=== PATIENT | female | born 1955 | race African-American/Black ===

== ENCOUNTER 2018-03-17 14:46 | Inpatient (IN) | payer OTHER ==
[~2018-03-17] VITALS: Ht 152.4 cm; Wt 58.1 kg
[2018-03-17] MEDS ORDERED: Norco 5mg/325mg tab ORAL ONE (15:15)
[2018-03-17 16:30] VITALS: BP 148/84
--- NOTE | 2018-03-17 16:54 | Diagnostic Imaging Report ---
Indication: Pain, status post fall 2 days ago Technique: Spiral acquisitions obtained through the abdomen and pelvis. No oral contrast utilized, per emergency room physician request No IV contrast utilized, per referring physician request.. Multiplanar reconstructions were generated. Total dose length product 675.92 mGycm. CTDIvol(s) 13.21 mGy. Dose reduction achieved using automated exposure control Comparison: 10/27/2009 Findings: Bone window images demonstrate surgical fusion of the discs and posterior elements of L4-5 and L5-S1. There appears to be complete ankylosis of the L4-5 disc. A disc spacer is in place and there is partial ankylosis of the L5-S1 disc. There does appear to be fairly complete ankylosis of the posterior elements at L5-S1. No definite acute fractures or dislocations there are degenerative changes at multiple other levels. Lack of IV contrast limits assessment of solid organs. The liver, gallbladder, bile ducts, pancreas, spleen, right adrenal are unremarkable. Left and adrenal demonstrates a 1 cm nodule which demonstrates attenuation of 3 Hounsfield units. Not visible previously. A second more peripheral nodule measures 8 mm, demonstrates nonspecific soft tissue attenuation it was evident on the previous exam in retrospect.. The right adrenal is unremarkable. The right kidney is unremarkable. The left kidney demonstrates a hilar calcification which is probably arterial rather than calyceal. Uterus and adnexal structures are unremarkable. No pelvic mass or adenopathy. Lack of enteric contrast limits assessment of the GI tract. There is colonic diverticulosis. The appendix is only equivocally demonstrated. No evidence of appendicitis. No small bowel distention. No free or loculated intraperitoneal gas or fluid is evident. There is a moderate-sized sliding-type hiatal hernia. The remainder of the stomach and duodenum are unremarkable. The included lung bases are clear Compared to prior study, previously demonstrated immediate postsurgical changes, spinous and left pelvic and flank inflammatory changes are no longer evident. Previously demonstrated nephroureteral stent is no longer present.. Impression: No evidence of acute or significant solid organ trauma. Note, however, that evaluation for such is limited in the absence of IV contrast No definite acute bony trauma. Degenerative and postsurgical changes of the spine, as described 1 cm nodule in the left adrenal, low-attenuation is consistent with benign adenoma,, new since prior study. More peripheral nonspecific nodule was visible previously and is unchanged. Colonic diverticulosis Hiatal hernia, also previously demonstrated The CT scanner at [facility] is accredited by the [employer] and the scans are performed using protocols designed to limit radiation exposure to as low as reasonably achievable to attain images of sufficient resolution adequate for diagnostic evaluation.
[2018-03-17] MEDS ORDERED: Norco 5mg/325mg tab ONE (17:50)
[2018-03-17 18:20] LABS: BASOPHILS % (AUTO) 0.4 % (0.0-2.0); EOSINOPHILS % (AUTO) 0.5 % (0.0-3.0); HEMATOCRIT 36.8 % (37.0-47.0); HEMOGLOBIN 12.2 G/DL (12.0-16.0); LYMPHOCYTES % (AUTO) 26.3 % (20.0-45.0); MEAN CORPUSCULAR VOLUME 91 FL (80-99); MONOCYTES % (AUTO) 6.6 % (1.0-10.0); NEUTROPHILS % (AUTO) 66.3 % (45.0-75.0); PLATELET COUNT 401 K/UL (150-450); RED BLOOD COUNT 4.06 M/UL (4.20-5.40); RED CELL DISTRIBUTION WIDTH 12.9 % (11.6-14.8); WHITE BLOOD COUNT 12.1 K/UL (4.8-10.8)
[2018-03-17 18:27] LABS: ANION GAP 11 mmol/L (5-15); BLOOD UREA NITROGEN 24 mg/dL (7-18); CALCIUM 10.8 MG/DL (8.5-10.1); CARBON DIOXIDE 27 MMOL/L (21-32); CHLORIDE 103 MMOL/L (98-107); CREATININE 0.9 MG/DL (0.55-1.30); POTASSIUM 3.5 MMOL/L (3.5-5.1); SODIUM 141 MMOL/L (136-145)
[2018-03-17 18:32] LABS: ALANINE AMINOTRANSFERASE 23 U/L (12-78); ALBUMIN 4.2 G/DL (3.4-5.0); ALBUMIN/GLOBULIN RATIO 0.9 (1.0-2.7); ALKALINE PHOSPHATASE 74 U/L (46-116); ASPARTATE AMINO TRANSFERASE 24 U/L (15-37); BILIRUBIN,TOTAL 0.5 MG/DL (0.2-1.0)
--- NOTE | 2018-03-17 18:51 | Emergency Room Report ---
History of Present Illness General Chief Complaint: Pain Source: Patient Present Illness HPI Patient is a 63-year-old female who presented after increased generalized weakness. The patient had been sent from a [id number]. The patient had prior history of lumbar disc disease and is intermittently able to ambulate with a walker with great difficulty. The patient was noted to have decreased ability to ambulate. She had prior history of multiple spinal surgeries as well as rheumatoid arthritis. Patient reports having prior history of cervical stenosis.She reports having increased difficulty with urination.She was having normal bowel movement. Allergies: Coded Allergies: IBUPROFEN (Verified Allergy, Mild, 10/05/09) Patient History Past Medical History: see triage record Last Menstrual Period: na Reviewed Nursing Documentation: PMH: Agreed; PSxH: Agreed Nursing Documentation-PMH Past Medical History: No History, Except For Hx Hypertension: Yes Hx COPD: Yes Hx Neurological Problems: Yes - cervical compression Review of Systems All Other Systems: negative except mentioned in HPI Physical Exam Vital Signs Date Time Temp Pulse Resp B/P (MAP) Pulse Ox O2 Delivery O2 Flow Rate FiO2 03/17/18 14:54 99.5 116 18 149/96 98 Room Air 99.5 Sp02 EP Interpretation: reviewed, normal General Appearance: normal inspection, well appearing, no apparent distress, alert, GCS 15, Chronically Ill Head: atraumatic ENT: normal ENT inspection, hearing grossly normal, normal voice Neck: normal inspection, supple, no bony tend, limited range of motion Respiratory: normal inspection, lungs clear, normal breath sounds, no respiratory distress, no retraction, no wheezing Cardiovascular #1: regular rate, rhythm, no edema Gastrointestinal: normal inspection, normal bowel sounds, non tender, soft, no guarding, no hernia Genitourinary: no CVA tenderness Musculoskeletal: back normal, decreased range of motion, other - mild joint deformity to upper extremities Neurologic: normal inspection, alert, oriented x3, responsive, speech normal, motor weakness - left greater than right, able to stand with assistance Psychiatric: normal inspection, judgement/insight normal, mood/affect normal Skin: normal inspection, normal color, no rash Medical Decision Making Diagnostic Impression: Primary Impression: Generalized weakness Additional Impressions: Lumbar disc disease Cervical stenosis of spine Leukocytosis Dehydration ER Course Patient presented for back pain. Differential diagnosis included but was not limited to herniated disc, cauda equina syndrome, abdominal aortic aneurysm, perforated ulcer, spinal epidural abscess, spinal stenosis, lumbar fracture, metastatic lesion, pyelonephritis. Because of complexity of patient's case laboratory testing and imaging studies were ordered. The patient was noted to have chronic pain to her lower extremities. Patient reportedly has been on steroids in the past for rheumatoid arthritis with a resulting as severe swelling. The patient was noted to have significant back pain as well as difficulty with urination. CT of the abdomen pelvis read by radiology showed multilevel degenerative changes and postsurgical changes. The patient was noted to have elevated white blood count.The patient will be admitted for further evaluation of weakness.Dr. Enamorado was contacted for inpatient management due to need for inpatient monitoring and treatment. Labs Test 03/17/18 17:28 White Blood Count 12.1 K/UL (4.8-10.8) Red Blood Count 4.06 M/UL (4.20-5.40) Hemoglobin 12.2 G/DL (12.0-16.0) Hematocrit 36.8 % (37.0-47.0) Mean Corpuscular Volume 91 FL (80-99) Mean Corpuscular Hemoglobin 30.0 PG (27.0-31.0) Mean Corpuscular Hemoglobin Concent 33.0 G/DL (32.0-36.0) Red Cell Distribution Width 12.9 % (11.6-14.8) Platelet Count 401 K/UL (150-450) Mean Platelet Volume 4.9 FL (6.5-10.1) Neutrophils (%) (Auto) 66.3 % (45.0-75.0) Lymphocytes (%) (Auto) 26.3 % (20.0-45.0) Monocytes (%) (Auto) 6.6 % (1.0-10.0) Eosinophils (%) (Auto) 0.5 % (0.0-3.0) Basophils (%) (Auto) 0.4 % (0.0-2.0) Sodium Level 141 MMOL/L (136-145) Potassium Level 3.5 MMOL/L (3.5-5.1) Chloride Level 103 MMOL/L (98-107) Carbon Dioxide Level 27 MMOL/L (21-32) Anion Gap 11 mmol/L (5-15) Blood Urea Nitrogen 24 mg/dL (7-18) Creatinine 0.9 MG/DL (0.55-1.30) Estimat Glomerular Filtration Rate > 60 mL/min (>60) Glucose Level 86 MG/DL (74-106) Calcium Level 10.8 MG/DL (8.5-10.1) Total Bilirubin 0.5 MG/DL (0.2-1.0) Aspartate Amino Transf (AST/SGOT) 24 U/L (15-37) Alanine Aminotransferase (ALT/SGPT) 23 U/L (12-78) Alkaline Phosphatase 74 U/L (46-116) Troponin I 0.031 ng/mL (0.000-0.056) Total Protein 8.8 G/DL (6.4-8.2) Albumin 4.2 G/DL (3.4-5.0) Globulin 4.6 g/dL Albumin/Globulin Ratio 0.9 (1.0-2.7) Last Vital Signs Date Time Temp Pulse Resp B/P (MAP) Pulse Ox O2 Delivery O2 Flow Rate FiO2 03/17/18 17:51 99.5 03/17/18 16:30 82 18 148/84 100 Room Air Status: unchanged Disposition: ADMITTED INPATIENT Condition: Stable Referrals: NOT CHOSEN IPA/,REFERRING (PCP) Jermaine Nick MD Mar 17, 2018 18:51
[2018-03-17] MEDS ORDERED: Sodium Chloride 500ML 500 ML IV ONE (19:45)
[2018-03-17 21:00] VITALS: BP 182/92
[2018-03-17] MEDS ORDERED: Acetaminophen 650 MG SUPP RECTAL PRN (21:00)
[2018-03-17] MEDS ORDERED: DULCOLAX5 MG PO (21:08)
[2018-03-17] MEDS ORDERED: FUROSEMIDE40 MG ORAL (21:08)
[2018-03-17] MEDS ORDERED: CYMBALTA60 MG ORAL (21:08)
[2018-03-17] MEDS ORDERED: ACETAMINOPHEN325 M1 ORAL (21:08)
[2018-03-17] MEDS ORDERED: PROTONIX40 MG ORAL (21:08)
[2018-03-17] MEDS ORDERED: ELIQUIS5 MG PO (21:12)
[2018-03-17] MEDS ORDERED: FAMOTIDINE20 MG ORAL (21:12)
[2018-03-17] MEDS ORDERED: CYCLOBENZAPRIN7.5 MG ORAL (21:12)
[2018-03-17] MEDS ORDERED: AMLODIPINE BESYL5 MG ORAL (21:12)
[2018-03-17] MEDS ORDERED: LIDOCAINE700 M1 TP (21:14)
[2018-03-17] MEDS ORDERED: AFRIN NASAL SPR30 ML NASAL (21:14)
[2018-03-17 21:30] VITALS: BP 160/105
[2018-03-17] MEDS: Docusate 100mg cap ORAL SCH (21:44)
[2018-03-17] MEDS: D5 1/2NS 1,000 ML IV SCH (21:48)
[2018-03-17] MEDS ORDERED: Enoxaparin 40mg Inj SUBQ SCH (22:00)
[2018-03-17 22:25] VITALS: BP 140/100
[2018-03-17 22:25] LABS: CHOLESTEROL 235 MG/DL (< 200); FERRITIN 62 NG/ML (8-388); HDL CHOLESTEROL 66 MG/DL (40-60); TRIGLYCERIDES 83 MG/DL (30-150)
--- NOTE | 2018-03-17 22:50 | Infectious Diseases Prog Note ---
Assessment/Plan Problems: (1) Fever Assessment & Plan: rule out infectious eiteology VS RA flare, will send blood culture and urine culture , and order CXR to rule out pneumonia (2) Leukocytosis Assessment & Plan: UTI VS RA flare , will send urine culture and start ceftriaxon empirically (3) Generalized weakness Assessment & Plan: consult PT/OT , check TSH (4) Dehydration Assessment & Plan: continue IVF for hydration (5) Lumbar disc disease Assessment & Plan: continue pain management , PT/OT Subjective Allergies: Coded Allergies: IBUPROFEN (Verified Allergy, Mild, 10/05/09) Objective Vital Signs Last 24 Hour Vital Signs Date Time Temp Pulse Resp B/P (MAP) Pulse Ox O2 Delivery O2 Flow Rate FiO2 03/17/18 20:23 98.0 82 18 148/84 100 Room Air 03/17/18 17:51 99.5 03/17/18 16:30 82 18 148/84 100 Room Air 03/17/18 14:54 99.5 116 18 149/96 98 Room Air 99.5 Height (Feet): 5 Weight (Pounds): 128 Laboratory Tests Test 03/17/18 17:28 White Blood Count 12.1 K/UL (4.8-10.8) H Red Blood Count 4.06 M/UL (4.20-5.40) L Hemoglobin 12.2 G/DL (12.0-16.0) Hematocrit 36.8 % (37.0-47.0) L Mean Corpuscular Volume 91 FL (80-99) Mean Corpuscular Hemoglobin 30.0 PG (27.0-31.0) Mean Corpuscular Hemoglobin Concent 33.0 G/DL (32.0-36.0) Red Cell Distribution Width 12.9 % (11.6-14.8) Platelet Count 401 K/UL (150-450) Mean Platelet Volume 4.9 FL (6.5-10.1) L Neutrophils (%) (Auto) 66.3 % (45.0-75.0) Lymphocytes (%) (Auto) 26.3 % (20.0-45.0) Monocytes (%) (Auto) 6.6 % (1.0-10.0) Eosinophils (%) (Auto) 0.5 % (0.0-3.0) Basophils (%) (Auto) 0.4 % (0.0-2.0) Sodium Level 141 MMOL/L (136-145) Potassium Level 3.5 MMOL/L (3.5-5.1) Chloride Level 103 MMOL/L (98-107) Carbon Dioxide Level 27 MMOL/L (21-32) Anion Gap 11 mmol/L (5-15) Blood Urea Nitrogen 24 mg/dL (7-18) H Creatinine 0.9 MG/DL (0.55-1.30) Estimat Glomerular Filtration Rate > 60 mL/min (>60) Glucose Level 86 MG/DL (74-106) Hemoglobin A1c 5.8 % (4.3-6.0) Calcium Level 10.8 MG/DL (8.5-10.1) H Ferritin 62 NG/ML (8-388) Total Bilirubin 0.5 MG/DL (0.2-1.0) Aspartate Amino Transf (AST/SGOT) 24 U/L (15-37) Alanine Aminotransferase (ALT/SGPT) 23 U/L (12-78) Alkaline Phosphatase 74 U/L (46-116) Troponin I 0.031 ng/mL (0.000-0.056) Pro-B-Type Natriuretic Peptide 49 pg/mL (0-125) Total Protein 8.8 G/DL (6.4-8.2) H Albumin 4.2 G/DL (3.4-5.0) Globulin 4.6 g/dL Albumin/Globulin Ratio 0.9 (1.0-2.7) L Triglycerides Level 83 MG/DL (30-150) Cholesterol Level 235 MG/DL (< 200) H LDL Cholesterol 144 mg/dL (<100) H HDL Cholesterol 66 MG/DL (40-60) H Cholesterol/HDL Ratio 3.6 (3.3-4.4) Free Thyroxine 1.21 NG/DL (0.76-1.46) Current Medications Medications (Trade) Dose Ordered Sig/Kina Route PRN Reason Start Time Stop Time Status Last Admin Dose Admin Acetaminophen (Tylenol) 650 mg Q4H PRN RECTAL Mild Pain (Pain Scale 1-3) 03/17/18 21:00 04/16/18 20:59 Dextrose (Dextrose 50%) 25 ml Q30M PRN IV Hypoglycemia 03/17/18 21:00 04/16/18 20:59 Dextrose (Dextrose 50%) 50 ml Q30M PRN IV Hypoglycemia 03/17/18 21:00 04/16/18 20:59 Dextrose/Sodium Chloride 1,000 ml @ 75 mls/hr [id number] IV 03/17/18 21:30 04/16/18 21:29 03/17/18 21:48 Diphenhydramine HCl (Benadryl) 25 mg Q6H PRN ORAL Itching/Pruritis 03/17/18 21:00 04/16/18 20:59 Docusate Sodium (Colace) 100 mg EVERY 12 HOURS ORAL 03/17/18 21:00 04/16/18 20:59 03/17/18 21:44 Enoxaparin Sodium (Lovenox) 40 mg Q24H SUBQ 03/17/18 22:00 04/16/18 21:59 03/17/18 22:06 Furosemide (Lasix) 40 mg DAILY IV 03/17/18 22:00 04/16/18 21:59 03/17/18 21:48 Ondansetron HCl (Zofran) 4 mg Q6H PRN IVP Nausea & Vomiting 03/17/18 21:00 04/16/18 20:59 Pantoprazole (Protonix) 40 mg DAILY ORAL 03/17/18 21:00 04/16/18 20:59 03/17/18 21:44 Ar Pardo M.D. Mar 17, 2018 22:50
[2018-03-18] VITALS: BP 145/89
[2018-03-18] MEDS: cefTRIAXone 1 GM in D5W 55 ML IVPB SCH ×2 (01:13→22:59)
[2018-03-18] MEDS ORDERED: Oxymetazoline 0.05% Na Spray 30ml NASAL PRN (01:45)
[2018-03-18] MEDS: Morphine Sulfate 4mg/ml Inj (IV USE ONLY) IVP PRN ×4 (05:54→21:10)
[2018-03-18 08:00] VITALS: BP 140/98
[2018-03-18 08:08] LABS: BASOPHILS % (AUTO) 0.5 % (0.0-2.0); EOSINOPHILS % (AUTO) 0.7 % (0.0-3.0); HEMATOCRIT 35.5 % (37.0-47.0); HEMOGLOBIN 11.8 G/DL (12.0-16.0); LYMPHOCYTES % (AUTO) 24.9 % (20.0-45.0); MEAN CORPUSCULAR VOLUME 88 FL (80-99); MONOCYTES % (AUTO) 4.9 % (1.0-10.0); PLATELET COUNT 364 K/UL (150-450); RED BLOOD COUNT 4.05 M/UL (4.20-5.40); RED CELL DISTRIBUTION WIDTH 12.7 % (11.6-14.8); WHITE BLOOD COUNT 8.6 K/UL (4.8-10.8)
[2018-03-18] MEDS: Docusate 100mg cap ORAL SCH ×2 (08:21→21:09)
[2018-03-18] MEDS: Eliquis 2.5mg tablet ORAL SCH ×2 (08:21→21:09)
[2018-03-18 08:28] LABS: ALANINE AMINOTRANSFERASE 20 U/L (12-78); ALBUMIN 3.8 G/DL (3.4-5.0); ALBUMIN/GLOBULIN RATIO 0.8 (1.0-2.7); ALKALINE PHOSPHATASE 71 U/L (46-116); ANION GAP 10 mmol/L (5-15); ASPARTATE AMINO TRANSFERASE 17 U/L (15-37); BILIRUBIN,TOTAL 0.4 MG/DL (0.2-1.0); BLOOD UREA NITROGEN 17 mg/dL (7-18); CALCIUM 10.5 MG/DL (8.5-10.1); CARBON DIOXIDE 27 MMOL/L (21-32); CHLORIDE 103 MMOL/L (98-107); CREATININE 0.7 MG/DL (0.55-1.30); SODIUM 141 MMOL/L (136-145)
[2018-03-18 08:30] LABS: POTASSIUM 2.7 MMOL/L (3.5-5.1)
--- NOTE | 2018-03-18 10:08 | General Progress Note ---
Assessment/Plan Assessment/Plan S: My pain is better controlled O: appears with significant pain in lower extr, and limitation for ambulation PHYSICAL EXAMINATION: HEAD AND NECK: Atraumatic and normocephalic. CHEST: Clear to auscultation. No wheezing and no crackles. HEART: S1 and S2. Regular rate and rhythm. No S3. No S4. ABDOMEN: Soft. No organomegaly. Bowel sounds are normal. MUSCULOSKELETAL: Decreased range of motion in all four extremities. Positive for atrophied musculature. No gross sensory lesion is appreciated in the lower extremities.NEUROLOGIC: Awake, alert, and oriented x3. Meds: reviewed , including and not limited to metoprolol 25 mg bid IMAGING: result for CT is pending ASSESSMENT AND PLAN: 1. Acute weakness in the lower extremities associated urinary incontinence with no Obstruction 2. 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 3. Systemic inflammatory response syndrome. 4. Chronic pain. 5. Hyperlipidemia. 6. Gastrointestinal and deep venous thrombosis prophylaxis. 7. HTN Plan: Pt/OT consult no evidence of Acute Bladder Obstruction Subjective Allergies: Coded Allergies: IBUPROFEN (Verified Allergy, Mild, 10/05/09) Objective Last 24 Hour Vital Signs Date Time Temp Pulse Resp B/P (MAP) Pulse Ox O2 Delivery O2 Flow Rate FiO2 03/18/18 09:39 96.8 03/18/18 09:09 96.8 03/18/18 08:00 96.8 90 18 140/98 (112) 97 96.8 03/18/18 07:27 Room Air 03/18/18 00:00 97.6 78 18 145/89 (107) 97 97.6 03/17/18 22:25 140/100 (113) 03/17/18 21:30 160/105 (123) 03/17/18 21:00 97.3 18 18 182/92 (122) 97 97.3 03/17/18 21:00 Room Air 03/17/18 20:46 Room Air 03/17/18 20:23 98.0 82 18 148/84 100 Room Air 03/17/18 17:51 99.5 03/17/18 16:30 82 18 148/84 100 Room Air 03/17/18 14:54 99.5 116 18 149/96 98 Room Air 99.5 Intake and Output 03/17/18 03/18/18 19:00 07:00 Intake Total 1805 ml Balance 1805 ml Intake IV Total 1805 ml # Voids 5 Laboratory Tests 03/17/18 17:28: White Blood Count 12.1H, Red Blood Count 4.06L, Hemoglobin 12.2, Hematocrit 36.8L, Mean Corpuscular Volume 91, Mean Corpuscular Hemoglobin 30.0, Mean Corpuscular Hemoglobin Concent 33.0, Red Cell Distribution Width 12.9, Platelet Count 401, Mean Platelet Volume 4.9L, Neutrophils (%) (Auto) 66.3, Lymphocytes ( %) (Auto) 26.3, Monocytes (%) (Auto) 6.6, Eosinophils (%) (Auto) 0.5, Basophils (%) (Auto) 0.4, Sodium Level 141, Potassium Level 3.5, Chloride Level 103, Carbon Dioxide Level 27, Anion Gap 11, Blood Urea Nitrogen 24H, Creatinine 0.9, Estimat Glomerular Filtration Rate > 60, Glucose Level 86, Hemoglobin A1c 5.8, Calcium Level 10.8H, Ferritin 62, Total Bilirubin 0.5, Aspartate Amino Transf ( AST/SGOT) 24, Alanine Aminotransferase (ALT/SGPT) 23, Alkaline Phosphatase 74, Troponin I 0.031, Pro-B-Type Natriuretic Peptide 49, Total Protein 8.8H, Albumin 4.2, Globulin 4.6, Albumin/Globulin Ratio 0.9L, Triglycerides Level 83, Cholesterol Level 235H, LDL Cholesterol 144H, HDL Cholesterol 66H, Cholesterol/ HDL Ratio 3.6, Free Thyroxine 1.21 03/18/18 06:55: White Blood Count 8.6, Red Blood Count 4.05L, Hemoglobin 11.8L, Hematocrit 35.5L , Mean Corpuscular Volume 88, Mean Corpuscular Hemoglobin 29.2, Mean Corpuscular Hemoglobin Concent 33.4, Red Cell Distribution Width 12.7, Platelet Count 364, Mean Platelet Volume 5.1L, Neutrophils (%) (Auto) 69.0, Lymphocytes ( %) (Auto) 24.9, Monocytes (%) (Auto) 4.9, Eosinophils (%) (Auto) 0.7, Basophils (%) (Auto) 0.5, Sodium Level 141, Potassium Level 2.7*L, Chloride Level 103, Carbon Dioxide Level 27, Anion Gap 10, Blood Urea Nitrogen 17, Creatinine 0.7, Estimat Glomerular Filtration Rate > 60, Glucose Level 101, Calcium Level 10.5H , Total Bilirubin 0.4, Aspartate Amino Transf (AST/SGOT) 17, Alanine Aminotransferase (ALT/SGPT) 20, Alkaline Phosphatase 71, Total Protein 8.3H, Albumin 3.8, Globulin 4.5, Albumin/Globulin Ratio 0.8L Height (Feet): 5 Height (Inches): 0.00 Weight (Pounds): 128 Ольга Enamorado MD Mar 18, 2018 10:08
[2018-03-18] MEDS: D5 1/2NS 1,000 ML IV SCH (10:59)
[2018-03-18 11:52] LABS: APPEARANCE,URINE CLOUDY; BILIRUBIN, URINE NEGATIVE (NEGATIVE); COLOR,URINE PALE YELLOW; GLUCOSE, URINE (UA) NEGATIVE (NEGATIVE); KETONES,URINE NEGATIVE (NEGATIVE); LEUKOCYTE ESTERASE ,URINE NEGATIVE (NEGATIVE); NITRITE,URINE NEGATIVE (NEGATIVE); PH,URINE 7 (4.5-8.0); PROTEIN,URINE NEGATIVE (NEGATIVE); UROBILINOGEN,URINE NORMAL MG/DL (0.0-1.0)
[2018-03-18 12:31] VITALS: BP 138/92
--- NOTE | 2018-03-18 15:15 | Diagnostic Imaging Report ---
Indication: Increased generalized weakness, difficulty walking, decreased ability to ambulate, history of multiple spinal surgeries Technique: Spiral acquisitions obtained through the cervical spine. No IV contrast utilized. Multiplanar reconstructions were generated. Total dose length product 210.24 mGycm. CTDIvol(s) 11.65 mGy. Dose reduction achieved using automated exposure control. Comparison: none Findings: There is very slight anterior offset of C3 on C4. The remainder the bony alignment is normal. Vertebral body heights are preserved. There is multilevel degenerative disc narrowing. No prevertebral soft tissue swelling no acute fractures. No dislocations. There is degenerative narrowing of the anterior atlantoaxial joint. At C2-3, there is mild central posterior disc protrusion which does not appear to significant compromise the spinal canal. The neural foramina are preserved. At C3-4, there is degenerative disc narrowing. There is posterior disc bulge/osteophyte complex as well as a broad-based central posterior disc protrusion. This, in combination with short pedicles and ligamentum flavum hypertrophy results in moderate to severe narrowing of the spinal canal, to a minimum of 5 mm AP diameter. There is bilateral facet arthrosis. There is bilateral severe neural foraminal stenosis. At C4-5, there is degenerative disc narrowing and calcification. Posterior osteophytes result in borderline narrowing of the spinal canal. There is minimal right, moderate to severe left neural foraminal stenosis. At C5-6, there is broad-based posterior disc protrusion which results in mild to moderate narrowing of the spinal canal. There is moderate to severe narrowing of the neural foramina bilaterally. There is moderate narrowing of the disc space. At the remaining disc levels, no significant disc bulge or protrusion, spinal stenosis, or neural foraminal stenosis. There is mild facet arthrosis at C7-T1 on the left. Included extra spinal soft tissues are remarkable for the presence of a diffusely enlarged thyroid. There is very questionable slight heterogeneity to the thyroid attenuation all of discrete nodules are not clearly demonstrated. The upper aerodigestive tract appears unremarkable. Impression: No acute bony trauma Moderate to severe spinal stenosis at C3-4. Other multilevel degenerative changes, as detailed above. Enlarged and possibly multinodular thyroid The CT scanner at [facility] is accredited by the [employer] and the scans are performed using protocols designed to limit radiation exposure to as low as reasonably achievable to attain images of sufficient resolution adequate for diagnostic evaluation.
--- NOTE | 2018-03-18 15:34 | Diagnostic Imaging Report ---
Indication: Back pain, difficulty walking, history of multiple spinal surgeries Technique: Spiral acquisitions obtained through the thoracic spine. No IV contrast utilized. Multiplanar reconstructions were generated. Total dose length product 644.26 mGycm. CTDIvol(s) 16.15 mGy. Dose reduction achieved using automated exposure control Comparison: none Findings: There is very mild thoracic levoscoliotic deformity, may be an artifact of positioning, otherwise normal bony alignment. No acute fractures. No dislocations. Short pedicles result in a diffusely mildly narrow thoracic spinal canal. There is mild to moderate degenerative disc narrowing at T8-9. This results in mild bilateral neural foraminal stenosis. No significant focal spinal stenosis. There is some vacuum disc formation at this level. There is minimal focal anterior disc degeneration at C5-6, as well as adjacent osteophyte formation. No significant disc bulge or protrusion, focal spinal stenosis, or neural foraminal stenosis at this level. There is moderate degenerative disc narrowing, considerable adjacent endplate irregularity, subchondral cyst formation, osteophyte formation and sclerosis at T9-10, with associated degenerative proliferative changes. There is also facet arthrosis on the right. Posterior osteophytes result in mild focal narrowing of the spinal canal, minimum AP dimension 9 mm. There is mild bilateral neural foraminal stenosis as well. There are multilevel degenerative proliferative changes, particularly laterally on the right. No other evidence of significant canal stenosis or neural foraminal stenosis. Included extraspinal soft tissues demonstrate a small to moderate-sized sliding-type hiatal hernia. There are posterior dependent atelectatic changes of both lungs incidentally noted. Impression: Generalized borderline narrowed spinal canal due to short pedicles Disc narrowing, marked endplate irregularity, subchondral cyst formation, proliferative change, subchondral sclerosis at T9-10. This is most likely due to advanced degenerative change. Given the degree of endplate irregularity, the possibility of chronic infectious discitis should be considered but is deemed much less likely. This results in mild focal spinal stenosis as well as bilateral mild neural foraminal stenosis Other degenerative changes as detailed on a level by level basis above Hiatal hernia The CT scanner at [facility] is accredited by the [employer] and the scans are performed using protocols designed to limit radiation exposure to as low as reasonably achievable to attain images of sufficient resolution adequate for diagnostic evaluation.
[2018-03-18 15:42] VITALS: BP 129/87
--- NOTE | 2018-03-18 16:13 | Diagnostic Imaging Report ---
Indications: Back pain, difficulty walking, lower extremity weakness Technique: Spiral acquisitions obtained through the lumbar spine. Multiplanar reconstructions were generated. No IV contrast utilized. Total dose length product 391.86 mGycm. CTDIvol(s) 13.35 mGy. Dose reduction achieved using automated exposure control Comparison: Reference made to abdomen pelvis CT scan 03/17/2018 Findings: There is fusion with complete ankylosis of the L4-5 disc. Uncertain as to whether this is postsurgical or related to prior history of discitis. There is some anterior offset of L4 on L5, resulting in some kinking of the spinal canal at this level. There is also complete ankylosis of the L4-L5 facets and spinous processes. There is a disc spacer at L5-S1. The disc appears to be mostly ankylosed. There is also ankylosis of the L5 and S1 facets bilaterally. The remainder of the bony alignment is preserved and normal. The vertebral body heights are preserved. There is vacuum formation at L3-4, but all of the disc spaces are preserved. There is [id number] contact with degenerative change of the L3 and L4 spinous processes. There is severe spinal stenosis at L3-4, predominantly due to circumferential annular bulge and large facet osteophytes intruding into the posterior spinal canal bilaterally. There is associated severe facet arthrosis. There is also bilateral severe neural foraminal stenosis. At L4-5, the alignment abnormality, short pedicles, facet arthrosis, and posterior osteophytes result in moderate to severe narrowing of the spinal canal and obliteration of the left lateral recess.. The neural foramina are only mildly compromised. At L5-S1, no significant disc bulge or protrusion or spinal stenosis. Facet arthrosis results in mild right and minimal left neural foraminal stenosis. At the upper lumbar disc levels, no significant disc bulge or protrusion, spinal stenosis, or neural foraminal stenosis. Included extraspinal soft tissues demonstrate marked bladder distention. There is colonic diverticulosis. Impression: Severe spinal stenosis at L3-4, as described, due to circumferential or bulge and large facet osteophytes. Associated severe bilateral neural foraminal stenosis. This may account for the patient's symptoms. Moderate to severe spinal stenosis at L4-5, as described Ankylosis of L4-5, may be in part postsurgical, in part related to prior discitis/osteomyelitis seen on 2009 exams Other postsurgical changes and degenerative changes, as described No acute bony trauma Distended bladder Colonic diverticulosis The CT scanner at [facility] is accredited by the [employer] and the scans are performed using protocols designed to limit radiation exposure to as low as reasonably achievable to attain images of sufficient resolution adequate for diagnostic evaluation.
--- NOTE | 2018-03-18 18:23 | Cardiology Report ---
APPROVED REPORT EXAM: Two-dimensional and M-mode echocardiogram with Doppler and color Doppler. INDICATION Hypertension/HCVD M-Mode DIMENSIONS IVSd1.2 (0.7-1.1cm)Left Atrium (MM)3.0 (1.6-4.0cm) LVDd4.1 (3.5-5.6cm)Aortic Root3.4 (2.0-3.7cm) PWd1.5 (0.7-1.1cm)Aortic Cusp Exc.1.6 (1.5-2.0cm) IVSs2.9 cm LVDs1.4 (2.5-4.0cm) Normal left ventricular chamber size, systolic function and wall motion . Left ventricular ejection fraction estimated to be 65-70 %. Increased echo at the atrial septum suggestive of lipomatous atrial septum. Mild left ventricular hypertrophy . No evidence of pericardial effusion. All other cardiac chamber sizes are within normal limits. Focal aortic valve sclerosis with adequate cusp excursion. Thickened mitral valve leaflets with normal excursion. Mitral annulus and aortic root calcification. Pulmonic valve not well visualized. Normal tricuspid valve structure. IVC at normal size with physiologic collapse. A color flow and spectral Doppler study was performed and revealed: No aortic insufficiency . Trace mitral regurgitation. Mitral diastolic velocities suggest reduced left ventricular relaxation c/w mild LV diastolic dysfunction (Grade I ). Mild tricuspid regurgitation. Tricuspid systolic velocities suggests peak right ventricular systolic pressure of 29 mmHg.
[2018-03-18 20:00] VITALS: BP 140/81
--- NOTE | 2018-03-18 21:15 | History and Physical Report ---
DATE OF ADMISSION: 03/17/2018 SOURCE OF INFORMATION: The patient and EMR. HISTORY OF PRESENT ILLNESS: The patient is a pleasant 63-year-old -[place] female with a history multiple spine injuries followed by the work-related injury. At the time of evaluation, the patient is complaining of [id number] pain in the lower extremity. The patient reported that she had been admitted to the long term facility followed by discharge, she had been stayed in the board and care. Given the worsening of the ambulation, the patient presented to the hospital. At the time of evaluation, the patient complained of problem with the urination, but reported that now that there are no issues. Denies any sensory problem in the lower extremity and positive for lowest strength in the lower extremities. REVIEW OF SYSTEMS: All 12 elements of review of systems reviewed. Pertinent positive and negative as above. PAST MEDICAL AND PAST SURGICAL HISTORY: Multiple lumbar spine surgeries followed by the work-related injury, anticoagulation (the exact reason is not clear at this time), chronic pain, and hypertension. SOCIAL HISTORY: The patient reportedly has one child. Denies history of smoking, illicit drug abuse, or alcohol abuse. CURRENT HOSPITAL MEDICATIONS: Including Eliquis, ceftriaxone, Lasix, and morphine sulfate on p.r.n. basis. PHYSICAL EXAMINATION: VITAL SIGNS: Blood pressure 150/80, temperature 98.2 degrees, pulse oximetry 98% on room air, respiratory rate 18, and pulse rate 120. HEAD AND NECK: Atraumatic and normocephalic. CHEST: Clear to auscultation. No wheezing and no crackles. HEART: S1 and S2. Regular rate and rhythm. No S3. No S4. ABDOMEN: Soft. No organomegaly. Bowel sounds are normal. MUSCULOSKELETAL: Decreased range of motion in all four extremities. Positive for atrophied musculature. No gross sensory lesion is appreciated in the lower extremities. NEUROLOGIC: Awake, alert, and oriented x3. LABORATORY DATA: Dated 03/17/2018 shows WBC 12.1, hemoglobin of 12.2, and platelet count of 400,000. Sodium 141, potassium 3.5, BUN 24, and creatinine 0.9. Troponin x1 negative. Calcium 10.8 and LDL of 144. IMAGING: Abdominal pelvic CT scan reviewed and is unremarkable for acute pathology, positive for postsurgical change in the spine, positive for 1 cm adrenal gland nodule, and hiatal hernia. ASSESSMENT AND PLAN: 1. Acute weakness in the lower extremities associated urinary incontinence. 2. 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 3. Systemic inflammatory response syndrome. 4. Chronic pain. 5. Hyperlipidemia. 6. Gastrointestinal and deep venous thrombosis prophylaxis. PLAN OF CARE: We will order the CT scan of the spine, consult PT/OT, and we will check the urinalysis. Ольга Enamorado M.D. DR: JOSE DAVID JOB#: [id number] CC:
--- NOTE | 2018-03-19 01:15 | Consultation ---
DATE OF CONSULTATION: 03/18/2018 INFECTIOUS DISEASE CONSULTATION CONSULTING PHYSICIAN: Ar Pardo M.D. REQUESTING PHYSICIAN: Allyson Enamorado M.D. REASON FOR CONSULTATION: Fever and leukocytosis, rule out infectious etiology. HISTORY OF PRESENT ILLNESS: The patient is a 63-year-old female with past medical history of hypertension, COPD, cervical compression, and rheumatoid arthritis with osteoarthritis, presented to [facility] for generalized weakness. The patient was sent from [facility]. She had prior history of lumbar disk disease and she has been intermittently able to ambulate with a walker, but with great difficulty. The patient was noted to have decreased ability to ambulate. She had multiple spinal surgeries in the past due to degenerative disease in her spine. The patient also had a history of cervical stenosis and she is on neck collar. In the emergency room, the patient was found to have low-grade temperature of 99.5 and pulse of 116. She also had leukocytosis, which was concerning for infection with white count of 12.1, so Infectious Disease consultation was requested for antibiotics treatment and further management. The patient herself denied any cough or phlegm. No headache or blurry vision. No fever or chills. No nausea, vomiting, or diarrhea. No urinary symptoms. REVIEW OF SYSTEMS: A 14-point of systems reviewed were all negative apart from the one I mentioned above in my History and Physical. PAST MEDICAL HISTORY: Significant for hypertension, COPD, cervical compression, and rheumatoid arthritis. PAST SURGICAL HISTORY: She had multiple spine surgeries. FAMILY HISTORY: Noncontributory. SOCIAL HISTORY: The patient lives at [facility]. No recent drugs, tobacco, or alcohol. ALLERGIES: She is allergic to ibuprofen. MEDICATIONS: She is on diphenhydramine, Zofran, Colace, Protonix, Lasix, Afrin nasal spray, Tylenol, morphine sulfate, Soma, and Eliquis. LABORATORY DATA: Labs showed white count of 8.6, hemoglobin of 11.8, and platelet count of 364,000. BUN of 17 and creatinine of 0.7. AST of 17 and ALT of 20. IMAGING: Abdomen and pelvis CT scan showed no evidence of acute or significant solid organ trauma; however, that evaluation for such was limited in the absence of IV contrast. No definite acute bony trauma. Degenerative and postsurgical change of the spine. A 1 cm nodule in the left adrenal low attenuation is consistent with benign adenoma. PHYSICAL EXAMINATION: VITAL SIGNS: Temperature 98, pulse 82, respirations 18, blood pressure 148/84, and saturation 100% on room air. GENERAL: Elderly female, lying in bed, awake, alert, and oriented x3, not in acute distress. She has neck collar. HEENT: Normocephalic and atraumatic. Pupils are reactive to light. Moist oral mucosa. No exudate or thrush. NECK: Supple. No lymphadenopathy. CARDIOVASCULAR: Regular rate and rhythm. No murmur or gallop. LUNGS: Clear bilaterally. No wheezing or rhonchi. ABDOMEN: Soft, nontender, and nondistended. Normal bowel sounds. No hepatosplenomegaly or ascites. EXTREMITIES: No edema or cyanosis. SKIN: No rash or hives. ASSESSMENT AND RECOMMENDATION: 1. Fever, rule out infectious etiology versus rheumatoid arthritis flare. We will send blood culture and urine culture and order chest x-ray to rule out pneumonia. We will start the patient on ceftriaxone empiric coverage. 2. Leukocytosis, UTI versus rheumatoid arthritis flare. We will send urine culture and start ceftriaxone empiric coverage. 3. Generalized weakness. Consult PT/OT. Check TSH. 4. Dehydration. Continue IV fluid for hydration. 5. Lumbar disk disease. Continue pain management and PT/OT. Thank you for the consult. ID will continue to follow. Please feel free to call with any question. Ar Pardo M.D. DR: FREDERICK JOB#: [id number] CC:
[2018-03-19] MEDS: D5 1/2NS 1,000 ML IV SCH ×3 (02:04→22:56)
[2018-03-19] MEDS: Morphine Sulfate 4mg/ml Inj (IV USE ONLY) IVP PRN ×3 (05:47→16:18)
[2018-03-19 09:00] VITALS: BP_SYST 140; BP_SYST 160; BP_DIAS 104; BP_DIAS 81
[2018-03-19] MEDS: Eliquis 2.5mg tablet ORAL SCH ×2 (09:09→20:51)
[2018-03-19] MEDS: Docusate 100mg cap ORAL SCH ×2 (09:10→20:51)
[2018-03-19 09:28] LABS: BASOPHILS % (AUTO) 0.3 % (0.0-2.0); EOSINOPHILS % (AUTO) 0.7 % (0.0-3.0); LYMPHOCYTES % (AUTO) 21.6 % (20.0-45.0); MEAN CORPUSCULAR VOLUME 90 FL (80-99); MONOCYTES % (AUTO) 5.5 % (1.0-10.0); NEUTROPHILS % (AUTO) 71.8 % (45.0-75.0); PLATELET COUNT 385 K/UL (150-450); RED BLOOD COUNT 4.13 M/UL (4.20-5.40); RED CELL DISTRIBUTION WIDTH 13.2 % (11.6-14.8); WHITE BLOOD COUNT 8.9 K/UL (4.8-10.8)
[2018-03-19 10:04] LABS: ALANINE AMINOTRANSFERASE 19 U/L (12-78); ALBUMIN 3.8 G/DL (3.4-5.0); ALBUMIN/GLOBULIN RATIO 0.8 (1.0-2.7); ALKALINE PHOSPHATASE 75 U/L (46-116); ANION GAP 8 mmol/L (5-15); ASPARTATE AMINO TRANSFERASE 12 U/L (15-37); BILIRUBIN,TOTAL 0.3 MG/DL (0.2-1.0); BLOOD UREA NITROGEN 18 mg/dL (7-18); CALCIUM 10.1 MG/DL (8.5-10.1); CARBON DIOXIDE 29 MMOL/L (21-32); CHLORIDE 106 MMOL/L (98-107); CREATININE 0.8 MG/DL (0.55-1.30); POTASSIUM 4.2 MMOL/L (3.5-5.1); SODIUM 143 MMOL/L (136-145)
[2018-03-19 12:00] VITALS: BP 148/95
--- NOTE | 2018-03-19 12:21 | General Progress Note ---
Assessment/Plan Assessment/Plan S: My pain is better controlled O: appears with significant limitation for ambulation PHYSICAL EXAMINATION: HEAD AND NECK: Atraumatic and normocephalic. CHEST: Clear to auscultation. No wheezing and no crackles. HEART: S1 and S2. Regular rate and rhythm. No S3. No S4. ABDOMEN: Soft. No organomegaly. Bowel sounds are normal. MUSCULOSKELETAL: Decreased range of motion in all four extremities. Positive for atrophied musculature. No gross sensory lesion is appreciated in the lower extremities.NEUROLOGIC: Awake, alert, and oriented x3. Meds: reviewed , including and not limited to metoprolol 25 mg bid IMAGING: Abdominal pelvic CT scan reviewed and is unremarkable for acute pathology, positive for postsurgical change in the spine, positive for 1 cm adrenal gland nodule, and hiatal hernia. ASSESSMENT AND PLAN: 1. Acute weakness in the lower extremities associated urinary incontinence. 2. 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 3. Systemic inflammatory response syndrome. 4. Chronic pain. 5. Hyperlipidemia. 6. Gastrointestinal and deep venous thrombosis prophylaxis. 7. HTN Plan: SNIF placement start Metoprolol no evidence of Acute Bladder Obstruction Subjective Allergies: Coded Allergies: IBUPROFEN (Verified Allergy, Mild, 10/05/09) Objective Last 24 Hour Vital Signs Date Time Temp Pulse Resp B/P (MAP) Pulse Ox O2 Delivery O2 Flow Rate FiO2 03/19/18 09:00 Room Air 03/19/18 09:00 98.1 86 17 160/104 (122) 100 98.1 03/18/18 21:00 Room Air 03/18/18 20:00 98.1 91 18 140/81 (100) 100 98.1 03/18/18 18:10 98.1 03/18/18 17:40 98.1 03/18/18 16:47 98.1 03/18/18 15:42 98.1 98 18 129/87 (101) 100 98.1 03/18/18 13:02 98.3 03/18/18 12:31 98.3 86 18 138/92 (107) 100 98.3 Intake and Output 03/18/18 03/19/18 19:00 07:00 Intake Total 750 ml Balance 750 ml Intake Oral 600 ml IV Total 150 ml # Voids 2 4 Laboratory Tests 03/19/18 08:25: White Blood Count 8.9, Red Blood Count 4.13L, Hemoglobin 12.0, Hematocrit 37.0, Mean Corpuscular Volume 90, Mean Corpuscular Hemoglobin 29.0, Mean Corpuscular Hemoglobin Concent 32.4, Red Cell Distribution Width 13.2, Platelet Count 385, Mean Platelet Volume 5.1L, Neutrophils (%) (Auto) 71.8, Lymphocytes (%) (Auto) 21.6, Monocytes (%) (Auto) 5.5, Eosinophils (%) (Auto) 0.7, Basophils (%) (Auto ) 0.3, Sodium Level 143, Potassium Level 4.2#, Chloride Level 106, Carbon Dioxide Level 29, Anion Gap 8, Blood Urea Nitrogen 18, Creatinine 0.8, Estimat Glomerular Filtration Rate > 60, Glucose Level 107H, Calcium Level 10.1, Total Bilirubin 0.3, Aspartate Amino Transf (AST/SGOT) 12L, Alanine Aminotransferase ( ALT/SGPT) 19, Alkaline Phosphatase 75, Total Protein 8.4H, Albumin 3.8, Globulin 4.6, Albumin/Globulin Ratio 0.8L Height (Feet): 5 Height (Inches): 0.00 Weight (Pounds): 130 Ольга Enamorado MD Mar 19, 2018 12:21
[2018-03-19] MEDS ORDERED: Metoprolol 25mg tab ORAL SCH (12:30)
--- NOTE | 2018-03-19 15:24 | Infectious Diseases Prog Note ---
Assessment/Plan Problems: (1) Fever Assessment & Plan: rule out infectious eiteology VS RA flare, await blood culture and urine culture (2) Leukocytosis Assessment & Plan: UTI VS RA flare , await urine culture and continue ceftriaxon empirically (3) Generalized weakness Assessment & Plan: consult PT/OT , check TSH (4) Dehydration Assessment & Plan: continue IVF for hydration (5) Lumbar disc disease Assessment & Plan: continue pain management , PT/OT Subjective Constitutional: Reports: no symptoms HEENT: Reports: no symptoms Respiratory: Reports: no symptoms Breasts: Reports: no symptoms Cardiovascular: Reports: no symptoms Gastrointestinal/Abdominal: Reports: no symptoms Genitourinary: Reports: no symptoms Neurologic: Reports: no symptoms Psychiatric: Reports: no symptoms Skin: Reports: no symptoms Endocrine: Reports: no symptoms Hematologic: Reports: no symptoms Musculoskeletal: Reports: pain, stiffness - in the neck and spine Allergies: Coded Allergies: IBUPROFEN (Verified Allergy, Mild, 10/05/09) Objective Vital Signs Last 24 Hour Vital Signs Date Time Temp Pulse Resp B/P (MAP) Pulse Ox O2 Delivery O2 Flow Rate FiO2 03/19/18 13:52 86 160/104 03/19/18 09:00 Room Air 03/19/18 09:00 98.1 86 17 160/104 (122) 100 98.1 03/18/18 21:00 Room Air 03/18/18 20:00 98.1 91 18 140/81 (100) 100 98.1 03/18/18 18:10 98.1 03/18/18 17:40 98.1 03/18/18 16:47 98.1 03/18/18 15:42 98.1 98 18 129/87 (101) 100 98.1 Height (Feet): 5 Height (Inches): 0.00 Weight (Pounds): 130 General Appearance: WD/WN, no acute distress HEENT: normocephalic, atraumatic, anicteric, mucous membranes moist, PERRL Respiratory/Chest: chest wall non-tender, lungs clear, normal breath sounds, no respiratory distress, no accessory muscle use Cardiovascular: normal peripheral pulses, normal rate, regular rhythm, no gallop/murmur, no JVD Abdomen: normal bowel sounds, soft, non tender, no organomegaly, non distended , no mass, no scars Extremities: no cyanosis, no clubbing Skin: no rash, no lesions, no ulcers Lymphatic: no neck adenopathy, no groin adenopathy Microbiology Date/Time Source Procedure Growth Status 03/18/18 11:20 Urine,Clean Catch Urine Culture - Preliminary NO GROWTH Resulted Laboratory Tests Test 03/19/18 08:25 White Blood Count 8.9 K/UL (4.8-10.8) Red Blood Count 4.13 M/UL (4.20-5.40) L Hemoglobin 12.0 G/DL (12.0-16.0) Hematocrit 37.0 % (37.0-47.0) Mean Corpuscular Volume 90 FL (80-99) Mean Corpuscular Hemoglobin 29.0 PG (27.0-31.0) Mean Corpuscular Hemoglobin Concent 32.4 G/DL (32.0-36.0) Red Cell Distribution Width 13.2 % (11.6-14.8) Platelet Count 385 K/UL (150-450) Mean Platelet Volume 5.1 FL (6.5-10.1) L Neutrophils (%) (Auto) 71.8 % (45.0-75.0) Lymphocytes (%) (Auto) 21.6 % (20.0-45.0) Monocytes (%) (Auto) 5.5 % (1.0-10.0) Eosinophils (%) (Auto) 0.7 % (0.0-3.0) Basophils (%) (Auto) 0.3 % (0.0-2.0) Sodium Level 143 MMOL/L (136-145) Potassium Level 4.2 MMOL/L (3.5-5.1) # Chloride Level 106 MMOL/L (98-107) Carbon Dioxide Level 29 MMOL/L (21-32) Anion Gap 8 mmol/L (5-15) Blood Urea Nitrogen 18 mg/dL (7-18) Creatinine 0.8 MG/DL (0.55-1.30) Estimat Glomerular Filtration Rate > 60 mL/min (>60) Glucose Level 107 MG/DL (74-106) H Calcium Level 10.1 MG/DL (8.5-10.1) Total Bilirubin 0.3 MG/DL (0.2-1.0) Aspartate Amino Transf (AST/SGOT) 12 U/L (15-37) L Alanine Aminotransferase (ALT/SGPT) 19 U/L (12-78) Alkaline Phosphatase 75 U/L (46-116) Total Protein 8.4 G/DL (6.4-8.2) H Albumin 3.8 G/DL (3.4-5.0) Globulin 4.6 g/dL Albumin/Globulin Ratio 0.8 (1.0-2.7) L Current Medications Medications (Trade) Dose Ordered Sig/Kina Route PRN Reason Start Time Stop Time Status Last Admin Dose Admin Acetaminophen (Tylenol) 650 mg Q6H PRN ORAL For Pain 03/18/18 05:30 04/17/18 05:29 Apixaban (Eliquis) 5 mg Q12HR ORAL 03/18/18 09:00 04/17/18 08:59 03/19/18 09:09 Carisoprodol (Soma) 350 mg THREE TIMES A DAY ORAL 03/18/18 05:30 04/17/18 05:29 03/19/18 13:51 Ceftriaxone Sodium 1 gm/ Dextrose 55 ml @ 110 mls/hr Q24H IVPB 03/17/18 23:00 03/24/18 22:59 03/18/18 22:59 Dextrose (Dextrose 50%) 25 ml Q30M PRN IV Hypoglycemia 03/17/18 21:00 04/16/18 20:59 Dextrose (Dextrose 50%) 50 ml Q30M PRN IV Hypoglycemia 03/17/18 21:00 04/16/18 20:59 Dextrose/Sodium Chloride 1,000 ml @ 75 mls/hr [id number] IV 03/17/18 21:30 04/16/18 21:29 03/19/18 13:52 Diphenhydramine HCl (Benadryl) 25 mg Q6H PRN ORAL Itching/Pruritis 03/17/18 21:00 04/16/18 20:59 Docusate Sodium (Colace) 100 mg EVERY 12 HOURS ORAL 03/17/18 21:00 04/16/18 20:59 03/19/18 09:10 Metoprolol Tartrate (Lopressor) 25 mg Q12HR ORAL 03/19/18 12:30 04/18/18 12:29 03/19/18 13:52 Morphine Sulfate (Morphine Sulfate) 3 mg Q4H PRN IVP Severe Pain (Pain Scale 7-10) 03/18/18 05:30 03/25/18 05:29 03/19/18 11:25 Ondansetron HCl (Zofran) 4 mg Q6H PRN IVP Nausea & Vomiting 03/17/18 21:00 04/16/18 20:59 Oxymetazoline HCl (Afrin Nasal [place]) 1 spray Q6H PRN NASAL CONGESTION 03/18/18 01:45 04/17/18 01:44 Pantoprazole (Protonix) 40 mg DAILY ORAL 03/17/18 21:00 04/16/18 20:59 03/19/18 09:09 Ar Pardo M.D. Mar 19, 2018 15:24
[2018-03-19 16:00] VITALS: BP 184/111
[2018-03-19] MEDS: cloNIDine 0.2mg Tab ORAL PRN (16:17)
[2018-03-19 16:30] VITALS: BP 150/75
[2018-03-19] MEDS: Metoprolol Tartrate 50mg tab ORAL SCH (18:43)
[2018-03-19 20:00] VITALS: BP 155/86
[2018-03-19] MEDS: cefTRIAXone 1 GM in D5W 55 ML IVPB SCH (22:56)
[2018-03-20] VITALS (7 sets, daily range): BP systolic 110–152; BP diastolic 70–99
[2018-03-20] MEDS: Docusate 100mg cap ORAL SCH ×2 (08:34→20:03)
[2018-03-20] MEDS: Metoprolol Tartrate 50mg tab ORAL SCH ×2 (08:35→18:00)
[2018-03-20] MEDS: Eliquis 2.5mg tablet ORAL SCH ×2 (08:35→20:03)
[2018-03-20] MEDS: D5 1/2NS 1,000 ML IV SCH (08:35)
[2018-03-20] MEDS: Morphine Sulfate 4mg/ml Inj (IV USE ONLY) IVP PRN ×3 (10:21→20:07)
--- NOTE | 2018-03-20 10:23 | General Progress Note ---
Assessment/Plan Assessment/Plan S: My pain is better controlled O: appears with significant pain in lower extr on movement , and limitation for ambulation PHYSICAL EXAMINATION: HEAD AND NECK: Atraumatic and normocephalic. CHEST: Clear to auscultation. No wheezing and no crackles. HEART: S1 and S2. Regular rate and rhythm. No S3. No S4. ABDOMEN: Soft. No organomegaly. Bowel sounds are normal. MUSCULOSKELETAL: Decreased range of motion in all four extremities. Positive for atrophied musculature. No gross sensory lesion is appreciated in the lower extremities.NEUROLOGIC: Awake, alert, and oriented x3. Meds: reviewed , including and not limited to metoprolol 25 mg bid IMAGING: result for CT is pending ASSESSMENT AND PLAN: 1. Acute weakness in the lower extremities associated urinary incontinence with no Obstruction 2. 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 3. Systemic inflammatory response syndrome. 4. Chronic pain. 5. Hyperlipidemia. 6. Gastrointestinal and deep venous thrombosis prophylaxis. 7. HTN Plan: add lisinopril no evidence of Acute Bladder Obstruction discuss with CM for placement Subjective Allergies: Coded Allergies: IBUPROFEN (Verified Allergy, Mild, 10/05/09) Objective Last 24 Hour Vital Signs Date Time Temp Pulse Resp B/P (MAP) Pulse Ox O2 Delivery O2 Flow Rate FiO2 03/20/18 08:35 97.3 03/20/18 08:00 97.3 61 20 149/86 (107) 100 97.3 03/20/18 04:00 97.1 59 20 152/88 (109) 100 97.1 03/20/18 00:00 97.4 58 20 147/86 (106) 99 97.4 03/19/18 20:07 Room Air 03/19/18 20:00 97.8 63 18 155/86 (109) 100 97.8 03/19/18 18:43 72 153/96 03/19/18 16:30 150/75 (100) 03/19/18 16:17 180/114 03/19/18 16:00 98.4 80 18 184/111 (135) 100 98.4 03/19/18 13:52 86 160/104 03/19/18 12:00 98.1 97 18 148/95 (112) 100 98.1 Intake and Output 03/19/18 03/20/18 19:00 07:00 Intake Total 1500 ml 880 ml Balance 1500 ml 880 ml Intake Oral 600 ml IV Total 900 ml 880 ml # Voids 2 2 Height (Feet): 5 Height (Inches): 0.00 Weight (Pounds): 130 Ольга Enamorado MD Mar 20, 2018 10:23
[2018-03-20 10:46] LABS: BASOPHILS % (AUTO) 1.6 % (0.0-2.0); EOSINOPHILS % (AUTO) 0.7 % (0.0-3.0); HEMATOCRIT 39.1 % (37.0-47.0); HEMOGLOBIN 12.4 G/DL (12.0-16.0); LYMPHOCYTES % (AUTO) 24.8 % (20.0-45.0); MEAN CORPUSCULAR VOLUME 89 FL (80-99); MONOCYTES % (AUTO) 3.7 % (1.0-10.0); NEUTROPHILS % (AUTO) 69.3 % (45.0-75.0); PLATELET COUNT 354 K/UL (150-450); RED CELL DISTRIBUTION WIDTH 12.9 % (11.6-14.8); WHITE BLOOD COUNT 7.4 K/UL (4.8-10.8)
[2018-03-20] MEDS ORDERED: Lisinopril 2.5mg tab ORAL SCH (11:00)
[2018-03-20 11:09] LABS: ALANINE AMINOTRANSFERASE 17 U/L (12-78); ALBUMIN 3.5 G/DL (3.4-5.0); ALBUMIN/GLOBULIN RATIO 0.8 (1.0-2.7); ALKALINE PHOSPHATASE 75 U/L (46-116); ANION GAP 7 mmol/L (5-15); ASPARTATE AMINO TRANSFERASE 14 U/L (15-37); BILIRUBIN,TOTAL 0.3 MG/DL (0.2-1.0); BLOOD UREA NITROGEN 11 mg/dL (7-18); CALCIUM 10.4 MG/DL (8.5-10.1); CARBON DIOXIDE 27 MMOL/L (21-32); CHLORIDE 107 MMOL/L (98-107); CREATININE 0.7 MG/DL (0.55-1.30); POTASSIUM 3.6 MMOL/L (3.5-5.1); SODIUM 141 MMOL/L (136-145)
[2018-03-20] MEDS: cloNIDine 0.2mg Tab ORAL PRN (16:47)
--- NOTE | 2018-03-20 17:20 | Infectious Diseases Prog Note ---
Assessment/Plan Problems: (1) Fever Assessment & Plan: resolved with no infectious etiology, most likely due to RA , blood culture and urine culture are negative , will stop ceftriaxone (2) Leukocytosis Assessment & Plan: suspect reactive , urine culture showed mixed urogenital contaminants , will stop ceftriaxone empirically (3) Generalized weakness Assessment & Plan: consult PT/OT , check TSH (4) Dehydration Assessment & Plan: continue IVF for hydration (5) Lumbar disc disease Assessment & Plan: continue pain management , PT/OT Subjective Constitutional: Reports: no symptoms HEENT: Reports: no symptoms Respiratory: Reports: no symptoms Breasts: Reports: no symptoms Cardiovascular: Reports: no symptoms Gastrointestinal/Abdominal: Reports: no symptoms Genitourinary: Reports: no symptoms Neurologic: Reports: no symptoms Psychiatric: Reports: no symptoms Skin: Reports: no symptoms Endocrine: Reports: no symptoms Hematologic: Reports: no symptoms Musculoskeletal: Reports: pain, stiffness Allergies: Coded Allergies: IBUPROFEN (Verified Allergy, Mild, 10/05/09) Objective Vital Signs Last 24 Hour Vital Signs Date Time Temp Pulse Resp B/P (MAP) Pulse Ox O2 Delivery O2 Flow Rate FiO2 03/20/18 16:47 175/100 03/20/18 15:05 97.3 03/20/18 14:35 97.3 03/20/18 12:59 97.3 03/20/18 12:29 97.3 03/20/18 12:28 149/86 03/20/18 12:00 98.0 64 19 144/72 (96) 100 98.0 03/20/18 10:21 97.3 03/20/18 09:00 Room Air 03/20/18 08:35 97.3 03/20/18 08:00 97.3 61 20 149/86 (107) 100 97.3 03/20/18 04:00 97.1 59 20 152/88 (109) 100 97.1 03/20/18 00:00 97.4 58 20 147/86 (106) 99 97.4 03/19/18 20:07 Room Air 03/19/18 20:00 97.8 63 18 155/86 (109) 100 97.8 03/19/18 18:43 72 153/96 Height (Feet): 5 Height (Inches): 0.00 Weight (Pounds): 130 General Appearance: WD/WN, no acute distress HEENT: normocephalic, atraumatic, anicteric, mucous membranes moist, PERRL Respiratory/Chest: chest wall non-tender, lungs clear, normal breath sounds, no respiratory distress, no accessory muscle use Cardiovascular: normal peripheral pulses, normal rate, regular rhythm, no gallop/murmur, no JVD Abdomen: normal bowel sounds, soft, non tender, no organomegaly, non distended , no mass, no scars Genitourinary: normal external genitalia Extremities: no cyanosis, no clubbing Skin: no rash, no lesions, no ulcers Neurologic/Psychiatric: alert, oriented x 3, responsive Lymphatic: no neck adenopathy, no groin adenopathy Musculoskeletal: normal muscle bulk, no effusion Microbiology Date/Time Source Procedure Growth Status 03/18/18 06:55 Blood Blood Culture - Preliminary NO GROWTH AFTER 24 HOURS Resulted 03/18/18 06:45 Blood Blood Culture - Preliminary NO GROWTH AFTER 24 HOURS Resulted 03/17/18 21:15 Nasal Nares MRSA Culture - Final NO METHICILLIN RESISTANT STAPH AUREUS... Complete 03/18/18 11:20 Urine,Clean Catch Urine Culture - Preliminary Mixed Urogenital Contaminants Resulted Laboratory Tests Test 03/20/18 10:00 White Blood Count 7.4 K/UL (4.8-10.8) Red Blood Count 4.40 M/UL (4.20-5.40) Hemoglobin 12.4 G/DL (12.0-16.0) Hematocrit 39.1 % (37.0-47.0) Mean Corpuscular Volume 89 FL (80-99) Mean Corpuscular Hemoglobin 28.3 PG (27.0-31.0) Mean Corpuscular Hemoglobin Concent 31.8 G/DL (32.0-36.0) L Red Cell Distribution Width 12.9 % (11.6-14.8) Platelet Count 354 K/UL (150-450) Mean Platelet Volume 4.8 FL (6.5-10.1) L Neutrophils (%) (Auto) 69.3 % (45.0-75.0) Lymphocytes (%) (Auto) 24.8 % (20.0-45.0) Monocytes (%) (Auto) 3.7 % (1.0-10.0) Eosinophils (%) (Auto) 0.7 % (0.0-3.0) Basophils (%) (Auto) 1.6 % (0.0-2.0) Sodium Level 141 MMOL/L (136-145) Potassium Level 3.6 MMOL/L (3.5-5.1) Chloride Level 107 MMOL/L (98-107) Carbon Dioxide Level 27 MMOL/L (21-32) Anion Gap 7 mmol/L (5-15) Blood Urea Nitrogen 11 mg/dL (7-18) Creatinine 0.7 MG/DL (0.55-1.30) Estimat Glomerular Filtration Rate > 60 mL/min (>60) Glucose Level 118 MG/DL (74-106) H Calcium Level 10.4 MG/DL (8.5-10.1) H Total Bilirubin 0.3 MG/DL (0.2-1.0) Aspartate Amino Transf (AST/SGOT) 14 U/L (15-37) L Alanine Aminotransferase (ALT/SGPT) 17 U/L (12-78) Alkaline Phosphatase 75 U/L (46-116) Total Protein 8.0 G/DL (6.4-8.2) Albumin 3.5 G/DL (3.4-5.0) Globulin 4.5 g/dL Albumin/Globulin Ratio 0.8 (1.0-2.7) L Current Medications Medications (Trade) Dose Ordered Sig/Kina Route PRN Reason Start Time Stop Time Status Last Admin Dose Admin Acetaminophen (Tylenol) 650 mg Q6H PRN ORAL For Pain 03/18/18 05:30 04/17/18 05:29 Apixaban (Eliquis) 5 mg Q12HR ORAL 03/18/18 09:00 04/17/18 08:59 03/20/18 08:35 Carisoprodol (Soma) 350 mg THREE TIMES A DAY ORAL 03/18/18 05:30 04/17/18 05:29 03/20/18 12:29 Clonidine HCl (Catapres tab) 0.2 mg Q8H PRN ORAL For High Blood Pressure 03/19/18 16:13 04/18/18 16:12 03/20/18 16:47 Dextrose (Dextrose 50%) 25 ml Q30M PRN IV Hypoglycemia 03/17/18 21:00 04/16/18 20:59 Dextrose (Dextrose 50%) 50 ml Q30M PRN IV Hypoglycemia 03/17/18 21:00 04/16/18 20:59 Dextrose/Sodium Chloride 1,000 ml @ 75 mls/hr [id number] IV 03/17/18 21:30 04/16/18 21:29 03/20/18 08:35 Diphenhydramine HCl (Benadryl) 25 mg Q6H PRN ORAL Itching/Pruritis 03/17/18 21:00 04/16/18 20:59 Docusate Sodium (Colace) 100 mg EVERY 12 HOURS ORAL 03/17/18 21:00 04/16/18 20:59 03/20/18 08:34 Lisinopril (Zestril) 2.5 mg DAILY ORAL 03/21/18 09:00 04/20/18 08:59 Metoprolol Tartrate (Lopressor) 50 mg BID ORAL 03/19/18 18:00 04/18/18 17:59 03/19/18 18:43 Morphine Sulfate (Morphine Sulfate) 3 mg Q4H PRN IVP Severe Pain (Pain Scale 7-10) 03/18/18 05:30 03/25/18 05:29 03/20/18 14:35 Ondansetron HCl (Zofran) 4 mg Q6H PRN IVP Nausea & Vomiting 03/17/18 21:00 04/16/18 20:59 Oxymetazoline HCl (Afrin Nasal [place]) 1 spray Q6H PRN NASAL CONGESTION 03/18/18 01:45 04/17/18 01:44 Pantoprazole (Protonix) 40 mg DAILY ORAL 03/17/18 21:00 04/16/18 20:59 03/20/18 08:35 Ar Pardo M.D. Mar 20, 2018 17:20
--- NOTE | 2018-03-20 22:26 | Consultation ---
History of Present Illness General Date patient seen: Mar 20, 2018 Chief Complaint: Pain Present Illness HPI 63-year-old female with a history of depression and multiple spine injuries. the pt takes cymbalta outside of the hospital and she has not been taking her medication since this admission. the pt doesnt endorse si/hi Allergies: Coded Allergies: IBUPROFEN (Verified Allergy, Mild, 10/05/09) Medication History Scheduled Amlodipine Besylate* (Amlodipine Besylate*), 5 MG ORAL DAILY, (Reported) Apixaban (Eliquis), 5 MG PO BID, (Reported) Bisacodyl (Dulcolax), 10 MG PO DAILY, (Reported) Cyclobenzaprine Hcl (Cyclobenzaprine Hcl), 7.5 MG ORAL THREE TIMES A DAY, ( Reported) Duloxetine Hcl* (Cymbalta*), 60 MG ORAL DAILY, (Reported) Famotidine (Famotidine), 20 MG ORAL TWICE A DAY, (Reported) Furosemide* (Lasix*), 40 MG ORAL DAILY, (Reported) Lidocaine (Lidocaine), 1 PATCH TP DAILY, (Reported) Pantoprazole* (Protonix*), 40 MG ORAL DAILY, (Reported) Scheduled PRN Acetaminophen* (Acetaminophen 325MG Tablet*), 650 MG ORAL Q6H PRN for For Pain, (Reported) Oxymetazoline HCl (Afrin), 1 SPRAY NASAL Q6HR PRN for CONGESTION, (Reported) Patient History Limited by: medical condition History Provided By: Patient Healthcare decision maker N Resuscitation status Full Code Advanced Directive on File No Past Medical/Surgical History Past Medical/Surgical History: (1) Dehydration (2) Leukocytosis (3) Generalized weakness (4) Lumbar disc disease (5) Cervical stenosis of spine (6) Fever Review of Systems Psychiatric: Reports: prior hx, anxiety, depressed feelings Physical Exam General Appearance: no apparent distress, alert Neurologic: oriented x 3, responsive, depressed affect Last 24 Hour Vital Signs Date Time Temp Pulse Resp B/P (MAP) Pulse Ox O2 Delivery O2 Flow Rate FiO2 03/20/18 21:00 Room Air 03/20/18 20:37 98.1 03/20/18 20:07 98.1 03/20/18 20:00 98.0 71 20 110/70 (83) 100 98.0 03/20/18 18:30 98.1 03/20/18 18:00 82 141/99 03/20/18 18:00 98.1 03/20/18 17:59 82 141/99 (113) 03/20/18 16:47 175/100 03/20/18 16:00 98.1 66 18 118/77 (91) 100 98.1 03/20/18 14:35 97.3 03/20/18 12:29 97.3 03/20/18 12:28 149/86 03/20/18 12:00 98.0 64 19 144/72 (96) 100 98.0 03/20/18 10:21 97.3 03/20/18 09:00 Room Air 03/20/18 08:35 97.3 03/20/18 08:00 97.3 61 20 149/86 (107) 100 97.3 03/20/18 04:00 97.1 59 20 152/88 (109) 100 97.1 03/20/18 00:00 97.4 58 20 147/86 (106) 99 97.4 Intake and Output 03/19/18 03/20/18 19:00 07:00 Intake Total 1500 ml 880 ml Balance 1500 ml 880 ml Intake Oral 600 ml IV Total 900 ml 880 ml # Voids 2 2 Laboratory Tests Test 03/20/18 10:00 White Blood Count 7.4 K/UL (4.8-10.8) Red Blood Count 4.40 M/UL (4.20-5.40) Hemoglobin 12.4 G/DL (12.0-16.0) Hematocrit 39.1 % (37.0-47.0) Mean Corpuscular Volume 89 FL (80-99) Mean Corpuscular Hemoglobin 28.3 PG (27.0-31.0) Mean Corpuscular Hemoglobin Concent 31.8 G/DL (32.0-36.0) L Red Cell Distribution Width 12.9 % (11.6-14.8) Platelet Count 354 K/UL (150-450) Mean Platelet Volume 4.8 FL (6.5-10.1) L Neutrophils (%) (Auto) 69.3 % (45.0-75.0) Lymphocytes (%) (Auto) 24.8 % (20.0-45.0) Monocytes (%) (Auto) 3.7 % (1.0-10.0) Eosinophils (%) (Auto) 0.7 % (0.0-3.0) Basophils (%) (Auto) 1.6 % (0.0-2.0) Sodium Level 141 MMOL/L (136-145) Potassium Level 3.6 MMOL/L (3.5-5.1) Chloride Level 107 MMOL/L (98-107) Carbon Dioxide Level 27 MMOL/L (21-32) Anion Gap 7 mmol/L (5-15) Blood Urea Nitrogen 11 mg/dL (7-18) Creatinine 0.7 MG/DL (0.55-1.30) Estimat Glomerular Filtration Rate > 60 mL/min (>60) Glucose Level 118 MG/DL (74-106) H Calcium Level 10.4 MG/DL (8.5-10.1) H Total Bilirubin 0.3 MG/DL (0.2-1.0) Aspartate Amino Transf (AST/SGOT) 14 U/L (15-37) L Alanine Aminotransferase (ALT/SGPT) 17 U/L (12-78) Alkaline Phosphatase 75 U/L (46-116) Total Protein 8.0 G/DL (6.4-8.2) Albumin 3.5 G/DL (3.4-5.0) Globulin 4.5 g/dL Albumin/Globulin Ratio 0.8 (1.0-2.7) L Height (Feet): 5 Height (Inches): 0.00 Weight (Pounds): 130 Medications Current Medications Medications (Trade) Dose Ordered Sig/Kina Route PRN Reason Start Time Stop Time Status Last Admin Dose Admin Acetaminophen (Tylenol) 650 mg Q6H PRN ORAL For Pain 03/18/18 05:30 04/17/18 05:29 Apixaban (Eliquis) 5 mg Q12HR ORAL 03/18/18 09:00 04/17/18 08:59 03/20/18 20:03 Carisoprodol (Soma) 350 mg THREE TIMES A DAY ORAL 03/18/18 05:30 04/17/18 05:29 03/20/18 18:00 Clonidine HCl (Catapres tab) 0.2 mg Q8H PRN ORAL For High Blood Pressure 03/19/18 16:13 04/18/18 16:12 03/20/18 16:47 Dextrose (Dextrose 50%) 25 ml Q30M PRN IV Hypoglycemia 03/17/18 21:00 04/16/18 20:59 Dextrose (Dextrose 50%) 50 ml Q30M PRN IV Hypoglycemia 03/17/18 21:00 04/16/18 20:59 Dextrose/Sodium Chloride 1,000 ml @ 75 mls/hr [id number] IV 03/17/18 21:30 04/16/18 21:29 03/20/18 08:35 Diphenhydramine HCl (Benadryl) 25 mg Q6H PRN ORAL Itching/Pruritis 03/17/18 21:00 04/16/18 20:59 Docusate Sodium (Colace) 100 mg EVERY 12 HOURS ORAL 03/17/18 21:00 04/16/18 20:59 03/20/18 20:03 Lisinopril (Zestril) 2.5 mg DAILY ORAL 03/21/18 09:00 04/20/18 08:59 Metoprolol Tartrate (Lopressor) 50 mg BID ORAL 03/19/18 18:00 04/18/18 17:59 03/20/18 18:00 Morphine Sulfate (Morphine Sulfate) 3 mg Q4H PRN IVP Severe Pain (Pain Scale 7-10) 03/18/18 05:30 03/25/18 05:29 03/20/18 20:07 Ondansetron HCl (Zofran) 4 mg Q6H PRN IVP Nausea & Vomiting 03/17/18 21:00 04/16/18 20:59 Oxymetazoline HCl (Afrin Nasal [place]) 1 spray Q6H PRN NASAL CONGESTION 03/18/18 01:45 04/17/18 01:44 Pantoprazole (Protonix) 40 mg DAILY ORAL 03/17/18 21:00 04/16/18 20:59 03/20/18 08:35 Assessment/Plan Assessment/Plan mdd anxiety cymbalta 60mg qam provided alexis/Tay Roper MD Mar 20, 2018 22:26
[2018-03-21] VITALS: BP 132/91
[2018-03-21] MEDS: D5 1/2NS 1,000 ML IV SCH ×2 (00:32→17:14)
[2018-03-21] MEDS: Morphine Sulfate 4mg/ml Inj (IV USE ONLY) IVP PRN ×3 (02:36→18:50)
[2018-03-21 04:00] VITALS: BP 141/89
[2018-03-21 08:00] VITALS: BP 147/82
[2018-03-21] MEDS: Metoprolol Tartrate 50mg tab ORAL SCH ×2 (09:29→18:00)
[2018-03-21] MEDS: DULoxetine 30mg cap ORAL SCH (09:29)
[2018-03-21] MEDS: Lisinopril 2.5mg tab ORAL SCH (09:29)
[2018-03-21] MEDS: Eliquis 2.5mg tablet ORAL SCH ×2 (09:29→20:18)
[2018-03-21] MEDS: Docusate 100mg cap ORAL SCH ×2 (09:29→20:18)
[2018-03-21 12:00] VITALS: BP 146/94
--- NOTE | 2018-03-21 12:05 | General Progress Note ---
Assessment/Plan Assessment/Plan S: My pain is better controlled O: appears with significant pain in lower extr on movement , and limitation for ambulation PHYSICAL EXAMINATION: HEAD AND NECK: Atraumatic and normocephalic. CHEST: Clear to auscultation. No wheezing and no crackles. HEART: S1 and S2. Regular rate and rhythm. No S3. No S4. ABDOMEN: Soft. No organomegaly. Bowel sounds are normal. MUSCULOSKELETAL: Decreased range of motion in all four extremities. Positive for atrophied musculature. No gross sensory lesion is appreciated in the lower extremities.NEUROLOGIC: Awake, alert, and oriented x3. Meds: reviewed , including and not limited to metoprolol 25 mg bid IMAGING: result for Lumbar and Cervical Ct scans , are reviewed ASSESSMENT AND PLAN: 1. Acute weakness in the lower extremities associated urinary incontinence with no Obstruction 2. 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 3. Systemic inflammatory response syndrome. 4. Chronic pain. 5. Hyperlipidemia. 6. Gastrointestinal and deep venous thrombosis prophylaxis. 7. HTN Plan: no evidence of Acute Bladder Obstruction discuss with CM for placement Subjective Allergies: Coded Allergies: IBUPROFEN (Verified Allergy, Mild, 10/05/09) Objective Last 24 Hour Vital Signs Date Time Temp Pulse Resp B/P (MAP) Pulse Ox O2 Delivery O2 Flow Rate FiO2 03/21/18 11:38 98.0 03/21/18 10:00 98.0 03/21/18 10:00 98.0 03/21/18 09:30 98.0 03/21/18 09:29 147/82 03/21/18 09:29 60 147/82 03/21/18 08:00 98.0 60 18 147/82 (103) 98 98.0 03/21/18 04:00 97.7 52 20 141/89 (106) 100 97.7 03/21/18 00:00 98.2 60 18 132/91 (105) 96 98.2 03/20/18 21:00 Room Air 03/20/18 20:07 98.1 03/20/18 20:00 98.0 71 20 110/70 (83) 100 98.0 03/20/18 18:00 82 141/99 03/20/18 18:00 98.1 03/20/18 17:59 82 141/99 (113) 03/20/18 16:47 175/100 03/20/18 16:00 98.1 66 18 118/77 (91) 100 98.1 03/20/18 14:35 97.3 03/20/18 12:29 97.3 03/20/18 12:28 149/86 Intake and Output 03/20/18 03/21/18 19:00 07:00 Intake Total 1900 ml 750 ml Balance 1900 ml 750 ml Intake Oral 1150 ml IV Total 750 ml 750 ml # Voids 8 2 Height (Feet): 5 Height (Inches): 0.00 Weight (Pounds): 130 Ольга Enamorado MD Mar 21, 2018 12:05
[2018-03-21 16:00] VITALS: BP 151/100
--- NOTE | 2018-03-21 16:02 | Infectious Diseases Prog Note ---
Assessment/Plan Problems: (1) Fever Assessment & Plan: resolved with no infectious etiology, most likely due to RA , blood culture and urine culture are negative , will monitor off antibiotics . (2) Leukocytosis Assessment & Plan: suspect reactive , urine culture showed mixed urogenital contaminants , monitor off antibiotics (3) Generalized weakness Assessment & Plan: PT/OT , SNF placement (4) Dehydration Assessment & Plan: continue IVF for hydration (5) Lumbar disc disease Assessment & Plan: continue pain management , PT/OT Subjective Constitutional: Reports: no symptoms HEENT: Reports: no symptoms Respiratory: Reports: no symptoms Breasts: Reports: no symptoms Cardiovascular: Reports: no symptoms Gastrointestinal/Abdominal: Reports: no symptoms Genitourinary: Reports: no symptoms Neurologic: Reports: weakness Psychiatric: Reports: no symptoms Skin: Reports: no symptoms Endocrine: Reports: no symptoms Hematologic: Reports: no symptoms Musculoskeletal: Reports: pain Allergies: Coded Allergies: IBUPROFEN (Verified Allergy, Mild, 10/05/09) Objective Vital Signs Last 24 Hour Vital Signs Date Time Temp Pulse Resp B/P (MAP) Pulse Ox O2 Delivery O2 Flow Rate FiO2 03/21/18 13:16 98.0 03/21/18 12:46 98.0 03/21/18 12:00 97.9 59 19 146/94 (111) 98 97.9 03/21/18 11:38 98.0 03/21/18 10:00 98.0 03/21/18 09:30 98.0 03/21/18 09:29 147/82 03/21/18 09:29 60 147/82 03/21/18 09:00 Room Air 03/21/18 08:00 98.0 60 18 147/82 (103) 98 98.0 03/21/18 04:00 97.7 52 20 141/89 (106) 100 97.7 03/21/18 00:00 98.2 60 18 132/91 (105) 96 98.2 03/20/18 21:00 Room Air 03/20/18 20:07 98.1 03/20/18 20:00 98.0 71 20 110/70 (83) 100 98.0 03/20/18 18:00 82 141/99 03/20/18 18:00 98.1 03/20/18 17:59 82 141/99 (113) 03/20/18 16:47 175/100 Height (Feet): 5 Height (Inches): 0.00 Weight (Pounds): 130 General Appearance: WD/WN, no acute distress HEENT: normocephalic, atraumatic, anicteric, mucous membranes moist, PERRL, pharynx normal, supple, no JVD Respiratory/Chest: chest wall non-tender, lungs clear, normal breath sounds, no respiratory distress, no accessory muscle use Cardiovascular: normal peripheral pulses, normal rate, regular rhythm, no gallop/murmur, no JVD Abdomen: normal bowel sounds, soft, non tender, no organomegaly, non distended , no mass, no scars Extremities: no cyanosis, no clubbing Skin: no rash, no lesions, no ulcers Neurologic/Psychiatric: alert, oriented x 3, responsive Lymphatic: no neck adenopathy, no groin adenopathy Musculoskeletal: normal muscle bulk, no effusion Current Medications Medications (Trade) Dose Ordered Sig/Kina Route PRN Reason Start Time Stop Time Status Last Admin Dose Admin Acetaminophen (Tylenol) 650 mg Q6H PRN ORAL For Pain 03/18/18 05:30 04/17/18 05:29 Apixaban (Eliquis) 5 mg Q12HR ORAL 03/18/18 09:00 04/17/18 08:59 03/21/18 09:29 Carisoprodol (Soma) 350 mg THREE TIMES A DAY ORAL 03/18/18 05:30 04/17/18 05:29 03/21/18 12:46 Clonidine HCl (Catapres tab) 0.2 mg Q8H PRN ORAL For High Blood Pressure 03/19/18 16:13 04/18/18 16:12 03/20/18 16:47 Dextrose (Dextrose 50%) 25 ml Q30M PRN IV Hypoglycemia 03/17/18 21:00 04/16/18 20:59 Dextrose (Dextrose 50%) 50 ml Q30M PRN IV Hypoglycemia 03/17/18 21:00 04/16/18 20:59 Dextrose/Sodium Chloride 1,000 ml @ 75 mls/hr [id number] IV 03/17/18 21:30 04/16/18 21:29 03/21/18 00:32 Diphenhydramine HCl (Benadryl) 25 mg Q6H PRN ORAL Itching/Pruritis 03/17/18 21:00 04/16/18 20:59 Docusate Sodium (Colace) 100 mg EVERY 12 HOURS ORAL 03/17/18 21:00 04/16/18 20:59 03/21/18 09:29 Duloxetine HCl (Cymbalta) 60 mg DAILY ORAL 03/21/18 09:00 04/20/18 08:59 03/21/18 09:29 Lisinopril (Zestril) 2.5 mg DAILY ORAL 03/21/18 09:00 04/20/18 08:59 03/21/18 09:29 Metoprolol Tartrate (Lopressor) 50 mg BID ORAL 03/19/18 18:00 04/18/18 17:59 03/21/18 09:29 Morphine Sulfate (Morphine Sulfate) 3 mg Q4H PRN IVP Severe Pain (Pain Scale 7-10) 03/18/18 05:30 03/25/18 05:29 03/21/18 11:38 Ondansetron HCl (Zofran) 4 mg Q6H PRN IVP Nausea & Vomiting 03/17/18 21:00 04/16/18 20:59 Oxymetazoline HCl (Afrin Nasal [place]) 1 spray Q6H PRN NASAL CONGESTION 03/18/18 01:45 04/17/18 01:44 Pantoprazole (Protonix) 40 mg DAILY ORAL 03/17/18 21:00 04/16/18 20:59 03/21/18 09:29 Ar Pardo M.D. Mar 21, 2018 16:02
[2018-03-21 20:00] VITALS: BP 152/80
--- NOTE | 2018-03-21 23:47 | General Progress Note ---
Assessment/Plan Status: stable, progressing Assessment/Plan mdd cont Cymbalta provided ro.st Subjective Neurologic/Psychiatric: Reports: anxiety, depressed, emotional problems Allergies: Coded Allergies: IBUPROFEN (Verified Allergy, Mild, 10/05/09) Objective Last 24 Hour Vital Signs Date Time Temp Pulse Resp B/P (MAP) Pulse Ox O2 Delivery O2 Flow Rate FiO2 03/21/18 21:00 Room Air 03/21/18 20:00 97.5 74 16 152/80 (104) 98 97.5 03/21/18 18:50 97.8 03/21/18 17:43 97.8 03/21/18 17:13 97.8 03/21/18 16:00 97.8 63 20 151/100 (117) 98 97.8 03/21/18 12:46 98.0 03/21/18 12:00 97.9 59 19 146/94 (111) 98 97.9 03/21/18 11:38 98.0 03/21/18 10:00 98.0 03/21/18 09:30 98.0 03/21/18 09:29 147/82 03/21/18 09:29 60 147/82 03/21/18 09:00 Room Air 03/21/18 08:00 98.0 60 18 147/82 (103) 98 98.0 03/21/18 04:00 97.7 52 20 141/89 (106) 100 97.7 03/21/18 00:00 98.2 60 18 132/91 (105) 96 98.2 Intake and Output 03/20/18 03/21/18 19:00 07:00 Intake Total 1900 ml 750 ml Balance 1900 ml 750 ml Intake Oral 1150 ml IV Total 750 ml 750 ml # Voids 8 2 Height (Feet): 5 Height (Inches): 0.00 Weight (Pounds): 130 General Appearance: no apparent distress, alert Neurologic: oriented x 3, responsive, depressed affect Tay Santos MD Mar 21, 2018 23:47
[2018-03-22] VITALS: BP 137/87
[2018-03-22 04:00] VITALS: BP 127/85
[2018-03-22] MEDS: Morphine Sulfate 4mg/ml Inj (IV USE ONLY) IVP PRN ×4 (06:40→20:05)
[2018-03-22] MEDS: D5 1/2NS 1,000 ML IV SCH (06:43)
[2018-03-22 08:00] VITALS: BP 132/84
[2018-03-22] MEDS: Docusate 100mg cap ORAL SCH ×2 (08:09→20:05)
[2018-03-22] MEDS: Eliquis 2.5mg tablet ORAL SCH ×2 (08:09→20:05)
[2018-03-22] MEDS: DULoxetine 30mg cap ORAL SCH (08:09)
[2018-03-22] MEDS: Lisinopril 2.5mg tab ORAL SCH ×2 (09:00→11:57)
[2018-03-22] MEDS: Metoprolol Tartrate 50mg tab ORAL SCH ×3 (09:00→17:39)
[2018-03-22 12:00] VITALS: BP 159/105
--- NOTE | 2018-03-22 14:19 | General Progress Note ---
Assessment/Plan Assessment/Plan S: My pain is better controlled O: appears with significant pain in lower extr on movement , and limitation for ambulation PHYSICAL EXAMINATION: HEAD AND NECK: Atraumatic and normocephalic. CHEST: Clear to auscultation. No wheezing and no crackles. HEART: S1 and S2. Regular rate and rhythm. No S3. No S4. ABDOMEN: Soft. No organomegaly. Bowel sounds are normal. MUSCULOSKELETAL: Decreased range of motion in all four extremities. Positive for atrophied musculature. No gross sensory lesion is appreciated in the lower extremities.NEUROLOGIC: Awake, alert, and oriented x3. Meds: reviewed , including and not limited to metoprolol 25 mg bid IMAGING: result for Lumbar and Cervical Ct scans , are reviewed ASSESSMENT AND PLAN: 1. Acute weakness in the lower extremities associated urinary incontinence with no Obstruction 2. 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 3. Systemic inflammatory response syndrome. 4. Chronic pain. 5. Hyperlipidemia. 6. Gastrointestinal and deep venous thrombosis prophylaxis. 7. HTN Plan: no evidence of Acute Bladder Obstruction discuss with CM for placement Subjective Allergies: Coded Allergies: IBUPROFEN (Verified Allergy, Mild, 10/05/09) Objective Last 24 Hour Vital Signs Date Time Temp Pulse Resp B/P (MAP) Pulse Ox O2 Delivery O2 Flow Rate FiO2 03/22/18 13:38 98.0 03/22/18 13:08 98.0 03/22/18 12:00 98.0 18 159/105 (123) 78 98.0 03/22/18 11:57 159/105 03/22/18 11:57 78 159/105 03/22/18 11:43 98.6 03/22/18 11:13 98.6 03/22/18 09:00 132/84 03/22/18 09:00 65 132/84 03/22/18 08:08 98.6 03/22/18 08:00 98.0 88 18 132/84 (100) 98 98.0 03/22/18 04:00 98.6 65 18 127/85 (99) 98 98.6 03/22/18 00:00 98.4 58 16 137/87 (104) 99 98.4 03/21/18 21:00 Room Air 03/21/18 20:00 97.5 74 16 152/80 (104) 98 97.5 03/21/18 18:50 97.8 03/21/18 17:13 97.8 03/21/18 16:00 97.8 63 20 151/100 (117) 98 97.8 Intake and Output 03/21/18 03/22/18 19:00 07:00 Intake Total 1350 ml 1350 ml Balance 1350 ml 1350 ml Intake Oral 750 ml IV Total 600 ml 900 ml Other 450 ml # Voids 3 2 Height (Feet): 5 Height (Inches): 0.00 Weight (Pounds): 130 Ольга Enamorado MD Mar 22, 2018 14:19
[2018-03-22 16:00] VITALS: BP 166/89
--- NOTE | 2018-03-22 17:07 | Infectious Diseases Prog Note ---
Assessment/Plan Problems: (1) Fever Assessment & Plan: resolved with no infectious etiology, most likely due to RA , blood culture and urine culture are negative , will monitor off antibiotics . (2) Leukocytosis Assessment & Plan: suspect reactive , urine culture showed mixed urogenital contaminants , monitor off antibiotics (3) Generalized weakness Assessment & Plan: PT/OT , SNF placement (4) Dehydration Assessment & Plan: continue IVF for hydration (5) Lumbar disc disease Assessment & Plan: continue pain management , PT/OT Subjective Constitutional: Reports: no symptoms HEENT: Reports: no symptoms Respiratory: Reports: no symptoms Breasts: Reports: no symptoms Cardiovascular: Reports: no symptoms Gastrointestinal/Abdominal: Reports: no symptoms Genitourinary: Reports: no symptoms Neurologic: Reports: no symptoms Psychiatric: Reports: no symptoms Skin: Reports: no symptoms Endocrine: Reports: no symptoms Hematologic: Reports: no symptoms Musculoskeletal: Reports: no symptoms Allergies: Coded Allergies: IBUPROFEN (Verified Allergy, Mild, 10/05/09) Objective Vital Signs Last 24 Hour Vital Signs Date Time Temp Pulse Resp B/P (MAP) Pulse Ox O2 Delivery O2 Flow Rate FiO2 03/22/18 16:10 98.0 03/22/18 16:00 98.2 18 166/89 (114) 98 98.2 03/22/18 15:40 98.0 03/22/18 13:38 98.0 03/22/18 13:08 98.0 03/22/18 12:00 98.2 18 159/105 (123) 99 98.2 03/22/18 11:57 159/105 03/22/18 11:57 78 159/105 03/22/18 11:13 98.6 03/22/18 09:00 132/84 03/22/18 09:00 65 132/84 03/22/18 08:08 98.6 03/22/18 08:00 98.0 88 18 132/84 (100) 98 98.0 03/22/18 04:00 98.6 65 18 127/85 (99) 98 98.6 03/22/18 00:00 98.4 58 16 137/87 (104) 99 98.4 03/21/18 21:00 Room Air 03/21/18 20:00 97.5 74 16 152/80 (104) 98 97.5 03/21/18 18:50 97.8 03/21/18 17:13 97.8 Height (Feet): 5 Height (Inches): 0.00 Weight (Pounds): 130 General Appearance: WD/WN, no acute distress HEENT: normocephalic, atraumatic, anicteric, mucous membranes moist, PERRL Respiratory/Chest: chest wall non-tender, lungs clear, normal breath sounds, no respiratory distress, no accessory muscle use Cardiovascular: normal peripheral pulses, normal rate, regular rhythm, no gallop/murmur, no JVD Abdomen: normal bowel sounds, soft, non tender, no organomegaly, non distended , no mass, no scars Extremities: no cyanosis, no clubbing Skin: no rash, no lesions, no ulcers Neurologic/Psychiatric: alert, oriented x 3, responsive Lymphatic: no neck adenopathy, no groin adenopathy Musculoskeletal: normal muscle bulk, no effusion Current Medications Medications (Trade) Dose Ordered Sig/Kina Route PRN Reason Start Time Stop Time Status Last Admin Dose Admin Acetaminophen (Tylenol) 650 mg Q6H PRN ORAL For Pain 03/18/18 05:30 04/17/18 05:29 Apixaban (Eliquis) 5 mg Q12HR ORAL 03/18/18 09:00 04/17/18 08:59 03/22/18 08:09 Carisoprodol (Soma) 350 mg THREE TIMES A DAY ORAL 03/18/18 05:30 04/17/18 05:29 03/22/18 13:08 Clonidine HCl (Catapres tab) 0.2 mg Q8H PRN ORAL For High Blood Pressure 03/19/18 16:13 04/18/18 16:12 03/20/18 16:47 Dextrose (Dextrose 50%) 25 ml Q30M PRN IV Hypoglycemia 03/17/18 21:00 04/16/18 20:59 Dextrose (Dextrose 50%) 50 ml Q30M PRN IV Hypoglycemia 03/17/18 21:00 04/16/18 20:59 Diphenhydramine HCl (Benadryl) 25 mg Q6H PRN ORAL Itching/Pruritis 03/17/18 21:00 04/16/18 20:59 Docusate Sodium (Colace) 100 mg EVERY 12 HOURS ORAL 03/17/18 21:00 04/16/18 20:59 03/22/18 08:09 Duloxetine HCl (Cymbalta) 60 mg DAILY ORAL 03/21/18 09:00 04/20/18 08:59 03/22/18 08:09 Lisinopril (Zestril) 5 mg DAILY ORAL 03/23/18 09:00 04/20/18 08:59 Metoprolol Tartrate (Lopressor) 50 mg BID ORAL 03/19/18 18:00 04/18/18 17:59 03/22/18 11:57 Morphine Sulfate (Morphine Sulfate) 3 mg Q4H PRN IVP Severe Pain (Pain Scale 7-10) 03/18/18 05:30 03/25/18 05:29 03/22/18 15:40 Ondansetron HCl (Zofran) 4 mg Q6H PRN IVP Nausea & Vomiting 03/17/18 21:00 04/16/18 20:59 Oxymetazoline HCl (Afrin Nasal [place]) 1 spray Q6H PRN NASAL CONGESTION 03/18/18 01:45 04/17/18 01:44 Pantoprazole (Protonix) 40 mg DAILY ORAL 03/17/18 21:00 04/16/18 20:59 03/22/18 08:09 Ar Pardo M.D. Mar 22, 2018 17:07
[2018-03-22 20:00] VITALS: BP 121/78
[2018-03-23] VITALS: BP 151/78
--- NOTE | 2018-03-23 00:05 | General Progress Note ---
Assessment/Plan Status: stable, progressing Assessment/Plan mdd cont Cymbalta provided ro.st Subjective Date patient seen: Mar 22, 2018 Neurologic/Psychiatric: Reports: anxiety, depressed Allergies: Coded Allergies: IBUPROFEN (Verified Allergy, Mild, 10/05/09) Subjective less irritable Objective Last 24 Hour Vital Signs Date Time Temp Pulse Resp B/P (MAP) Pulse Ox O2 Delivery O2 Flow Rate FiO2 03/22/18 20:00 97.7 16 121/78 (92) 99 97.7 03/22/18 18:09 98.0 03/22/18 17:39 78 166/89 03/22/18 17:39 98.0 03/22/18 16:10 98.0 03/22/18 16:00 98.2 18 166/89 (114) 98 98.2 03/22/18 15:40 98.0 03/22/18 13:08 98.0 03/22/18 12:00 98.2 18 159/105 (123) 99 98.2 03/22/18 11:57 159/105 03/22/18 11:57 78 159/105 03/22/18 11:13 98.6 03/22/18 09:00 132/84 03/22/18 09:00 65 132/84 03/22/18 08:08 98.6 03/22/18 08:00 98.0 88 18 132/84 (100) 98 98.0 03/22/18 04:00 98.6 65 18 127/85 (99) 98 98.6 Intake and Output 03/22/18 03/23/18 19:00 07:00 Intake Total 975 ml Balance 975 ml Intake Oral 600 ml IV Total 375 ml # Voids 3 Height (Feet): 5 Height (Inches): 0.00 Weight (Pounds): 130 General Appearance: WD/WN, no apparent distress, alert Neurologic: oriented x 3, responsive, normal mood/affect Tay Santos MD Mar 23, 2018 00:05
[2018-03-23] MEDS: Morphine Sulfate 4mg/ml Inj (IV USE ONLY) IVP PRN ×4 (02:31→19:14)
[2018-03-23 04:00] VITALS: BP 145/82
[2018-03-23 08:00] VITALS: BP 186/100
--- NOTE | 2018-03-23 08:01 | General Progress Note ---
Assessment/Plan Status: stable Assessment/Plan S: My pain is better controlled O: appears with significant pain in lower extr on movement , and limitation for ambulation PHYSICAL EXAMINATION: HEAD AND NECK: Atraumatic and normocephalic. CHEST: Clear to auscultation. No wheezing and no crackles. HEART: S1 and S2. Regular rate and rhythm. No S3. No S4. ABDOMEN: Soft. No organomegaly. Bowel sounds are normal. MUSCULOSKELETAL: Decreased range of motion in all four extremities. Positive for atrophied musculature. No gross sensory lesion is appreciated in the lower extremities.NEUROLOGIC: Awake, alert, and oriented x3. Meds: reviewed , including and not limited to metoprolol 25 mg bid IMAGING: result for Lumbar and Cervical Ct scans , are reviewed ASSESSMENT AND PLAN: 1. Acute weakness in the lower extremities associated urinary incontinence with no Obstruction 2. 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 3. Systemic inflammatory response syndrome. 4. Chronic pain. 5. Hyperlipidemia. 6. Gastrointestinal and deep venous thrombosis prophylaxis. 7. HTN Plan: no evidence of Acute Bladder Obstruction discuss with CM for placement Subjective Allergies: Coded Allergies: IBUPROFEN (Verified Allergy, Mild, 10/05/09) Objective Last 24 Hour Vital Signs Date Time Temp Pulse Resp B/P (MAP) Pulse Ox O2 Delivery O2 Flow Rate FiO2 03/23/18 04:00 97.9 15 145/82 (103) 100 97.9 03/23/18 00:00 97.8 15 151/78 (102) 99 97.8 03/22/18 20:00 97.7 16 121/78 (92) 99 97.7 03/22/18 18:09 98.0 03/22/18 17:39 78 166/89 03/22/18 17:39 98.0 03/22/18 16:10 98.0 03/22/18 16:00 98.2 18 166/89 (114) 98 98.2 03/22/18 15:40 98.0 03/22/18 13:08 98.0 03/22/18 12:00 98.2 18 159/105 (123) 99 98.2 03/22/18 11:57 159/105 03/22/18 11:57 78 159/105 03/22/18 11:13 98.6 03/22/18 09:00 132/84 03/22/18 09:00 65 132/84 03/22/18 08:08 98.6 Intake and Output 03/22/18 03/23/18 19:00 07:00 Intake Total 975 ml 600 ml Balance 975 ml 600 ml Intake Oral 600 ml 600 ml IV Total 375 ml # Voids 3 1 Height (Feet): 5 Height (Inches): 0.00 Weight (Pounds): 130 Ольга Enamorado MD Mar 23, 2018 08:01
[2018-03-23] MEDS: Metoprolol Tartrate 50mg tab ORAL SCH ×2 (08:31→17:11)
[2018-03-23] MEDS: Docusate 100mg cap ORAL SCH ×2 (08:31→20:47)
[2018-03-23] MEDS: Lisinopril 2.5mg tab ORAL SCH (08:31)
[2018-03-23] MEDS: DULoxetine 30mg cap ORAL SCH (08:31)
[2018-03-23] MEDS: cloNIDine 0.2mg Tab ORAL PRN (08:32)
[2018-03-23] MEDS: Eliquis 2.5mg tablet ORAL SCH ×2 (08:33→20:47)
[2018-03-23 12:00] VITALS: BP 125/76
[2018-03-23 16:00] VITALS: BP 124/80
[2018-03-23] MEDS ORDERED: Bisacodyl EC 5mg tab ORAL PRN (18:08)
[2018-03-23 20:00] VITALS: BP 112/69
--- NOTE | 2018-03-23 22:47 | Infectious Diseases Prog Note ---
Assessment/Plan Problems: (1) Fever Assessment & Plan: resolved with no infectious etiology, most likely due to RA , blood culture and urine culture are negative , continue to monitor off antibiotics . (2) Leukocytosis Assessment & Plan: suspect reactive , urine culture showed mixed urogenital contaminants , monitor off antibiotics (3) Generalized weakness Assessment & Plan: PT/OT , SNF placement (4) Dehydration Assessment & Plan: continue IVF for hydration (5) Lumbar disc disease Assessment & Plan: continue pain management , PT/OT Subjective Constitutional: Reports: no symptoms HEENT: Reports: no symptoms Respiratory: Reports: no symptoms Breasts: Reports: no symptoms Cardiovascular: Reports: no symptoms Gastrointestinal/Abdominal: Reports: no symptoms Genitourinary: Reports: no symptoms Neurologic: Reports: no symptoms Psychiatric: Reports: no symptoms Skin: Reports: no symptoms Endocrine: Reports: no symptoms Hematologic: Reports: no symptoms Musculoskeletal: Reports: no symptoms Allergies: Coded Allergies: IBUPROFEN (Verified Allergy, Mild, 10/05/09) Objective Vital Signs Last 24 Hour Vital Signs Date Time Temp Pulse Resp B/P (MAP) Pulse Ox O2 Delivery O2 Flow Rate FiO2 03/23/18 20:00 98.1 68 19 112/69 (83) 99 98.1 03/23/18 19:14 98.6 03/23/18 17:41 98.6 03/23/18 17:11 65 124/80 03/23/18 17:11 98.6 03/23/18 16:00 98.6 65 18 124/80 (95) 98 98.6 03/23/18 15:22 96.8 03/23/18 14:52 96.8 03/23/18 12:35 96.8 03/23/18 12:00 96.8 59 18 125/76 (92) 97 96.8 03/23/18 08:33 97.6 03/23/18 08:33 97.6 03/23/18 08:32 186/100 03/23/18 08:31 186/100 03/23/18 08:31 64 186/100 03/23/18 08:00 97.6 64 18 186/100 (128) 98 97.6 03/23/18 04:00 97.9 15 145/82 (103) 100 97.9 03/23/18 00:00 97.8 15 151/78 (102) 99 97.8 Height (Feet): 5 Height (Inches): 0.00 Weight (Pounds): 130 General Appearance: WD/WN, no acute distress HEENT: normocephalic, atraumatic, anicteric, mucous membranes moist, PERRL Respiratory/Chest: chest wall non-tender, lungs clear, normal breath sounds, no respiratory distress, no accessory muscle use Breasts: no masses Cardiovascular: normal peripheral pulses, normal rate, regular rhythm, no gallop/murmur, no JVD Abdomen: normal bowel sounds, soft, non tender, no organomegaly, non distended , no mass, no scars Genitourinary: normal external genitalia Extremities: no cyanosis, no clubbing Skin: no rash, no lesions, no ulcers Neurologic/Psychiatric: alert, oriented x 3, responsive Lymphatic: no neck adenopathy, no groin adenopathy Musculoskeletal: normal muscle bulk, no effusion Current Medications Medications (Trade) Dose Ordered Sig/Kina Route PRN Reason Start Time Stop Time Status Last Admin Dose Admin Acetaminophen (Tylenol) 650 mg Q6H PRN ORAL For Pain 03/18/18 05:30 04/17/18 05:29 Apixaban (Eliquis) 5 mg Q12HR ORAL 03/18/18 09:00 04/17/18 08:59 03/23/18 20:47 Bisacodyl (Dulcolax) 10 mg DAILYPRN PRN ORAL Constipation 03/23/18 18:08 04/22/18 18:07 03/23/18 19:13 Carisoprodol (Soma) 350 mg THREE TIMES A DAY ORAL 03/18/18 05:30 04/17/18 05:29 03/23/18 17:11 Clonidine HCl (Catapres tab) 0.2 mg Q8H PRN ORAL For High Blood Pressure 03/19/18 16:13 04/18/18 16:12 03/23/18 08:32 Dextrose (Dextrose 50%) 25 ml Q30M PRN IV Hypoglycemia 03/17/18 21:00 04/16/18 20:59 Dextrose (Dextrose 50%) 50 ml Q30M PRN IV Hypoglycemia 03/17/18 21:00 04/16/18 20:59 Diphenhydramine HCl (Benadryl) 25 mg Q6H PRN ORAL Itching/Pruritis 03/17/18 21:00 04/16/18 20:59 Docusate Sodium (Colace) 100 mg EVERY 12 HOURS ORAL 03/17/18 21:00 04/16/18 20:59 03/23/18 20:47 Duloxetine HCl (Cymbalta) 60 mg DAILY ORAL 03/21/18 09:00 04/20/18 08:59 03/23/18 08:31 Lisinopril (Zestril) 5 mg DAILY ORAL 03/23/18 09:00 04/20/18 08:59 03/23/18 08:31 Metoprolol Tartrate (Lopressor) 50 mg BID ORAL 03/19/18 18:00 04/18/18 17:59 03/23/18 17:11 Morphine Sulfate (Morphine Sulfate) 3 mg Q4H PRN IVP Severe Pain (Pain Scale 7-10) 03/18/18 05:30 03/25/18 05:29 03/23/18 19:14 Ondansetron HCl (Zofran) 4 mg Q6H PRN IVP Nausea & Vomiting 03/17/18 21:00 04/16/18 20:59 Oxymetazoline HCl (Afrin Nasal [place]) 1 spray Q6H PRN NASAL CONGESTION 03/18/18 01:45 04/17/18 01:44 Pantoprazole (Protonix) 40 mg DAILY ORAL 03/17/18 21:00 04/16/18 20:59 03/23/18 08:31 Ar Pardo M.D. Mar 23, 2018 22:47
[2018-03-24] VITALS (7 sets, daily range): BP systolic 97–167; BP diastolic 68–95
[2018-03-24] MEDS: Morphine Sulfate 4mg/ml Inj (IV USE ONLY) IVP PRN ×4 (03:20→22:39)
[2018-03-24] MEDS: Eliquis 2.5mg tablet ORAL SCH ×2 (09:28→21:45)
[2018-03-24] MEDS: Lisinopril 2.5mg tab ORAL SCH (09:29)
[2018-03-24] MEDS: Docusate 100mg cap ORAL SCH ×2 (09:29→21:44)
[2018-03-24] MEDS: Metoprolol Tartrate 50mg tab ORAL SCH ×2 (09:29→17:28)
[2018-03-24] MEDS: DULoxetine 30mg cap ORAL SCH (09:30)
--- NOTE | 2018-03-24 10:41 | General Progress Note ---
Assessment/Plan Assessment/Plan S: My pain is better controlled O: appears with significant pain in lower extr on movement , and limitation for ambulation PHYSICAL EXAMINATION: HEAD AND NECK: Atraumatic and normocephalic. CHEST: Clear to auscultation. No wheezing and no crackles. HEART: S1 and S2. Regular rate and rhythm. No S3. No S4. ABDOMEN: Soft. No organomegaly. Bowel sounds are normal. MUSCULOSKELETAL: Decreased range of motion in all four extremities. Positive for atrophied musculature. No gross sensory lesion is appreciated in the lower extremities.NEUROLOGIC: Awake, alert, and oriented x3. Meds: reviewed , including and not limited to metoprolol 25 mg bid IMAGING: result for Lumbar and Cervical Ct scans , are reviewed ASSESSMENT AND PLAN: 1. Acute weakness in the lower extremities associated urinary incontinence with no Obstruction 2. 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 3. Systemic inflammatory response syndrome. 4. Chronic pain. 5. Hyperlipidemia. 6. Gastrointestinal and deep venous thrombosis prophylaxis. 7. HTN 8. DVT , h.o of Plan: continue optimizing BP meds no evidence of Acute Bladder Obstruction discuss with CM for placement current ATC Subjective Allergies: Coded Allergies: IBUPROFEN (Verified Allergy, Mild, 10/05/09) Objective Last 24 Hour Vital Signs Date Time Temp Pulse Resp B/P (MAP) Pulse Ox O2 Delivery O2 Flow Rate FiO2 03/24/18 09:30 98.3 03/24/18 09:29 146/90 03/24/18 09:29 55 146/90 03/24/18 09:29 98.3 03/24/18 08:00 98.3 55 20 146/90 (108) 98 98.3 03/24/18 04:00 97.5 59 20 139/80 (99) 100 97.5 03/24/18 00:00 96.1 62 21 115/74 (88) 100 96.1 03/23/18 20:00 98.1 68 19 112/69 (83) 99 98.1 03/23/18 19:14 98.6 03/23/18 17:41 98.6 03/23/18 17:11 65 124/80 03/23/18 17:11 98.6 03/23/18 16:00 98.6 65 18 124/80 (95) 98 98.6 03/23/18 15:22 96.8 03/23/18 14:52 96.8 03/23/18 12:35 96.8 03/23/18 12:00 96.8 59 18 125/76 (92) 97 96.8 Intake and Output 03/23/18 03/24/18 19:00 07:00 Intake Total 360 ml 240 ml Output Total 290 ml Balance 360 ml -50 ml Intake Oral 360 ml 240 ml Output Urine Total 290 ml # Voids 3 Height (Feet): 5 Height (Inches): 0.00 Weight (Pounds): 130 Ольга Enamorado MD Mar 24, 2018 10:41
[2018-03-24] MEDS: HydrALAZINE 25mg tab ORAL SCH ×4 (11:07→21:45)
[2018-03-24] MEDS: cloNIDine 0.2mg Tab ORAL PRN (12:30)
--- NOTE | 2018-03-24 16:03 | Infectious Diseases Prog Note ---
Assessment/Plan Problems: (1) Fever Assessment & Plan: resolved with no infectious etiology, most likely due to RA , blood culture and urine culture are negative , continue to monitor off antibiotics . (2) Leukocytosis Assessment & Plan: suspect reactive , urine culture showed mixed urogenital contaminants , monitor off antibiotics (3) Generalized weakness Assessment & Plan: PT/OT , SNF placement (4) Dehydration Assessment & Plan: continue IVF for hydration (5) Lumbar disc disease Assessment & Plan: continue pain management , PT/OT Subjective Constitutional: Reports: no symptoms HEENT: Reports: no symptoms Respiratory: Reports: no symptoms Breasts: Reports: no symptoms Cardiovascular: Reports: no symptoms Gastrointestinal/Abdominal: Reports: no symptoms Genitourinary: Reports: no symptoms Neurologic: Reports: no symptoms Psychiatric: Reports: no symptoms Skin: Reports: no symptoms Endocrine: Reports: no symptoms Hematologic: Reports: no symptoms Musculoskeletal: Reports: pain Allergies: Coded Allergies: IBUPROFEN (Verified Allergy, Mild, 10/05/09) Objective Vital Signs Last 24 Hour Vital Signs Date Time Temp Pulse Resp B/P (MAP) Pulse Ox O2 Delivery O2 Flow Rate FiO2 03/24/18 13:52 167/95 03/24/18 13:00 98.4 03/24/18 12:30 167/95 03/24/18 12:30 98.4 03/24/18 12:00 98.4 54 19 167/95 (119) 99 98.4 03/24/18 11:07 146/90 03/24/18 09:59 98.3 03/24/18 09:30 98.3 03/24/18 09:29 146/90 03/24/18 09:29 55 146/90 03/24/18 09:29 98.3 03/24/18 08:00 98.3 55 20 146/90 (108) 98 98.3 03/24/18 04:00 97.5 59 20 139/80 (99) 100 97.5 03/24/18 00:00 96.1 62 21 115/74 (88) 100 96.1 03/23/18 20:00 98.1 68 19 112/69 (83) 99 98.1 03/23/18 19:14 98.6 03/23/18 17:11 65 124/80 03/23/18 17:11 98.6 Height (Feet): 5 Height (Inches): 0.00 Weight (Pounds): 130 General Appearance: WD/WN, no acute distress HEENT: normocephalic, atraumatic, anicteric, mucous membranes moist Respiratory/Chest: chest wall non-tender, lungs clear, normal breath sounds, no respiratory distress, no accessory muscle use Cardiovascular: normal peripheral pulses, normal rate, regular rhythm, no gallop/murmur, no JVD Abdomen: normal bowel sounds, soft, non tender, no organomegaly, non distended , no mass, no scars Extremities: no cyanosis, no clubbing Skin: no rash, no lesions, no ulcers Neurologic/Psychiatric: alert, oriented x 3, responsive Musculoskeletal: normal muscle bulk, other - STIFFNESS Current Medications Medications (Trade) Dose Ordered Sig/Kina Route PRN Reason Start Time Stop Time Status Last Admin Dose Admin Acetaminophen (Tylenol) 650 mg Q6H PRN ORAL For Pain 03/18/18 05:30 04/17/18 05:29 Apixaban (Eliquis) 5 mg Q12HR ORAL 03/18/18 09:00 04/17/18 08:59 03/24/18 09:28 Bisacodyl (Dulcolax) 10 mg DAILYPRN PRN ORAL Constipation 03/23/18 18:08 04/22/18 18:07 03/23/18 19:13 Carisoprodol (Soma) 350 mg THREE TIMES A DAY ORAL 03/18/18 05:30 04/17/18 05:29 03/24/18 12:30 Clonidine HCl (Catapres tab) 0.2 mg Q8H PRN ORAL For High Blood Pressure 03/19/18 16:13 04/18/18 16:12 03/24/18 12:30 Dextrose (Dextrose 50%) 25 ml Q30M PRN IV Hypoglycemia 03/17/18 21:00 04/16/18 20:59 Dextrose (Dextrose 50%) 50 ml Q30M PRN IV Hypoglycemia 03/17/18 21:00 04/16/18 20:59 Diphenhydramine HCl (Benadryl) 25 mg Q6H PRN ORAL Itching/Pruritis 03/17/18 21:00 04/16/18 20:59 Docusate Sodium (Colace) 100 mg EVERY 12 HOURS ORAL 03/17/18 21:00 04/16/18 20:59 03/24/18 09:29 Duloxetine HCl (Cymbalta) 60 mg DAILY ORAL 03/21/18 09:00 04/20/18 08:59 03/24/18 09:30 Hydralazine HCl (Apresoline) 25 mg Q8HR ORAL 03/24/18 10:45 04/23/18 10:44 03/24/18 13:52 Metoprolol Tartrate (Lopressor) 50 mg BID ORAL 03/19/18 18:00 04/18/18 17:59 03/24/18 09:29 Morphine Sulfate (Morphine Sulfate) 3 mg Q4H PRN IVP Severe Pain (Pain Scale 7-10) 03/24/18 15:00 03/31/18 14:59 Ondansetron HCl (Zofran) 4 mg Q6H PRN IVP Nausea & Vomiting 03/17/18 21:00 04/16/18 20:59 Oxymetazoline HCl (Afrin Nasal [place]) 1 spray Q6H PRN NASAL CONGESTION 03/18/18 01:45 04/17/18 01:44 Pantoprazole (Protonix) 40 mg DAILY ORAL 03/17/18 21:00 04/16/18 20:59 03/24/18 09:28 Ar Pardo M.D. Mar 24, 2018 16:03
[2018-03-25] VITALS (7 sets, daily range): BP systolic 127–168; BP diastolic 54–90
[2018-03-25] MEDS: HydrALAZINE 25mg tab ORAL SCH ×3 (05:21→21:18)
[2018-03-25] MEDS: Morphine Sulfate 4mg/ml Inj (IV USE ONLY) IVP PRN ×5 (05:22→21:53)
[2018-03-25] MEDS: Eliquis 2.5mg tablet ORAL SCH ×2 (09:17→21:16)
[2018-03-25] MEDS: Metoprolol Tartrate 50mg tab ORAL SCH ×2 (09:21→17:46)
[2018-03-25] MEDS: Docusate 100mg cap ORAL SCH ×2 (09:22→21:17)
[2018-03-25] MEDS: DULoxetine 30mg cap ORAL SCH (09:22)
--- NOTE | 2018-03-25 11:24 | General Progress Note ---
Assessment/Plan Assessment/Plan S: My pain is better controlled O: appears with significant pain in lower extr on movement , and limitation for ambulation. participating in daily PT sessions, up to her tolerance PHYSICAL EXAMINATION: HEAD AND NECK: Atraumatic and normocephalic. CHEST: Clear to auscultation. No wheezing and no crackles. HEART: S1 and S2. Regular rate and rhythm. No S3. No S4. ABDOMEN: Soft. No organomegaly. Bowel sounds are normal. MUSCULOSKELETAL: Decreased range of motion in all four extremities. Positive for atrophied musculature. No gross sensory lesion is appreciated in the lower extremities.NEUROLOGIC: Awake, alert, and oriented x3. Meds: reviewed , including and not limited to metoprolol 25 mg bid IMAGING: result for Lumbar and Cervical Ct scans , are reviewed ASSESSMENT AND PLAN: 1. Acute weakness in the lower extremities associated urinary incontinence with no Obstruction 2. 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 3. Systemic inflammatory response syndrome. 4. Chronic pain. 5. Hyperlipidemia. 6. Gastrointestinal and deep venous thrombosis prophylaxis. 7. HTN 8. DVT , h.o of Plan: continue optimizing BP meds no evidence of Acute Bladder Obstruction discuss with CM for placement current ATC Subjective Allergies: Coded Allergies: IBUPROFEN (Verified Allergy, Mild, 10/05/09) Objective Last 24 Hour Vital Signs Date Time Temp Pulse Resp B/P (MAP) Pulse Ox O2 Delivery O2 Flow Rate FiO2 03/25/18 10:19 97.9 62 18 149/80 (103) 98 97.9 03/25/18 09:21 67 162/86 03/25/18 09:00 Room Air 03/25/18 08:00 97.9 67 18 162/82 (108) 98 97.9 03/25/18 05:21 168/89 03/25/18 04:00 98.0 55 20 168/89 (115) 100 98.0 03/25/18 00:00 98.2 57 18 127/73 (91) 97 98.2 03/24/18 21:45 134/84 03/24/18 21:00 Room Air 03/24/18 20:00 98.1 59 18 134/84 (101) 99 98.1 03/24/18 18:38 97.1 03/24/18 18:38 97.1 03/24/18 18:09 97.1 03/24/18 18:08 97.1 03/24/18 17:54 97.1 57 18 129/78 (95) 98 97.1 03/24/18 17:28 69 97/68 03/24/18 16:00 98.4 69 17 97/68 (78) 99 98.4 03/24/18 14:00 97/68 03/24/18 12:30 167/95 03/24/18 12:30 98.4 03/24/18 12:00 98.4 54 19 167/95 (119) 99 98.4 Intake and Output 03/24/18 03/25/18 19:00 07:00 Intake Total 840 ml Balance 840 ml Intake Oral 240 ml Other 600 ml # Voids 3 Height (Feet): 5 Height (Inches): 0.00 Weight (Pounds): 130 Ольга Enamorado MD Mar 25, 2018 11:24
[2018-03-25] MEDS ORDERED: Milk of Magnesia 30ml Ud ORAL PRN (15:00)
--- NOTE | 2018-03-25 17:48 | Infectious Diseases Prog Note ---
Assessment/Plan Problems: (1) Fever Assessment & Plan: resolved with no infectious etiology, most likely due to RA , blood culture and urine culture are negative , continue to monitor off antibiotics . (2) Leukocytosis Assessment & Plan: suspect reactive , urine culture showed mixed urogenital contaminants , monitor off antibiotics (3) Generalized weakness Assessment & Plan: PT/OT , SNF placement (4) Dehydration Assessment & Plan: continue IVF for hydration (5) Lumbar disc disease Assessment & Plan: continue pain management , PT/OT (6) Rheumatoid arthritis Assessment & Plan: untreated , recommend referral to information security director for further care Subjective Constitutional: Reports: no symptoms HEENT: Reports: no symptoms Respiratory: Reports: no symptoms Breasts: Reports: no symptoms Cardiovascular: Reports: no symptoms Gastrointestinal/Abdominal: Reports: no symptoms Genitourinary: Reports: no symptoms Neurologic: Reports: no symptoms Psychiatric: Reports: no symptoms Skin: Reports: no symptoms Endocrine: Reports: no symptoms Hematologic: Reports: no symptoms Musculoskeletal: Reports: pain Allergies: Coded Allergies: IBUPROFEN (Verified Allergy, Mild, 10/05/09) Objective Vital Signs Last 24 Hour Vital Signs Date Time Temp Pulse Resp B/P (MAP) Pulse Ox O2 Delivery O2 Flow Rate FiO2 03/25/18 16:00 97.6 63 21 134/54 (80) 96 97.6 03/25/18 15:17 150/87 03/25/18 13:50 98.0 03/25/18 12:00 98.0 62 17 149/90 (109) 98 98.0 03/25/18 10:19 97.9 62 18 149/80 (103) 98 97.9 03/25/18 09:21 67 162/86 03/25/18 09:00 Room Air 03/25/18 08:00 97.9 67 18 162/82 (108) 98 97.9 03/25/18 05:21 168/89 03/25/18 04:00 98.0 55 20 168/89 (115) 100 98.0 03/25/18 00:00 98.2 57 18 127/73 (91) 97 98.2 03/24/18 21:45 134/84 03/24/18 21:00 Room Air 03/24/18 20:00 98.1 59 18 134/84 (101) 99 98.1 03/24/18 18:38 97.1 03/24/18 18:38 97.1 03/24/18 18:09 97.1 03/24/18 18:08 97.1 03/24/18 17:54 97.1 57 18 129/78 (95) 98 97.1 Height (Feet): 5 Height (Inches): 0.00 Weight (Pounds): 130 General Appearance: WD/WN, no acute distress HEENT: normocephalic, atraumatic, anicteric, mucous membranes moist, PERRL Respiratory/Chest: chest wall non-tender, lungs clear, normal breath sounds, no respiratory distress, no accessory muscle use Cardiovascular: normal peripheral pulses, normal rate, regular rhythm, no gallop/murmur, no JVD Abdomen: normal bowel sounds, soft, non tender, no organomegaly, non distended , no mass, no scars Extremities: no cyanosis, no clubbing Skin: no rash, no lesions Neurologic/Psychiatric: alert, oriented x 3, responsive Lymphatic: no neck adenopathy, no groin adenopathy Current Medications Medications (Trade) Dose Ordered Sig/Kina Route PRN Reason Start Time Stop Time Status Last Admin Dose Admin Acetaminophen (Tylenol) 650 mg Q6H PRN ORAL For Pain 03/18/18 05:30 04/17/18 05:29 Apixaban (Eliquis) 5 mg Q12HR ORAL 03/18/18 09:00 04/17/18 08:59 03/25/18 09:17 Bisacodyl (Dulcolax) 10 mg DAILYPRN PRN ORAL Constipation 03/23/18 18:08 04/22/18 18:07 03/23/18 19:13 Carisoprodol (Soma) 350 mg THREE TIMES A DAY ORAL 03/18/18 05:30 04/17/18 05:29 03/25/18 14:11 Clonidine HCl (Catapres tab) 0.2 mg Q8H PRN ORAL For High Blood Pressure 03/19/18 16:13 04/18/18 16:12 03/24/18 12:30 Dextrose (Dextrose 50%) 25 ml Q30M PRN IV Hypoglycemia 03/17/18 21:00 04/16/18 20:59 Dextrose (Dextrose 50%) 50 ml Q30M PRN IV Hypoglycemia 03/17/18 21:00 04/16/18 20:59 Diphenhydramine HCl (Benadryl) 25 mg Q6H PRN ORAL Itching/Pruritis 03/17/18 21:00 04/16/18 20:59 Docusate Sodium (Colace) 100 mg EVERY 12 HOURS ORAL 03/17/18 21:00 04/16/18 20:59 03/25/18 09:22 Duloxetine HCl (Cymbalta) 60 mg DAILY ORAL 03/21/18 09:00 04/20/18 08:59 03/25/18 09:22 Hydralazine HCl (Apresoline) 25 mg Q8HR ORAL 03/24/18 10:45 04/23/18 10:44 03/25/18 15:17 Magnesium Hydroxide (Mom) 30 ml DAILYPRN PRN ORAL Constipation 03/25/18 15:00 04/24/18 14:59 Metoprolol Tartrate (Lopressor) 50 mg BID ORAL 03/19/18 18:00 04/18/18 17:59 03/25/18 09:21 Morphine Sulfate (Morphine Sulfate) 3 mg Q4H PRN IVP Severe Pain (Pain Scale 7-10) 03/24/18 15:00 03/31/18 14:59 03/25/18 13:50 Ondansetron HCl (Zofran) 4 mg Q6H PRN IVP Nausea & Vomiting 03/17/18 21:00 04/16/18 20:59 Oxymetazoline HCl (Afrin Nasal [place]) 1 spray Q6H PRN NASAL CONGESTION 03/18/18 01:45 04/17/18 01:44 Pantoprazole (Protonix) 40 mg DAILY ORAL 03/17/18 21:00 04/16/18 20:59 03/25/18 09:22 Ar Pardo M.D. Mar 25, 2018 17:48
--- NOTE | 2018-03-25 23:26 | General Progress Note ---
Assessment/Plan Status: stable, progressing Assessment/Plan mdd cont Cymbalta provided ro.st Subjective Date patient seen: Mar 25, 2018 Neurologic/Psychiatric: Reports: anxiety, depressed Allergies: Coded Allergies: IBUPROFEN (Verified Allergy, Mild, 10/05/09) Subjective doing well Objective Last 24 Hour Vital Signs Date Time Temp Pulse Resp B/P (MAP) Pulse Ox O2 Delivery O2 Flow Rate FiO2 03/25/18 21:18 139/89 03/25/18 20:00 98.2 65 19 139/89 (106) 97 98.2 03/25/18 18:25 97.6 03/25/18 17:46 66 150/86 03/25/18 16:00 97.6 63 21 134/54 (80) 96 97.6 03/25/18 15:17 150/87 03/25/18 13:50 98.0 03/25/18 12:00 98.0 62 17 149/90 (109) 98 98.0 03/25/18 10:19 97.9 62 18 149/80 (103) 98 97.9 03/25/18 09:21 67 162/86 03/25/18 09:00 Room Air 03/25/18 08:00 97.9 67 18 162/82 (108) 98 97.9 03/25/18 05:21 168/89 03/25/18 04:00 98.0 55 20 168/89 (115) 100 98.0 03/25/18 00:00 98.2 57 18 127/73 (91) 97 98.2 Intake and Output 03/24/18 03/25/18 19:00 07:00 Intake Total 840 ml Balance 840 ml Intake Oral 240 ml Other 600 ml # Voids 3 Height (Feet): 5 Height (Inches): 0.00 Weight (Pounds): 130 Tay Santos MD Mar 25, 2018 23:26
[2018-03-26] VITALS: BP 151/92
[2018-03-26 04:00] VITALS: BP 159/96
[2018-03-26] MEDS: Morphine Sulfate 4mg/ml Inj (IV USE ONLY) IVP PRN ×2 (04:36→11:23)
[2018-03-26] MEDS: HydrALAZINE 25mg tab ORAL SCH ×2 (06:52→13:12)
[2018-03-26 08:00] VITALS: BP 161/93
[2018-03-26] MEDS: Docusate 100mg cap ORAL SCH (08:28)
[2018-03-26] MEDS: DULoxetine 30mg cap ORAL SCH (08:29)
[2018-03-26] MEDS: Eliquis 2.5mg tablet ORAL SCH (08:29)
[2018-03-26] MEDS: Metoprolol Tartrate 50mg tab ORAL SCH (08:29)
[2018-03-26 11:42] LABS: APPEARANCE,URINE TURBID; BILIRUBIN, URINE NEGATIVE (NEGATIVE); COLOR,URINE PALE YELLOW; GLUCOSE, URINE (UA) NEGATIVE (NEGATIVE); KETONES,URINE NEGATIVE (NEGATIVE); LEUKOCYTE ESTERASE ,URINE 3+ (NEGATIVE); NITRITE,URINE NEGATIVE (NEGATIVE); PH,URINE 7 (4.5-8.0); PROTEIN,URINE 3+ (NEGATIVE); UROBILINOGEN,URINE NORMAL MG/DL (0.0-1.0)
[2018-03-26] MEDS ORDERED: ROCEPHIN 11 GM/50 ML IVPB (11:54)
[2018-03-26 12:00] VITALS: BP 167/96
[2018-03-26] MEDS ORDERED: Fluconazole 100mg tab ORAL SCH (12:00)
[2018-03-26] MEDS ORDERED: CARISOPRODOL350 MG ORAL (12:12)
[2018-03-26] MEDS ORDERED: CATAPRES0.2 MG ORAL (12:14)
[2018-03-26] MEDS ORDERED: DOCUSATE SODIU100 MG ORAL (12:14)
[2018-03-26] MEDS ORDERED: MILK OF MA400 MG/51 ORAL (12:15)
[2018-03-26] MEDS ORDERED: HYDRALAZINE HCL25 M2 PO (12:15)
[2018-03-26] MEDS ORDERED: METOPROLOL TART50 M1 ORAL (12:16)
[2018-03-26] MEDS ORDERED: PANTOPRAZOLE SO40 MG ORAL (12:17)
[2018-03-26] MEDS ORDERED: cefTRIAXone 1 GM in D5W 55 ML IVPB SCH (13:00)
[2018-03-26 13:12] VITALS: BP 157/82
--- NOTE | 2018-03-26 13:30 | General Progress Note ---
Assessment/Plan Assessment/Plan S: My pain is better controlled O: appears with significant pain in lower extr on movement , and limitation for ambulation. participating in daily PT sessions, up to her tolerance PHYSICAL EXAMINATION: HEAD AND NECK: Atraumatic and normocephalic. CHEST: Clear to auscultation. No wheezing and no crackles. HEART: S1 and S2. Regular rate and rhythm. No S3. No S4. ABDOMEN: Soft. No organomegaly. Bowel sounds are normal. MUSCULOSKELETAL: Decreased range of motion in all four extremities. Positive for atrophied musculature. No gross sensory lesion is appreciated in the lower extremities.NEUROLOGIC: Awake, alert, and oriented x3. Meds: reviewed , including and not limited to metoprolol 25 mg bid IMAGING: result for Lumbar and Cervical Ct scans , are reviewed ASSESSMENT AND PLAN: 1. Acute weakness in the lower extremities associated urinary incontinence with no Obstruction 2. 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 3. Systemic inflammatory response syndrome. 4. Chronic pain. 5. Hyperlipidemia. 6. Gastrointestinal and deep venous thrombosis prophylaxis. 7. HTN 8. UTI 8. DVT , h.o of Plan: continue optimizing BP meds no evidence of Acute Bladder Obstruction discuss with CM for placement current ATC Start Ceftriaxon empirically for UTI await UC, sent today will optimise if needed in SNIF Subjective Allergies: Coded Allergies: IBUPROFEN (Verified Allergy, Mild, 10/05/09) Objective Last 24 Hour Vital Signs Date Time Temp Pulse Resp B/P (MAP) Pulse Ox O2 Delivery O2 Flow Rate FiO2 03/26/18 13:12 157/82 03/26/18 12:00 97.5 58 17 167/96 (119) 96 97.5 03/26/18 09:00 Room Air 03/26/18 08:29 73 161/93 03/26/18 08:00 97.2 73 19 161/93 (115) 97 97.2 03/26/18 06:52 159/96 03/26/18 04:00 98.2 56 18 159/96 (117) 100 98.2 03/26/18 00:00 97.7 63 18 151/92 (111) 96 97.7 03/25/18 21:18 139/89 03/25/18 21:00 Room Air 03/25/18 20:00 98.2 65 19 139/89 (106) 97 98.2 03/25/18 18:25 97.6 03/25/18 17:46 66 150/86 03/25/18 16:00 97.6 63 21 134/54 (80) 96 97.6 03/25/18 15:17 150/87 03/25/18 13:50 98.0 Intake and Output 03/25/18 03/26/18 19:00 07:00 Intake Total 360 ml Balance 360 ml Intake Oral 360 ml # Voids 4 4 Laboratory Tests 03/26/18 11:30: Urine Color Pale yellow, Urine Appearance Turbid, Urine pH 7, Urine Specific [place] 1.005, Urine Protein 3+H, Urine Glucose (UA) Negative, Urine Ketones Negative, Urine Blood 5+H, Urine Nitrite Negative, Urine Bilirubin Negative, Urine Urobilinogen Normal, Urine Leukocyte Esterase 3+H, Urine RBC 60-80H, Urine WBC 60-80H, Urine Squamous Epithelial Cells Few, Urine Bacteria ModerateH Height (Feet): 5 Height (Inches): 0.00 Weight (Pounds): 128 Ольга Enamorado MD Mar 26, 2018 13:30
[2018-03-26] MEDS ORDERED: D5 1/2NS 1000ml IV ONE (14:01)
--- NOTE | 2018-03-26 16:34 | Infectious Diseases Prog Note ---
Assessment/Plan Problems: (1) Fever Assessment & Plan: resolved with no infectious etiology, most likely due to RA , blood culture and urine culture initially were negative , continue to monitor off antibiotics. urine analysis was repeated and came back positive , but patient is not symptomatic, no need for antibiotics therapy (2) Leukocytosis Assessment & Plan: resolved, suspect reactive , urine culture showed mixed urogenital contaminants , monitor off antibiotics. patient is not symptomatic so far (3) Generalized weakness Assessment & Plan: PT/OT , SNF placement (4) Lumbar disc disease Assessment & Plan: continue pain management , PT/OT (5) Rheumatoid arthritis Assessment & Plan: untreated , recommend referral to almond paste molder for further care Subjective Constitutional: Reports: no symptoms HEENT: Reports: no symptoms Respiratory: Reports: no symptoms Breasts: Reports: no symptoms Cardiovascular: Reports: no symptoms Gastrointestinal/Abdominal: Reports: no symptoms Genitourinary: Reports: no symptoms Neurologic: Reports: no symptoms Psychiatric: Reports: no symptoms Skin: Reports: no symptoms Endocrine: Reports: no symptoms Hematologic: Reports: no symptoms Musculoskeletal: Reports: pain, stiffness Allergies: Coded Allergies: IBUPROFEN (Verified Allergy, Mild, 10/05/09) Objective Vital Signs Last 24 Hour Vital Signs Date Time Temp Pulse Resp B/P (MAP) Pulse Ox O2 Delivery O2 Flow Rate FiO2 03/26/18 13:12 157/82 03/26/18 12:00 97.5 58 17 167/96 (119) 96 97.5 03/26/18 09:00 Room Air 03/26/18 08:29 73 161/93 03/26/18 08:00 97.2 73 19 161/93 (115) 97 97.2 03/26/18 06:52 159/96 03/26/18 04:00 98.2 56 18 159/96 (117) 100 98.2 03/26/18 00:00 97.7 63 18 151/92 (111) 96 97.7 03/25/18 21:18 139/89 03/25/18 21:00 Room Air 03/25/18 20:00 98.2 65 19 139/89 (106) 97 98.2 03/25/18 18:25 97.6 03/25/18 17:46 66 150/86 Height (Feet): 5 Height (Inches): 0.00 Weight (Pounds): 128 General Appearance: WD/WN, no acute distress HEENT: normocephalic, atraumatic, anicteric, mucous membranes moist, PERRL, EOMI, pharynx normal, supple, no JVD Respiratory/Chest: chest wall non-tender, lungs clear, normal breath sounds, no respiratory distress, no accessory muscle use Cardiovascular: normal peripheral pulses, normal rate, regular rhythm, no gallop/murmur, no JVD Abdomen: normal bowel sounds, soft, non tender, no organomegaly, non distended , no mass, no scars Genitourinary: normal external genitalia Extremities: no cyanosis, no clubbing Skin: no rash, no lesions, no ulcers Neurologic/Psychiatric: alert, oriented x 3, responsive Lymphatic: no neck adenopathy, no groin adenopathy Musculoskeletal: normal muscle bulk, no effusion Laboratory Tests Test 03/26/18 11:30 Urine Color Pale yellow Urine Appearance Turbid Urine pH 7 (4.5-8.0) Urine Specific [place] 1.005 (1.005-1.035) Urine Protein 3+ (NEGATIVE) H Urine Glucose (UA) Negative (NEGATIVE) Urine Ketones Negative (NEGATIVE) Urine Blood 5+ (NEGATIVE) H Urine Nitrite Negative (NEGATIVE) Urine Bilirubin Negative (NEGATIVE) Urine Urobilinogen Normal MG/DL (0.0-1.0) Urine Leukocyte Esterase 3+ (NEGATIVE) H Urine RBC 60-80 /HPF (0 - 2) H Urine WBC 60-80 /HPF (0 - 2) H Urine Squamous Epithelial Cells Few /LPF (NONE/OCC) Urine Bacteria Moderate /HPF (NONE) H Ar Pardo M.D. Mar 26, 2018 16:34
--- NOTE | 2018-03-26 23:37 | General Progress Note ---
Assessment/Plan Status: stable, progressing Assessment/Plan mdd cont Cymbalta provided ro.st Subjective Date patient seen: Mar 26, 2018 Neurologic/Psychiatric: Reports: anxiety, depressed, emotional problems Allergies: Coded Allergies: IBUPROFEN (Verified Allergy, Mild, 10/05/09) Subjective doing well Objective Last 24 Hour Vital Signs Date Time Temp Pulse Resp B/P (MAP) Pulse Ox O2 Delivery O2 Flow Rate FiO2 03/26/18 13:12 157/82 03/26/18 12:00 97.5 58 17 167/96 (119) 96 97.5 03/26/18 09:00 Room Air 03/26/18 08:29 73 161/93 03/26/18 08:00 97.2 73 19 161/93 (115) 97 97.2 03/26/18 06:52 159/96 03/26/18 04:00 98.2 56 18 159/96 (117) 100 98.2 03/26/18 00:00 97.7 63 18 151/92 (111) 96 97.7 Intake and Output 03/25/18 03/26/18 19:00 07:00 Intake Total 360 ml Balance 360 ml Intake Oral 360 ml # Voids 4 4 Laboratory Tests 03/26/18 11:30: Urine Color Pale yellow, Urine Appearance Turbid, Urine pH 7, Urine Specific [place] 1.005, Urine Protein 3+H, Urine Glucose (UA) Negative, Urine Ketones Negative, Urine Blood 5+H, Urine Nitrite Negative, Urine Bilirubin Negative, Urine Urobilinogen Normal, Urine Leukocyte Esterase 3+H, Urine RBC 60-80H, Urine WBC 60-80H, Urine Squamous Epithelial Cells Few, Urine Bacteria ModerateH Height (Feet): 5 Height (Inches): 0.00 Weight (Pounds): 128 General Appearance: no apparent distress, alert Neurologic: oriented x 3, responsive Tay Santos MD Mar 26, 2018 23:37
--- NOTE | 2018-03-27 13:02 | Discharge Summary ---
Discharge Summary Discharge Summary _ DATE OF ADMISSION: 03/17/2018 DATE OF DISCHARGE: 03/26/2018 CONSULTANTS: Dr. Tay Pardo BRIEF HOSPITAL COURSE: Patient's a 63-year-old -[place] female, with history of multiple spine surgery, followed by work related injury. Patient was complaining of mild to moderate pain in the lower extremity. She was admitted to alf facility and was then transferred to a [facility] and care. She had worsening of ambulation. She presented to ED, complaining of increased generalized weakness. On evaluation, she was noted to have significant back pain as well as difficulty with urination. CT of the abdomen and pelvis showed multilevel degenerative changes and postsurgical changes. WBC was elevated to 12. She was admitted for evaluation of acute weakness with associated urinary incontinence. ID was consulted. She was started empirically on ceftriaxone. She was given IV fluids for hydration. She had elevated blood pressure and was started on metoprolol. Lisinopril was added for better blood pressure control. There was no evidence of acute bladder obstruction. She was given PT and OT. Spine CT showed severe spinal stenosis at L2 and L4, moderate to severe spinal stenosis at L4-L5. There was no acute bony trauma. Cervical CT with moderate to severe spinal stenosis at C3-C4, no acute bony trauma. Urine culture showed growth of mixed urogenital contaminants. Ceftriaxone was discontinued. Blood and urine cultures were negative. Echocardiogram showed ejection fraction 65-70%. Patient has history of depression. She was resumed on Cymbalta 60 mg daily. Fever eventually resolved with no infectious etiology. She was monitored off antibiotics. Repeat urinalysis came back positive, but patient asymptomatic, per ID recommendation no need to be started on antibiotic therapy. She was eventually cleared for [facility] to jail. 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 DISCHARGE MEDICATIONS: Refer to Discharge Medication List. I have been assigned to dictate discharge summary on this account, and I was not involved in the patient's management. Jossie Christian [employer] Mar 27, 2018 13:02
== END 2018-03-26 14:02 | DRG 552 ==
LOC: EMR 15:30 → 4E 18:06 → EDBEDREQ 19:01
DX: M47.896 Other spondylosis, lumbar region (principal); R65.10 Systemic inflammatory response syndrome (SIRS) of non-infectious origin without acute organ dysfunction; N39.0 Urinary tract infection, site not specified; M47.899 Other spondylosis, site unspecified; N39.498 Other specified urinary incontinence; G89.29 Other chronic pain; E78.5 Hyperlipidemia, unspecified; I10 Essential (primary) hypertension; Z86.718 Personal history of other venous thrombosis and embolism; M06.9 Rheumatoid arthritis, unspecified; F32.9 Major depressive disorder, single episode, unspecified; M51.36 Other intervertebral disc degeneration, lumbar region; M48.02 Spinal stenosis, cervical region; Z88.6 Allergy status to analgesic agent
CPT/HCPCS: 36415; 72125; 72128; 72131; 74176; 80053; 80061; 81001; 81003; 82728; 82962; 83036; 83880; 84439; 84484; 85025; 87040; 87081; 87086; 87181; 93306; 99285; J8499

== ENCOUNTER 2020-01-22 09:31 | Inpatient (IN) | payer MEDICARE, BC ==
[~2020-01-22] VITALS: Ht 165.1 cm; Wt 60.8 kg
[~2020-01-22 09:31] MED LIST: ACETAMINOPHEN325 M1 ORAL; AFRIN NASAL SPR30 ML NASAL; AMLODIPINE BESYL5 MG ORAL; CARISOPRODOL350 MG ORAL; CATAPRES0.2 MG ORAL; CYCLOBENZAPRIN7.5 MG ORAL; CYMBALTA60 MG ORAL; DOCUSATE SODIU100 MG ORAL; DULCOLAX5 MG PO; ELIQUIS5 MG PO; FAMOTIDINE20 MG ORAL; FUROSEMIDE40 MG ORAL; HYDRALAZINE HCL25 M2 PO; LIDOCAINE700 M1 TP; METOPROLOL TART50 M1 ORAL; MILK OF MA400 MG/51 ORAL; PANTOPRAZOLE SO40 MG ORAL; PROTONIX40 MG ORAL; ROCEPHIN 11 GM/50 ML IVPB
[2020-01-22] MEDS ORDERED: Morphine Sulfate 4mg/ml Inj (IV USE ONLY) IVP ONE ×2 (09:45→12:00)
--- NOTE | 2020-01-22 09:53 | Emergency Room Report ---
History of Present Illness General Chief Complaint: Abdominal Pain Source: Patient Present Illness HPI Disclaimer: Please note that this report is being documented using [email or web address] technology. This can lead to erroneous entry secondary to incorrect interpretation by the dictating instrument. HPI: 64-year-old female past medical history of spinal stenosis, acid reflux, appendectomy presented for right-sided abdominal pain. She has had right-sided abdominal pain and flank pain for the past few days. Aching in nature. Associated with mild nausea no vomiting. No fevers. Some dysuria. No diarrhea. Pain currently 8-10 out of 10. Allergies: Coded Allergies: IBUPROFEN (Verified Allergy, Mild, 10/05/09) CORTICOSTEROIDS (GLUCOCORTICOIDS) (Unverified Allergy, Unknown, 01/22/20) COVID-19 Screening Contact w/high risk pt: No Experienced COVID-19 symptoms?: No COVID-19 Testing performed POLISHER IMPLANT: No Patient History Reviewed Nursing Documentation: PMH: Agreed; PSxH: Agreed Nursing Documentation-PMH Hx Cardiac Problems: Yes Hx Hypertension: Yes Hx COPD: Yes Hx Cancer: No Hx Gastrointestinal Problems: No Review of Systems All Other Systems: negative except mentioned in HPI Physical Exam Vital Signs Date Time Temp Pulse Resp B/P (MAP) Pulse Ox O2 Delivery O2 Flow Rate FiO2 01/22/20 09:24 98.6 94 18 130/89 (103) 96 Room Air Sp02 EP Interpretation: reviewed, normal General Appearance: well appearing, no apparent distress Head: normocephalic, atraumatic Eyes: bilateral eye PERRL, bilateral eye EOMI ENT: hearing grossly normal, moist mucus membranes Neck: full range of motion, supple Respiratory: lungs clear, normal breath sounds, no rhonchi, no respiratory distress, no retraction, no wheezing Cardiovascular #1: normal peripheral pulses, regular rate, rhythm, no murmur Gastrointestinal: non tender, soft, non-distended, no guarding Genitourinary: CVA tenderness (R) Neurologic: alert, oriented x3, no focal defects Skin: normal color, warm/dry Medical Decision Making Diagnostic Impression: Primary Impression: Metastatic disease Additional Impressions: Lung mass Acute pancreatitis Right flank pain ER Course MDM: Differential diagnosis included but not limited to pyelonephritis, UTI, diverticulitis, constipation, colitis, pneumonia to name a few. Clinical course-IV inserted analgesics given. Laboratory studies ordered CT scan ordered. Unfortunately CT scan demonstrated evidence of probable metastatic disease to the liver and bone. A right lower lung mass also noted. This is most likely the cause of the patient's pain. She was afebrile in the ER. It appears patient has an undiagnosed malignancy at this time. She denies any history of cancer. As this is a new finding patient will be admitted to the medical floor for further work-up and treatment. Labs - Laboratory Tests Test 01/22/20 09:55 01/22/20 10:25 White Blood Count 9.2 K/UL (4.8-10.8) Red Blood Count 3.67 M/UL (4.20-5.40) L Hemoglobin 10.7 G/DL (12.0-16.0) L Hematocrit 33.3 % (37.0-47.0) L Mean Corpuscular Volume 91 FL (80-99) Mean Corpuscular Hemoglobin 29.1 PG (27.0-31.0) Mean Corpuscular Hemoglobin Concent 32.1 G/DL (32.0-36.0) Red Cell Distribution Width 15.3 % (11.6-14.8) H Platelet Count 441 K/UL (150-450) Mean Platelet Volume 5.2 FL (6.5-10.1) L Neutrophils (%) (Auto) 77.9 % (45.0-75.0) H Lymphocytes (%) (Auto) 15.5 % (20.0-45.0) L Monocytes (%) (Auto) 5.0 % (1.0-10.0) Eosinophils (%) (Auto) 0.2 % (0.0-3.0) Basophils (%) (Auto) 1.5 % (0.0-2.0) Sodium Level 138 MMOL/L (136-145) Potassium Level 3.8 MMOL/L (3.5-5.1) Chloride Level 102 MMOL/L (98-107) Carbon Dioxide Level 29 MMOL/L (21-32) Anion Gap 8 mmol/L (5-15) Blood Urea Nitrogen 6 mg/dL (7-18) L Creatinine 0.7 MG/DL (0.55-1.30) Estimated Glomerular Filtration Rate > 60 mL/min (>60) Glucose Level 127 MG/DL (74-106) H Calcium Level 11.4 MG/DL (8.5-10.1) H Total Bilirubin 0.3 MG/DL (0.2-1.0) Aspartate Amino Transferase (AST) 98 U/L (15-37) H Alanine Aminotransferase (ALT) 15 U/L (12-78) Alkaline Phosphatase 71 U/L (46-116) Total Protein 8.9 G/DL (6.4-8.2) H Albumin 4.4 G/DL (3.4-5.0) Globulin 4.5 g/dL Albumin/Globulin Ratio 1.0 (1.0-2.7) Lipase 1427 U/L (73-393) H Urine Color Pale yellow Urine Appearance Clear Urine pH 8 (4.5-8.0) Urine Specific [place] 1.015 (1.005-1.035) Urine Protein Negative (NEGATIVE) Urine Glucose (UA) Negative (NEGATIVE) Urine Ketones Negative (NEGATIVE) Urine Blood Negative (NEGATIVE) Urine Nitrite Negative (NEGATIVE) Urine Bilirubin Negative (NEGATIVE) Urine Urobilinogen Normal MG/DL (0.0-1.0) Urine Leukocyte Esterase Negative (NEGATIVE) On reevaluation: Patient's pain is persistent additional analgesics ordered Plan-patient will be admitted to the medical floor Last Vital Signs Date Time Temp Pulse Resp B/P (MAP) Pulse Ox O2 Delivery O2 Flow Rate FiO2 01/22/20 09:24 98.6 94 18 130/89 (103) 96 Room Air Disposition: ADMITTED INPATIENT Condition: Serious Jamin Roach M.D. Jan 22, 2020 09:53
--- NOTE | 2020-01-22 10:00 | NUR ---
ED Nurse Note: Pt BIBA from home for R abdominal pain since 01/19 that radiates to back. Pt states she has difficulty urinating. Pt has spinal stenosis and is wearing as aspen collar. Set up on monitor. Pt is alert and ox4, ambulatory.
[2020-01-22 10:01] VITALS: BP 127/85
--- NOTE | 2020-01-22 10:05 | NUR ---
ED Nurse Note: Pt taken to CT.
[2020-01-22 10:23] LABS: ANION GAP 8 mmol/L (5-15); BLOOD UREA NITROGEN 6 mg/dL (7-18); CALCIUM 11.4 MG/DL (8.5-10.1); CARBON DIOXIDE 29 MMOL/L (21-32); CHLORIDE 102 MMOL/L (98-107); CREATININE 0.7 MG/DL (0.55-1.30); POTASSIUM 3.8 MMOL/L (3.5-5.1); SODIUM 138 MMOL/L (136-145)
[2020-01-22 10:25] LABS: BASOPHILS % (AUTO) 1.5 % (0.0-2.0); EOSINOPHILS % (AUTO) 0.2 % (0.0-3.0); HEMATOCRIT 33.3 % (37.0-47.0); HEMOGLOBIN 10.7 G/DL (12.0-16.0); LYMPHOCYTES % (AUTO) 15.5 % (20.0-45.0); MEAN CORPUSCULAR VOLUME 91 FL (80-99); NEUTROPHILS % (AUTO) 77.9 % (45.0-75.0); PLATELET COUNT 441 K/UL (150-450); RED BLOOD COUNT 3.67 M/UL (4.20-5.40); RED CELL DISTRIBUTION WIDTH 15.3 % (11.6-14.8); WHITE BLOOD COUNT 9.2 K/UL (4.8-10.8)
[2020-01-22 10:27] LABS: ALANINE AMINOTRANSFERASE 15 U/L (12-78); ALBUMIN 4.4 G/DL (3.4-5.0); ALKALINE PHOSPHATASE 71 U/L (46-116); ASPARTATE AMINO TRANSFERASE 98 U/L (15-37); BILIRUBIN,TOTAL 0.3 MG/DL (0.2-1.0)
[2020-01-22 10:37] LABS: APPEARANCE,URINE CLEAR; BILIRUBIN, URINE NEGATIVE (NEGATIVE); COLOR,URINE PALE YELLOW; GLUCOSE, URINE (UA) NEGATIVE (NEGATIVE); KETONES,URINE NEGATIVE (NEGATIVE); LEUKOCYTE ESTERASE ,URINE NEGATIVE (NEGATIVE); NITRITE,URINE NEGATIVE (NEGATIVE); PH,URINE 8 (4.5-8.0); PROTEIN,URINE NEGATIVE (NEGATIVE); UROBILINOGEN,URINE NORMAL MG/DL (0.0-1.0)
--- NOTE | 2020-01-22 10:51 | Diagnostic Imaging Report ---
EXAM: CT CT Abdomen Pelvis WO Contrast INDICATION: Abdominal pain. COMPARISON: 03/17/2018 TECHNIQUE: Axial images were obtained through the abdomen pelvis without intravenous contrast. Sagittal and coronal reformats are generated. All CT scans at this facility are performed using dose modulation techniques as appropriate to a performed exam including the following: automated exposure control with adjustment of the mA and/or kV according to patient size. RADIATION DOSE: CTDIvol: 4.8 mGy DLP: 234.5 mGy-cm Dose information generated by the CT scanner is available in PACS. FINDINGS: There is a large lobulated mass identified at the medial right lung base abutting the right heart margin measuring at least 9.1 x 4 cm. Small right effusion noted. Multiple low-density masses scattered throughout the liver likely metastatic disease. The spleen is homogeneous. Gallbladder is without sludge or stone and there is no wall thickening. The pancreas is unremarkable. There is a stable small low-density nodule in the left adrenal gland likely a cortical adenoma unchanged since 2018. Intrarenal stones noted in the left kidney. No hydronephrosis bilaterally. There is a hyperdense exophytic nodule posterior midportion of the right kidney perhaps a hemorrhagic cyst. Small bowel loops are nondistended. There is scattered diverticulosis without sign of acute diverticulitis. The appendix is not visualized. There is no free fluid or free air. No pathologic adenopathy demonstrated. Urinary bladder appears unremarkable. There is a lucent lesion identified in the L4-L5 fused vertebral body likely representing an osseous metastasis. Another subtle lucent lesion identified in the right anterior aspect of L1 [place]te[place] IMPRESSION: LARGE LOBULATED MASS AT THE RIGHT LUNG BASE ABUTTING THE RIGHT HEART MARGIN. MULTIPLE LOW-DENSITY MASSES IN THE LIVER LIKELY METASTATIC. ALSO LUCENT LESIONS IN THE LUMBAR SPINE LIKELY METASTATIC. STABLE SMALL LOW-DENSITY LEFT ADRENAL NODULE UNCHANGED SINCE 2018 LIKELY CORTICAL ADENOMA. DIVERTICULOSIS.
[2020-01-22 12:37] VITALS: BP 121/87
--- NOTE | 2020-01-22 13:00 | NUR ---
ED Nurse Note: Report given to Migue TORREZ.
--- NOTE | 2020-01-22 13:00 | NUR ---
ED Nurse Note: Nursing dimension quarry supervisor notified that pt wants to put belongings in safe. NS states she will met pt on MS floor for belongings.
--- NOTE | 2020-01-22 13:05 | NUR ---
ED Nurse Note: Pt transferred to MS floor with all belongings. Pt has no acute distress. Cleared by ERMD to be transferred.
--- NOTE | 2020-01-22 13:30 | Consultation ---
DATE OF CONSULTATION: 01/22/2020 GASTROENTEROLOGY CONSULTATION CONSULTING PHYSICIAN: Irving Lopez MD. REFERRING PHYSICIAN: Nikko Butt DO. CHIEF COMPLAINT: Abdominal pain. HISTORY OF PRESENT ILLNESS: This is a very unfortunate female with past medical history of lung cancer with mets to the liver, admitted to the hospital with complaint of right upper quadrant abdominal pain associated with nausea, but no vomiting. PAST MEDICAL HISTORY: Significant for, 1. History of lung cancer with mets to the liver. 2. Hypertension. 3. History of COPD. ALLERGIES: To corticosteroids and ibuprofen. MEDICATIONS: Please see medication reconciliation list. SOCIAL HISTORY: The patient denies any recent tobacco, alcohol, or drug abuse. PAST SURGICAL HISTORY: None. REVIEW OF SYSTEMS: A 10-point review of systems was performed and pertinent positives in HPI. PHYSICAL EXAMINATION: VITAL SIGNS: Temperature 98.6, pulse rate 90, respirations 16, blood pressure 127/85. HEENT: Normocephalic and atraumatic. Sclerae anicteric. NECK: Supple. No evidence of obvious lymphadenopathy. CARDIOVASCULAR: Regular rate and rhythm. Plus S1, S2. LUNGS: Decreased breath sounds bilaterally, right more than left. ABDOMEN: Soft. Bowel sounds are present. No rebound. No guarding. No peritoneal sign. There is tenderness to palpation in the right upper quadrant. EXTREMITIES: No cyanosis. No clubbing. LABORATORY DATA: White count is 9.2, hemoglobin 10, hematocrit 33, platelets of 441,000. Chem-7, sodium 138, potassium 3.8, BUN 6, creatinine 0.7. Glucose is 127. Liver function grossly normal except for AST of 98. Lipase is 1427. CT of the abdomen and pelvis showed evidence of a lung mass with liver metastasis and metastasis. ASSESSMENT: This is a 64-year-old unfortunate female with lung cancer with bone and liver metastases, presents with right upper quadrant abdominal pain. No obvious gallstones. No obvious abnormal liver function tests. No evidence of any constipation on the CT. There is evidence of elevated lipase on the blood work, but there is no obvious pancreatitis based on CT scan. Site of the pain is on the right the left. PLAN: Our plan will be to keep the patient n.p.o. for tonight, start her on IV fluids for hydration. Repeat labs for tomorrow including amylase, lipase, and lipid panel. The patient to be seen by oncologist. IV hydration. Pain management. Overall poor prognosis. I want to thank Dr. Nikko Butt for this kind referral. Irving Danette Lopez DR: ISAI JOB#: [id number] CC:
--- NOTE | 2020-01-22 13:45 | NUR ---
NURSE NOTES: Admitted patient from ED to med surg floor. Patient is awake and alert. A&O X4. Respiration is even and unlabored on room air. pt c/o back pain, awaiting MD's order for pain. Belongings checked; pt. signs inventory form. Patient came with no home medications. Skin is clear and intact. pt is a fall risk, bed alrm on, bed locked for fall prevention. Place call light within reach. Dr. Butt called on the phone for admission orders, message left, awaiting call back.
[2020-01-22] MEDS ORDERED: Lidocaine 1% Plain 30 ml INJ PRN (14:00)
[2020-01-22] MEDS ORDERED: Sodium Bicarbonate 4% 2.4meq/5ml vial IV PRN (14:00)
--- NOTE | 2020-01-22 14:00 | NUR ---
NURSE NOTES: Received admission orders from Dr. Cobb covering for Dr. Butt. all orders noted and carried out.
[2020-01-22 16:00] VITALS: BP 128/67
--- NOTE | 2020-01-22 16:00 | Consultation ---
DATE OF CONSULTATION: 01/22/2020 PULMONARY CONSULTATION CONSULTING PHYSICIAN: Reymundo Vázquez MD. HISTORY OF PRESENT ILLNESS: This is a 64-year-old female who was admitted to the hospital with abdominal pain. Patient reports mild cough with shortness of breath. She has history of spinal stenosis and GERD. Patient previously had an appendectomy. Patient reported mild nausea and shortness of breath. ALLERGIES: To Motrin and steroids. PAST MEDICAL HISTORY: Notable for COPD, hypertension, GERD, spinal stenosis. PREVIOUS SURGERY: Appendectomy. REVIEW OF SYSTEMS: Denies any headaches, hematemesis, melena, hematochezia, night sweats, or weight loss. PHYSICAL EXAMINATION: GENERAL: Reveals a 64-year-old female. HEENT: Unremarkable. CHEST: Decreased breath sounds bilaterally. ABDOMEN: Soft. EXTREMITIES: There is no edema. VITAL SIGNS: Blood pressure is 125/80, heart rate , respirations 18, O2 saturation 98% on room air. LABORATORY DATA: Lab testing shows normal CBC with a hemoglobin 10.7. Chemistries are normal except for calcium 9.4, glucose 127. DIAGNOSTIC STUDIES: Patient had an abdomen and pelvis CT. Lung bases showed large lobular mass in the right medial lung base. There are multiple low-density masses in the liver suspicious for metastatic disease. There is also possibly metastases in the lumbar spine. IMPRESSION: 1. Large lung mass. 2. COPD. 3. History of spinal stenosis. 4. metastasis. DISCUSSION: Patient will benefit from a chest CT. I have reviewed the notes from GI. It appeared that the patient has a history of lung cancer. I will hold off on further testing. Oncology evaluation is pending. We will follow. Reymundo Vázquez M.D. DR: ELADIA JOB#: [id number] CC:
[2020-01-22] MEDS ORDERED: Morphine Sulfate 2mg/ml Inj(IV/IM USE ONLY) IVP PRN (16:15)
[2020-01-22 17:33] VITALS: BP 141/92
[2020-01-22] MEDS ORDERED: Milk of Magnesia 30ml Ud ORAL PRN (17:45)
[2020-01-22] MEDS: Docusate 100mg cap ORAL SCH (18:38)
--- NOTE | 2020-01-22 19:36 | NUR ---
NURSE HAND-OFF: Important Events on Shift: new admit, abdominal pain, back pain Patient Status: weak in bed, verbally responsive Diet: regular chooped diet Pending Orders: Pending Results/Labs: Pending MD notification: Latest Vital Signs: Temperature 98.1 , Pulse 96 , B/P 141 /92 , Respiratory Rate 20 , O2 SAT 92 , Room Air, O2 Flow Rate . Vital Sign Comment: Latest Guido Fall Score: 45 Fall Risk: High Risk Safety Measures: Call light , Bed Alarm , Side Rails Side Rails x3, Bed position . Fall Precautions: Report given to Zaida.
--- NOTE | 2020-01-22 19:37 | NUR ---
NURSE NOTES: Received pt A&O X4,awake, and verbal. No sob,fever and cough at the moment. Iv is intact and asymptomatic. pt is complaining of back pain. Bed is in the lowest position,locked and alarm on. Call light within reach. we will keep monitoring the pt.
[2020-01-22 20:00] VITALS: BP 164/100
[2020-01-22] MEDS: HYDROmorphone 1mg/ml Carpuject IVP PRN (20:46)
[2020-01-22] MEDS: Metoprolol Tartrate 50mg tab ORAL SCH (20:48)
[2020-01-22] MEDS: HydrALAZINE 25mg tab ORAL SCH (22:00)
[2020-01-23] VITALS (7 sets, daily range): BP systolic 125–163; BP diastolic 82–109
[2020-01-23] MEDS: Zolpidem 5mg tab ORAL PRN ×2 (01:29→20:41)
[2020-01-23] MEDS: HydrALAZINE 25mg tab ORAL SCH (05:21)
[2020-01-23] MEDS: HYDROmorphone 1mg/ml Carpuject IVP PRN ×3 (05:22→17:20)
[2020-01-23 05:36] LABS: HEMATOCRIT 34.3 % (37.0-47.0); HEMOGLOBIN 10.9 G/DL (12.0-16.0); MEAN CORPUSCULAR VOLUME 92 FL (80-99); PLATELET COUNT 423 K/UL (150-450); RED BLOOD COUNT 3.73 M/UL (4.20-5.40); RED CELL DISTRIBUTION WIDTH 15.5 % (11.6-14.8); WHITE BLOOD COUNT 12.5 K/UL (4.8-10.8)
[2020-01-23 05:41] LABS: ALANINE AMINOTRANSFERASE 17 U/L (12-78); ALBUMIN 4.3 G/DL (3.4-5.0); ALBUMIN/GLOBULIN RATIO 0.9 (1.0-2.7); ALKALINE PHOSPHATASE 73 U/L (46-116); ANION GAP 12 mmol/L (5-15); ASPARTATE AMINO TRANSFERASE 98 U/L (15-37); BILIRUBIN,TOTAL 0.3 MG/DL (0.2-1.0); BLOOD UREA NITROGEN 9 mg/dL (7-18); CALCIUM 11.2 MG/DL (8.5-10.1); CARBON DIOXIDE 24 MMOL/L (21-32); CHLORIDE 102 MMOL/L (98-107); CHOLESTEROL 218 MG/DL (< 200); CREATININE 0.6 MG/DL (0.55-1.30); HDL CHOLESTEROL 52 MG/DL (40-60); POTASSIUM 3.5 MMOL/L (3.5-5.1); SODIUM 138 MMOL/L (136-145); TRIGLYCERIDES 67 MG/DL (30-150)
[2020-01-23 06:21] LABS: AMYLASE 544 U/L (25-115)
--- NOTE | 2020-01-23 06:25 | NUR ---
NURSE NOTES: received a call form lab to notified me critical value. patient Amylase is 544. Will notify the doctor.
--- NOTE | 2020-01-23 06:32 | NUR ---
NURSE NOTES: Notified Dr whyte and no new order.
--- NOTE | 2020-01-23 06:57 | NUR ---
NURSE HAND-OFF: Important Events on Shift:Amylase is 544 ,notified Dr whyte and no new order Patient Status: Stable Diet: R Pending Orders: N/A Pending Results/Labs: n/a Pending MD notification: n/a Latest Vital Signs: Temperature 98.1 , Pulse 92 , B/P 163 /109 , Respiratory Rate 18 , O2 SAT 94 , Nasal Cannula, O2 Flow Rate 2.0 . Vital Sign Comment: Latest Guido Fall Score: 45 Fall Risk: High Risk Safety Measures: Call light Within Reach, Bed Alarm Zone 1, Side Rails Side Rails x2, Bed position Low and Locked. Fall Precautions: Patient Fall Education Report given to SHAN Meyers.
--- NOTE | 2020-01-23 08:00 | NUR ---
NURSE NOTES: PT IN EXTREME PAIN, RIGHT ABDOMEN RADIATING TO BACK. PT EDUCATED ON PRN SCHEDULE FOR IV DILAUDID. PER PT, THE MEDICATION DOES NOT LAST LONG. PT UNABLE TO TOLERATE REPOSITIONING AT THIS TIME. RN LEFT MESSAGE FOR DR SHANKAR WHO ORDERED PRN IV DILAUDID 1MG Q8H.
--- NOTE | 2020-01-23 08:39 | General Progress Note ---
Assessment/Plan Problem List: (1) Metastatic disease ICD Codes: C79.9 - Secondary malignant neoplasm of unspecified site SNOMED: 256017120 (2) Right flank pain ICD Codes: R10.9 - Unspecified abdominal pain SNOMED: 559028021 (3) Lung mass ICD Codes: R91.8 - Other nonspecific abnormal finding of lung field SNOMED: 759359267 (4) Acute pancreatitis ICD Codes: K85.90 - Acute pancreatitis without necrosis or infection, unspecified SNOMED: 633286624 (5) Rheumatoid arthritis ICD Codes: M06.9 - Rheumatoid arthritis, unspecified SNOMED: 40071906 Assessment/Plan: start IVF repeat labs bowel regimen CT reviewed pending lung mass biopsy will fu Subjective ROS Limited/Unobtainable: Yes Allergies: Coded Allergies: IBUPROFEN (Verified Allergy, Mild, 10/05/09) CORTICOSTEROIDS (GLUCOCORTICOIDS) (Unverified Allergy, Unknown, 01/22/20) Subjective c/o abd pain + Flatus no bm Objective Last 24 Hour Vital Signs Date Time Temp Pulse Resp B/P (MAP) Pulse Ox O2 Delivery O2 Flow Rate FiO2 01/23/20 08:00 98.0 92 16 157/109 (125) 96 01/23/20 05:51 98.1 01/23/20 05:51 98.1 01/23/20 05:21 163/109 01/23/20 04:00 98.1 92 18 163/109 (127) 94 01/23/20 00:00 98.2 89 20 152/86 (108) 96 01/22/20 22:00 152/98 01/22/20 21:00 Nasal Cannula 2.0 01/22/20 20:48 98 164/109 01/22/20 20:00 98.1 98 20 164/100 (121) 95 01/22/20 17:33 98.1 96 20 141/92 (108) 92 01/22/20 16:00 98.1 94 19 128/67 (87) 94 01/22/20 13:33 Room Air 01/22/20 13:05 98.6 84 16 125/83 98 Room Air 01/22/20 12:37 98.6 01/22/20 12:37 98.6 80 17 121/87 99 Room Air 01/22/20 10:20 98.6 01/22/20 10:01 98.6 87 18 127/85 97 Room Air 01/22/20 10:01 98 16 Room Air 97 01/22/20 09:24 98.6 94 18 130/89 (103) 96 Room Air Intake and Output 01/22/20 01/23/20 19:00 07:00 Intake Total 0 ml 150 ml Output Total 1000 ml Balance 0 ml -850 ml Intake Oral 0 ml 150 ml Output Urine Total 1000 ml Laboratory Tests 01/22/20 09:55: White Blood Count 9.2, Red Blood Count 3.67L, Hemoglobin 10.7L, Hematocrit 33.3L , Mean Corpuscular Volume 91, Mean Corpuscular Hemoglobin 29.1, Mean Corpuscular Hemoglobin Concent 32.1, Red Cell Distribution Width 15.3H, Platelet Count 441, Mean Platelet Volume 5.2L, Neutrophils (%) (Auto) 77.9H, Lymphocytes (%) (Auto) 15.5L, Monocytes (%) (Auto) 5.0, Eosinophils (%) (Auto) 0.2, Basophils (%) (Auto) 1.5, Sodium Level 138, Potassium Level 3.8, Chloride Level 102, Carbon Dioxide Level 29, Anion Gap 8, Blood Urea Nitrogen 6L, Creatinine 0.7, Estimat Glomerular Filtration Rate > 60, Glucose Level 127H, Calcium Level 11.4H, Total Bilirubin 0.3, Aspartate Amino Transf (AST/SGOT) 98H , Alanine Aminotransferase (ALT/SGPT) 15, Alkaline Phosphatase 71, Total Protein 8.9H, Albumin 4.4, Globulin 4.5, Albumin/Globulin Ratio 1.0, Lipase 1427H, Carcinoembryonic Antigen [Pending], CA 19-9 Antigen [Pending] 01/22/20 10:25: Urine Color Pale yellow, Urine Appearance Clear, Urine pH 8, Urine Specific [place] 1.015, Urine Protein Negative, Urine Glucose (UA) Negative, Urine Ketones Negative, Urine Blood Negative, Urine Nitrite Negative, Urine Bilirubin Negative, Urine Urobilinogen Normal, Urine Leukocyte Esterase Negative 01/23/20 04:31: White Blood Count 12.5H, Red Blood Count 3.73L, Hemoglobin 10.9L, Hematocrit 34.3L, Mean Corpuscular Volume 92, Mean Corpuscular Hemoglobin 29.2, Mean Corpuscular Hemoglobin Concent 31.8L, Red Cell Distribution Width 15.5H, Platelet Count 423, Mean Platelet Volume 5.2L, Neutrophils (%) (Auto) , Lymphocytes (%) (Auto) , Monocytes (%) (Auto) , Eosinophils (%) (Auto) , Basophils (%) (Auto) , Sodium Level 138, Potassium Level 3.5, Chloride Level 102 , Carbon Dioxide Level 24, Anion Gap 12, Blood Urea Nitrogen 9, Creatinine 0.6, Estimat Glomerular Filtration Rate > 60, Glucose Level 121H, Calcium Level 11.2H , Total Bilirubin 0.3, Aspartate Amino Transf (AST/SGOT) 98H, Alanine Aminotransferase (ALT/SGPT) 17, Alkaline Phosphatase 73, Total Protein 9.0H, Albumin 4.3, Globulin 4.7, Albumin/Globulin Ratio 0.9L, Lipase > 2000H, Neutrophils % (Manual) [Pending], Lymphocytes % (Manual) [Pending], Platelet Estimate [Pending], Platelet Morphology [Pending], Triglycerides Level 67, Cholesterol Level 218H, LDL Cholesterol 141H, HDL Cholesterol 52, Cholesterol/ HDL Ratio 4.2, Amylase Level 544*H Height (Feet): 5 Height (Inches): 5.00 Weight (Pounds): 128 General Appearance: alert EENT: normal ENT inspection Neck: supple Cardiovascular: tachycardia Respiratory/Chest: decreased breath sounds Abdomen: hypoactive bowel sounds, tender Extremities: non-tender Irving Lopez MD Jan 23, 2020 08:39
[2020-01-23] MEDS ORDERED: Enoxaparin 40mg Inj SUBQ SCH (09:00)
[2020-01-23] MEDS ORDERED: Enoxaparin 30mg Inj SUBQ SCH (09:00)
[2020-01-23] MEDS: DULoxetine 30mg cap ORAL SCH (09:26)
[2020-01-23] MEDS: Docusate 100mg cap ORAL SCH ×2 (09:26→17:21)
[2020-01-23] MEDS: Bisacodyl EC 5mg tab ORAL SCH (09:27)
[2020-01-23] MEDS: Metoprolol Tartrate 50mg tab ORAL SCH ×2 (09:27→20:42)
[2020-01-23] MEDS: D5 1/2NS w/KCl 20mEq 1,000 ML IV SCH ×2 (10:41→17:21)
--- NOTE | 2020-01-23 11:25 | Pulmonology Progress Note ---
Subjective ROS Limited/Unobtainable: Yes Interval Events: None new Constitutional: Reports: no symptoms HEENT: Repors: no symptoms Respiratory: Reports: dry cough Cardiovascular: Reports: no symptoms Gastrointestinal/Abdominal: Reports: nausea Genitourinary: Reports: no symptoms Allergies: Coded Allergies: IBUPROFEN (Verified Allergy, Mild, 10/05/09) CORTICOSTEROIDS (GLUCOCORTICOIDS) (Unverified Allergy, Unknown, 01/22/20) Objective Last 24 Hour Vital Signs Date Time Temp Pulse Resp B/P (MAP) Pulse Ox O2 Delivery O2 Flow Rate FiO2 01/23/20 09:27 92 157/109 01/23/20 09:27 92 157/109 01/23/20 09:00 Nasal Cannula 2.0 01/23/20 08:00 98.0 92 16 157/109 (125) 96 01/23/20 05:51 98.1 01/23/20 05:51 98.1 01/23/20 05:21 163/109 01/23/20 04:00 98.1 92 18 163/109 (127) 94 01/23/20 00:00 98.2 89 20 152/86 (108) 96 01/22/20 22:00 152/98 01/22/20 21:00 Nasal Cannula 2.0 01/22/20 20:48 98 164/109 01/22/20 20:00 98.1 98 20 164/100 (121) 95 01/22/20 17:33 98.1 96 20 141/92 (108) 92 01/22/20 16:00 98.1 94 19 128/67 (87) 94 01/22/20 13:33 Room Air 01/22/20 13:05 98.6 84 16 125/83 98 Room Air 01/22/20 12:37 98.6 01/22/20 12:37 98.6 80 17 121/87 99 Room Air Intake and Output 01/22/20 01/23/20 19:00 07:00 Intake Total 0 ml 150 ml Output Total 1000 ml Balance 0 ml -850 ml Intake Oral 0 ml 150 ml Output Urine Total 1000 ml General Appearance: no acute distress HEENT: normocephalic Respiratory: chest wall non-tender, decreased breath sounds Cardiovascular: normal rate Abdomen: normal bowel sounds Laboratory Tests 01/23/20 04:31: White Blood Count 12.5H, Red Blood Count 3.73L, Hemoglobin 10.9L, Hematocrit 34.3L, Mean Corpuscular Volume 92, Mean Corpuscular Hemoglobin 29.2, Mean Corpuscular Hemoglobin Concent 31.8L, Red Cell Distribution Width 15.5H, Platelet Count 423, Mean Platelet Volume 5.2L, Neutrophils (%) (Auto) , Lymphocytes (%) (Auto) , Monocytes (%) (Auto) , Eosinophils (%) (Auto) , Basophils (%) (Auto) , Differential Total Cells Counted 100, Neutrophils % ( Manual) 91H, Lymphocytes % (Manual) 4L, Monocytes % (Manual) 5, Eosinophils % ( Manual) 0, Basophils % (Manual) 0, Band Neutrophils 0, Platelet Estimate Adequate, Platelet Morphology Normal, Polychromasia 1+, Hypochromasia 1+, Anisocytosis 1+, Sodium Level 138, Potassium Level 3.5, Chloride Level 102, Carbon Dioxide Level 24, Anion Gap 12, Blood Urea Nitrogen 9, Creatinine 0.6, Estimat Glomerular Filtration Rate > 60, Glucose Level 121H, Calcium Level 11.2H , Total Bilirubin 0.3, Aspartate Amino Transf (AST/SGOT) 98H, Alanine Aminotransferase (ALT/SGPT) 17, Alkaline Phosphatase 73, Total Protein 9.0H, Albumin 4.3, Globulin 4.7, Albumin/Globulin Ratio 0.9L, Triglycerides Level 67, Cholesterol Level 218H, LDL Cholesterol 141H, HDL Cholesterol 52, Cholesterol/ HDL Ratio 4.2, Amylase Level 544*H, Lipase > 2000H Current Medications Medications (Trade) Dose Ordered Sig/Kina Route PRN Reason Start Time Stop Time Status Last Admin Dose Admin Acetaminophen (Tylenol) 650 mg Q6H PRN ORAL Pain Scale (3-5) 01/22/20 17:45 02/21/20 17:44 Amlodipine Besylate (Norvasc) 5 mg DAILY ORAL 01/23/20 09:00 02/22/20 08:59 01/23/20 09:27 Bisacodyl (Dulcolax) 10 mg DAILY ORAL 01/23/20 09:00 04/22/20 08:59 01/23/20 09:27 Carisoprodol (Soma) 350 mg Q8HR ORAL 01/22/20 18:30 02/21/20 18:29 01/23/20 05:21 Dextrose/ Electrolytes 1,000 ml @ 100 mls/hr Q10H IV 01/23/20 09:30 02/22/20 09:29 01/23/20 10:41 Docusate Sodium (Colace) 100 mg TWICE A DAY ORAL 01/22/20 18:00 02/21/20 17:59 01/23/20 09:26 Duloxetine HCl (Cymbalta) 60 mg DAILY ORAL 01/23/20 09:00 04/22/20 08:59 01/23/20 09:26 Enoxaparin Sodium (Lovenox) 40 mg DAILY SUBQ 01/23/20 09:00 04/22/20 08:59 Famotidine (Pepcid) 20 mg TWICE A DAY ORAL 01/22/20 18:35 04/21/20 18:34 01/23/20 09:26 Hydralazine HCl (Apresoline) 25 mg Q8HR ORAL 01/22/20 22:00 04/21/20 21:59 01/23/20 05:21 Hydromorphone HCl (Dilaudid) 1 mg Q6H PRN IVP For Pain 6 and greater 01/23/20 08:15 01/29/20 17:59 01/23/20 11:22 Lidocaine (Lidoderm 5% PATCH) 1 patch DAILY TDERMAL 01/23/20 09:00 04/22/20 08:59 01/23/20 09:28 Lidocaine HCl (Xylocaine 1% 30ml) 30 ml NOW PRN INJ Radiology Procedure 01/22/20 14:00 01/24/20 13:54 Magnesium Hydroxide (Mom) 30 ml DAILYPRN PRN ORAL Constipation 01/22/20 17:45 02/21/20 17:44 Metoprolol Tartrate (Lopressor) 50 mg EVERY 12 HOURS ORAL 01/22/20 21:00 04/21/20 20:59 01/23/20 09:27 Pantoprazole (Protonix) 40 mg DAILY ORAL 01/23/20 09:00 02/22/20 08:59 01/23/20 09:27 Polyethylene Glycol (Miralax) 17 gm BEDTIME ORAL 01/23/20 21:00 02/22/20 20:59 Sodium Bicarbonate (Sodium Bicarbonate 4%) 1 ml NOW PRN IV Radiology Procedure 01/22/20 14:00 01/24/20 13:54 Zolpidem Tartrate (Ambien) 5 mg HSPRN PRN ORAL Insomnia 01/23/20 00:30 01/30/20 00:29 01/23/20 01:29 Assessment/Plan Assessment/Plan IMPRESSION: 1. Large lung mass. 2. COPD. 3. History of spinal stenosis. 4. Multiple metastases DISCUSSION: The patient has a history of lung cancer. I will hold off on further testing. Oncology evaluation is pending. I will follow. Saturating well on 2L/min O2 Reymundo Vázquez MD Jan 23, 2020 11:25
--- NOTE | 2020-01-23 12:30 | History and Physical Report ---
DATE OF ADMISSION: 01/22/2020 DATE AND TIME SEEN: 01/23/2020 at 9 a.m. CONSULTANTS: 1. Aleksey Cobb MD. 2. Reymundo Vázquez MD. 3. Irving Lopez MD. 4. Gabriel Cannon MD. CHIEF COMPLAINT: Pancreatitis, abdominal pain, nausea, vomiting, hypertension. BRIEF HISTORY: This is a 64-year-old female, who lives at home, presents with increased abdominal pain, nausea, vomiting for several days, came to [facility], diagnosed as above, admitted to medical floor. Currently, in bed, severe pain in the abdomen, slight nausea. No complaint. REVIEW OF SYSTEMS: No chest pain. No shortness of breath. Slight nausea and vomiting. No diarrhea. PAST MEDICAL HISTORY: Include pancreatitis, hypertension, right flank pain, lung mass, rheumatoid arthritis. PAST SURGICAL HISTORY: Appendectomy, back surgery. ALLERGIES: Steroids and also ibuprofen. MEDICATIONS: Include MiraLAX, enoxaparin, amlodipine, hydromorphone, zolpidem, hydralazine, metoprolol, famotidine, Tylenol. SOCIAL HISTORY: No smoking. No alcohol. No intravenous drug abuse. FAMILY HISTORY: Noncontributory. PHYSICAL EXAMINATION: GENERAL: Anxious in bed, oriented x3, no acute distress. VITAL SIGNS: Temperature is 98 degrees, pulse 92, respirations 16, blood pressure 157/109. CARDIOVASCULAR: No murmur. LUNGS: Distant and clear. ABDOMEN: Bowel sounds distant. Slightly guarding. Slight rigidity. No rebound. EXTREMITIES: No cyanosis, clubbing, or edema. NEUROLOGIC: The patient moves all extremities, slightly weak. LABORATORY AND DIAGNOSTIC DATA: Labs at this time show white count 12, hemoglobin and hematocrit 10/34, and platelets 423,000. Glucose 121, calcium 11.2. Amylase 544, lipase greater than 2000. Urinalysis is negative. ASSESSMENT: 1. Pancreatitis. 2. Lung mass. 3. Arthritis. 4. Hypertension. 5. Right flank pain. 6. Anemia. PLAN: 1. Blood pressure and pain control. 2. NPO. 3. IV fluids. 4. We will add antibiotics per Infectious Disease. 5. Dr. Estrada and Dr. Moreno to consult. 6. PT and dietary evaluation. 7. CBC and BMP in the morning. Nikko Butt D.O. DR: IDRIS JOB#: [id number] CC:
--- NOTE | 2020-01-23 13:43 | Cardiac Electrophysiology PN ---
Subjective Subjective Consult dictated.DW RN Objective Last 24 Hour Vital Signs Date Time Temp Pulse Resp B/P (MAP) Pulse Ox O2 Delivery O2 Flow Rate FiO2 01/23/20 12:00 97.7 89 16 157/91 (113) 95 01/23/20 09:27 92 157/109 01/23/20 09:27 92 157/109 01/23/20 09:00 Nasal Cannula 2.0 01/23/20 08:00 98.0 92 16 157/109 (125) 96 01/23/20 05:51 98.1 01/23/20 05:51 98.1 01/23/20 05:21 163/109 01/23/20 04:00 98.1 92 18 163/109 (127) 94 01/23/20 00:00 98.2 89 20 152/86 (108) 96 01/22/20 22:00 152/98 01/22/20 21:00 Nasal Cannula 2.0 01/22/20 20:48 98 164/109 01/22/20 20:00 98.1 98 20 164/100 (121) 95 01/22/20 17:33 98.1 96 20 141/92 (108) 92 01/22/20 16:00 98.1 94 19 128/67 (87) 94 Intake and Output 01/22/20 01/23/20 19:00 07:00 Intake Total 0 ml 150 ml Output Total 1000 ml Balance 0 ml -850 ml Intake Oral 0 ml 150 ml Output Urine Total 1000 ml Laboratory Tests Test 01/23/20 04:31 White Blood Count 12.5 K/UL (4.8-10.8) H Red Blood Count 3.73 M/UL (4.20-5.40) L Hemoglobin 10.9 G/DL (12.0-16.0) L Hematocrit 34.3 % (37.0-47.0) L Mean Corpuscular Volume 92 FL (80-99) Mean Corpuscular Hemoglobin 29.2 PG (27.0-31.0) Mean Corpuscular Hemoglobin Concent 31.8 G/DL (32.0-36.0) L Red Cell Distribution Width 15.5 % (11.6-14.8) H Platelet Count 423 K/UL (150-450) Mean Platelet Volume 5.2 FL (6.5-10.1) L Neutrophils (%) (Auto) % (45.0-75.0) Lymphocytes (%) (Auto) % (20.0-45.0) Monocytes (%) (Auto) % (1.0-10.0) Eosinophils (%) (Auto) % (0.0-3.0) Basophils (%) (Auto) % (0.0-2.0) Differential Total Cells Counted 100 Neutrophils % (Manual) 91 % (45-75) H Lymphocytes % (Manual) 4 % (20-45) L Monocytes % (Manual) 5 % (1-10) Eosinophils % (Manual) 0 % (0-3) Basophils % (Manual) 0 % (0-2) Band Neutrophils 0 % (0-8) Platelet Estimate Adequate Platelet Morphology Normal Polychromasia 1+ Hypochromasia 1+ Anisocytosis 1+ Sodium Level 138 MMOL/L (136-145) Potassium Level 3.5 MMOL/L (3.5-5.1) Chloride Level 102 MMOL/L (98-107) Carbon Dioxide Level 24 MMOL/L (21-32) Anion Gap 12 mmol/L (5-15) Blood Urea Nitrogen 9 mg/dL (7-18) Creatinine 0.6 MG/DL (0.55-1.30) Estimat Glomerular Filtration Rate > 60 mL/min (>60) Glucose Level 121 MG/DL (74-106) H Calcium Level 11.2 MG/DL (8.5-10.1) H Total Bilirubin 0.3 MG/DL (0.2-1.0) Aspartate Amino Transf (AST/SGOT) 98 U/L (15-37) H Alanine Aminotransferase (ALT/SGPT) 17 U/L (12-78) Alkaline Phosphatase 73 U/L (46-116) Total Protein 9.0 G/DL (6.4-8.2) H Albumin 4.3 G/DL (3.4-5.0) Globulin 4.7 g/dL Albumin/Globulin Ratio 0.9 (1.0-2.7) L Triglycerides Level 67 MG/DL (30-150) Cholesterol Level 218 MG/DL (< 200) H LDL Cholesterol 141 mg/dL (<100) H HDL Cholesterol 52 MG/DL (40-60) Cholesterol/HDL Ratio 4.2 (3.3-4.4) Amylase Level 544 U/L (25-115) *H Lipase > 2000 U/L (73-393) H Jimmy Moreno MD Jan 23, 2020 13:43
--- NOTE | 2020-01-23 14:00 | NUR ---
NURSE NOTES: RN UNABLE TO OBTAIN SECOND IV PUMP TO RUN FLUIDS AND IVPB ZOSYN. CENTRAL SUPPLY CLOSED AND NO EXTRA IV PUMPS AVAILABLE ON THE FLOOR.
[2020-01-23] MEDS: Piperacillin/Tazobactam 3.375 GM in NS 110 ML IVPB SCH ×2 (14:55→21:27)
[2020-01-23] MEDS: HydrALAZINE 50mg tab ORAL SCH ×2 (14:55→21:27)
--- NOTE | 2020-01-23 15:09 | NUR ---
NURSE NOTES: RECEIVED ORDER TO CHANGE IV DILAUDID 1MG IV PRN PAIN TO Q6H AND CONSULT DR AYALA/KRISH ARREDONDO (PA). ORDERS ENTERED. PT REFUSED TO TAKE LOVENOX 40MG SUQ INJECTION. STATES SHE IS ON ELIQUIS 5MG PO AT HOME. RN LEFT MESSAGE FOR DR SHANKAR. PT HAD 1 EPISODE OF VOMITING. RN LEFT MESSAGE FOR DR ZAVALA FOR PRN ZOFRAN.
--- NOTE | 2020-01-23 16:20 | NUR ---
NURSE NOTES: RN RECEIVED ORDER FOR ZOFRAN 4MG IVP Q4H FROM DR ZAVALA AND PT TO START ELIQUIS 5MG PO BID PER DR SHANKAR. ORDERS ENTERED. RN ADMINISTERED PRN ZOFRAN. PT IN EXTREME PAIN. RN ELFT MESSAGE FOR KRISH ARREDONDO FOR BREAKTHROUGH PAIN MEDICATION. AWAITING NEW ORDERS.
--- NOTE | 2020-01-23 17:00 | Consultation ---
DATE OF CONSULTATION: 01/23/2020 INFECTIOUS DISEASES CONSULTATION REFERRING PHYSICIAN: Nikko Butt D.D. REASON FOR CONSULTATION: Possible cholangitis. HISTORY OF PRESENTING ILLNESS: This is a 64-year-old lady with history of hypertension, COPD, spinal stenosis, GERD, who comes in with abdominal pain along with cough and shortness of breath. She had a CT abdomen and pelvis, which showed lung bases showing large lobular mass in the right medial lung base with multiple low-density masses in the liver suspicious for metastatic disease. There is a concern for cholangitis and an infectious diseases consultation has been obtained for antibiotics. PAST MEDICAL HISTORY: 1. History of COPD. 2. Hypertension. 3. GERD. 4. Spinal stenosis. 5. Appendectomy. SOCIAL HISTORY: She is a smoker. She used to drink alcohol. Does not drink anymore. No history of drug use. FAMILY HISTORY: Her mother has some form of cancer. REVIEW OF SYSTEMS: RESPIRATORY: No fever or chills. No cough. No shortness of breath or chest pain. CARDIAC: No chest pain. No palpitation. No dizziness. No syncope. GASTROINTESTINAL: No nausea. No vomiting. She does have abdominal pain. No diarrhea. MEDICATIONS: As an inpatient, she is on MiraLAX, enoxaparin, amlodipine, Dulcolax, Cymbalta, lidocaine, Protonix, Dilaudid, Ambien, hydralazine, metoprolol, famotidine, Soma, docusate, Tylenol, milk of magnesia. ALLERGIES: 1. Corticosteroids. 2. Ibuprofen. PHYSICAL EXAMINATION: VITAL SIGNS: Temperature of 98, T-max of 98.6, pulse of 92, respiratory rate 16, blood pressure 157/109, O2 sat of 96% on 2 liters of oxygen. HEENT: Pupils equally reactive to light and accommodation. Mouth appears clean without thrush. NECK: Supple. No adenopathy. No JVD. CARDIOVASCULAR: Regular rate and rhythm. No murmurs. LUNGS: Clear to auscultation bilaterally. No crackles. No wheezes. ABDOMEN: Soft. Diffuse tenderness noted. No organomegaly. EXTREMITIES: No cyanosis, no clubbing, no edema. LABORATORY AND DIAGNOSTIC DATA: White count 12.5, hemoglobin 10.9, hematocrit 34.3, MCV 92, platelet count of 423, neutrophils of 91%. Sodium 138, potassium 3.5, chloride 102, bicarb 24, BUN 9, creatinine 0.6, glucose 121, calcium 11.2. Total bilirubin 0.3, AST 98, ALT 17, alkaline phosphatase 73. Total protein 9, albumin 4.3, cholesterol of 218. Amylase 544, lipase more than 2000. UA was normal. CT abdomen and pelvis showing large lobulated mass of the medial right lung base, small right-sided pleural effusion, multiple low-density masses throughout the liver, likely metastatic disease. Gallbladder is without sludge or stone. Pancreas is unremarkable. There is a lucent lesion in L4-L5 vertebral body, likely representing osseous metastasis. Diverticulosis noted. ASSESSMENT: This is a 64-year-old lady with history of hypertension, COPD, GERD, spinal stenosis, who comes in with abdominal pain and is found to have: 1. Pancreatitis. 2. Lung mass with liver metastasis. 3. COPD. 4. Hypertension. PLAN: 1. We will start the patient on Zosyn. 2. We will follow up cultures and adjust antibiotics accordingly. I would like to thank Dr. Nikko Butt for this consultation. Jose Juan Estrada M.D. DR: AMMON JOB#: [id number] CC: Nikko Butt D.O.
[2020-01-23] MEDS: Eliquis 5mg tablet ORAL SCH (17:21)
--- NOTE | 2020-01-23 18:35 | NUR ---
NURSE NOTES: RN LEFT [address] AYALA/KRISH ARREDONDO FOR BREAKTHROUGH PAIN MEDICATION.
--- NOTE | 2020-01-23 19:35 | NUR ---
NURSE HAND-OFF: Important Events on Shift: AWAITING CALL BACK FROM DR AYALA/KRISH ARREDONDO FOR PAIN MEDICATION. Patient Status: STABLE Diet: REGULAR-MECHANICAL SOFT CHOPPED Pending Orders: N/A Pending Results/Labs:N/A Pending MD notification:AWAITING NEW ORDERS FROM DR AYALA/KRISH ARREDONDO Latest Vital Signs: Temperature 99.0 , Pulse 93 , B/P 143 /86 , Respiratory Rate 18 , O2 SAT 95 , Nasal Cannula, O2 Flow Rate 2.0 . Vital Sign Comment: STABLE Latest Guido Fall Score: 45 Fall Risk: High Risk Safety Measures: Call light Within Reach, Bed Alarm Zone 1, Side Rails Side Rails x2, Bed position Low and Locked. Fall Precautions: EDUCATED ON FALL PRECAUTIONS. PT ON BEDREST DUE TO HIGH LEVEL OF PAIN. Patient Fall Education Report given to Jay ADAMS RN.
--- NOTE | 2020-01-23 19:36 | NUR ---
Received report from Jesus Manuel RN, The patient is alert and oriented x4 and seem to be in a mild pain.She is Room air with Resp even and unlabored. She is bedbound and has a R. hand 22g IV line that is patent and asymptomatic running D5 1/2 NS @ 100 ml/hr well tolerated. Bed in low and lock position, siderails x2, call light within easy reach and will followup with for pain management.
--- NOTE | 2020-01-23 19:45 | Consultation ---
DATE OF CONSULTATION: 01/23/2020 CARDIOLOGY CONSULTATION CONSULTING PHYSICIAN: Jimmy Moreno MD REFERRING PHYSICIAN: Nikko Butt DO REASON FOR CONSULTATION: Management of hypertension. HISTORY OF PRESENT ILLNESS: The patient is a 64-year-old lady with history of hypertension, COPD, gastroesophageal reflux disease, and spinal stenosis, who presents to the hospital with abdominal pain, cough, and shortness of breath. The patient underwent CT of abdomen and pelvis, which showed a large lobar mass in the right mid lung base and multiple masses in the liver suspicious for metastatic disease. There is also metastasis to the lumbar spine. The patient was admitted and Cardiology consultation was obtained for further evaluation and management. REVIEW OF SYSTEMS: Negative other than what was mentioned in history of present illness. PAST MEDICAL HISTORY: As mentioned above. FAMILY HISTORY: Noncontributory. SOCIAL HISTORY: She lives at home. Does not smoke or drink alcohol. PHYSICAL EXAMINATION: VITAL SIGNS: Blood pressure 157/109, pulse is 92, respirations 18, and temperature 97.7. HEAD AND NECK: Showed no JVD. LUNGS: Clear. CARDIOVASCULAR: Shows regular S1 and S2 with no gallop or murmur. ABDOMEN: Soft. EXTREMITIES: No pitting edema. LABORATORY AND DIAGNOSTIC DATA: Labs show white count of 12.5, hemoglobin of 11, hematocrit 34, platelet of 423,000. Sodium 138, potassium 3.5, BUN of 9, creatinine 0.6, and glucose of 121. Amylase is 544. Lipase is more than 2000. ASSESSMENT AND PLAN: 1. Accelerated hypertension. The patient is on amlodipine 5 mg daily, metoprolol 50 mg b.i.d., and hydralazine 25 mg every 8 hours. I will increase hydralazine to 50 mg every 8 hours and add p.r.n. clonidine to her medical regimen. 2. Lung masses. This is likely metastasis. CT of the chest with biopsy is pending. 3. History of cervical stenosis and pain. Thank you very much for allowing me to participate in the care of this patient. Please do not hesitate to contact me for any questions regarding my evaluation. Jimmy Moreno M.D. : Evelyn JOB#: [id number] CC:
[2020-01-23] MEDS: Miralax 17gm pkt ORAL SCH (20:41)
--- NOTE | 2020-01-23 22:15 | NUR ---
Power House Engineer: Received a call from Dr. Cannon to D/c Patient Dilaudid 1mg q6hrs PRN, start Dilaudid 1mg Q3 hrs PRN for severe pain.The order was executed as indicated. will continue to monitor Addendum: 01/23/20 at 2217 by Deniminnie Torrez RN NURSE NOTES: Received a call from Dr. Cannon to D/c Patient Dilaudid 1mg q6hrs PRN, start Dilaudid 1mg Q3 hrs PRN for severe pain.The order was executed as indicated. will continue to monitor
[2020-01-24] VITALS: BP 132/86
[2020-01-24] MEDS: HYDROmorphone 1mg/ml Carpuject IVP PRN ×8 (00:59→23:00)
[2020-01-24 04:00] VITALS: BP 149/87
[2020-01-24] MEDS: D5 1/2NS w/KCl 20mEq 1,000 ML IV SCH ×2 (04:44→16:46)
[2020-01-24] MEDS: HydrALAZINE 50mg tab ORAL SCH ×3 (05:27→22:00)
[2020-01-24] MEDS: Piperacillin/Tazobactam 3.375 GM in NS 110 ML IVPB SCH ×3 (05:28→21:41)
--- NOTE | 2020-01-24 06:00 | NUR ---
NURSE NOTES: The resident was feeling nauseous after receiving Dilaudid for pain and was given Zofran as indicated well tolerated.
[2020-01-24 06:40] LABS: BASOPHILS % (AUTO) 1.3 % (0.0-2.0); EOSINOPHILS % (AUTO) 0.2 % (0.0-3.0); HEMATOCRIT 34.5 % (37.0-47.0); LYMPHOCYTES % (AUTO) 12.2 % (20.0-45.0); MEAN CORPUSCULAR VOLUME 91 FL (80-99); MONOCYTES % (AUTO) 6.2 % (1.0-10.0); NEUTROPHILS % (AUTO) 80.1 % (45.0-75.0); PLATELET COUNT 452 K/UL (150-450); RED BLOOD COUNT 3.81 M/UL (4.20-5.40); RED CELL DISTRIBUTION WIDTH 15.3 % (11.6-14.8); WHITE BLOOD COUNT 13.5 K/UL (4.8-10.8)
[2020-01-24 07:15] LABS: ALANINE AMINOTRANSFERASE 15 U/L (12-78); ALBUMIN 4.1 G/DL (3.4-5.0); ALKALINE PHOSPHATASE 70 U/L (46-116); AMYLASE 355 U/L (25-115); ANION GAP 12 mmol/L (5-15); ASPARTATE AMINO TRANSFERASE 97 U/L (15-37); BILIRUBIN,TOTAL 0.3 MG/DL (0.2-1.0); BLOOD UREA NITROGEN 7 mg/dL (7-18); CALCIUM 11.1 MG/DL (8.5-10.1); CARBON DIOXIDE 24 MMOL/L (21-32); CHLORIDE 100 MMOL/L (98-107); CREATININE 0.7 MG/DL (0.55-1.30); POTASSIUM 3.6 MMOL/L (3.5-5.1); SODIUM 136 MMOL/L (136-145)
--- NOTE | 2020-01-24 07:25 | NUR ---
HAND-OFF: Report given to Young RN.
--- NOTE | 2020-01-24 07:49 | NUR ---
NURSE NOTES: DURING INITIAL ROUNDING, PT HEARD MOANING FROM ROOM. PT IN EXTREME PAIN 10/10 OF LOWER BACK. RN ADMINISTERED PRN DILAUDID 1MG ORDERED. PT EDUCATED ON NEW PRN SCHEDULE. PT WAS REPOSITIONED OFF BACK PER REQUEST. PT LYING ON RIGHT SIDE. PT STATES SHE HAS OCCASIONAL NAUSEA. BED IN LOWEST POSITION WITH BEDSIDE RAILS X3 RAISED. CALL LIGHT WITHIN REACH. WILL CONTINUE TO MONITOR.
[2020-01-24 08:00] VITALS: BP 130/79
--- NOTE | 2020-01-24 08:45 | General Progress Note ---
Assessment/Plan Problem List: (1) Acute pancreatitis ICD Codes: K85.90 - Acute pancreatitis without necrosis or infection, unspecified SNOMED: 096035673 (2) Lung mass ICD Codes: R91.8 - Other nonspecific abnormal finding of lung field SNOMED: 527072542 (3) Right flank pain ICD Codes: R10.9 - Unspecified abdominal pain SNOMED: 250754965 (4) Rheumatoid arthritis ICD Codes: M06.9 - Rheumatoid arthritis, unspecified SNOMED: 53583206 Status: unchanged Assessment/Plan: o2nc pain control npo ivf cbc bmp am Subjective Constitutional: Reports: weakness Gastrointestinal/Abdominal: Reports: vomiting Allergies: Coded Allergies: IBUPROFEN (Verified Allergy, Mild, 10/05/09) CORTICOSTEROIDS (GLUCOCORTICOIDS) (Unverified Allergy, Unknown, 01/22/20) All Systems: reviewed and negative except above Subjective o3 nc calm Objective Last 24 Hour Vital Signs Date Time Temp Pulse Resp B/P (MAP) Pulse Ox O2 Delivery O2 Flow Rate FiO2 01/24/20 08:11 Nasal Cannula 2.0 01/24/20 08:00 97.7 92 20 130/79 (96) 92 01/24/20 05:27 149/87 01/24/20 04:00 98.4 84 22 149/87 (107) 93 01/24/20 00:00 98.1 93 20 132/86 (101) 98 01/23/20 21:27 125/82 01/23/20 21:00 Nasal Cannula 2.0 01/23/20 20:42 90 125/82 01/23/20 20:00 98.1 90 22 125/82 (96) 93 01/23/20 18:46 93 143/86 (105) 01/23/20 16:00 99.0 92 18 162/97 (118) 95 01/23/20 14:55 157/91 01/23/20 12:00 97.7 89 16 157/91 (113) 95 01/23/20 09:27 92 157/109 01/23/20 09:27 92 157/109 01/23/20 09:00 Nasal Cannula 2.0 Intake and Output 01/23/20 01/24/20 19:00 07:00 Intake Total 1162.5 ml 977.5 ml Output Total 900 ml Balance 1162.5 ml 77.5 ml Intake Oral 480 ml 150 ml IV Total 682.5 ml 827.5 ml Output Urine Total 900 ml Laboratory Tests 01/24/20 06:15: White Blood Count 13.5H, Red Blood Count 3.81L, Hemoglobin 11.0L, Hematocrit 34.5L, Mean Corpuscular Volume 91, Mean Corpuscular Hemoglobin 28.9, Mean Corpuscular Hemoglobin Concent 32.0, Red Cell Distribution Width 15.3H, Platelet Count 452H, Mean Platelet Volume 5.6L, Neutrophils (%) (Auto) 80.1H, Lymphocytes (%) (Auto) 12.2L, Monocytes (%) (Auto) 6.2, Eosinophils (%) (Auto) 0.2, Basophils (%) (Auto) 1.3, Sodium Level 136, Potassium Level 3.6, Chloride Level 100, Carbon Dioxide Level 24, Anion Gap 12, Blood Urea Nitrogen 7, Creatinine 0.7, Estimat Glomerular Filtration Rate > 60, Glucose Level 116H, Calcium Level 11.1H, Total Bilirubin 0.3, Aspartate Amino Transf (AST/SGOT) 97H , Alanine Aminotransferase (ALT/SGPT) 15, Alkaline Phosphatase 70, Total Protein 8.3H, Albumin 4.1, Globulin 4.2, Albumin/Globulin Ratio 1.0, Amylase Level 355H, Lipase > 2000H Height (Feet): 5 Height (Inches): 5.00 Weight (Pounds): 128 General Appearance: lethargic EENT: normal ENT inspection Neck: normal alignment Cardiovascular: normal peripheral pulses, normal rate, regular rhythm Respiratory/Chest: chest wall non-tender, lungs clear, normal breath sounds Abdomen: normal bowel sounds, non tender, soft Extremities: normal inspection Edema: no edema noted Arm (L), no edema noted Arm (R), no edema noted Leg (L), no edema noted Leg (R), no edema noted Pedal (L), no edema noted Pedal (R), no edema noted Generalized Neurologic: motor weakness Skin: normal pigmentation, warm/dry Nikko Butt DO Jan 24, 2020 08:45
[2020-01-24] MEDS: Docusate 100mg cap ORAL SCH ×2 (08:46→18:40)
[2020-01-24] MEDS: Metoprolol Tartrate 50mg tab ORAL SCH ×2 (08:46→21:43)
[2020-01-24] MEDS: Bisacodyl EC 5mg tab ORAL SCH (08:46)
[2020-01-24] MEDS: Eliquis 5mg tablet ORAL SCH (08:46)
[2020-01-24] MEDS: DULoxetine 30mg cap ORAL SCH (08:46)
--- NOTE | 2020-01-24 08:52 | General Progress Note ---
Assessment/Plan Problem List: (1) Metastatic disease ICD Codes: C79.9 - Secondary malignant neoplasm of unspecified site SNOMED: 280354587 (2) Right flank pain ICD Codes: R10.9 - Unspecified abdominal pain SNOMED: 915704013 (3) Lung mass ICD Codes: R91.8 - Other nonspecific abnormal finding of lung field SNOMED: 180378864 (4) Acute pancreatitis ICD Codes: K85.90 - Acute pancreatitis without necrosis or infection, unspecified SNOMED: 714947148 (5) Rheumatoid arthritis ICD Codes: M06.9 - Rheumatoid arthritis, unspecified SNOMED: 14062487 Status: unchanged Assessment/Plan: IVF repeat labs bowel regimen CT reviewed pending lung mass biopsy keep npo add reglan to zofran will fu Subjective ROS Limited/Unobtainable: Yes Allergies: Coded Allergies: IBUPROFEN (Verified Allergy, Mild, 10/05/09) CORTICOSTEROIDS (GLUCOCORTICOIDS) (Unverified Allergy, Unknown, 01/22/20) Subjective c/o abd pain + Flatus no bm Objective Last 24 Hour Vital Signs Date Time Temp Pulse Resp B/P (MAP) Pulse Ox O2 Delivery O2 Flow Rate FiO2 01/24/20 08:11 Nasal Cannula 2.0 01/24/20 08:00 97.7 92 20 130/79 (96) 92 01/24/20 05:27 149/87 01/24/20 04:00 98.4 84 22 149/87 (107) 93 01/24/20 00:00 98.1 93 20 132/86 (101) 98 01/23/20 21:27 125/82 01/23/20 21:00 Nasal Cannula 2.0 01/23/20 20:42 90 125/82 01/23/20 20:00 98.1 90 22 125/82 (96) 93 01/23/20 18:46 93 143/86 (105) 01/23/20 16:00 99.0 92 18 162/97 (118) 95 01/23/20 14:55 157/91 01/23/20 12:00 97.7 89 16 157/91 (113) 95 01/23/20 09:27 92 157/109 01/23/20 09:27 92 157/109 01/23/20 09:00 Nasal Cannula 2.0 Intake and Output 01/23/20 01/24/20 19:00 07:00 Intake Total 1162.5 ml 977.5 ml Output Total 900 ml Balance 1162.5 ml 77.5 ml Intake Oral 480 ml 150 ml IV Total 682.5 ml 827.5 ml Output Urine Total 900 ml Laboratory Tests 01/24/20 06:15: White Blood Count 13.5H, Red Blood Count 3.81L, Hemoglobin 11.0L, Hematocrit 34.5L, Mean Corpuscular Volume 91, Mean Corpuscular Hemoglobin 28.9, Mean Corpuscular Hemoglobin Concent 32.0, Red Cell Distribution Width 15.3H, Platelet Count 452H, Mean Platelet Volume 5.6L, Neutrophils (%) (Auto) 80.1H, Lymphocytes (%) (Auto) 12.2L, Monocytes (%) (Auto) 6.2, Eosinophils (%) (Auto) 0.2, Basophils (%) (Auto) 1.3, Sodium Level 136, Potassium Level 3.6, Chloride Level 100, Carbon Dioxide Level 24, Anion Gap 12, Blood Urea Nitrogen 7, Creatinine 0.7, Estimat Glomerular Filtration Rate > 60, Glucose Level 116H, Calcium Level 11.1H, Total Bilirubin 0.3, Aspartate Amino Transf (AST/SGOT) 97H , Alanine Aminotransferase (ALT/SGPT) 15, Alkaline Phosphatase 70, Total Protein 8.3H, Albumin 4.1, Globulin 4.2, Albumin/Globulin Ratio 1.0, Amylase Level 355H, Lipase > 2000H Height (Feet): 5 Height (Inches): 5.00 Weight (Pounds): 128 General Appearance: alert EENT: normal ENT inspection Neck: supple Cardiovascular: tachycardia Respiratory/Chest: decreased breath sounds Abdomen: hypoactive bowel sounds, tender Extremities: non-tender Irving Lopez MD Jan 24, 2020 08:52
[2020-01-24] MEDS: Metoclopramide 10mg/2ml Inj IVP PRN ×2 (10:14→16:40)
--- NOTE | 2020-01-24 10:32 | NUR ---
NURSE NOTES: PT WITH EPISODE OF NAUSEA AND VOMITING. EMESIS IS MINIMAL, CLEAR EMESIS. PT HAS VERY POOR INTAKE. DR ZAVALA WAS AT BEDSIDE DURING EPISODE OF VOMITING. MD WITH ORDER FOR REGLAN 10MG IVP PRN N/V Q6H. RN ADMINISTERED REGLAN ORDERED. PT CONTINUES TO HAVE EXTREME PAIN AND NEEDS EDUCATION REINFORCEMENT ON PRN SCHEDULE. OTHERWISE STABLE. WILL CONTINUE TO MONITOR.
--- NOTE | 2020-01-24 11:03 | Pulmonology Progress Note ---
Subjective ROS Limited/Unobtainable: Yes Interval Events: None new Constitutional: Reports: no symptoms HEENT: Repors: no symptoms Respiratory: Reports: dry cough Cardiovascular: Reports: no symptoms Gastrointestinal/Abdominal: Reports: nausea Genitourinary: Reports: no symptoms Allergies: Coded Allergies: IBUPROFEN (Verified Allergy, Mild, 10/05/09) CORTICOSTEROIDS (GLUCOCORTICOIDS) (Unverified Allergy, Unknown, 01/22/20) All Systems: reviewed and negative except above Objective Last 24 Hour Vital Signs Date Time Temp Pulse Resp B/P (MAP) Pulse Ox O2 Delivery O2 Flow Rate FiO2 01/24/20 08:11 Nasal Cannula 2.0 01/24/20 08:00 97.7 92 20 130/79 (96) 92 01/24/20 05:27 149/87 01/24/20 04:00 98.4 84 22 149/87 (107) 93 01/24/20 00:00 98.1 93 20 132/86 (101) 98 01/23/20 21:27 125/82 01/23/20 21:00 Nasal Cannula 2.0 01/23/20 20:42 90 125/82 01/23/20 20:00 98.1 90 22 125/82 (96) 93 01/23/20 18:46 93 143/86 (105) 01/23/20 16:00 99.0 92 18 162/97 (118) 95 01/23/20 14:55 157/91 01/23/20 12:00 97.7 89 16 157/91 (113) 95 Intake and Output 01/23/20 01/24/20 19:00 07:00 Intake Total 1162.5 ml 977.5 ml Output Total 900 ml Balance 1162.5 ml 77.5 ml Intake Oral 480 ml 150 ml IV Total 682.5 ml 827.5 ml Output Urine Total 900 ml General Appearance: no acute distress HEENT: normocephalic Respiratory: chest wall non-tender, decreased breath sounds Cardiovascular: normal rate Abdomen: normal bowel sounds Laboratory Tests 01/24/20 06:15: White Blood Count 13.5H, Red Blood Count 3.81L, Hemoglobin 11.0L, Hematocrit 34.5L, Mean Corpuscular Volume 91, Mean Corpuscular Hemoglobin 28.9, Mean Corpuscular Hemoglobin Concent 32.0, Red Cell Distribution Width 15.3H, Platelet Count 452H, Mean Platelet Volume 5.6L, Neutrophils (%) (Auto) 80.1H, Lymphocytes (%) (Auto) 12.2L, Monocytes (%) (Auto) 6.2, Eosinophils (%) (Auto) 0.2, Basophils (%) (Auto) 1.3, Sodium Level 136, Potassium Level 3.6, Chloride Level 100, Carbon Dioxide Level 24, Anion Gap 12, Blood Urea Nitrogen 7, Creatinine 0.7, Estimat Glomerular Filtration Rate > 60, Glucose Level 116H, Calcium Level 11.1H, Total Bilirubin 0.3, Aspartate Amino Transf (AST/SGOT) 97H , Alanine Aminotransferase (ALT/SGPT) 15, Alkaline Phosphatase 70, Total Protein 8.3H, Albumin 4.1, Globulin 4.2, Albumin/Globulin Ratio 1.0, Amylase Level 355H, Lipase > 2000H Current Medications Medications (Trade) Dose Ordered Sig/Kina Route PRN Reason Start Time Stop Time Status Last Admin Dose Admin Acetaminophen (Tylenol) 650 mg Q6H PRN ORAL Pain Scale (3-5) 01/22/20 17:45 02/21/20 17:44 01/23/20 20:43 Amlodipine Besylate (Norvasc) 5 mg DAILY ORAL 01/23/20 09:00 02/22/20 08:59 01/23/20 09:27 Apixaban (Eliquis) 5 mg BID ORAL 01/23/20 18:00 04/22/20 17:59 01/23/20 17:21 Bisacodyl (Dulcolax) 10 mg DAILY ORAL 01/23/20 09:00 04/22/20 08:59 01/23/20 09:27 Carisoprodol (Soma) 350 mg Q8HR ORAL 01/22/20 18:30 02/21/20 18:29 01/24/20 05:26 Dextrose/ Electrolytes 1,000 ml @ 100 mls/hr Q10H IV 01/23/20 09:30 02/22/20 09:29 01/24/20 04:44 Docusate Sodium (Colace) 100 mg TWICE A DAY ORAL 01/22/20 18:00 02/21/20 17:59 01/23/20 17:21 Duloxetine HCl (Cymbalta) 60 mg DAILY ORAL 01/23/20 09:00 04/22/20 08:59 01/23/20 09:26 Famotidine (Pepcid) 20 mg TWICE A DAY ORAL 01/22/20 18:35 04/21/20 18:34 01/23/20 17:21 Hydralazine HCl (Apresoline) 50 mg Q8HR ORAL 01/23/20 14:00 04/21/20 21:59 01/24/20 05:27 Hydromorphone HCl (Dilaudid) 1 mg EVERY 3 HOURS PRN IVP Severe Pain (Pain Scale 7-10) 01/23/20 22:30 01/30/20 22:29 01/24/20 10:52 Lidocaine (Lidoderm 5% PATCH) 1 patch DAILY TDERMAL 01/23/20 09:00 04/22/20 08:59 01/24/20 08:42 Lidocaine HCl (Xylocaine 1% 30ml) 30 ml NOW PRN INJ Radiology Procedure 01/22/20 14:00 01/24/20 13:54 Magnesium Hydroxide (Mom) 30 ml DAILYPRN PRN ORAL Constipation 01/22/20 17:45 02/21/20 17:44 Metoclopramide HCl (Reglan) 10 mg Q6H PRN IVP Nausea & Vomiting 01/24/20 10:00 02/23/20 09:59 01/24/20 10:14 Metoprolol Tartrate (Lopressor) 50 mg EVERY 12 HOURS ORAL 01/22/20 21:00 04/21/20 20:59 01/23/20 20:42 Ondansetron HCl (Zofran) 4 mg Q4H PRN IVP Nausea & Vomiting 01/23/20 15:15 02/22/20 15:14 01/24/20 06:43 Pantoprazole (Protonix) 40 mg DAILY ORAL 01/23/20 09:00 02/22/20 08:59 01/23/20 09:27 Piperacillin Sod/ Tazobactam Sod 3.375 gm/Sodium Chloride 110 ml @ 27.5 mls/hr EVERY 8 HOURS IVPB 01/23/20 14:00 01/28/20 13:59 01/24/20 05:28 Polyethylene Glycol (Miralax) 17 gm BEDTIME ORAL 01/23/20 21:00 02/22/20 20:59 01/23/20 20:41 Sodium Bicarbonate (Sodium Bicarbonate 4%) 1 ml NOW PRN IV Radiology Procedure 01/22/20 14:00 01/24/20 13:54 Zolpidem Tartrate (Ambien) 5 mg HSPRN PRN ORAL Insomnia 01/23/20 00:30 01/30/20 00:29 01/23/20 20:41 Assessment/Plan Assessment/Plan IMPRESSION: 1. Large lung mass. 2. COPD. 3. History of spinal stenosis. 4. Multiple metastases DISCUSSION: The patient has a history of lung cancer per GI; however patient declines any knowledge. Discussed with oncology Will need CT guided liver biopsy. I will follow. Saturating well on 2L/min O2 Reymundo Vázquez MD Jan 24, 2020 11:03
[2020-01-24 11:34] VITALS: BP 155/94
--- NOTE | 2020-01-24 13:25 | Infectious Diseases Prog Note ---
Assessment/Plan Assessment/Plan A; 1. Pancreatitis. 2. Lung mass with liver metastasis. 3. COPD. 4. Hypertension. 5. Hypercalcemia PLAN: 1. We will start the patient on Zosyn. 2. We will follow up cultures and adjust antibiotics accordingly. Subjective ROS Limited/Unobtainable: No Constitutional: Reports: anorexia Respiratory: Reports: no symptoms Gastrointestinal/Abdominal: Reports: nausea, other - diffuse pain Genitourinary: Reports: no symptoms Allergies: Coded Allergies: IBUPROFEN (Verified Allergy, Mild, 10/05/09) CORTICOSTEROIDS (GLUCOCORTICOIDS) (Unverified Allergy, Unknown, 01/22/20) Objective Last 24 Hour Vital Signs Date Time Temp Pulse Resp B/P (MAP) Pulse Ox O2 Delivery O2 Flow Rate FiO2 01/24/20 11:34 97.5 91 16 155/94 (114) 97 01/24/20 08:11 Nasal Cannula 2.0 01/24/20 08:00 97.7 92 20 130/79 (96) 92 01/24/20 05:27 149/87 01/24/20 04:00 98.4 84 22 149/87 (107) 93 01/24/20 00:00 98.1 93 20 132/86 (101) 98 01/23/20 21:27 125/82 01/23/20 21:00 Nasal Cannula 2.0 01/23/20 20:42 90 125/82 01/23/20 20:00 98.1 90 22 125/82 (96) 93 01/23/20 18:46 93 143/86 (105) 01/23/20 16:00 99.0 92 18 162/97 (118) 95 01/23/20 14:55 157/91 Height (Feet): 5 Height (Inches): 5.00 Weight (Pounds): 128 General Appearance: no acute distress HEENT: mucous membranes moist Respiratory/Chest: lungs clear, other - oxygen by nasal cannula Cardiovascular: normal rate, other - distended, tender Abdomen: soft, non tender Extremities: no edema Neurologic/Psychiatric: alert, oriented x 3, responsive Laboratory Tests Test 01/24/20 06:15 White Blood Count 13.5 K/UL (4.8-10.8) H Red Blood Count 3.81 M/UL (4.20-5.40) L Hemoglobin 11.0 G/DL (12.0-16.0) L Hematocrit 34.5 % (37.0-47.0) L Mean Corpuscular Volume 91 FL (80-99) Mean Corpuscular Hemoglobin 28.9 PG (27.0-31.0) Mean Corpuscular Hemoglobin Concent 32.0 G/DL (32.0-36.0) Red Cell Distribution Width 15.3 % (11.6-14.8) H Platelet Count 452 K/UL (150-450) H Mean Platelet Volume 5.6 FL (6.5-10.1) L Neutrophils (%) (Auto) 80.1 % (45.0-75.0) H Lymphocytes (%) (Auto) 12.2 % (20.0-45.0) L Monocytes (%) (Auto) 6.2 % (1.0-10.0) Eosinophils (%) (Auto) 0.2 % (0.0-3.0) Basophils (%) (Auto) 1.3 % (0.0-2.0) Sodium Level 136 MMOL/L (136-145) Potassium Level 3.6 MMOL/L (3.5-5.1) Chloride Level 100 MMOL/L (98-107) Carbon Dioxide Level 24 MMOL/L (21-32) Anion Gap 12 mmol/L (5-15) Blood Urea Nitrogen 7 mg/dL (7-18) Creatinine 0.7 MG/DL (0.55-1.30) Estimat Glomerular Filtration Rate > 60 mL/min (>60) Glucose Level 116 MG/DL (74-106) H Calcium Level 11.1 MG/DL (8.5-10.1) H Total Bilirubin 0.3 MG/DL (0.2-1.0) Aspartate Amino Transf (AST/SGOT) 97 U/L (15-37) H Alanine Aminotransferase (ALT/SGPT) 15 U/L (12-78) Alkaline Phosphatase 70 U/L (46-116) Total Protein 8.3 G/DL (6.4-8.2) H Albumin 4.1 G/DL (3.4-5.0) Globulin 4.2 g/dL Albumin/Globulin Ratio 1.0 (1.0-2.7) Amylase Level 355 U/L (25-115) H Lipase > 2000 U/L (73-393) H Current Medications Medications (Trade) Dose Ordered Sig/Kina Route PRN Reason Start Time Stop Time Status Last Admin Dose Admin Acetaminophen (Tylenol) 650 mg Q6H PRN ORAL Pain Scale (3-5) 01/22/20 17:45 02/21/20 17:44 01/23/20 20:43 Amlodipine Besylate (Norvasc) 5 mg DAILY ORAL 01/23/20 09:00 02/22/20 08:59 01/23/20 09:27 Apixaban (Eliquis) 5 mg BID ORAL 01/23/20 18:00 04/22/20 17:59 01/23/20 17:21 Bisacodyl (Dulcolax) 10 mg DAILY ORAL 01/23/20 09:00 04/22/20 08:59 01/23/20 09:27 Carisoprodol (Soma) 350 mg Q8HR ORAL 01/22/20 18:30 02/21/20 18:29 01/24/20 05:26 Dextrose/ Electrolytes 1,000 ml @ 100 mls/hr Q10H IV 01/23/20 09:30 02/22/20 09:29 01/24/20 04:44 Docusate Sodium (Colace) 100 mg TWICE A DAY ORAL 01/22/20 18:00 02/21/20 17:59 01/23/20 17:21 Duloxetine HCl (Cymbalta) 60 mg DAILY ORAL 01/23/20 09:00 04/22/20 08:59 01/23/20 09:26 Famotidine (Pepcid) 20 mg TWICE A DAY ORAL 01/22/20 18:35 04/21/20 18:34 01/23/20 17:21 Hydralazine HCl (Apresoline) 50 mg Q8HR ORAL 01/23/20 14:00 04/21/20 21:59 01/24/20 05:27 Hydromorphone HCl (Dilaudid) 1 mg EVERY 3 HOURS PRN IVP Severe Pain (Pain Scale 7-10) 01/23/20 22:30 01/30/20 22:29 01/24/20 10:52 Lidocaine (Lidoderm 5% PATCH) 1 patch DAILY TDERMAL 01/23/20 09:00 04/22/20 08:59 01/24/20 08:42 Lidocaine HCl (Xylocaine 1% 30ml) 30 ml NOW PRN INJ Radiology Procedure 01/22/20 14:00 01/24/20 13:54 Magnesium Hydroxide (Mom) 30 ml DAILYPRN PRN ORAL Constipation 01/22/20 17:45 02/21/20 17:44 Metoclopramide HCl (Reglan) 10 mg Q6H PRN IVP Nausea & Vomiting 01/24/20 10:00 02/23/20 09:59 01/24/20 10:14 Metoprolol Tartrate (Lopressor) 50 mg EVERY 12 HOURS ORAL 01/22/20 21:00 04/21/20 20:59 01/23/20 20:42 Ondansetron HCl (Zofran) 4 mg Q4H PRN IVP Nausea & Vomiting 01/23/20 15:15 02/22/20 15:14 01/24/20 06:43 Pantoprazole (Protonix) 40 mg DAILY ORAL 01/23/20 09:00 02/22/20 08:59 01/23/20 09:27 Piperacillin Sod/ Tazobactam Sod 3.375 gm/Sodium Chloride 110 ml @ 27.5 mls/hr EVERY 8 HOURS IVPB 01/23/20 14:00 01/28/20 13:59 01/24/20 05:28 Polyethylene Glycol (Miralax) 17 gm BEDTIME ORAL 01/23/20 21:00 02/22/20 20:59 01/23/20 20:41 Sodium Bicarbonate (Sodium Bicarbonate 4%) 1 ml NOW PRN IV Radiology Procedure 01/22/20 14:00 01/24/20 13:54 Zolpidem Tartrate (Ambien) 5 mg HSPRN PRN ORAL Insomnia 01/23/20 00:30 01/30/20 00:29 01/23/20 20:41 Chip Patel MD Jan 24, 2020 13:25
--- NOTE | 2020-01-24 14:37 | Cardiac Electrophysiology PN ---
Assessment/Plan Assessment/Plan 1. Accelerated hypertension. The patient is on amlodipine 5 mg daily, metoprolol 50 mg bid., and hydralazine 25 mg every 8 hours and p.r.n. clonidine 2. Lung masses. This is likely metastasis. CT of the chest with biopsy is pending tomorrow. 3. History of cervical stenosis and pain. 4. On Eliquis. 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 No CP off tele. Objective Last 24 Hour Vital Signs Date Time Temp Pulse Resp B/P (MAP) Pulse Ox O2 Delivery O2 Flow Rate FiO2 01/24/20 13:37 155/94 01/24/20 11:34 97.5 91 16 155/94 (114) 97 01/24/20 08:11 Nasal Cannula 2.0 01/24/20 08:00 97.7 92 20 130/79 (96) 92 01/24/20 05:27 149/87 01/24/20 04:00 98.4 84 22 149/87 (107) 93 01/24/20 00:00 98.1 93 20 132/86 (101) 98 01/23/20 21:27 125/82 01/23/20 21:00 Nasal Cannula 2.0 01/23/20 20:42 90 125/82 01/23/20 20:00 98.1 90 22 125/82 (96) 93 01/23/20 18:46 93 143/86 (105) 01/23/20 16:00 99.0 92 18 162/97 (118) 95 01/23/20 14:55 157/91 Intake and Output 01/23/20 01/24/20 19:00 07:00 Intake Total 1162.5 ml 977.5 ml Output Total 900 ml Balance 1162.5 ml 77.5 ml Intake Oral 480 ml 150 ml IV Total 682.5 ml 827.5 ml Output Urine Total 900 ml Laboratory Tests Test 01/24/20 06:15 White Blood Count 13.5 K/UL (4.8-10.8) H Red Blood Count 3.81 M/UL (4.20-5.40) L Hemoglobin 11.0 G/DL (12.0-16.0) L Hematocrit 34.5 % (37.0-47.0) L Mean Corpuscular Volume 91 FL (80-99) Mean Corpuscular Hemoglobin 28.9 PG (27.0-31.0) Mean Corpuscular Hemoglobin Concent 32.0 G/DL (32.0-36.0) Red Cell Distribution Width 15.3 % (11.6-14.8) H Platelet Count 452 K/UL (150-450) H Mean Platelet Volume 5.6 FL (6.5-10.1) L Neutrophils (%) (Auto) 80.1 % (45.0-75.0) H Lymphocytes (%) (Auto) 12.2 % (20.0-45.0) L Monocytes (%) (Auto) 6.2 % (1.0-10.0) Eosinophils (%) (Auto) 0.2 % (0.0-3.0) Basophils (%) (Auto) 1.3 % (0.0-2.0) Sodium Level 136 MMOL/L (136-145) Potassium Level 3.6 MMOL/L (3.5-5.1) Chloride Level 100 MMOL/L (98-107) Carbon Dioxide Level 24 MMOL/L (21-32) Anion Gap 12 mmol/L (5-15) Blood Urea Nitrogen 7 mg/dL (7-18) Creatinine 0.7 MG/DL (0.55-1.30) Estimat Glomerular Filtration Rate > 60 mL/min (>60) Glucose Level 116 MG/DL (74-106) H Calcium Level 11.1 MG/DL (8.5-10.1) H Total Bilirubin 0.3 MG/DL (0.2-1.0) Aspartate Amino Transf (AST/SGOT) 97 U/L (15-37) H Alanine Aminotransferase (ALT/SGPT) 15 U/L (12-78) Alkaline Phosphatase 70 U/L (46-116) Total Protein 8.3 G/DL (6.4-8.2) H Albumin 4.1 G/DL (3.4-5.0) Globulin 4.2 g/dL Albumin/Globulin Ratio 1.0 (1.0-2.7) Amylase Level 355 U/L (25-115) H Lipase > 2000 U/L (73-393) H Objective HEAD AND NECK: Showed no JVD. LUNGS: Clear. CARDIOVASCULAR: Shows regular S1 and S2 with no gallop or murmur. ABDOMEN: Soft. EXTREMITIES: No pitting edema. Jimmy Moreno MD Jan 24, 2020 14:37
--- NOTE | 2020-01-24 15:25 | Consultation ---
History of Present Illness General Date patient seen: Jan 24, 2020 Chief Complaint: Present Illness Allergies: Coded Allergies: IBUPROFEN (Verified Allergy, Mild, 10/05/09) CORTICOSTEROIDS (GLUCOCORTICOIDS) (Unverified Allergy, Unknown, 01/22/20) Medication History Scheduled Amlodipine Besylate* (Amlodipine Besylate*), 5 MG ORAL DAILY, (Reported) Apixaban (Eliquis), 5 MG PO BID, (Reported) Bisacodyl (Dulcolax), 10 MG PO DAILY, (Reported) Carisoprodol* (Carisoprodol*), 350 MG ORAL TID, (Reported) Ceftriaxone Sod (Ceftriaxone 1 gm-D5w Bag), 1 GM IVPB DAILY, (Reported) Cyclobenzaprine Hcl (Cyclobenzaprine Hcl), 7.5 MG ORAL THREE TIMES A DAY, ( Reported) Docusate Sodium* (Docusate Sodium*), 100 MG ORAL TWICE A DAY, (Reported) Duloxetine Hcl* (Cymbalta*), 60 MG ORAL DAILY, (Reported) Famotidine* (Pepcid 20mg tablet*), 20 MG ORAL TWICE A DAY, (Reported) Furosemide* (Lasix*), 40 MG ORAL DAILY, (Reported) Hydralazine HCl (Hydralazine HCl), 25 MG PO Q8HR, (Reported) Lidocaine (Lidocaine), 1 PATCH TP DAILY, (Reported) Metoprolol Tartrate* (Metoprolol Tartrate*), 50 MG ORAL EVERY 12 HOURS, ( Reported) Pantoprazole* (Protonix*), 40 MG ORAL DAILY, (Reported) Pantoprazole* (Pantoprazole*), 40 MG ORAL DAILY, (Reported) Scheduled PRN Acetaminophen* (Acetaminophen 325MG Tablet*), 650 MG ORAL Q6H PRN for For Pain, (Reported) Clonidine Hcl* (Catapres*), 0.2 MG ORAL Q8HR PRN for For High Blood Pressure, ( Reported) Magnesium Hydroxide* (Milk Of Magnesia*), 30 ML ORAL DAILY PRN for Constipation, (Reported) Oxymetazoline HCl (Afrin), 1 SPRAY NASAL Q6HR PRN for CONGESTION, (Reported) Patient History Healthcare decision maker Resuscitation status Advanced Directive on File Physical Exam Last 24 Hour Vital Signs Date Time Temp Pulse Resp B/P (MAP) Pulse Ox O2 Delivery O2 Flow Rate FiO2 8/9/20 13:37 155/94 01/24/20 11:34 97.5 91 16 155/94 (114) 97 01/24/20 08:11 Nasal Cannula 2.0 01/24/20 08:00 97.7 92 20 130/79 (96) 92 01/24/20 05:27 149/87 01/24/20 04:00 98.4 84 22 149/87 (107) 93 01/24/20 00:00 98.1 93 20 132/86 (101) 98 01/23/20 21:27 125/82 01/23/20 21:00 Nasal Cannula 2.0 01/23/20 20:42 90 125/82 01/23/20 20:00 98.1 90 22 125/82 (96) 93 01/23/20 18:46 93 143/86 (105) 01/23/20 16:00 99.0 92 18 162/97 (118) 95 Intake and Output 01/23/20 01/24/20 19:00 07:00 Intake Total 1162.5 ml 977.5 ml Output Total 900 ml Balance 1162.5 ml 77.5 ml Intake Oral 480 ml 150 ml IV Total 682.5 ml 827.5 ml Output Urine Total 900 ml Laboratory Tests Test 01/24/20 06:15 White Blood Count 13.5 K/UL (4.8-10.8) H Red Blood Count 3.81 M/UL (4.20-5.40) L Hemoglobin 11.0 G/DL (12.0-16.0) L Hematocrit 34.5 % (37.0-47.0) L Mean Corpuscular Volume 91 FL (80-99) Mean Corpuscular Hemoglobin 28.9 PG (27.0-31.0) Mean Corpuscular Hemoglobin Concent 32.0 G/DL (32.0-36.0) Red Cell Distribution Width 15.3 % (11.6-14.8) H Platelet Count 452 K/UL (150-450) H Mean Platelet Volume 5.6 FL (6.5-10.1) L Neutrophils (%) (Auto) 80.1 % (45.0-75.0) H Lymphocytes (%) (Auto) 12.2 % (20.0-45.0) L Monocytes (%) (Auto) 6.2 % (1.0-10.0) Eosinophils (%) (Auto) 0.2 % (0.0-3.0) Basophils (%) (Auto) 1.3 % (0.0-2.0) Sodium Level 136 MMOL/L (136-145) Potassium Level 3.6 MMOL/L (3.5-5.1) Chloride Level 100 MMOL/L (98-107) Carbon Dioxide Level 24 MMOL/L (21-32) Anion Gap 12 mmol/L (5-15) Blood Urea Nitrogen 7 mg/dL (7-18) Creatinine 0.7 MG/DL (0.55-1.30) Estimat Glomerular Filtration Rate > 60 mL/min (>60) Glucose Level 116 MG/DL (74-106) H Calcium Level 11.1 MG/DL (8.5-10.1) H Total Bilirubin 0.3 MG/DL (0.2-1.0) Aspartate Amino Transf (AST/SGOT) 97 U/L (15-37) H Alanine Aminotransferase (ALT/SGPT) 15 U/L (12-78) Alkaline Phosphatase 70 U/L (46-116) Total Protein 8.3 G/DL (6.4-8.2) H Albumin 4.1 G/DL (3.4-5.0) Globulin 4.2 g/dL Albumin/Globulin Ratio 1.0 (1.0-2.7) Amylase Level 355 U/L (25-115) H Lipase > 2000 U/L (73-393) H Height (Feet): 5 Height (Inches): 5.00 Weight (Pounds): 128 Medications Current Medications Medications (Trade) Dose Ordered Sig/Kina Route PRN Reason Start Time Stop Time Status Last Admin Dose Admin Acetaminophen (Tylenol) 650 mg Q6H PRN ORAL Pain Scale (3-5) 01/22/20 17:45 02/21/20 17:44 01/23/20 20:43 Amlodipine Besylate (Norvasc) 5 mg DAILY ORAL 01/23/20 09:00 02/22/20 08:59 01/23/20 09:27 Bisacodyl (Dulcolax) 10 mg DAILY ORAL 01/23/20 09:00 04/22/20 08:59 01/23/20 09:27 Carisoprodol (Soma) 350 mg Q8HR ORAL 01/22/20 18:30 02/21/20 18:29 01/24/20 13:37 Dextrose/ Electrolytes 1,000 ml @ 100 mls/hr Q10H IV 01/23/20 09:30 02/22/20 09:29 01/24/20 04:44 Docusate Sodium (Colace) 100 mg TWICE A DAY ORAL 01/22/20 18:00 02/21/20 17:59 01/23/20 17:21 Duloxetine HCl (Cymbalta) 60 mg DAILY ORAL 01/23/20 09:00 04/22/20 08:59 01/23/20 09:26 Famotidine (Pepcid) 20 mg TWICE A DAY ORAL 01/22/20 18:35 04/21/20 18:34 01/23/20 17:21 Hydralazine HCl (Apresoline) 50 mg Q8HR ORAL 01/23/20 14:00 04/21/20 21:59 01/24/20 13:37 Hydromorphone HCl (Dilaudid) 1 mg EVERY 3 HOURS PRN IVP Severe Pain (Pain Scale 7-10) 01/23/20 22:30 01/30/20 22:29 01/24/20 13:38 Lidocaine (Lidoderm 5% PATCH) 1 patch DAILY TDERMAL 01/23/20 09:00 04/22/20 08:59 01/24/20 08:42 Magnesium Hydroxide (Mom) 30 ml DAILYPRN PRN ORAL Constipation 01/22/20 17:45 02/21/20 17:44 Metoclopramide HCl (Reglan) 10 mg Q6H PRN IVP Nausea & Vomiting 01/24/20 10:00 02/23/20 09:59 01/24/20 10:14 Metoprolol Tartrate (Lopressor) 50 mg EVERY 12 HOURS ORAL 01/22/20 21:00 04/21/20 20:59 01/23/20 20:42 Ondansetron HCl (Zofran) 4 mg Q4H PRN IVP Nausea & Vomiting 01/23/20 15:15 02/22/20 15:14 01/24/20 13:37 Pantoprazole (Protonix) 40 mg DAILY ORAL 01/23/20 09:00 02/22/20 08:59 01/23/20 09:27 Piperacillin Sod/ Tazobactam Sod 3.375 gm/Sodium Chloride 110 ml @ 27.5 mls/hr EVERY 8 HOURS IVPB 01/23/20 14:00 01/28/20 13:59 01/24/20 13:38 Polyethylene Glycol (Miralax) 17 gm BEDTIME ORAL 01/23/20 21:00 02/22/20 20:59 01/23/20 20:41 Zolpidem Tartrate (Ambien) 5 mg HSPRN PRN ORAL Insomnia 01/23/20 00:30 01/30/20 00:29 01/23/20 20:41 Assessment/Plan Assessment/Plan: (1) Abdominal Pain (2) Pancreatitis (3) Metastatic cancer/ Lung Mass (4) Lumbar DDD/ Spondylosis Seen dictated David Boyd Jan 24, 2020 15:25
[2020-01-24] MEDS ORDERED: Naloxone 0.4mg/ml Inj IVP PRN (15:30)
[2020-01-24 16:00] VITALS: BP 143/78
--- NOTE | 2020-01-24 16:26 | NUR ---
NURSE NOTES: PER ISIDRO WRIGHT, DR MCDOWELL ORDERED TO DISCONTINUE ELIQUIS FOR BIOPSY OF LIVER TOMORROW. ORDER NOTED.
--- NOTE | 2020-01-24 16:53 | NUR ---
PT Note PT christiano completed, treatment initiated. Patient has muscle weakness, L>R and decreased postural stability, requiring assist in her mobility. Patient can benefit from PT services to increase her muscle strength, ROM and balance to improve her functional mobility. Addendum: 01/24/20 at 1654 by THAO YANEZ PT Amended: Links added.
--- NOTE | 2020-01-24 17:00 | Consultation ---
DATE OF CONSULTATION: 01/24/2020 PAIN MANAGEMENT CONSULTATION CONSULTING PHYSICIAN: Gabriel Cannon M.D. REFERRING PHYSICIAN: Nikko Butt D.O. PHYSICIAN NET MENDER: Thea Emerson CHIEF COMPLAINT: Abdominal pain. HISTORY OF PRESENT ILLNESS: This is a 64-year-old female who is being seen on the Med/Surg floor of [facility] for initial pain management consultation. The patient was admitted under the care of Dr. Butt due to nausea, vomiting, and abdominal pain, found to have acute pancreatitis, also was found to have metastatic cancer with unknown primary and has been complaining of severe abdominal pain, rating the pain as a sharp stabbing pain in the abdominal area and into her back. The pain is making her nauseous and caused her to vomit at times, was started on Dilaudid 1 mg IV 6 hours as needed for severe pain with minimal pain relief. Due to this, we have changed Dilaudid 1 mg IV every 3 hours as needed for severe pain which the patient reports has been adequately helping to relieve the pain. She does have some issues with depression due to family issue of her son having a stroke recently and is very sad and depressed about this issue. Discussed with the nurse and we recommend a psychiatric evaluation as per the care program resident. PAST MEDICAL HISTORY: Pancreatitis, hypertension, right flank pain, lung mass, rheumatoid arthritis. PAST SURGICAL HISTORY: Appendectomy, back surgery. SOCIAL HISTORY: Denies smoking tobacco, drinking alcohol, or IV drug abuse. ALLERGIES: Steroids and ibuprofen. MEDICATIONS: MiraLAX, enoxaparin, amlodipine, Dilaudid, Ativan, hydralazine, metoprolol, famotidine, Tylenol. REVIEW OF SYSTEMS: Denies rash, fever, chills, sweating, dizziness, drowsiness, blurred vision, sore throat, or change in weight. No chest pain, palpitations, or cough. No bowel or bladder incontinence. No dysuria. She is complaining of abdominal pain. PHYSICAL EXAMINATION: GENERAL: Alert, awake, and oriented. VITAL SIGNS: Blood pressure 155/94, heart rate 91, oxygen saturation 97%, respiratory rate 18, temperature 97.5 degrees Fahrenheit. HEENT: PERRLA. NECK: Range of motion is full in all directions. No tenderness to paracervical muscles. No adenopathy. LUNGS: Decreased breath sounds bilaterally. HEART: S1 and S2 regular. ABDOMEN: Tenderness to palpation. BACK: Range of motion is decreased in flexion and extension with tenderness to paraspinal muscles. No tenderness to trapezius and rhomboid muscles. EXTREMITIES: Upper and lower extremity range of motion is decreased due to the patient's condition. No cyanosis. No clubbing. No edema. Sensory is reduced. Reflexes are not obtainable. No adenopathy. ASSESSMENT AND PLAN: This is a 64-year-old female with abdominal pain, pancreatitis, metastatic cancer, lung mass, lumbar degenerative disk disease, lumbar spondylosis. The patient will be continued on Dilaudid as needed, parameters will be started. The patient was discussed with Dr. Cannon and Dr. Cannon concurred. We will follow the patient. Thank you very much for the courtesy of this consultation. Gabriel Cannon M.D. BERTRAND Emerson DR: Corie JOB#: [id number] CC: VI
--- NOTE | 2020-01-24 19:00 | NUR ---
NURSE NOTES: Received pt. from JEN TORREZ.
--- NOTE | 2020-01-24 19:33 | NUR ---
NURSE HAND-OFF: Important Events on Shift: CONTINUED PAIN AND NAUSEA THROUGHOUT SHIFT. Patient Status: STABLE Diet: NPO EXCEPT ICE CHIPS AND MEDS Pending Orders: CT GUIDED BIOPSY OF LIVER TOMORROW Pending Results/Labs:N/A Pending MD notification:N/A Latest Vital Signs: Temperature 97.3 , Pulse 86 , B/P 143 /78 , Respiratory Rate 19 , O2 SAT 97 , Nasal Cannula, O2 Flow Rate 2.0 . Vital Sign Comment: STABLE Latest Guido Fall Score: 45 Fall Risk: High Risk Safety Measures: Call light Within Reach, Bed Alarm Zone 1, Side Rails Side Rails x2, Bed position Low and Locked. Fall Precautions: Patient Fall Education Report given to Rosalee LESTER RN
[2020-01-24 20:00] VITALS: BP 131/62
--- NOTE | 2020-01-24 20:08 | NUR ---
Received pt. in bed, awake, alert and verbally responsive, with O2 @ 2lpm via nc, well tolerated. With bed in it's lowest position, with alarm on and locked. Pt. complained of right upper abdominal pain, 03/26. Gave prn meds as ordered, noted with relief after. Pt. is passive and emotional @ this time. Emotional support and assurance provided. Frequently checked. Vital signs checked. Will continue to monitor. On NPO.
[2020-01-24] MEDS: Miralax 17gm pkt ORAL SCH (21:00)
[2020-01-25] VITALS (8 sets, daily range): BP systolic 111–160; BP diastolic 68–94
[2020-01-25] MEDS: D5 1/2NS w/KCl 20mEq 1,000 ML IV SCH ×3 (01:55→20:37)
[2020-01-25] MEDS: HYDROmorphone 1mg/ml Carpuject IVP PRN ×4 (01:56→22:38)
[2020-01-25] MEDS: Piperacillin/Tazobactam 3.375 GM in NS 110 ML IVPB SCH ×3 (05:06→20:36)
[2020-01-25] MEDS: HydrALAZINE 50mg tab ORAL SCH ×3 (06:00→20:36)
--- NOTE | 2020-01-25 07:21 | NUR ---
HAND-OFF: Report given to Migue TORREZ.
--- NOTE | 2020-01-25 07:34 | General Progress Note ---
Assessment/Plan Problem List: (1) Metastatic disease ICD Codes: C79.9 - Secondary malignant neoplasm of unspecified site SNOMED: 524879821 (2) Right flank pain ICD Codes: R10.9 - Unspecified abdominal pain SNOMED: 418708482 (3) Lung mass ICD Codes: R91.8 - Other nonspecific abnormal finding of lung field SNOMED: 104366282 (4) Acute pancreatitis ICD Codes: K85.90 - Acute pancreatitis without necrosis or infection, unspecified SNOMED: 062805711 (5) Rheumatoid arthritis ICD Codes: M06.9 - Rheumatoid arthritis, unspecified SNOMED: 49921452 (6) Diverticulosis ICD Codes: K57.90 - Diverticulosis of intestine, part unspecified, without perforation or abscess without bleeding SNOMED: 926355717 Status: unchanged Assessment/Plan: IVF repeat labs bowel regimen CT reviewed pending lung mass biopsy keep npo zofran will fu Subjective ROS Limited/Unobtainable: Yes Allergies: Coded Allergies: IBUPROFEN (Verified Allergy, Mild, 10/05/09) CORTICOSTEROIDS (GLUCOCORTICOIDS) (Unverified Allergy, Unknown, 01/22/20) Subjective c/o abd pain + Flatus no bm Objective Last 24 Hour Vital Signs Date Time Temp Pulse Resp B/P (MAP) Pulse Ox O2 Delivery O2 Flow Rate FiO2 01/25/20 06:39 97.9 01/25/20 06:00 107/71 01/25/20 04:00 97.9 82 20 111/68 (82) 95 01/25/20 02:26 97.0 01/25/20 00:00 97.5 91 22 132/72 (92) 96 01/24/20 22:00 109/65 01/24/20 21:43 78 145/75 01/24/20 21:00 Nasal Cannula 2.0 01/24/20 20:00 97.5 85 20 131/62 (85) 96 01/24/20 16:00 97.3 86 19 143/78 (99) 97 01/24/20 13:37 155/94 01/24/20 11:34 97.5 91 16 155/94 (114) 97 01/24/20 08:11 Nasal Cannula 2.0 01/24/20 08:00 97.7 92 20 130/79 (96) 92 Intake and Output 01/24/20 01/25/20 19:00 07:00 Intake Total 1257.5 ml 1155.0 ml Output Total 200 ml 1100 ml Balance 1057.5 ml 55.0 ml Intake Oral 120 ml IV Total 1137.5 ml 1155.0 ml Output Urine Total 200 ml 1100 ml Height (Feet): 5 Height (Inches): 5.00 Weight (Pounds): 128 General Appearance: alert EENT: normal ENT inspection Neck: supple Cardiovascular: tachycardia Respiratory/Chest: decreased breath sounds Abdomen: hypoactive bowel sounds, tender Extremities: non-tender Irving Lopez MD Jan 25, 2020 07:34
--- NOTE | 2020-01-25 07:50 | NUR ---
NURSE NOTES: made initial round, pt is in the bed alert and awake. respiration is even and unlabored with O2 inplace. no acute distress noted, will follow plan of care for the day. call light is placed within reach.
[2020-01-25] MEDS: Bisacodyl EC 5mg tab ORAL SCH (08:32)
[2020-01-25] MEDS: Docusate 100mg cap ORAL SCH ×2 (08:32→18:01)
[2020-01-25] MEDS: Metoprolol Tartrate 50mg tab ORAL SCH ×2 (08:33→20:36)
[2020-01-25] MEDS: DULoxetine 30mg cap ORAL SCH (08:33)
[2020-01-25 08:36] LABS: HEMATOCRIT 32.4 % (37.0-47.0); HEMOGLOBIN 10.3 G/DL (12.0-16.0); MEAN CORPUSCULAR VOLUME 91 FL (80-99); PLATELET COUNT 420 K/UL (150-450); RED BLOOD COUNT 3.55 M/UL (4.20-5.40); RED CELL DISTRIBUTION WIDTH 15.4 % (11.6-14.8); WHITE BLOOD COUNT 13.7 K/UL (4.8-10.8)
[2020-01-25 09:15] LABS: ALANINE AMINOTRANSFERASE 16 U/L (12-78); ALBUMIN 3.9 G/DL (3.4-5.0); ALBUMIN/GLOBULIN RATIO 0.9 (1.0-2.7); ALKALINE PHOSPHATASE 77 U/L (46-116); AMYLASE 309 U/L (25-115); ANION GAP 13 mmol/L (5-15); ASPARTATE AMINO TRANSFERASE 87 U/L (15-37); BILIRUBIN,TOTAL 0.4 MG/DL (0.2-1.0); BLOOD UREA NITROGEN 7 mg/dL (7-18); CALCIUM 10.7 MG/DL (8.5-10.1); CARBON DIOXIDE 24 MMOL/L (21-32); CHLORIDE 97 MMOL/L (98-107); CREATININE 0.6 MG/DL (0.55-1.30); POTASSIUM 3.1 MMOL/L (3.5-5.1); SODIUM 134 MMOL/L (136-145)
--- NOTE | 2020-01-25 09:35 | General Progress Note ---
Assessment/Plan Problem List: (1) Acute pancreatitis ICD Codes: K85.90 - Acute pancreatitis without necrosis or infection, unspecified SNOMED: 857387915 (2) Lung mass ICD Codes: R91.8 - Other nonspecific abnormal finding of lung field SNOMED: [id number] (3) Right flank pain ICD Codes: R10.9 - Unspecified abdominal pain SNOMED: 947483526 (4) Rheumatoid arthritis ICD Codes: M06.9 - Rheumatoid arthritis, unspecified SNOMED: 07400286 Status: unchanged Assessment/Plan: o2nc pain control npo ivf cbc bmp am Subjective Constitutional: Reports: weakness Allergies: Coded Allergies: IBUPROFEN (Verified Allergy, Mild, 10/05/09) CORTICOSTEROIDS (GLUCOCORTICOIDS) (Unverified Allergy, Unknown, 01/22/20) All Systems: reviewed and negative except above Subjective o2nc calm Objective Last 24 Hour Vital Signs Date Time Temp Pulse Resp B/P (MAP) Pulse Ox O2 Delivery O2 Flow Rate FiO2 01/25/20 08:33 100 160/91 01/25/20 08:33 100 160/91 01/25/20 08:00 98.2 100 20 160/91 (114) 95 01/25/20 06:39 97.9 01/25/20 06:00 107/71 01/25/20 04:00 97.9 82 20 111/68 (82) 95 01/25/20 02:26 97.0 01/25/20 00:00 97.5 91 22 132/72 (92) 96 01/24/20 22:00 109/65 01/24/20 21:43 78 145/75 01/24/20 21:00 Nasal Cannula 2.0 01/24/20 20:00 97.5 85 20 131/62 (85) 96 01/24/20 16:00 97.3 86 19 143/78 (99) 97 01/24/20 13:37 155/94 01/24/20 11:34 97.5 91 16 155/94 (114) 97 Intake and Output 01/24/20 01/25/20 19:00 07:00 Intake Total 1257.5 ml 1155.0 ml Output Total 200 ml 1100 ml Balance 1057.5 ml 55.0 ml Intake Oral 120 ml IV Total 1137.5 ml 1155.0 ml Output Urine Total 200 ml 1100 ml Laboratory Tests 01/25/20 07:40: White Blood Count 13.7H, Red Blood Count 3.55L, Hemoglobin 10.3L, Hematocrit 32.4L, Mean Corpuscular Volume 91, Mean Corpuscular Hemoglobin 29.1, Mean Corpuscular Hemoglobin Concent 31.9L, Red Cell Distribution Width 15.4H, Platelet Count 420, Mean Platelet Volume 5.4L, Neutrophils (%) (Auto) , Lymphocytes (%) (Auto) , Monocytes (%) (Auto) , Eosinophils (%) (Auto) , Basophils (%) (Auto) , Differential Total Cells Counted 100, Neutrophils % ( Manual) 89H, Lymphocytes % (Manual) 7L, Monocytes % (Manual) 4, Eosinophils % ( Manual) 0, Basophils % (Manual) 0, Band Neutrophils 0, Platelet Estimate Adequate, Platelet Morphology Normal, Hypochromasia 1+, Anisocytosis 1+, Sodium Level 134L, Potassium Level 3.1L, Chloride Level 97L, Carbon Dioxide Level 24, Anion Gap 13, Blood Urea Nitrogen 7, Creatinine 0.6, Estimat Glomerular Filtration Rate > 60, Glucose Level 128H, Calcium Level 10.7H, Total Bilirubin 0.4, Aspartate Amino Transf (AST/SGOT) 87H, Alanine Aminotransferase (ALT/SGPT) 16, Alkaline Phosphatase 77, Total Protein 8.3H, Albumin 3.9, Globulin 4.4, Albumin/Globulin Ratio 0.9L, Amylase Level 309H, Lipase > 2000H Height (Feet): 5 Height (Inches): 5.00 Weight (Pounds): 128 General Appearance: lethargic EENT: normal ENT inspection Neck: normal alignment Cardiovascular: normal peripheral pulses, normal rate, regular rhythm Respiratory/Chest: chest wall non-tender, lungs clear, normal breath sounds Abdomen: normal bowel sounds, non tender, soft Extremities: normal inspection Edema: no edema noted Arm (L), no edema noted Arm (R), no edema noted Leg (L), no edema noted Leg (R), no edema noted Pedal (L), no edema noted Pedal (R), no edema noted Generalized Neurologic: motor weakness Skin: normal pigmentation, warm/dry Nikko Buttg DO Jan 25, 2020 09:35
--- NOTE | 2020-01-25 09:46 | General Progress Note ---
Assessment/Plan Assessment/Plan: (1) Abdominal Pain (2) Pancreatitis (3) Metastatic cancer/ Lung Mass (4) Lumbar DDD/ Spondylosis Patient to be continued on Dilaudid. D/w Dr. Cannon and he concurred. Subjective Date patient seen: Jan 25, 2020 Time patient seen: 09:00 - am Constitutional: Reports: weakness HEENT: Reports: no symptoms Cardiovascular: Reports: no symptoms Respiratory: Reports: no symptoms Gastrointestinal/Abdominal: Reports: abdominal pain Genitourinary: Reports: no symptoms Neurologic/Psychiatric: Reports: no symptoms Endocrine: Reports: no symptoms Hematologic/Lymphatic: Reports: no symptoms Allergies: Coded Allergies: IBUPROFEN (Verified Allergy, Mild, 10/05/09) CORTICOSTEROIDS (GLUCOCORTICOIDS) (Unverified Allergy, Unknown, 01/22/20) Subjective Pain is stable on the Dilaudid. No new complaints at this time. Objective Last 24 Hour Vital Signs Date Time Temp Pulse Resp B/P (MAP) Pulse Ox O2 Delivery O2 Flow Rate FiO2 01/25/20 08:33 100 160/91 01/25/20 08:33 100 160/91 01/25/20 08:00 98.2 100 20 160/91 (114) 95 01/25/20 06:39 97.9 01/25/20 06:00 107/71 01/25/20 04:00 97.9 82 20 111/68 (82) 95 01/25/20 02:26 97.0 01/25/20 00:00 97.5 91 22 132/72 (92) 96 01/24/20 22:00 109/65 01/24/20 21:43 78 145/75 01/24/20 21:00 Nasal Cannula 2.0 01/24/20 20:00 97.5 85 20 131/62 (85) 96 01/24/20 16:00 97.3 86 19 143/78 (99) 97 01/24/20 13:37 155/94 01/24/20 11:34 97.5 91 16 155/94 (114) 97 Intake and Output 01/24/20 01/25/20 19:00 07:00 Intake Total 1257.5 ml 1155.0 ml Output Total 200 ml 1100 ml Balance 1057.5 ml 55.0 ml Intake Oral 120 ml IV Total 1137.5 ml 1155.0 ml Output Urine Total 200 ml 1100 ml Laboratory Tests 01/25/20 07:40: White Blood Count 13.7H, Red Blood Count 3.55L, Hemoglobin 10.3L, Hematocrit 32.4L, Mean Corpuscular Volume 91, Mean Corpuscular Hemoglobin 29.1, Mean Corpuscular Hemoglobin Concent 31.9L, Red Cell Distribution Width 15.4H, Platelet Count 420, Mean Platelet Volume 5.4L, Neutrophils (%) (Auto) , Lymphocytes (%) (Auto) , Monocytes (%) (Auto) , Eosinophils (%) (Auto) , Basophils (%) (Auto) , Differential Total Cells Counted 100, Neutrophils % ( Manual) 89H, Lymphocytes % (Manual) 7L, Monocytes % (Manual) 4, Eosinophils % ( Manual) 0, Basophils % (Manual) 0, Band Neutrophils 0, Platelet Estimate Adequate, Platelet Morphology Normal, Hypochromasia 1+, Anisocytosis 1+, Sodium Level 134L, Potassium Level 3.1L, Chloride Level 97L, Carbon Dioxide Level 24, Anion Gap 13, Blood Urea Nitrogen 7, Creatinine 0.6, Estimat Glomerular Filtration Rate > 60, Glucose Level 128H, Calcium Level 10.7H, Total Bilirubin 0.4, Aspartate Amino Transf (AST/SGOT) 87H, Alanine Aminotransferase (ALT/SGPT) 16, Alkaline Phosphatase 77, Total Protein 8.3H, Albumin 3.9, Globulin 4.4, Albumin/Globulin Ratio 0.9L, Amylase Level 309H, Lipase > 2000H Height (Feet): 5 Height (Inches): 5.00 Weight (Pounds): 128 General Appearance: no apparent distress, alert EENT: PERRL/EOMI, normal ENT inspection Neck: non-tender, normal alignment Cardiovascular: normal rate, regular rhythm Respiratory/Chest: decreased breath sounds Abdomen: tender Extremities: non-tender Edema: moderate edema Neurologic: alert, oriented x 3 Skin: warm/dry David Boyd Jan 25, 2020 09:46
[2020-01-25 10:10] LABS: INR 1.4 (0.9-1.1)
[2020-01-25] MEDS ORDERED: Lidocaine 1% Plain 30 ml INJ PRN (10:22)
--- NOTE | 2020-01-25 10:40 | Pulmonology Progress Note ---
Subjective ROS Limited/Unobtainable: Yes Interval Events: None new Constitutional: Reports: anorexia HEENT: Repors: no symptoms Respiratory: Reports: dry cough Cardiovascular: Reports: no symptoms Gastrointestinal/Abdominal: Reports: nausea, other - diffuse pain Genitourinary: Reports: no symptoms Allergies: Coded Allergies: IBUPROFEN (Verified Allergy, Mild, 10/05/09) CORTICOSTEROIDS (GLUCOCORTICOIDS) (Unverified Allergy, Unknown, 01/22/20) All Systems: reviewed and negative except above Objective Last 24 Hour Vital Signs Date Time Temp Pulse Resp B/P (MAP) Pulse Ox O2 Delivery O2 Flow Rate FiO2 01/25/20 08:33 100 160/91 01/25/20 08:33 100 160/91 01/25/20 08:00 98.2 100 20 160/91 (114) 95 01/25/20 06:39 97.9 01/25/20 06:00 107/71 01/25/20 04:00 97.9 82 20 111/68 (82) 95 01/25/20 02:26 97.0 01/25/20 00:00 97.5 91 22 132/72 (92) 96 01/24/20 22:00 109/65 01/24/20 21:43 78 145/75 01/24/20 21:00 Nasal Cannula 2.0 01/24/20 20:00 97.5 85 20 131/62 (85) 96 01/24/20 16:00 97.3 86 19 143/78 (99) 97 01/24/20 13:37 155/94 01/24/20 11:34 97.5 91 16 155/94 (114) 97 Intake and Output 01/24/20 01/25/20 19:00 07:00 Intake Total 1257.5 ml 1155.0 ml Output Total 200 ml 1100 ml Balance 1057.5 ml 55.0 ml Intake Oral 120 ml IV Total 1137.5 ml 1155.0 ml Output Urine Total 200 ml 1100 ml General Appearance: no acute distress HEENT: normocephalic Respiratory: chest wall non-tender, decreased breath sounds Cardiovascular: normal rate Abdomen: normal bowel sounds Laboratory Tests 01/25/20 07:40: White Blood Count 13.7H, Red Blood Count 3.55L, Hemoglobin 10.3L, Hematocrit 32.4L, Mean Corpuscular Volume 91, Mean Corpuscular Hemoglobin 29.1, Mean Corpuscular Hemoglobin Concent 31.9L, Red Cell Distribution Width 15.4H, Platelet Count 420, Mean Platelet Volume 5.4L, Neutrophils (%) (Auto) , Lymphocytes (%) (Auto) , Monocytes (%) (Auto) , Eosinophils (%) (Auto) , Basophils (%) (Auto) , Differential Total Cells Counted 100, Neutrophils % ( Manual) 89H, Lymphocytes % (Manual) 7L, Monocytes % (Manual) 4, Eosinophils % ( Manual) 0, Basophils % (Manual) 0, Band Neutrophils 0, Platelet Estimate Adequate, Platelet Morphology Normal, Hypochromasia 1+, Anisocytosis 1+, Sodium Level 134L, Potassium Level 3.1L, Chloride Level 97L, Carbon Dioxide Level 24, Anion Gap 13, Blood Urea Nitrogen 7, Creatinine 0.6, Estimat Glomerular Filtration Rate > 60, Glucose Level 128H, Calcium Level 10.7H, Total Bilirubin 0.4, Aspartate Amino Transf (AST/SGOT) 87H, Alanine Aminotransferase (ALT/SGPT) 16, Alkaline Phosphatase 77, Total Protein 8.3H, Albumin 3.9, Globulin 4.4, Albumin/Globulin Ratio 0.9L, Amylase Level 309H, Lipase > 2000H 01/25/20 09:30: Prothrombin Time 14.6H, Prothromb Time International Ratio 1.4H, Activated Partial Thromboplast Time 32 Current Medications Medications (Trade) Dose Ordered Sig/Kina Route PRN Reason Start Time Stop Time Status Last Admin Dose Admin Acetaminophen (Tylenol) 650 mg Q6H PRN ORAL Pain Scale (3-5) 01/22/20 17:45 02/21/20 17:44 01/23/20 20:43 Amlodipine Besylate (Norvasc) 5 mg DAILY ORAL 01/23/20 09:00 02/22/20 08:59 01/25/20 08:33 Bisacodyl (Dulcolax) 10 mg DAILY ORAL 01/23/20 09:00 04/22/20 08:59 01/25/20 08:32 Carisoprodol (Soma) 350 mg Q8HR ORAL 01/22/20 18:30 02/21/20 18:29 01/25/20 06:09 Dextrose/ Electrolytes 1,000 ml @ 100 mls/hr Q10H IV 01/23/20 09:30 02/22/20 09:29 01/25/20 01:55 Docusate Sodium (Colace) 100 mg TWICE A DAY ORAL 01/22/20 18:00 02/21/20 17:59 01/25/20 08:32 Duloxetine HCl (Cymbalta) 60 mg DAILY ORAL 01/23/20 09:00 04/22/20 08:59 01/25/20 08:33 Famotidine (Pepcid) 20 mg TWICE A DAY ORAL 01/22/20 18:35 04/21/20 18:34 01/25/20 08:33 Hydralazine HCl (Apresoline) 50 mg Q8HR ORAL 01/23/20 14:00 04/21/20 21:59 01/24/20 13:37 Hydromorphone HCl (Dilaudid) 1 mg EVERY 3 HOURS PRN IVP Severe Pain (Pain Scale 7-10) 01/23/20 22:30 01/30/20 22:29 01/25/20 08:32 Lidocaine (Lidoderm 5% PATCH) 1 patch DAILY TDERMAL 01/23/20 09:00 04/22/20 08:59 01/25/20 08:33 Lidocaine HCl (Xylocaine 1% 30ml) 30 ml ONCE PRN INJ PROCEDURE 01/25/20 10:22 01/25/20 23:59 Magnesium Hydroxide (Mom) 30 ml DAILYPRN PRN ORAL Constipation 01/22/20 17:45 02/21/20 17:44 Metoclopramide HCl (Reglan) 10 mg Q6H PRN IVP Nausea & Vomiting 01/24/20 10:00 02/23/20 09:59 01/24/20 16:40 Metoprolol Tartrate (Lopressor) 50 mg EVERY 12 HOURS ORAL 01/22/20 21:00 04/21/20 20:59 01/25/20 08:33 Naloxone HCl (Narcan) 0.2 mg Q2M PRN IVP respritory depression 01/24/20 15:30 04/23/20 15:29 Ondansetron HCl (Zofran) 4 mg Q4H PRN IVP Nausea & Vomiting 01/23/20 15:15 02/22/20 15:14 01/24/20 13:37 Pantoprazole (Protonix) 40 mg DAILY ORAL 01/23/20 09:00 02/22/20 08:59 01/25/20 08:32 Piperacillin Sod/ Tazobactam Sod 3.375 gm/Sodium Chloride 110 ml @ 27.5 mls/hr EVERY 8 HOURS IVPB 01/23/20 14:00 01/28/20 13:59 01/25/20 05:06 Polyethylene Glycol (Miralax) 17 gm BEDTIME ORAL 01/23/20 21:00 02/22/20 20:59 01/23/20 20:41 Zolpidem Tartrate (Ambien) 5 mg HSPRN PRN ORAL Insomnia 01/23/20 00:30 01/30/20 00:29 01/23/20 20:41 Assessment/Plan Assessment/Plan IMPRESSION: 1. Large lung mass. 2. COPD. 3. History of spinal stenosis. 4. Multiple metastases DISCUSSION: The patient has a history of lung cancer per GI; however patient declines any knowledge. Discussed with oncology Will need CT guided liver biopsy. I will follow. Saturating well on 2L/min O2 Reymundo Vázquez MD Jan 25, 2020 10:40
--- NOTE | 2020-01-25 11:41 | Infectious Diseases Prog Note ---
Assessment/Plan Assessment/Plan antibiotics : zosyn A 1. Pancreatitis. 2. Lung mass with liver metastasis. 3. COPD. 4. Hypertension P 1. continue zosyn 2. will follow up cultures Subjective Constitutional: Denies: fever, chills Respiratory: Reports: shortness of breath - mild, dry cough - mild Gastrointestinal/Abdominal: Reports: nausea; Denies: vomiting, diarrhea Musculoskeletal: Reports: pain - abdominal Allergies: Coded Allergies: IBUPROFEN (Verified Allergy, Mild, 10/05/09) CORTICOSTEROIDS (GLUCOCORTICOIDS) (Unverified Allergy, Unknown, 01/22/20) Objective Last 24 Hour Vital Signs Date Time Temp Pulse Resp B/P (MAP) Pulse Ox O2 Delivery O2 Flow Rate FiO2 01/25/20 09:00 Nasal Cannula 2.0 01/25/20 08:33 100 160/91 01/25/20 08:33 100 160/91 01/25/20 08:00 98.2 100 20 160/91 (114) 95 01/25/20 06:39 97.9 01/25/20 06:00 107/71 01/25/20 04:00 97.9 82 20 111/68 (82) 95 01/25/20 02:26 97.0 01/25/20 00:00 97.5 91 22 132/72 (92) 96 01/24/20 22:00 109/65 01/24/20 21:43 78 145/75 01/24/20 21:00 Nasal Cannula 2.0 01/24/20 20:00 97.5 85 20 131/62 (85) 96 01/24/20 16:00 97.3 86 19 143/78 (99) 97 01/24/20 13:37 155/94 Height (Feet): 5 Height (Inches): 5.00 Weight (Pounds): 128 Respiratory/Chest: lungs clear Cardiovascular: normal rate, regular rhythm, no gallop/murmur Abdomen: soft, non tender Extremities: no edema Laboratory Tests Test 01/25/20 07:40 01/25/20 09:30 White Blood Count 13.7 K/UL (4.8-10.8) H Red Blood Count 3.55 M/UL (4.20-5.40) L Hemoglobin 10.3 G/DL (12.0-16.0) L Hematocrit 32.4 % (37.0-47.0) L Mean Corpuscular Volume 91 FL (80-99) Mean Corpuscular Hemoglobin 29.1 PG (27.0-31.0) Mean Corpuscular Hemoglobin Concent 31.9 G/DL (32.0-36.0) L Red Cell Distribution Width 15.4 % (11.6-14.8) H Platelet Count 420 K/UL (150-450) Mean Platelet Volume 5.4 FL (6.5-10.1) L Neutrophils (%) (Auto) % (45.0-75.0) Lymphocytes (%) (Auto) % (20.0-45.0) Monocytes (%) (Auto) % (1.0-10.0) Eosinophils (%) (Auto) % (0.0-3.0) Basophils (%) (Auto) % (0.0-2.0) Differential Total Cells Counted 100 Neutrophils % (Manual) 89 % (45-75) H Lymphocytes % (Manual) 7 % (20-45) L Monocytes % (Manual) 4 % (1-10) Eosinophils % (Manual) 0 % (0-3) Basophils % (Manual) 0 % (0-2) Band Neutrophils 0 % (0-8) Platelet Estimate Adequate Platelet Morphology Normal Hypochromasia 1+ Anisocytosis 1+ Sodium Level 134 MMOL/L (136-145) L Potassium Level 3.1 MMOL/L (3.5-5.1) L Chloride Level 97 MMOL/L (98-107) L Carbon Dioxide Level 24 MMOL/L (21-32) Anion Gap 13 mmol/L (5-15) Blood Urea Nitrogen 7 mg/dL (7-18) Creatinine 0.6 MG/DL (0.55-1.30) Estimat Glomerular Filtration Rate > 60 mL/min (>60) Glucose Level 128 MG/DL (74-106) H Calcium Level 10.7 MG/DL (8.5-10.1) H Total Bilirubin 0.4 MG/DL (0.2-1.0) Aspartate Amino Transf (AST/SGOT) 87 U/L (15-37) H Alanine Aminotransferase (ALT/SGPT) 16 U/L (12-78) Alkaline Phosphatase 77 U/L (46-116) Total Protein 8.3 G/DL (6.4-8.2) H Albumin 3.9 G/DL (3.4-5.0) Globulin 4.4 g/dL Albumin/Globulin Ratio 0.9 (1.0-2.7) L Amylase Level 309 U/L (25-115) H Lipase > 2000 U/L (73-393) H Prothrombin Time 14.6 SEC (9.30-11.50) H Prothromb Time International Ratio 1.4 (0.9-1.1) H Activated Partial Thromboplast Time 32 SEC (23-33) Current Medications Medications (Trade) Dose Ordered Sig/Kina Route PRN Reason Start Time Stop Time Status Last Admin Dose Admin Acetaminophen (Tylenol) 650 mg Q6H PRN ORAL Pain Scale (3-5) 01/22/20 17:45 02/21/20 17:44 01/23/20 20:43 Amlodipine Besylate (Norvasc) 5 mg DAILY ORAL 01/23/20 09:00 02/22/20 08:59 01/25/20 08:33 Bisacodyl (Dulcolax) 10 mg DAILY ORAL 01/23/20 09:00 04/22/20 08:59 01/25/20 08:32 Carisoprodol (Soma) 350 mg Q8HR ORAL 01/22/20 18:30 02/21/20 18:29 01/25/20 06:09 Dextrose/ Electrolytes 1,000 ml @ 100 mls/hr Q10H IV 01/23/20 09:30 02/22/20 09:29 01/25/20 01:55 Docusate Sodium (Colace) 100 mg TWICE A DAY ORAL 01/22/20 18:00 02/21/20 17:59 01/25/20 08:32 Duloxetine HCl (Cymbalta) 60 mg DAILY ORAL 01/23/20 09:00 04/22/20 08:59 01/25/20 08:33 Famotidine (Pepcid) 20 mg TWICE A DAY ORAL 01/22/20 18:35 04/21/20 18:34 01/25/20 08:33 Hydralazine HCl (Apresoline) 50 mg Q8HR ORAL 01/23/20 14:00 04/21/20 21:59 01/24/20 13:37 Hydromorphone HCl (Dilaudid) 1 mg EVERY 3 HOURS PRN IVP Severe Pain (Pain Scale 7-10) 01/23/20 22:30 01/30/20 22:29 01/25/20 08:32 Lidocaine (Lidoderm 5% PATCH) 1 patch DAILY TDERMAL 01/23/20 09:00 04/22/20 08:59 01/25/20 08:33 Lidocaine HCl (Xylocaine 1% 30ml) 30 ml ONCE PRN INJ PROCEDURE 01/25/20 10:22 01/25/20 23:59 Magnesium Hydroxide (Mom) 30 ml DAILYPRN PRN ORAL Constipation 01/22/20 17:45 02/21/20 17:44 Metoclopramide HCl (Reglan) 10 mg Q6H PRN IVP Nausea & Vomiting 01/24/20 10:00 02/23/20 09:59 01/24/20 16:40 Metoprolol Tartrate (Lopressor) 50 mg EVERY 12 HOURS ORAL 01/22/20 21:00 04/21/20 20:59 01/25/20 08:33 Naloxone HCl (Narcan) 0.2 mg Q2M PRN IVP respritory depression 01/24/20 15:30 04/23/20 15:29 Ondansetron HCl (Zofran) 4 mg Q4H PRN IVP Nausea & Vomiting 01/23/20 15:15 02/22/20 15:14 01/24/20 13:37 Pantoprazole (Protonix) 40 mg DAILY ORAL 01/23/20 09:00 02/22/20 08:59 01/25/20 08:32 Piperacillin Sod/ Tazobactam Sod 3.375 gm/Sodium Chloride 110 ml @ 27.5 mls/hr EVERY 8 HOURS IVPB 01/23/20 14:00 01/28/20 13:59 01/25/20 05:06 Polyethylene Glycol (Miralax) 17 gm BEDTIME ORAL 01/23/20 21:00 02/22/20 20:59 01/23/20 20:41 Zolpidem Tartrate (Ambien) 5 mg HSPRN PRN ORAL Insomnia 01/23/20 00:30 01/30/20 00:29 01/23/20 20:41 Jose Juan Estrada MD Jan 25, 2020 11:41
--- NOTE | 2020-01-25 13:11 | Cardiac Electrophysiology PN ---
Assessment/Plan Assessment/Plan 1. Accelerated hypertension. The patient is on amlodipine 5 mg daily, metoprolol 50 mg bid., and hydralazine 25 mg every 8 hours and p.r.n. clonidine 2. Lung masses. This is likely metastasis. CT of the chest with biopsy is pending 3. History of cervical stenosis and pain. 4. On Eliquis. Says was on it for DVT. Hold for chest CT DW RN Subjective Subjective Comfortable in NAD. No CP off tele. NPO for CT guided chest biopsy Objective Last 24 Hour Vital Signs Date Time Temp Pulse Resp B/P (MAP) Pulse Ox O2 Delivery O2 Flow Rate FiO2 01/25/20 12:00 98.6 87 20 149/94 (112) 96 01/25/20 09:00 Nasal Cannula 2.0 01/25/20 08:33 100 160/91 01/25/20 08:33 100 160/91 01/25/20 08:00 98.2 100 20 160/91 (114) 95 01/25/20 06:39 97.9 01/25/20 06:00 107/71 01/25/20 04:00 97.9 82 20 111/68 (82) 95 01/25/20 02:26 97.0 01/25/20 00:00 97.5 91 22 132/72 (92) 96 01/24/20 22:00 109/65 01/24/20 21:43 78 145/75 01/24/20 21:00 Nasal Cannula 2.0 01/24/20 20:00 97.5 85 20 131/62 (85) 96 01/24/20 16:00 97.3 86 19 143/78 (99) 97 01/24/20 13:37 155/94 Intake and Output 01/24/20 01/25/20 19:00 07:00 Intake Total 1257.5 ml 1155.0 ml Output Total 200 ml 1100 ml Balance 1057.5 ml 55.0 ml Intake Oral 120 ml IV Total 1137.5 ml 1155.0 ml Output Urine Total 200 ml 1100 ml Laboratory Tests Test 01/25/20 07:40 01/25/20 09:30 White Blood Count 13.7 K/UL (4.8-10.8) H Red Blood Count 3.55 M/UL (4.20-5.40) L Hemoglobin 10.3 G/DL (12.0-16.0) L Hematocrit 32.4 % (37.0-47.0) L Mean Corpuscular Volume 91 FL (80-99) Mean Corpuscular Hemoglobin 29.1 PG (27.0-31.0) Mean Corpuscular Hemoglobin Concent 31.9 G/DL (32.0-36.0) L Red Cell Distribution Width 15.4 % (11.6-14.8) H Platelet Count 420 K/UL (150-450) Mean Platelet Volume 5.4 FL (6.5-10.1) L Neutrophils (%) (Auto) % (45.0-75.0) Lymphocytes (%) (Auto) % (20.0-45.0) Monocytes (%) (Auto) % (1.0-10.0) Eosinophils (%) (Auto) % (0.0-3.0) Basophils (%) (Auto) % (0.0-2.0) Differential Total Cells Counted 100 Neutrophils % (Manual) 89 % (45-75) H Lymphocytes % (Manual) 7 % (20-45) L Monocytes % (Manual) 4 % (1-10) Eosinophils % (Manual) 0 % (0-3) Basophils % (Manual) 0 % (0-2) Band Neutrophils 0 % (0-8) Platelet Estimate Adequate Platelet Morphology Normal Hypochromasia 1+ Anisocytosis 1+ Sodium Level 134 MMOL/L (136-145) L Potassium Level 3.1 MMOL/L (3.5-5.1) L Chloride Level 97 MMOL/L (98-107) L Carbon Dioxide Level 24 MMOL/L (21-32) Anion Gap 13 mmol/L (5-15) Blood Urea Nitrogen 7 mg/dL (7-18) Creatinine 0.6 MG/DL (0.55-1.30) Estimat Glomerular Filtration Rate > 60 mL/min (>60) Glucose Level 128 MG/DL (74-106) H Calcium Level 10.7 MG/DL (8.5-10.1) H Total Bilirubin 0.4 MG/DL (0.2-1.0) Aspartate Amino Transf (AST/SGOT) 87 U/L (15-37) H Alanine Aminotransferase (ALT/SGPT) 16 U/L (12-78) Alkaline Phosphatase 77 U/L (46-116) Total Protein 8.3 G/DL (6.4-8.2) H Albumin 3.9 G/DL (3.4-5.0) Globulin 4.4 g/dL Albumin/Globulin Ratio 0.9 (1.0-2.7) L Amylase Level 309 U/L (25-115) H Lipase > 2000 U/L (73-393) H Prothrombin Time 14.6 SEC (9.30-11.50) H Prothromb Time International Ratio 1.4 (0.9-1.1) H Activated Partial Thromboplast Time 32 SEC (23-33) Objective HEAD AND NECK: Showed no JVD. LUNGS: Clear. CARDIOVASCULAR: Shows regular S1 and S2 with no gallop or murmur. ABDOMEN: Soft. EXTREMITIES: No pitting edema. Jimmy Moreno MD Jan 25, 2020 13:11
--- NOTE | 2020-01-25 13:36 | NUR ---
NURSE NOTES: pt off the unit for biopsy procedure. no acute distress noted at this time.
--- NOTE | 2020-01-25 14:08 | Pre-Procedure Note/Attestation ---
Pre-Procedure Note/Attestation Complete Prior to Procedure Planned Procedure: not applicable Procedure Narrative: US guided liver BX Indications for Procedure Pre-Operative Diagnosis: liver masses Attestation I attest that I discussed the nature of the procedure; its benefits; risks and complications; and alternatives (and the risks and benefits of such alternatives ), prior to the procedure, with the patient (or the patient's legal technical support representative). I attest that, if there was a reasonable possibility of needing a blood transfusion, the patient (or the patient's legal technical support representative) was given the [facility] standardized written summary, pursuant to the Rod Manderson Blood Safety Act ([place] Health and Safety Code # 1645, as amended). I attest that I re-evaluated the patient just prior to the surgery and that there has been no change in the patient's H&P, except as documented below: Christopher Serrano MD Jan 25, 2020 14:08
--- NOTE | 2020-01-25 14:30 | NUR ---
NURSE NOTES: Spoke with Dr. Mcclain from radiology. changed biopsy procedure date to Saturday01/27/20. pt is aware.
--- NOTE | 2020-01-25 16:03 | NUR ---
CASE MANAGEMENT:REVIEW SI;AC PANCREATITIS. LUNG MASS. RT FLANK PAIN. 98.6 100 20 160/91 95% 2L NC WBC 13.7 H/H 10.3/32.4 NA 134 K+ 3.1 CA 10.7 AST 87 AMYLASE 309 LIPASE >2000 IS;DILAUDID IV ZOSYN IV Q8 HYDRALAZINE PO Q8 NORVASC PO PROTONIX PO PEPCID PO LIVER BIOPSY MED SURG STATUS DCP;FROM HOME
--- NOTE | 2020-01-25 17:00 | Consultation ---
DATE OF CONSULTATION: 01/25/2020 INITIAL PSYCHIATRIC CONSULTATION CONSULTING PHYSICIAN: Margo Perez MD. REFERRING PHYSICIAN: Nikko Butt DO. HISTORY OF PRESENT ILLNESS: This is a 64-year-old female patient. Patient has pancreatitis, abdominal pain, nausea, vomiting. She came in because of abdominal pain for several days, but because of her abdominal pain, she has had depression and anxiety. She states that her depression is overwhelming. She has got overall feelings of hopelessness, helplessness, low energy, poor appetite, and loss of interest in activity. She said her son had a stroke and as a result developed hopelessness, helplessness, low energy, poor appetite, loss of interest in activity. MEDICAL PROBLEMS: History of pancreatitis, hypertension, right groin pain, lung mass, rheumatoid arthritis. ALLERGIES: Steroids and Motrin. PSYCHOTROPIC MEDICATIONS ON ADMISSION: She is currently taking Cymbalta 60 mg daily. SUBSTANCE ABUSE HISTORY: Denies. PAIN ASSESSMENT: 01/24 pain. DEVELOPMENTAL PROBLEMS: Denies. SOCIAL HISTORY: Patient lives in a private residence. Financially supported by [employer] and Medicare. STRENGTHS: She is motivated to get better and has a place to live. WEAKNESSES: Impulsive, minimal support system. MENTAL STATUS EXAMINATION: This is a 64-year-old female. Her appearance is disheveled. Attitude, irritable and agitated. Affect, guarded and restricted. Intellect is good because she knows current events and she knows last four presidents. Mood, depressed and anxious. Motor activity, psychomotor agitation. Attention span is good because she can do serial sevens and can spell world backwards. Short-term memory, 3/3 recall with 5-minute delay with good short-term memory. Long-term memory is intact because she can recall long-term events of life such as high school that she went to. Gait is normal. There are no abnormal movements. . PLAN OF CARE: Problem to be addressed include major depressive disorder. DIAGNOSES: 1. Major depressive disorder, mild, recurrent without psychotic features. 2. No secondary. 3. Medical, pancreatitis, lung mass, arthritis, hypertension, flank pain, anemia. 4. Psychosocial stressors, financial. Her son had a stroke, which is another stressor. 5. Functional impairment is mild. PLAN: I am going to recommend that we titrate up on this patient's Cymbalta to 90 mg daily to improve her mood and reduce anxiety. Provide her with 20 minutes of cognitive behavioral therapy to help her identify her automatic negative thoughts, help her convert negative thoughts to more positive thoughts to reduce depression, anxiety, and mood lability. Twenty minutes of cognitive behavioral therapy provided. Chart reviewed. Discussed with staff. Seen and assessed at bedside. Margo Perez M.D. DR: ALLISON JOB#: [id number] CC:
--- NOTE | 2020-01-25 19:25 | NUR ---
NURSE HAND-OFF: Important Events on Shift:biopsy procedure date changed to 01/27/20 Patient Status: asleep in bed and resting Diet: [facility] SOFT CHOPPED DIET Pending Orders: N/A Pending Results/Labs:N/A Pending MD notification:N/A Latest Vital Signs: Temperature 99.3 , Pulse 93 , B/P 142 /91 , Respiratory Rate 20 , O2 SAT 93 , Nasal Cannula, O2 Flow Rate 2.0 . Vital Sign Comment: Latest Guido Fall Score: 45 Fall Risk: High Risk Safety Measures: Call light Within Reach, Bed Alarm Zone 1, Side Rails Side Rails x2, Bed position Low and Locked. Fall Precautions: Patient Fall Education Report given to
[2020-01-25] MEDS: Miralax 17gm pkt ORAL SCH (20:36)
[2020-01-26] MEDS: HYDROmorphone 1mg/ml Carpuject IVP PRN ×4 (02:16→23:34)
[2020-01-26 04:00] VITALS: BP 144/86
[2020-01-26] MEDS: Piperacillin/Tazobactam 3.375 GM in NS 110 ML IVPB SCH ×3 (05:02→20:56)
[2020-01-26] MEDS: HydrALAZINE 50mg tab ORAL SCH ×3 (05:33→20:58)
[2020-01-26 06:23] LABS: BASOPHILS % (AUTO) 1.1 % (0.0-2.0); EOSINOPHILS % (AUTO) 0.1 % (0.0-3.0); HEMATOCRIT 32.6 % (37.0-47.0); HEMOGLOBIN 10.5 G/DL (12.0-16.0); LYMPHOCYTES % (AUTO) 10.3 % (20.0-45.0); MEAN CORPUSCULAR VOLUME 91 FL (80-99); MONOCYTES % (AUTO) 5.9 % (1.0-10.0); NEUTROPHILS % (AUTO) 82.6 % (45.0-75.0); PLATELET COUNT 439 K/UL (150-450); RED CELL DISTRIBUTION WIDTH 15.1 % (11.6-14.8)
--- NOTE | 2020-01-26 07:08 | NUR ---
HAND-OFF: Report given to SHAN Welch.
[2020-01-26 07:10] LABS: ALANINE AMINOTRANSFERASE 17 U/L (12-78); ALBUMIN 3.9 G/DL (3.4-5.0); ALBUMIN/GLOBULIN RATIO 0.8 (1.0-2.7); ALKALINE PHOSPHATASE 77 U/L (46-116); AMYLASE 264 U/L (25-115); ANION GAP 13 mmol/L (5-15); ASPARTATE AMINO TRANSFERASE 87 U/L (15-37); BILIRUBIN,TOTAL 0.3 MG/DL (0.2-1.0); BLOOD UREA NITROGEN 8 mg/dL (7-18); CALCIUM 10.9 MG/DL (8.5-10.1); CARBON DIOXIDE 23 MMOL/L (21-32); CHLORIDE 99 MMOL/L (98-107); CREATININE 0.6 MG/DL (0.55-1.30); POTASSIUM 3.2 MMOL/L (3.5-5.1); SODIUM 134 MMOL/L (136-145)
--- NOTE | 2020-01-26 07:15 | NUR ---
NURSE NOTES: Received report from SHAN Corbett. Patient received in bed eating breakfast, AAOx3, bed bound. Respiratory is unlabored and even with NC. IV site patent and intact. Patient denies any pain or SOB at this time. Able to make needs known. Bed is locked and placed in lowest position with bed alarm on. Call light within reach. Will continue to monitor
--- NOTE | 2020-01-26 07:55 | General Progress Note ---
Assessment/Plan Assessment/Plan: (1) Abdominal Pain (2) Pancreatitis (3) Metastatic cancer/ Lung Mass (4) Lumbar DDD/ Spondylosis Subjective Date patient seen: Jan 26, 2020 Time patient seen: 07:30 - am Allergies: Coded Allergies: IBUPROFEN (Verified Allergy, Mild, 10/05/09) CORTICOSTEROIDS (GLUCOCORTICOIDS) (Unverified Allergy, Unknown, 01/22/20) Subjective Constitutional: Reports: weakness HEENT: Reports: no symptoms Cardiovascular: Reports: no symptoms Respiratory: Reports: no symptoms Gastrointestinal/Abdominal: Reports: abdominal pain Genitourinary: Reports: no symptoms Neurologic/Psychiatric: Reports: no symptoms Endocrine: Reports: no symptoms Hematologic/Lymphatic: Reports: no symptoms Subjective Patient is in bed no signs of pain or distress noted. Pain has been reduced on the Dilaudid. She has no new complaints at this time. Objective Last 24 Hour Vital Signs Date Time Temp Pulse Resp B/P (MAP) Pulse Ox O2 Delivery O2 Flow Rate FiO2 01/26/20 06:14 98.8 01/26/20 05:33 144/86 01/26/20 04:00 98.8 94 18 144/86 (105) 93 01/26/20 02:46 98.4 01/25/20 23:52 98.4 92 18 147/83 (104) 93 01/25/20 21:05 Nasal Cannula 2.0 01/25/20 20:36 147/86 01/25/20 20:36 89 147/86 01/25/20 20:21 98.6 89 18 147/86 (106) 93 01/25/20 16:00 99.3 93 20 142/91 (108) 93 01/25/20 14:47 139/91 01/25/20 14:46 98.6 90 20 139/91 (107) 97 01/25/20 12:00 98.6 87 20 149/94 (112) 96 01/25/20 09:00 Nasal Cannula 2.0 01/25/20 08:33 100 160/91 01/25/20 08:33 100 160/91 01/25/20 08:00 98.2 100 20 160/91 (114) 95 Intake and Output 01/25/20 01/26/20 19:00 07:00 Intake Total 220 ml 765.0 ml Output Total 600 ml 600 ml Balance -380 ml 165.0 ml Intake Oral 120 ml IV Total 100 ml 765.0 ml Output Urine Total 600 ml 600 ml # Voids 1 Laboratory Tests 01/25/20 09:30: Prothrombin Time 14.6H, Prothromb Time International Ratio 1.4H, Activated Partial Thromboplast Time 32 01/26/20 05:25: White Blood Count 13.0H, Red Blood Count 3.60L, Hemoglobin 10.5L, Hematocrit 32.6L, Mean Corpuscular Volume 91, Mean Corpuscular Hemoglobin 29.1, Mean Corpuscular Hemoglobin Concent 32.1, Red Cell Distribution Width 15.1H, Platelet Count 439, Mean Platelet Volume 5.6L, Neutrophils (%) (Auto) 82.6H, Lymphocytes (%) (Auto) 10.3L, Monocytes (%) (Auto) 5.9, Eosinophils (%) (Auto) 0.1, Basophils (%) (Auto) 1.1, Sodium Level 134L, Potassium Level 3.2L, Chloride Level 99, Carbon Dioxide Level 23, Anion Gap 13, Blood Urea Nitrogen 8 , Creatinine 0.6, Estimat Glomerular Filtration Rate > 60, Glucose Level 122H, Calcium Level 10.9H, Total Bilirubin 0.3, Aspartate Amino Transf (AST/SGOT) 87H , Alanine Aminotransferase (ALT/SGPT) 17, Alkaline Phosphatase 77, Total Protein 8.6H, Albumin 3.9, Globulin 4.7, Albumin/Globulin Ratio 0.8L, Amylase Level 264H, Lipase > 2000H Height (Feet): 5 Height (Inches): 5.00 Weight (Pounds): 128 Objective General Appearance: no apparent distress, alert EENT: PERRL/EOMI, normal ENT inspection Neck: non-tender, normal alignment Cardiovascular: normal rate, regular rhythm Respiratory/Chest: decreased breath sounds Abdomen: tender Extremities: non-tender Edema: moderate edema Neurologic: alert, oriented x 3 Skin: warm/dry David Boyd Jan 26, 2020 07:55
[2020-01-26 08:00] VITALS: BP 139/81
[2020-01-26] MEDS: D5 1/2NS w/KCl 20mEq 1,000 ML IV SCH ×2 (08:45→17:41)
[2020-01-26] MEDS: Metoprolol Tartrate 50mg tab ORAL SCH ×2 (08:46→20:47)
[2020-01-26] MEDS: DULoxetine 30mg cap ORAL SCH (08:47)
[2020-01-26] MEDS: Bisacodyl EC 5mg tab ORAL SCH (08:47)
[2020-01-26] MEDS: Docusate 100mg cap ORAL SCH ×2 (08:47→18:15)
--- NOTE | 2020-01-26 09:12 | General Progress Note ---
Assessment/Plan Problem List: (1) Metastatic disease ICD Codes: C79.9 - Secondary malignant neoplasm of unspecified site SNOMED: 081784091 (2) Right flank pain ICD Codes: R10.9 - Unspecified abdominal pain SNOMED: 757308023 (3) Lung mass ICD Codes: R91.8 - Other nonspecific abnormal finding of lung field SNOMED: 344383376 (4) Acute pancreatitis ICD Codes: K85.90 - Acute pancreatitis without necrosis or infection, unspecified SNOMED: 050178216 (5) Rheumatoid arthritis ICD Codes: M06.9 - Rheumatoid arthritis, unspecified SNOMED: 33783804 (6) Diverticulosis ICD Codes: K57.90 - Diverticulosis of intestine, part unspecified, without perforation or abscess without bleeding SNOMED: 439156717 Assessment/Plan: IVF repeat labs bowel regimen CT reviewed pending lung mass biopsy zofran will fu Subjective ROS Limited/Unobtainable: No Allergies: Coded Allergies: IBUPROFEN (Verified Allergy, Mild, 10/05/09) CORTICOSTEROIDS (GLUCOCORTICOIDS) (Unverified Allergy, Unknown, 01/22/20) Subjective c/o abd pain + Flatus no bm Objective Last 24 Hour Vital Signs Date Time Temp Pulse Resp B/P (MAP) Pulse Ox O2 Delivery O2 Flow Rate FiO2 01/26/20 08:47 90 139/81 01/26/20 08:46 90 139/81 01/26/20 08:00 98.7 90 18 139/81 (100) 95 01/26/20 06:14 98.8 01/26/20 05:33 144/86 01/26/20 04:00 98.8 94 18 144/86 (105) 93 01/26/20 02:46 98.4 01/25/20 23:52 98.4 92 18 147/83 (104) 93 01/25/20 21:05 Nasal Cannula 2.0 01/25/20 20:36 147/86 01/25/20 20:36 89 147/86 01/25/20 20:21 98.6 89 18 147/86 (106) 93 01/25/20 16:00 99.3 93 20 142/91 (108) 93 01/25/20 14:47 139/91 01/25/20 14:46 98.6 90 20 139/91 (107) 97 01/25/20 12:00 98.6 87 20 149/94 (112) 96 Intake and Output 01/25/20 01/26/20 19:00 07:00 Intake Total 220 ml 765.0 ml Output Total 600 ml 600 ml Balance -380 ml 165.0 ml Intake Oral 120 ml IV Total 100 ml 765.0 ml Output Urine Total 600 ml 600 ml # Voids 1 Laboratory Tests 01/25/20 09:30: Prothrombin Time 14.6H, Prothromb Time International Ratio 1.4H, Activated Partial Thromboplast Time 32 01/26/20 05:25: White Blood Count 13.0H, Red Blood Count 3.60L, Hemoglobin 10.5L, Hematocrit 32.6L, Mean Corpuscular Volume 91, Mean Corpuscular Hemoglobin 29.1, Mean Corpuscular Hemoglobin Concent 32.1, Red Cell Distribution Width 15.1H, Platelet Count 439, Mean Platelet Volume 5.6L, Neutrophils (%) (Auto) 82.6H, Lymphocytes (%) (Auto) 10.3L, Monocytes (%) (Auto) 5.9, Eosinophils (%) (Auto) 0.1, Basophils (%) (Auto) 1.1, Sodium Level 134L, Potassium Level 3.2L, Chloride Level 99, Carbon Dioxide Level 23, Anion Gap 13, Blood Urea Nitrogen 8 , Creatinine 0.6, Estimat Glomerular Filtration Rate > 60, Glucose Level 122H, Calcium Level 10.9H, Total Bilirubin 0.3, Aspartate Amino Transf (AST/SGOT) 87H , Alanine Aminotransferase (ALT/SGPT) 17, Alkaline Phosphatase 77, Total Protein 8.6H, Albumin 3.9, Globulin 4.7, Albumin/Globulin Ratio 0.8L, Amylase Level 264H, Lipase > 2000H Height (Feet): 5 Height (Inches): 5.00 Weight (Pounds): 128 General Appearance: alert EENT: normal ENT inspection Neck: supple Cardiovascular: normal rate Respiratory/Chest: decreased breath sounds Abdomen: normal bowel sounds, non tender, soft Extremities: non-tender Irving Lopez MD Jan 26, 2020 09:12
--- NOTE | 2020-01-26 09:36 | NUR ---
RD ASSESSMENT & RECOMMENDATIONS SEE CARE ACTIVITY FOR COMPLETE ASSESSMENT DAILY ESTIMATED NEEDS: Needs based on cancer, pancreatitis 58kg 25-30 kcals/kg 1215-2739 total kcals 1-2 g protein/kg 58-118 g total protein 25-30 mL/kg 3324-1816 total fluid mLs NUTRITION DIAGNOSIS: Altered nutrition related lab values r/t pancreatitis as evidenced by elev amylase (264 trending down) and elev Lipase (>2000). CURRENT DIET: regular ms chopped PO DIET RECOMMENDATIONS: Low Fat diet + Ensure Clear TID w/ meals ADDITIONAL RECOMMENDATIONS: 1) Maintain calibrated bed scale weights 2) Add snacks w/ current poor po 3) Lytes daily, maintain D5 (K low, 3.2) 4) Ensure Clear TID w/ meals (240 kcal, 8g pro each) .
--- NOTE | 2020-01-26 10:25 | Pulmonology Progress Note ---
Subjective ROS Limited/Unobtainable: No Interval Events: None new Constitutional: Denies: fever, chills HEENT: Repors: no symptoms Respiratory: Reports: dry cough Cardiovascular: Reports: no symptoms Gastrointestinal/Abdominal: Reports: nausea; Denies: vomiting, diarrhea Genitourinary: Reports: no symptoms Musculoskeletal: Reports: pain - abdominal Allergies: Coded Allergies: IBUPROFEN (Verified Allergy, Mild, 10/05/09) CORTICOSTEROIDS (GLUCOCORTICOIDS) (Unverified Allergy, Unknown, 01/22/20) All Systems: reviewed and negative except above Objective Last 24 Hour Vital Signs Date Time Temp Pulse Resp B/P (MAP) Pulse Ox O2 Delivery O2 Flow Rate FiO2 01/26/20 08:47 90 139/81 01/26/20 08:46 90 139/81 01/26/20 08:00 98.7 90 18 139/81 (100) 95 01/26/20 06:14 98.8 01/26/20 05:33 144/86 01/26/20 04:00 98.8 94 18 144/86 (105) 93 01/26/20 02:46 98.4 01/25/20 23:52 98.4 92 18 147/83 (104) 93 01/25/20 21:05 Nasal Cannula 2.0 01/25/20 20:36 147/86 01/25/20 20:36 89 147/86 01/25/20 20:21 98.6 89 18 147/86 (106) 93 01/25/20 16:00 99.3 93 20 142/91 (108) 93 01/25/20 14:47 139/91 01/25/20 14:46 98.6 90 20 139/91 (107) 97 01/25/20 12:00 98.6 87 20 149/94 (112) 96 Intake and Output 01/25/20 01/26/20 19:00 07:00 Intake Total 220 ml 765.0 ml Output Total 600 ml 600 ml Balance -380 ml 165.0 ml Intake Oral 120 ml IV Total 100 ml 765.0 ml Output Urine Total 600 ml 600 ml # Voids 1 General Appearance: no acute distress HEENT: normocephalic Respiratory: chest wall non-tender, decreased breath sounds Cardiovascular: normal rate Abdomen: normal bowel sounds Laboratory Tests 01/26/20 05:25: White Blood Count 13.0H, Red Blood Count 3.60L, Hemoglobin 10.5L, Hematocrit 32.6L, Mean Corpuscular Volume 91, Mean Corpuscular Hemoglobin 29.1, Mean Corpuscular Hemoglobin Concent 32.1, Red Cell Distribution Width 15.1H, Platelet Count 439, Mean Platelet Volume 5.6L, Neutrophils (%) (Auto) 82.6H, Lymphocytes (%) (Auto) 10.3L, Monocytes (%) (Auto) 5.9, Eosinophils (%) (Auto) 0.1, Basophils (%) (Auto) 1.1, Sodium Level 134L, Potassium Level 3.2L, Chloride Level 99, Carbon Dioxide Level 23, Anion Gap 13, Blood Urea Nitrogen 8 , Creatinine 0.6, Estimat Glomerular Filtration Rate > 60, Glucose Level 122H, Calcium Level 10.9H, Total Bilirubin 0.3, Aspartate Amino Transf (AST/SGOT) 87H , Alanine Aminotransferase (ALT/SGPT) 17, Alkaline Phosphatase 77, Total Protein 8.6H, Albumin 3.9, Globulin 4.7, Albumin/Globulin Ratio 0.8L, Amylase Level 264H, Lipase > 2000H Current Medications Medications (Trade) Dose Ordered Sig/Kina Route PRN Reason Start Time Stop Time Status Last Admin Dose Admin Acetaminophen (Tylenol) 650 mg Q6H PRN ORAL Pain Scale (3-5) 01/22/20 17:45 02/21/20 17:44 01/23/20 20:43 Amlodipine Besylate (Norvasc) 5 mg DAILY ORAL 01/23/20 09:00 02/22/20 08:59 01/26/20 08:47 Bisacodyl (Dulcolax) 10 mg DAILY ORAL 01/23/20 09:00 04/22/20 08:59 01/26/20 08:47 Carisoprodol (Soma) 350 mg Q8HR ORAL 01/22/20 18:30 02/21/20 18:29 01/26/20 05:33 Dextrose/ Electrolytes 1,000 ml @ 100 mls/hr Q10H IV 01/23/20 09:30 02/22/20 09:29 01/26/20 08:45 Docusate Sodium (Colace) 100 mg TWICE A DAY ORAL 01/22/20 18:00 02/21/20 17:59 01/26/20 08:47 Duloxetine HCl (Cymbalta) 90 mg DAILY ORAL 01/26/20 09:00 04/22/20 08:59 01/26/20 08:47 Famotidine (Pepcid) 20 mg TWICE A DAY ORAL 01/22/20 18:35 04/21/20 18:34 01/26/20 08:47 Hydralazine HCl (Apresoline) 50 mg Q8HR ORAL 01/23/20 14:00 04/21/20 21:59 01/26/20 05:33 Hydromorphone HCl (Dilaudid) 1 mg EVERY 3 HOURS PRN IVP Severe Pain (Pain Scale 7-10) 01/23/20 22:30 01/30/20 22:29 01/26/20 09:03 Lidocaine (Lidoderm 5% PATCH) 1 patch DAILY TDERMAL 01/23/20 09:00 04/22/20 08:59 01/26/20 08:48 Magnesium Hydroxide (Mom) 30 ml DAILYPRN PRN ORAL Constipation 01/22/20 17:45 02/21/20 17:44 Metoclopramide HCl (Reglan) 10 mg Q6H PRN IVP Nausea & Vomiting 01/24/20 10:00 02/23/20 09:59 01/24/20 16:40 Metoprolol Tartrate (Lopressor) 50 mg EVERY 12 HOURS ORAL 01/22/20 21:00 04/21/20 20:59 01/26/20 08:46 Naloxone HCl (Narcan) 0.2 mg Q2M PRN IVP respritory depression 01/24/20 15:30 04/23/20 15:29 Ondansetron HCl (Zofran) 4 mg Q4H PRN IVP Nausea & Vomiting 01/23/20 15:15 02/22/20 15:14 01/24/20 13:37 Pantoprazole (Protonix) 40 mg DAILY ORAL 01/23/20 09:00 02/22/20 08:59 01/26/20 08:47 Piperacillin Sod/ Tazobactam Sod 3.375 gm/Sodium Chloride 110 ml @ 27.5 mls/hr EVERY 8 HOURS IVPB 01/23/20 14:00 01/28/20 13:59 01/26/20 05:02 Polyethylene Glycol (Miralax) 17 gm BEDTIME ORAL 01/23/20 21:00 02/22/20 20:59 01/25/20 20:36 Zolpidem Tartrate (Ambien) 5 mg HSPRN PRN ORAL Insomnia 01/23/20 00:30 01/30/20 00:29 01/23/20 20:41 Assessment/Plan Assessment/Plan IMPRESSION: 1. Large lung mass. 2. COPD. 3. History of spinal stenosis. 4. Multiple metastases DISCUSSION: The patient has a history of lung cancer per GI; however patient declines any knowledge. Discussed with oncology Await CT guided liver biopsy. I will follow. Saturating well on 2L/min O2 Reymundo Vázquez MD Jan 26, 2020 10:25
--- NOTE | 2020-01-26 10:59 | NUR ---
NURSE NOTES: Patient complains of nausea and having episode of near vomiting. Will give Zofran 4mg PRN as ordered
--- NOTE | 2020-01-26 11:35 | Infectious Diseases Prog Note ---
Assessment/Plan Assessment/Plan antibiotics : zosyn A 1. Pancreatitis. 2. Lung mass with liver metastasis. 3. COPD. 4. Hypertension P 1. continue zosyn 3 more days 2. will follow up cultures 3. liver biospy planned Subjective Constitutional: Denies: fever, chills Respiratory: Denies: shortness of breath, dry cough Gastrointestinal/Abdominal: Denies: nausea, vomiting, diarrhea Musculoskeletal: Reports: pain - decreased abdominal Allergies: Coded Allergies: IBUPROFEN (Verified Allergy, Mild, 10/05/09) CORTICOSTEROIDS (GLUCOCORTICOIDS) (Unverified Allergy, Unknown, 01/22/20) Objective Last 24 Hour Vital Signs Date Time Temp Pulse Resp B/P (MAP) Pulse Ox O2 Delivery O2 Flow Rate FiO2 01/26/20 09:00 Nasal Cannula 2.0 01/26/20 08:47 90 139/81 01/26/20 08:46 90 139/81 01/26/20 08:00 98.7 90 18 139/81 (100) 95 01/26/20 06:14 98.8 01/26/20 05:33 144/86 01/26/20 04:00 98.8 94 18 144/86 (105) 93 01/26/20 02:46 98.4 01/25/20 23:52 98.4 92 18 147/83 (104) 93 01/25/20 21:05 Nasal Cannula 2.0 01/25/20 20:36 147/86 01/25/20 20:36 89 147/86 01/25/20 20:21 98.6 89 18 147/86 (106) 93 01/25/20 16:00 99.3 93 20 142/91 (108) 93 01/25/20 14:47 139/91 01/25/20 14:46 98.6 90 20 139/91 (107) 97 01/25/20 12:00 98.6 87 20 149/94 (112) 96 Height (Feet): 5 Height (Inches): 5.00 Weight (Pounds): 128 Respiratory/Chest: lungs clear Cardiovascular: normal rate, regular rhythm, no gallop/murmur Abdomen: soft, non tender Extremities: no edema Laboratory Tests Test 01/26/20 05:25 White Blood Count 13.0 K/UL (4.8-10.8) H Red Blood Count 3.60 M/UL (4.20-5.40) L Hemoglobin 10.5 G/DL (12.0-16.0) L Hematocrit 32.6 % (37.0-47.0) L Mean Corpuscular Volume 91 FL (80-99) Mean Corpuscular Hemoglobin 29.1 PG (27.0-31.0) Mean Corpuscular Hemoglobin Concent 32.1 G/DL (32.0-36.0) Red Cell Distribution Width 15.1 % (11.6-14.8) H Platelet Count 439 K/UL (150-450) Mean Platelet Volume 5.6 FL (6.5-10.1) L Neutrophils (%) (Auto) 82.6 % (45.0-75.0) H Lymphocytes (%) (Auto) 10.3 % (20.0-45.0) L Monocytes (%) (Auto) 5.9 % (1.0-10.0) Eosinophils (%) (Auto) 0.1 % (0.0-3.0) Basophils (%) (Auto) 1.1 % (0.0-2.0) Sodium Level 134 MMOL/L (136-145) L Potassium Level 3.2 MMOL/L (3.5-5.1) L Chloride Level 99 MMOL/L (98-107) Carbon Dioxide Level 23 MMOL/L (21-32) Anion Gap 13 mmol/L (5-15) Blood Urea Nitrogen 8 mg/dL (7-18) Creatinine 0.6 MG/DL (0.55-1.30) Estimat Glomerular Filtration Rate > 60 mL/min (>60) Glucose Level 122 MG/DL (74-106) H Calcium Level 10.9 MG/DL (8.5-10.1) H Total Bilirubin 0.3 MG/DL (0.2-1.0) Aspartate Amino Transf (AST/SGOT) 87 U/L (15-37) H Alanine Aminotransferase (ALT/SGPT) 17 U/L (12-78) Alkaline Phosphatase 77 U/L (46-116) Total Protein 8.6 G/DL (6.4-8.2) H Albumin 3.9 G/DL (3.4-5.0) Globulin 4.7 g/dL Albumin/Globulin Ratio 0.8 (1.0-2.7) L Amylase Level 264 U/L (25-115) H Lipase > 2000 U/L (73-393) H Current Medications Medications (Trade) Dose Ordered Sig/Kina Route PRN Reason Start Time Stop Time Status Last Admin Dose Admin Acetaminophen (Tylenol) 650 mg Q6H PRN ORAL Pain Scale (3-5) 01/22/20 17:45 02/21/20 17:44 01/23/20 20:43 Amlodipine Besylate (Norvasc) 5 mg DAILY ORAL 01/23/20 09:00 02/22/20 08:59 01/26/20 08:47 Bisacodyl (Dulcolax) 10 mg DAILY ORAL 01/23/20 09:00 04/22/20 08:59 01/26/20 08:47 Carisoprodol (Soma) 350 mg Q8HR ORAL 01/22/20 18:30 02/21/20 18:29 01/26/20 05:33 Dextrose/ Electrolytes 1,000 ml @ 100 mls/hr Q10H IV 01/23/20 09:30 02/22/20 09:29 01/26/20 08:45 Docusate Sodium (Colace) 100 mg TWICE A DAY ORAL 01/22/20 18:00 02/21/20 17:59 01/26/20 08:47 Duloxetine HCl (Cymbalta) 90 mg DAILY ORAL 01/26/20 09:00 04/22/20 08:59 01/26/20 08:47 Famotidine (Pepcid) 20 mg TWICE A DAY ORAL 01/22/20 18:35 04/21/20 18:34 01/26/20 08:47 Hydralazine HCl (Apresoline) 50 mg Q8HR ORAL 01/23/20 14:00 04/21/20 21:59 01/26/20 05:33 Hydromorphone HCl (Dilaudid) 1 mg EVERY 3 HOURS PRN IVP Severe Pain (Pain Scale 7-10) 01/23/20 22:30 01/30/20 22:29 01/26/20 09:03 Lidocaine (Lidoderm 5% PATCH) 1 patch DAILY TDERMAL 01/23/20 09:00 04/22/20 08:59 01/26/20 08:48 Magnesium Hydroxide (Mom) 30 ml DAILYPRN PRN ORAL Constipation 01/22/20 17:45 02/21/20 17:44 Metoclopramide HCl (Reglan) 10 mg Q6H PRN IVP Nausea & Vomiting 01/24/20 10:00 02/23/20 09:59 01/24/20 16:40 Metoprolol Tartrate (Lopressor) 50 mg EVERY 12 HOURS ORAL 01/22/20 21:00 04/21/20 20:59 01/26/20 08:46 Naloxone HCl (Narcan) 0.2 mg Q2M PRN IVP respritory depression 01/24/20 15:30 04/23/20 15:29 Ondansetron HCl (Zofran) 4 mg Q4H PRN IVP Nausea & Vomiting 01/23/20 15:15 02/22/20 15:14 01/26/20 10:59 Pantoprazole (Protonix) 40 mg DAILY ORAL 01/23/20 09:00 02/22/20 08:59 01/26/20 08:47 Piperacillin Sod/ Tazobactam Sod 3.375 gm/Sodium Chloride 110 ml @ 27.5 mls/hr EVERY 8 HOURS IVPB 01/23/20 14:00 01/28/20 13:59 01/26/20 05:02 Polyethylene Glycol (Miralax) 17 gm BEDTIME ORAL 01/23/20 21:00 02/22/20 20:59 01/25/20 20:36 Zolpidem Tartrate (Ambien) 5 mg HSPRN PRN ORAL Insomnia 01/23/20 00:30 01/30/20 00:29 01/23/20 20:41 Jose Juan Estrada MD Jan 26, 2020 11:35
--- NOTE | 2020-01-26 11:52 | Cardiac Electrophysiology PN ---
Assessment/Plan Assessment/Plan 1. Accelerated hypertension. On amlodipine 5 mg daily, metoprolol 50 mg bid., and hydralazine 25 mg every 8 hours and p.r.n. clonidine 2. Lung masses. This is likely metastasis. CT of the chest with biopsy rescheduled for . Eliquis was DCed 3. History of cervical stenosis and pain. 4. On Eliquis. Says was on it for DVT. 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 No CP off tele. CT guided chest biopsy cancelled as Eliquis wasnt held. Rescheduled for Saturday Objective Last 24 Hour Vital Signs Date Time Temp Pulse Resp B/P (MAP) Pulse Ox O2 Delivery O2 Flow Rate FiO2 01/26/20 09:00 Nasal Cannula 2.0 01/26/20 08:47 90 139/81 01/26/20 08:46 90 139/81 01/26/20 08:00 98.7 90 18 139/81 (100) 95 01/26/20 06:14 98.8 01/26/20 05:33 144/86 01/26/20 04:00 98.8 94 18 144/86 (105) 93 01/26/20 02:46 98.4 01/25/20 23:52 98.4 92 18 147/83 (104) 93 01/25/20 21:05 Nasal Cannula 2.0 01/25/20 20:36 147/86 01/25/20 20:36 89 147/86 01/25/20 20:21 98.6 89 18 147/86 (106) 93 01/25/20 16:00 99.3 93 20 142/91 (108) 93 01/25/20 14:47 139/91 01/25/20 14:46 98.6 90 20 139/91 (107) 97 01/25/20 12:00 98.6 87 20 149/94 (112) 96 Intake and Output 01/25/20 01/26/20 19:00 07:00 Intake Total 220 ml 765.0 ml Output Total 600 ml 600 ml Balance -380 ml 165.0 ml Intake Oral 120 ml IV Total 100 ml 765.0 ml Output Urine Total 600 ml 600 ml # Voids 1 Laboratory Tests Test 01/26/20 05:25 White Blood Count 13.0 K/UL (4.8-10.8) H Red Blood Count 3.60 M/UL (4.20-5.40) L Hemoglobin 10.5 G/DL (12.0-16.0) L Hematocrit 32.6 % (37.0-47.0) L Mean Corpuscular Volume 91 FL (80-99) Mean Corpuscular Hemoglobin 29.1 PG (27.0-31.0) Mean Corpuscular Hemoglobin Concent 32.1 G/DL (32.0-36.0) Red Cell Distribution Width 15.1 % (11.6-14.8) H Platelet Count 439 K/UL (150-450) Mean Platelet Volume 5.6 FL (6.5-10.1) L Neutrophils (%) (Auto) 82.6 % (45.0-75.0) H Lymphocytes (%) (Auto) 10.3 % (20.0-45.0) L Monocytes (%) (Auto) 5.9 % (1.0-10.0) Eosinophils (%) (Auto) 0.1 % (0.0-3.0) Basophils (%) (Auto) 1.1 % (0.0-2.0) Sodium Level 134 MMOL/L (136-145) L Potassium Level 3.2 MMOL/L (3.5-5.1) L Chloride Level 99 MMOL/L (98-107) Carbon Dioxide Level 23 MMOL/L (21-32) Anion Gap 13 mmol/L (5-15) Blood Urea Nitrogen 8 mg/dL (7-18) Creatinine 0.6 MG/DL (0.55-1.30) Estimat Glomerular Filtration Rate > 60 mL/min (>60) Glucose Level 122 MG/DL (74-106) H Calcium Level 10.9 MG/DL (8.5-10.1) H Total Bilirubin 0.3 MG/DL (0.2-1.0) Aspartate Amino Transf (AST/SGOT) 87 U/L (15-37) H Alanine Aminotransferase (ALT/SGPT) 17 U/L (12-78) Alkaline Phosphatase 77 U/L (46-116) Total Protein 8.6 G/DL (6.4-8.2) H Albumin 3.9 G/DL (3.4-5.0) Globulin 4.7 g/dL Albumin/Globulin Ratio 0.8 (1.0-2.7) L Amylase Level 264 U/L (25-115) H Lipase > 2000 U/L (73-393) H Objective HEAD AND NECK: Showed no JVD. LUNGS: Clear. CARDIOVASCULAR: Shows regular S1 and S2 with no gallop or murmur. ABDOMEN: Soft. EXTREMITIES: No pitting edema. Jimmy Moreno MD Jan 26, 2020 11:52
[2020-01-26 12:00] VITALS: BP 158/96
--- NOTE | 2020-01-26 13:49 | General Progress Note ---
Assessment/Plan Problem List: (1) Acute pancreatitis ICD Codes: K85.90 - Acute pancreatitis without necrosis or infection, unspecified SNOMED: 526708291 (2) Lung mass ICD Codes: R91.8 - Other nonspecific abnormal finding of lung field SNOMED: 357093970 (3) Right flank pain ICD Codes: R10.9 - Unspecified abdominal pain SNOMED: 420032726 (4) Rheumatoid arthritis ICD Codes: M06.9 - Rheumatoid arthritis, unspecified SNOMED: 82452823 Status: unchanged Assessment/Plan: o2nc pain control advance diet ivf cbc bmp am Subjective Constitutional: Reports: weakness Allergies: Coded Allergies: IBUPROFEN (Verified Allergy, Mild, 10/05/09) CORTICOSTEROIDS (GLUCOCORTICOIDS) (Unverified Allergy, Unknown, 01/22/20) All Systems: reviewed and negative except above Subjective sleepy calm Objective Last 24 Hour Vital Signs Date Time Temp Pulse Resp B/P (MAP) Pulse Ox O2 Delivery O2 Flow Rate FiO2 01/26/20 13:23 158/96 01/26/20 12:00 96.7 83 18 158/96 (116) 97 01/26/20 09:00 Nasal Cannula 2.0 01/26/20 08:47 90 139/81 01/26/20 08:46 90 139/81 01/26/20 08:00 98.7 90 18 139/81 (100) 95 01/26/20 06:14 98.8 01/26/20 05:33 144/86 01/26/20 04:00 98.8 94 18 144/86 (105) 93 01/26/20 02:46 98.4 01/25/20 23:52 98.4 92 18 147/83 (104) 93 01/25/20 21:05 Nasal Cannula 2.0 01/25/20 20:36 147/86 01/25/20 20:36 89 147/86 01/25/20 20:21 98.6 89 18 147/86 (106) 93 01/25/20 16:00 99.3 93 20 142/91 (108) 93 01/25/20 14:47 139/91 01/25/20 14:46 98.6 90 20 139/91 (107) 97 Intake and Output 01/25/20 01/26/20 19:00 07:00 Intake Total 220 ml 765.0 ml Output Total 600 ml 600 ml Balance -380 ml 165.0 ml Intake Oral 120 ml IV Total 100 ml 765.0 ml Output Urine Total 600 ml 600 ml # Voids 1 Laboratory Tests 01/26/20 05:25: White Blood Count 13.0H, Red Blood Count 3.60L, Hemoglobin 10.5L, Hematocrit 32.6L, Mean Corpuscular Volume 91, Mean Corpuscular Hemoglobin 29.1, Mean Corpuscular Hemoglobin Concent 32.1, Red Cell Distribution Width 15.1H, Platelet Count 439, Mean Platelet Volume 5.6L, Neutrophils (%) (Auto) 82.6H, Lymphocytes (%) (Auto) 10.3L, Monocytes (%) (Auto) 5.9, Eosinophils (%) (Auto) 0.1, Basophils (%) (Auto) 1.1, Sodium Level 134L, Potassium Level 3.2L, Chloride Level 99, Carbon Dioxide Level 23, Anion Gap 13, Blood Urea Nitrogen 8 , Creatinine 0.6, Estimat Glomerular Filtration Rate > 60, Glucose Level 122H, Calcium Level 10.9H, Total Bilirubin 0.3, Aspartate Amino Transf (AST/SGOT) 87H , Alanine Aminotransferase (ALT/SGPT) 17, Alkaline Phosphatase 77, Total Protein 8.6H, Albumin 3.9, Globulin 4.7, Albumin/Globulin Ratio 0.8L, Amylase Level 264H, Lipase > 2000H Height (Feet): 5 Height (Inches): 5.00 Weight (Pounds): 128 General Appearance: lethargic EENT: normal ENT inspection Neck: normal alignment Cardiovascular: normal peripheral pulses, normal rate, regular rhythm Respiratory/Chest: chest wall non-tender, lungs clear, normal breath sounds Abdomen: normal bowel sounds, non tender, soft Extremities: normal inspection Edema: no edema noted Arm (L), no edema noted Arm (R), no edema noted Leg (L), no edema noted Leg (R), no edema noted Pedal (L), no edema noted Pedal (R), no edema noted Generalized Neurologic: motor weakness Skin: normal pigmentation, warm/dry Nikko Butt DO Jan 26, 2020 13:49
--- NOTE | 2020-01-26 15:15 | Progress Note ---
DATE: 01/26/2020 SUBJECTIVE: This is a 64-year-old female patient with pancreatitis. She has some altered mental status, confusion, decline in cognition below baseline, worsened by stress of her medical illness and increased depression that is why her attending has requested daily psychiatric consultation. MENTAL STATUS EXAMINATION: This is a 64-year-old female. Appearance is disheveled. Attitude, irritable and agitated. Affect, guarded and restricted. Intellect poor. Mood, depressed and anxious. Motor activity, psychomotor agitation. Attention span is poor. Orientation x2. Speech is low volume, slurred. Thought process slightly irritable and . Insight and judgment is poor. DIAGNOSIS: Major depressive disorder, mild, recurrent, without psychotic features. PLAN: Continue treatment with medications to improve her mood. Provide her with 20 minutes of cognitive behavioral therapy to help identify automatic negative thoughts, help convert negative thoughts to more positive thoughts to reduce depression, anxiety, mood lability. Chart reviewed and discussed with staff. Seen and assessed at bedside. Margo Perez M.D. DR: José Luis JOB#: [id number] CC:
[2020-01-26 16:00] VITALS: BP 155/91
--- NOTE | 2020-01-26 17:10 | NUR ---
ELECTRONIC EQUIPMENT REPAIRER NOTE CALL RECEIVED FROM SHAN OSUNA CRIMINAL RECORDS TECHNICIAN FROM [facility] .[phone]. PER ENRRIQUE, PATIENT IS ON HH SERVICES WITH THIS AGENCY. SHE WAS INQUIRING ON ANTICIPATED DC TO RESUME SERVICES UPON PATIENTS RETURN HOME. ENRRIQUE ALSO REQUESTING IF A COVID TEST CAN BE PERFORMED PRIOR TO DC. INFORMED HER THERE HAS BEEN NO INDICATION FOR COVID TEST AT THIS TIME. CN SULTANA INFORMED. [facility] P: [phone] F: [phone] ~ SHAN OSUNA BUTCHER OR [employer]
--- NOTE | 2020-01-26 19:40 | NUR ---
NURSE NOTES: Received report from SHAN Lockhart. Pt is sleeping but easily woken up, lying semi-gifford's; comfortably resting. No signs of acute distress noted. Pt reports pain of 4/10 in her back. AOx4; able to make needs known. Checked IV site, line, and rate; patent and running. No erythema, bleeding, or infiltration noted. External female catheter noted; patent and draining well. Pt oriented to room. Bed at lowest position. Brakes on. Siderails up x3. Call light within reach. Will continue to monitor.
--- NOTE | 2020-01-26 19:42 | NUR ---
NURSE HAND-OFF: Important Events on Shift: NPO at midnight for liver biopsy tomorrow Patient Status: Stable Diet: Pending Orders: Pending Results/Labs: Pending MD notification: Latest Vital Signs: Temperature 96.6 , Pulse 93 , B/P 155 /91 , Respiratory Rate 18 , O2 SAT 96 , Nasal Cannula, O2 Flow Rate 2.0 . Vital Sign Comment: Latest Guido Fall Score: 45 Fall Risk: High Risk Safety Measures: Call light Within Reach, Bed Alarm Zone 1, Side Rails Side Rails x2, Bed position Low and Locked. Fall Precautions: Patient Fall Education Report given to SHAN Mckeon.
[2020-01-26 20:00] VITALS: BP 148/102
[2020-01-26] MEDS: Miralax 17gm pkt ORAL SCH (21:28)
[2020-01-27] VITALS (11 sets, daily range): BP systolic 137–151; BP diastolic 71–97
[2020-01-27] MEDS: D5 1/2NS w/KCl 20mEq 1,000 ML IV SCH ×2 (03:42→12:35)
[2020-01-27] MEDS: HYDROmorphone 1mg/ml Carpuject IVP PRN ×3 (03:55→23:42)
[2020-01-27] MEDS: Piperacillin/Tazobactam 3.375 GM in NS 110 ML IVPB SCH ×3 (05:05→21:27)
[2020-01-27] MEDS: HydrALAZINE 50mg tab ORAL SCH ×3 (05:08→21:21)
--- NOTE | 2020-01-27 06:23 | NUR ---
NURSE HAND-OFF: Important Events on Shift: Pain relief for back pain Patient Status: Stable Diet: NPO at midnight except for sips of water for PO meds Pending Orders: N/A Pending Results/Labs: CBC, amylase, lipase, BMP Pending MD notification:N/A Latest Vital Signs: Temperature 97.1, Pulse 71 , B/P 151 /97 , Respiratory Rate 21 , O2 SAT 94 , Nasal Cannula, O2 Flow Rate 2.0 Vital Sign Comment: N/A Latest Guido Fall Score: 45 Fall Risk: High Risk Safety Measures: Call light Within Reach, Bed Alarm Zone 1, Side Rails Side Rails x2, Bed position Low and Locked. Fall Precautions: Patient Fall Education
[2020-01-27 07:09] LABS: HEMATOCRIT 34.1 % (37.0-47.0); HEMOGLOBIN 10.8 G/DL (12.0-16.0); MEAN CORPUSCULAR VOLUME 92 FL (80-99); PLATELET COUNT 468 K/UL (150-450); RED BLOOD COUNT 3.72 M/UL (4.20-5.40); RED CELL DISTRIBUTION WIDTH 15.1 % (11.6-14.8); WHITE BLOOD COUNT 12.2 K/UL (4.8-10.8)
[2020-01-27 07:10] LABS: ANION GAP 10 mmol/L (5-15); BLOOD UREA NITROGEN 7 mg/dL (7-18); CALCIUM 10.6 MG/DL (8.5-10.1); CARBON DIOXIDE 27 MMOL/L (21-32); CHLORIDE 98 MMOL/L (98-107); CREATININE 0.6 MG/DL (0.55-1.30); POTASSIUM 3.3 MMOL/L (3.5-5.1); SODIUM 135 MMOL/L (136-145)
[2020-01-27 07:17] LABS: AMYLASE 441 U/L (25-115)
--- NOTE | 2020-01-27 07:23 | NUR ---
HAND-OFF: Report given to SHAN Lockhart. Pt is sleeping but easily arousable. Plan of care endorsed.
--- NOTE | 2020-01-27 08:21 | General Progress Note ---
Assessment/Plan Assessment/Plan: (1) Abdominal Pain (2) Pancreatitis (3) Metastatic cancer/ Lung Mass (4) Lumbar DDD/ Spondylosis Patient to be continued on Dilaudid. D/w Dr. Cannon and he concurred. Subjective Date patient seen: Jan 27, 2020 Time patient seen: 07:45 - am Allergies: Coded Allergies: IBUPROFEN (Verified Allergy, Mild, 10/05/09) CORTICOSTEROIDS (GLUCOCORTICOIDS) (Unverified Allergy, Unknown, 01/22/20) Subjective Constitutional: Reports: weakness HEENT: Reports: no symptoms Cardiovascular: Reports: no symptoms Respiratory: Reports: no symptoms Gastrointestinal/Abdominal: Reports: abdominal pain Genitourinary: Reports: no symptoms Neurologic/Psychiatric: Reports: no symptoms Endocrine: Reports: no symptoms Hematologic/Lymphatic: Reports: no symptoms Subjective Patient continues to c/o pain which has been tolerated in the Dilaudid. Will be having biopsy of mass. No new complaints at this time. Objective Last 24 Hour Vital Signs Date Time Temp Pulse Resp B/P (MAP) Pulse Ox O2 Delivery O2 Flow Rate FiO2 01/27/20 05:08 159/93 01/27/20 04:00 97.1 71 21 151/97 (115) 94 01/27/20 00:00 98.0 78 19 138/84 (102) 95 01/26/20 21:00 Nasal Cannula 2.0 01/26/20 20:58 163/97 01/26/20 20:47 87 148/102 01/26/20 20:00 98.2 97 19 148/102 (117) 94 01/26/20 16:00 96.6 93 18 155/91 (112) 96 01/26/20 13:23 158/96 01/26/20 12:00 96.7 83 18 158/96 (116) 97 01/26/20 09:00 Nasal Cannula 2.0 01/26/20 08:47 90 139/81 01/26/20 08:46 90 139/81 Intake and Output 01/26/20 01/27/20 19:00 07:00 Intake Total 1000 ml Output Total 650 ml Balance 1000 ml -650 ml Intake Oral 1000 ml Output Urine Total 650 ml # Voids 1 Laboratory Tests 01/27/20 05:36: White Blood Count 12.2H, Red Blood Count 3.72L, Hemoglobin 10.8L, Hematocrit 34.1L, Mean Corpuscular Volume 92, Mean Corpuscular Hemoglobin 29.0, Mean Corpuscular Hemoglobin Concent 31.6L, Red Cell Distribution Width 15.1H, Platelet Count 468H, Mean Platelet Volume 5.4L, Neutrophils (%) (Auto) , Lymphocytes (%) (Auto) , Monocytes (%) (Auto) , Eosinophils (%) (Auto) , Basophils (%) (Auto) , Neutrophils % (Manual) [Pending], Lymphocytes % (Manual) [Pending], Platelet Estimate [Pending], Platelet Morphology [Pending], Sodium Level 135L, Potassium Level 3.3L, Chloride Level 98, Carbon Dioxide Level 27, Anion Gap 10, Blood Urea Nitrogen 7, Creatinine 0.6, Estimat Glomerular Filtration Rate > 60, Glucose Level 134H, Calcium Level 10.6H, Amylase Level 441H, Lipase > 2000H Height (Feet): 5 Height (Inches): 5.00 Weight (Pounds): 134 Objective General Appearance: no apparent distress, alert EENT: PERRL/EOMI, normal ENT inspection Neck: non-tender, normal alignment Cardiovascular: normal rate, regular rhythm Respiratory/Chest: decreased breath sounds Abdomen: tender Extremities: non-tender Edema: moderate edema Neurologic: alert, oriented x 3 Skin: warm/dry David Boyd Jan 27, 2020 08:21
--- NOTE | 2020-01-27 08:27 | NUR ---
NURSE NOTES: Order for Lidocaine 30ML 1% plain ONCE received from Dr. Nikko Butt for Liver biopsy procedure today
--- NOTE | 2020-01-27 08:30 | NUR ---
NURSE NOTES: Lidocaine 1% 30ml vial be given during procedure
[2020-01-27] MEDS: Lidocaine 1% Plain 30 ml INJ SCH (08:45)
[2020-01-27] MEDS: Metoprolol Tartrate 50mg tab ORAL SCH ×2 (08:51→21:21)
[2020-01-27] MEDS: DULoxetine 30mg cap ORAL SCH (08:51)
[2020-01-27] MEDS: Bisacodyl EC 5mg tab ORAL SCH (08:51)
[2020-01-27] MEDS: Docusate 100mg cap ORAL SCH ×2 (08:51→17:10)
--- NOTE | 2020-01-27 08:53 | General Progress Note ---
Assessment/Plan Problem List: (1) Metastatic disease ICD Codes: C79.9 - Secondary malignant neoplasm of unspecified site SNOMED: 071647439 (2) Right flank pain ICD Codes: R10.9 - Unspecified abdominal pain SNOMED: 475347922 (3) Lung mass ICD Codes: R91.8 - Other nonspecific abnormal finding of lung field SNOMED: 809788662 (4) Acute pancreatitis ICD Codes: K85.90 - Acute pancreatitis without necrosis or infection, unspecified SNOMED: 222272797 (5) Rheumatoid arthritis ICD Codes: M06.9 - Rheumatoid arthritis, unspecified SNOMED: 07358609 (6) Diverticulosis ICD Codes: K57.90 - Diverticulosis of intestine, part unspecified, without perforation or abscess without bleeding SNOMED: 603760835 Assessment/Plan: IVF repeat labs bowel regimen CT reviewed will order CT with pancreatic protocol pending lung mass biopsy zofran will fu Subjective ROS Limited/Unobtainable: Yes Allergies: Coded Allergies: IBUPROFEN (Verified Allergy, Mild, 10/05/09) CORTICOSTEROIDS (GLUCOCORTICOIDS) (Unverified Allergy, Unknown, 01/22/20) Subjective c/o abd pain + Flatus no bm Objective Last 24 Hour Vital Signs Date Time Temp Pulse Resp B/P (MAP) Pulse Ox O2 Delivery O2 Flow Rate FiO2 01/27/20 08:00 96.8 82 17 144/90 (108) 95 01/27/20 05:08 159/93 01/27/20 04:00 97.1 71 21 151/97 (115) 94 01/27/20 00:00 98.0 78 19 138/84 (102) 95 01/26/20 21:00 Nasal Cannula 2.0 01/26/20 20:58 163/97 01/26/20 20:47 87 148/102 01/26/20 20:00 98.2 97 19 148/102 (117) 94 01/26/20 16:00 96.6 93 18 155/91 (112) 96 01/26/20 13:23 158/96 01/26/20 12:00 96.7 83 18 158/96 (116) 97 01/26/20 09:00 Nasal Cannula 2.0 Intake and Output 01/26/20 01/27/20 19:00 07:00 Intake Total 1000 ml Output Total 650 ml Balance 1000 ml -650 ml Intake Oral 1000 ml Output Urine Total 650 ml # Voids 1 Laboratory Tests 01/27/20 05:36: White Blood Count 12.2H, Red Blood Count 3.72L, Hemoglobin 10.8L, Hematocrit 34.1L, Mean Corpuscular Volume 92, Mean Corpuscular Hemoglobin 29.0, Mean Corpuscular Hemoglobin Concent 31.6L, Red Cell Distribution Width 15.1H, Platelet Count 468H, Mean Platelet Volume 5.4L, Neutrophils (%) (Auto) , Lymphocytes (%) (Auto) , Monocytes (%) (Auto) , Eosinophils (%) (Auto) , Basophils (%) (Auto) , Neutrophils % (Manual) [Pending], Lymphocytes % (Manual) [Pending], Platelet Estimate [Pending], Platelet Morphology [Pending], Sodium Level 135L, Potassium Level 3.3L, Chloride Level 98, Carbon Dioxide Level 27, Anion Gap 10, Blood Urea Nitrogen 7, Creatinine 0.6, Estimat Glomerular Filtration Rate > 60, Glucose Level 134H, Calcium Level 10.6H, Amylase Level 441H, Lipase > 2000H Height (Feet): 5 Height (Inches): 5.00 Weight (Pounds): 134 General Appearance: alert EENT: normal ENT inspection Neck: supple Cardiovascular: normal rate Respiratory/Chest: decreased breath sounds Abdomen: normal bowel sounds, non tender, soft Extremities: non-tender Irving Lopez MD Jan 27, 2020 08:53
[2020-01-27] MEDS ORDERED: Omnipaque-300 100ml vial INJ PRN (09:00)
--- NOTE | 2020-01-27 09:22 | General Progress Note ---
Assessment/Plan Problem List: (1) Acute pancreatitis ICD Codes: K85.90 - Acute pancreatitis without necrosis or infection, unspecified SNOMED: 147771839 (2) Lung mass ICD Codes: R91.8 - Other nonspecific abnormal finding of lung field SNOMED: 548379503 (3) Right flank pain ICD Codes: R10.9 - Unspecified abdominal pain SNOMED: 803432421 (4) Rheumatoid arthritis ICD Codes: M06.9 - Rheumatoid arthritis, unspecified SNOMED: 93780877 Status: unchanged Assessment/Plan: o2nc pain control advance diet ivf cbc bmp am Subjective Constitutional: Reports: weakness Allergies: Coded Allergies: IBUPROFEN (Verified Allergy, Mild, 10/05/09) CORTICOSTEROIDS (GLUCOCORTICOIDS) (Unverified Allergy, Unknown, 01/22/20) All Systems: reviewed and negative except above Subjective o2nc sleepy calm Objective Last 24 Hour Vital Signs Date Time Temp Pulse Resp B/P (MAP) Pulse Ox O2 Delivery O2 Flow Rate FiO2 01/27/20 08:51 82 144/90 01/27/20 08:51 82 144/90 01/27/20 08:00 96.8 82 17 144/90 (108) 95 01/27/20 05:08 159/93 01/27/20 04:00 97.1 71 21 151/97 (115) 94 01/27/20 00:00 98.0 78 19 138/84 (102) 95 01/26/20 21:00 Nasal Cannula 2.0 01/26/20 20:58 163/97 01/26/20 20:47 87 148/102 01/26/20 20:00 98.2 97 19 148/102 (117) 94 01/26/20 16:00 96.6 93 18 155/91 (112) 96 01/26/20 13:23 158/96 01/26/20 12:00 96.7 83 18 158/96 (116) 97 Intake and Output 01/26/20 01/27/20 19:00 07:00 Intake Total 1000 ml Output Total 650 ml Balance 1000 ml -650 ml Intake Oral 1000 ml Output Urine Total 650 ml # Voids 1 Laboratory Tests 01/27/20 05:36: White Blood Count 12.2H, Red Blood Count 3.72L, Hemoglobin 10.8L, Hematocrit 34.1L, Mean Corpuscular Volume 92, Mean Corpuscular Hemoglobin 29.0, Mean Corpuscular Hemoglobin Concent 31.6L, Red Cell Distribution Width 15.1H, Platelet Count 468H, Mean Platelet Volume 5.4L, Neutrophils (%) (Auto) , Lymphocytes (%) (Auto) , Monocytes (%) (Auto) , Eosinophils (%) (Auto) , Basophils (%) (Auto) , Neutrophils % (Manual) [Pending], Lymphocytes % (Manual) [Pending], Platelet Estimate [Pending], Platelet Morphology [Pending], Sodium Level 135L, Potassium Level 3.3L, Chloride Level 98, Carbon Dioxide Level 27, Anion Gap 10, Blood Urea Nitrogen 7, Creatinine 0.6, Estimat Glomerular Filtration Rate > 60, Glucose Level 134H, Calcium Level 10.6H, Amylase Level 441H, Lipase > 2000H Height (Feet): 5 Height (Inches): 5.00 Weight (Pounds): 134 General Appearance: lethargic EENT: normal ENT inspection Neck: normal alignment Cardiovascular: normal peripheral pulses, normal rate, regular rhythm Respiratory/Chest: chest wall non-tender, lungs clear, normal breath sounds Abdomen: normal bowel sounds, non tender, soft Extremities: normal inspection Edema: no edema noted Arm (L), no edema noted Arm (R), no edema noted Leg (L), no edema noted Leg (R), no edema noted Pedal (L), no edema noted Pedal (R), no edema noted Generalized Neurologic: motor weakness Skin: normal pigmentation, warm/dry Nikko Butt DO Jan 27, 2020 09:22
--- NOTE | 2020-01-27 09:30 | Progress Note ---
DATE: 01/27/2020 SUBJECTIVE: This is a 64-year-old female patient. She has some altered mental status, confusion, disorganized thought process, mood lability, decline in cognition below the baseline. Patient has got some . MENTAL STATUS EXAMINATION: This is a 64-year-old female. Appearance is disheveled. Attitude, irritable and agitated. Affect, guarded and restricted. Intellect poor. Mood, depressed and anxious. Motor activity, psychomotor agitation. Attention span is poor. Orientation x2. Speech is pressured. Thought process, disorganized and illogical. Insight and judgment is poor. DIAGNOSIS: Major depressive disorder, mild, recurrent with psychotic features, rule out dementia with psychosis. PLAN: Treat the patient with Cymbalta 90 mg a day. Twenty minutes of cognitive behavioral therapy to help her identify automatic negative thoughts and help her convert negative thoughts to more positive thoughts to reduce depression, anxiety, and mood lability. Chart reviewed. Discussed with staff. Seen and assessed at bedside. Margo Perez M.D. DR: ALLISON JOB#: [id number] CC:
--- NOTE | 2020-01-27 10:31 | Pulmonology Progress Note ---
Subjective ROS Limited/Unobtainable: Yes Interval Events: None new Constitutional: Denies: fever, chills HEENT: Repors: no symptoms Respiratory: Reports: dry cough Cardiovascular: Reports: no symptoms Gastrointestinal/Abdominal: Denies: nausea, vomiting, diarrhea Genitourinary: Reports: no symptoms Musculoskeletal: Reports: pain - decreased abdominal Allergies: Coded Allergies: IBUPROFEN (Verified Allergy, Mild, 10/05/09) CORTICOSTEROIDS (GLUCOCORTICOIDS) (Unverified Allergy, Unknown, 01/22/20) All Systems: reviewed and negative except above Objective Last 24 Hour Vital Signs Date Time Temp Pulse Resp B/P (MAP) Pulse Ox O2 Delivery O2 Flow Rate FiO2 01/27/20 08:51 82 144/90 01/27/20 08:51 82 144/90 01/27/20 08:00 96.8 82 17 144/90 (108) 95 01/27/20 05:08 159/93 01/27/20 04:00 97.1 71 21 151/97 (115) 94 01/27/20 00:00 98.0 78 19 138/84 (102) 95 01/26/20 21:00 Nasal Cannula 2.0 01/26/20 20:58 163/97 01/26/20 20:47 87 148/102 01/26/20 20:00 98.2 97 19 148/102 (117) 94 01/26/20 16:00 96.6 93 18 155/91 (112) 96 01/26/20 13:23 158/96 01/26/20 12:00 96.7 83 18 158/96 (116) 97 Intake and Output 01/26/20 01/27/20 19:00 07:00 Intake Total 1000 ml Output Total 650 ml Balance 1000 ml -650 ml Intake Oral 1000 ml Output Urine Total 650 ml # Voids 1 General Appearance: no acute distress HEENT: normocephalic Respiratory: chest wall non-tender, decreased breath sounds Cardiovascular: normal rate Abdomen: normal bowel sounds Laboratory Tests 01/27/20 05:36: White Blood Count 12.2H, Red Blood Count 3.72L, Hemoglobin 10.8L, Hematocrit 34.1L, Mean Corpuscular Volume 92, Mean Corpuscular Hemoglobin 29.0, Mean Corpuscular Hemoglobin Concent 31.6L, Red Cell Distribution Width 15.1H, Platelet Count 468H, Mean Platelet Volume 5.4L, Neutrophils (%) (Auto) , Lymphocytes (%) (Auto) , Monocytes (%) (Auto) , Eosinophils (%) (Auto) , Basophils (%) (Auto) , Neutrophils % (Manual) [Pending], Lymphocytes % (Manual) [Pending], Platelet Estimate [Pending], Platelet Morphology [Pending], Sodium Level 135L, Potassium Level 3.3L, Chloride Level 98, Carbon Dioxide Level 27, Anion Gap 10, Blood Urea Nitrogen 7, Creatinine 0.6, Estimat Glomerular Filtration Rate > 60, Glucose Level 134H, Calcium Level 10.6H, Amylase Level 441H, Lipase > 2000H Current Medications Medications (Trade) Dose Ordered Sig/Kina Route PRN Reason Start Time Stop Time Status Last Admin Dose Admin Acetaminophen (Tylenol) 650 mg Q6H PRN ORAL Pain Scale (3-5) 01/22/20 17:45 02/21/20 17:44 01/23/20 20:43 Amlodipine Besylate (Norvasc) 5 mg DAILY ORAL 01/23/20 09:00 02/22/20 08:59 01/27/20 08:51 Barium Sulfate (Readi-Cat 2) 450 ml NOW PRN ORAL Radiology Procedure 01/27/20 09:00 01/29/20 08:51 Bisacodyl (Dulcolax) 10 mg DAILY ORAL 01/23/20 09:00 04/22/20 08:59 01/27/20 08:51 Carisoprodol (Soma) 350 mg Q8HR ORAL 01/22/20 18:30 02/21/20 18:29 01/27/20 05:05 Dextrose/ Electrolytes 1,000 ml @ 100 mls/hr Q10H IV 01/23/20 09:30 02/22/20 09:29 01/27/20 03:42 Docusate Sodium (Colace) 100 mg TWICE A DAY ORAL 01/22/20 18:00 02/21/20 17:59 01/27/20 08:51 Duloxetine HCl (Cymbalta) 90 mg DAILY ORAL 01/26/20 09:00 04/22/20 08:59 01/27/20 08:51 Famotidine (Pepcid) 20 mg TWICE A DAY ORAL 01/22/20 18:35 04/21/20 18:34 01/27/20 08:51 Hydralazine HCl (Apresoline) 50 mg Q8HR ORAL 01/23/20 14:00 04/21/20 21:59 01/27/20 05:08 Hydromorphone HCl (Dilaudid) 1 mg Q3H PRN IVP Severe Pain (Pain Scale 7-10) 01/27/20 08:16 02/03/20 08:15 01/27/20 10:01 Iohexol (OMNIPAQUE-300 100ml) 100 ml NOW PRN INJ Radiology Procedure 01/27/20 09:00 01/29/20 08:51 Lidocaine (Lidoderm 5% PATCH) 1 patch DAILY TDERMAL 01/23/20 09:00 04/22/20 08:59 01/27/20 08:52 Lidocaine HCl (Xylocaine 1% 30ml) 30 ml ONCE INJ 01/27/20 08:45 01/28/20 18:00 Magnesium Hydroxide (Mom) 30 ml DAILYPRN PRN ORAL Constipation 01/22/20 17:45 02/21/20 17:44 Metoclopramide HCl (Reglan) 10 mg Q6H PRN IVP Nausea & Vomiting 01/24/20 10:00 02/23/20 09:59 01/24/20 16:40 Metoprolol Tartrate (Lopressor) 50 mg EVERY 12 HOURS ORAL 01/22/20 21:00 04/21/20 20:59 01/27/20 08:51 Naloxone HCl (Narcan) 0.2 mg Q2M PRN IVP respritory depression 01/24/20 15:30 04/23/20 15:29 Ondansetron HCl (Zofran) 4 mg Q4H PRN IVP Nausea & Vomiting 01/23/20 15:15 02/22/20 15:14 01/26/20 10:59 Pantoprazole (Protonix) 40 mg DAILY ORAL 01/23/20 09:00 02/22/20 08:59 01/27/20 08:51 Piperacillin Sod/ Tazobactam Sod 3.375 gm/Sodium Chloride 110 ml @ 27.5 mls/hr EVERY 8 HOURS IVPB 01/23/20 14:00 01/28/20 23:59 01/27/20 05:05 Polyethylene Glycol (Miralax) 17 gm BEDTIME ORAL 01/23/20 21:00 02/22/20 20:59 01/26/20 21:28 Zolpidem Tartrate (Ambien) 5 mg HSPRN PRN ORAL Insomnia 01/23/20 00:30 01/30/20 00:29 01/23/20 20:41 Assessment/Plan Assessment/Plan IMPRESSION: 1. Large lung mass. 2. COPD. 3. History of spinal stenosis. 4. Multiple metastases DISCUSSION: The patient has a history of lung cancer per GI; however patient declines any knowledge. Discussed with oncology Await CT guided liver biopsy. I will follow. Saturating well on 2L/min O2 Reymundo Vázquez MD Jan 27, 2020 10:31
[2020-01-27 11:08] LABS: INR 1.2 (0.9-1.1)
--- NOTE | 2020-01-27 11:11 | Infectious Diseases Prog Note ---
Assessment/Plan Assessment/Plan antibiotics : zosyn A 1. Pancreatitis. 2. Lung mass with liver metastasis. 3. COPD. 4. Hypertension P 1. continue zosyn 2 more days 2. will follow up cultures 3. liver biospy planned Subjective Constitutional: Denies: fever, chills Respiratory: Denies: shortness of breath, dry cough Gastrointestinal/Abdominal: Denies: nausea, vomiting, diarrhea Musculoskeletal: Reports: pain - abdominal Allergies: Coded Allergies: IBUPROFEN (Verified Allergy, Mild, 10/05/09) CORTICOSTEROIDS (GLUCOCORTICOIDS) (Unverified Allergy, Unknown, 01/22/20) Objective Last 24 Hour Vital Signs Date Time Temp Pulse Resp B/P (MAP) Pulse Ox O2 Delivery O2 Flow Rate FiO2 01/27/20 08:51 82 144/90 01/27/20 08:51 82 144/90 01/27/20 08:00 96.8 82 17 144/90 (108) 95 01/27/20 05:08 159/93 01/27/20 04:00 97.1 71 21 151/97 (115) 94 01/27/20 00:00 98.0 78 19 138/84 (102) 95 01/26/20 21:00 Nasal Cannula 2.0 01/26/20 20:58 163/97 01/26/20 20:47 87 148/102 01/26/20 20:00 98.2 97 19 148/102 (117) 94 01/26/20 16:00 96.6 93 18 155/91 (112) 96 01/26/20 13:23 158/96 01/26/20 12:00 96.7 83 18 158/96 (116) 97 Height (Feet): 5 Height (Inches): 5.00 Weight (Pounds): 134 Respiratory/Chest: lungs clear Cardiovascular: normal rate, regular rhythm, no gallop/murmur Abdomen: soft, non tender Extremities: no edema Laboratory Tests Test 01/27/20 05:36 01/27/20 10:37 White Blood Count 12.2 K/UL (4.8-10.8) H Red Blood Count 3.72 M/UL (4.20-5.40) L Hemoglobin 10.8 G/DL (12.0-16.0) L Hematocrit 34.1 % (37.0-47.0) L Mean Corpuscular Volume 92 FL (80-99) Mean Corpuscular Hemoglobin 29.0 PG (27.0-31.0) Mean Corpuscular Hemoglobin Concent 31.6 G/DL (32.0-36.0) L Red Cell Distribution Width 15.1 % (11.6-14.8) H Platelet Count 468 K/UL (150-450) H Mean Platelet Volume 5.4 FL (6.5-10.1) L Neutrophils (%) (Auto) % (45.0-75.0) Lymphocytes (%) (Auto) % (20.0-45.0) Monocytes (%) (Auto) % (1.0-10.0) Eosinophils (%) (Auto) % (0.0-3.0) Basophils (%) (Auto) % (0.0-2.0) Differential Total Cells Counted 100 Neutrophils % (Manual) 86 % (45-75) H Lymphocytes % (Manual) 11 % (20-45) L Monocytes % (Manual) 3 % (1-10) Eosinophils % (Manual) 0 % (0-3) Basophils % (Manual) 0 % (0-2) Band Neutrophils 0 % (0-8) Platelet Estimate Increased H Platelet Morphology Normal Anisocytosis 1+ Sodium Level 135 MMOL/L (136-145) L Potassium Level 3.3 MMOL/L (3.5-5.1) L Chloride Level 98 MMOL/L (98-107) Carbon Dioxide Level 27 MMOL/L (21-32) Anion Gap 10 mmol/L (5-15) Blood Urea Nitrogen 7 mg/dL (7-18) Creatinine 0.6 MG/DL (0.55-1.30) Estimat Glomerular Filtration Rate > 60 mL/min (>60) Glucose Level 134 MG/DL (74-106) H Calcium Level 10.6 MG/DL (8.5-10.1) H Amylase Level 441 U/L (25-115) H Lipase > 2000 U/L (73-393) H Prothrombin Time Pending Prothromb Time International Ratio Pending Activated Partial Thromboplast Time Pending Current Medications Medications (Trade) Dose Ordered Sig/Kina Route PRN Reason Start Time Stop Time Status Last Admin Dose Admin Acetaminophen (Tylenol) 650 mg Q6H PRN ORAL Pain Scale (3-5) 01/22/20 17:45 02/21/20 17:44 01/23/20 20:43 Amlodipine Besylate (Norvasc) 5 mg DAILY ORAL 01/23/20 09:00 02/22/20 08:59 01/27/20 08:51 Barium Sulfate (Readi-Cat 2) 450 ml NOW PRN ORAL Radiology Procedure 01/27/20 09:00 01/29/20 08:51 Bisacodyl (Dulcolax) 10 mg DAILY ORAL 01/23/20 09:00 04/22/20 08:59 01/27/20 08:51 Carisoprodol (Soma) 350 mg Q8HR ORAL 01/22/20 18:30 02/21/20 18:29 01/27/20 05:05 Dextrose/ Electrolytes 1,000 ml @ 100 mls/hr Q10H IV 01/23/20 09:30 02/22/20 09:29 01/27/20 03:42 Docusate Sodium (Colace) 100 mg TWICE A DAY ORAL 01/22/20 18:00 02/21/20 17:59 01/27/20 08:51 Duloxetine HCl (Cymbalta) 90 mg DAILY ORAL 01/26/20 09:00 04/22/20 08:59 01/27/20 08:51 Famotidine (Pepcid) 20 mg TWICE A DAY ORAL 01/22/20 18:35 04/21/20 18:34 01/27/20 08:51 Hydralazine HCl (Apresoline) 50 mg Q8HR ORAL 01/23/20 14:00 04/21/20 21:59 01/27/20 05:08 Hydromorphone HCl (Dilaudid) 1 mg Q3H PRN IVP Severe Pain (Pain Scale 7-10) 01/27/20 08:16 02/03/20 08:15 01/27/20 10:01 Iohexol (OMNIPAQUE-300 100ml) 100 ml NOW PRN INJ Radiology Procedure 01/27/20 09:00 01/29/20 08:51 Lidocaine (Lidoderm 5% PATCH) 1 patch DAILY TDERMAL 01/23/20 09:00 04/22/20 08:59 01/27/20 08:52 Lidocaine HCl (Xylocaine 1% 30ml) 30 ml ONCE INJ 01/27/20 08:45 01/28/20 18:00 Magnesium Hydroxide (Mom) 30 ml DAILYPRN PRN ORAL Constipation 01/22/20 17:45 02/21/20 17:44 Metoclopramide HCl (Reglan) 10 mg Q6H PRN IVP Nausea & Vomiting 01/24/20 10:00 02/23/20 09:59 01/24/20 16:40 Metoprolol Tartrate (Lopressor) 50 mg EVERY 12 HOURS ORAL 01/22/20 21:00 04/21/20 20:59 01/27/20 08:51 Naloxone HCl (Narcan) 0.2 mg Q2M PRN IVP respritory depression 01/24/20 15:30 04/23/20 15:29 Ondansetron HCl (Zofran) 4 mg Q4H PRN IVP Nausea & Vomiting 01/23/20 15:15 02/22/20 15:14 01/26/20 10:59 Pantoprazole (Protonix) 40 mg DAILY ORAL 01/23/20 09:00 02/22/20 08:59 01/27/20 08:51 Piperacillin Sod/ Tazobactam Sod 3.375 gm/Sodium Chloride 110 ml @ 27.5 mls/hr EVERY 8 HOURS IVPB 01/23/20 14:00 01/28/20 23:59 01/27/20 05:05 Polyethylene Glycol (Miralax) 17 gm BEDTIME ORAL 01/23/20 21:00 02/22/20 20:59 01/26/20 21:28 Zolpidem Tartrate (Ambien) 5 mg HSPRN PRN ORAL Insomnia 01/23/20 00:30 01/30/20 00:29 01/23/20 20:41 Jose Juan Estrada MD Jan 27, 2020 11:10
--- NOTE | 2020-01-27 11:48 | NUR ---
NURSE NOTES: patient went down for CT of abdomen pelvis. Patient returned to floor unable to do CT scan due to IV site infiltrating mid infusion. Patients right upper arm is swollen, currently have warm compress to help swelling. New IV site inserted and made CT department aware that patient can continue CT
--- NOTE | 2020-01-27 13:05 | NUR ---
NURSE NOTES: Patient went down for liver biopsy procedure
--- NOTE | 2020-01-27 13:18 | Consultation ---
Consult Note Consult Note HEMATOLOGY/ ONC CONSULTATION DATE OF CONSULTATION: 01/26/2020 ANUM BUNN: Dr. Vázquez REASON FOR REFERRAL: Lung Mass HISTORY OF PRESENT ILLNESS: The patient is a 64-year-old female with history of hypertension, COPD, gastroesophageal reflux disease, and spinal stenosis, who presents to the hospital with abdominal pain, cough, and shortness of breath. The patient underwent CT of abdomen and pelvis, which showed a large lobar mass in the right mid lung base and multiple masses in the liver suspicious for metastatic disease. There is also metastasis to the lumbar spine. We were consulted for metastatic disease REVIEW OF SYSTEMS: Negative other than what was mentioned in history of present illness. PAST MEDICAL HISTORY: As mentioned above. FAMILY HISTORY: Noncontributory. SOCIAL HISTORY: She lives at home. Does not smoke or drink alcohol. PHYSICAL EXAMINATION: Reviewed HEAD AND NECK: Showed no JVD. LUNGS: Clear. CARDIOVASCULAR: Shows regular S1 and S2 with no gallop or murmur. ABDOMEN: Soft. EXTREMITIES: No pitting edema. LABORATORY AND DIAGNOSTIC DATA: Labs show white count of 12.5, hemoglobin of 11, hematocrit 34, platelet of 423,000. Sodium 138, potassium 3.5, BUN of 9, creatinine 0.6, and glucose of 121. Amylase is 544. Lipase is more than 2000. ASSESSMENT AND PLAN: 1. Lung masses. Metastatic. --> CT with biopsy is pending. --> Imaging CT Abd abd and Pelvis is pending at this time --> tumor markers ordered. 2. Hypertension. --> on BP meds and cards on case 3. History of cervical stenosis and pain. The time of the note does not reflect the time the patient was seen Sabrina Corey NP Jan 27, 2020 13:18
--- NOTE | 2020-01-27 14:13 | Brief Operative Note ---
Immediate Post Operative Note Operative Note Pre-op Diagnosis: liver masses Procedure: US guided core liver biopsy Post-op Diagnosis: same as pre-op Surgeon: Dariela Luke Anesthesia: local Specimen: yes - 3 18 G cores Complications: none Condition: stable Fluids: none Implant(s) used?: No Christopher Luke MD Jan 27, 2020 14:13
--- NOTE | 2020-01-27 14:48 | Cardiac Electrophysiology PN ---
Assessment/Plan Assessment/Plan 1. Accelerated hypertension. On amlodipine 5 mg daily, metoprolol 50 mg bid., and hydralazine 25 mg every 8 hours and p.r.n. clonidine 2. Lung masses. This is likely metastasis. CT of the chest done today 3. Liver mass. S/P Liver Biopsy today. 4. On Eliquis. Says was on it for DVT. Held for chest CT 5. 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 No CP. Just had CT guided Liver biopsy and CT chest and abdomen Objective Last 24 Hour Vital Signs Date Time Temp Pulse Resp B/P (MAP) Pulse Ox O2 Delivery O2 Flow Rate FiO2 01/27/20 14:30 96.3 79 18 147/87 (107) 95 01/27/20 14:09 97.8 77 19 142/83 (102) 92 01/27/20 13:40 84 19 2.0 01/27/20 12:00 97.3 86 19 140/84 (102) 95 01/27/20 09:00 Nasal Cannula 2.0 01/27/20 08:51 82 144/90 01/27/20 08:51 82 144/90 01/27/20 08:00 96.8 82 17 144/90 (108) 95 01/27/20 05:08 159/93 01/27/20 04:00 97.1 71 21 151/97 (115) 94 01/27/20 00:00 98.0 78 19 138/84 (102) 95 01/26/20 21:00 Nasal Cannula 2.0 01/26/20 20:58 163/97 01/26/20 20:47 87 148/102 01/26/20 20:00 98.2 97 19 148/102 (117) 94 01/26/20 16:00 96.6 93 18 155/91 (112) 96 Intake and Output 01/26/20 01/27/20 19:00 07:00 Intake Total 1000 ml Output Total 650 ml Balance 1000 ml -650 ml Intake Oral 1000 ml Output Urine Total 650 ml # Voids 1 Laboratory Tests Test 01/27/20 05:36 01/27/20 10:37 White Blood Count 12.2 K/UL (4.8-10.8) H Red Blood Count 3.72 M/UL (4.20-5.40) L Hemoglobin 10.8 G/DL (12.0-16.0) L Hematocrit 34.1 % (37.0-47.0) L Mean Corpuscular Volume 92 FL (80-99) Mean Corpuscular Hemoglobin 29.0 PG (27.0-31.0) Mean Corpuscular Hemoglobin Concent 31.6 G/DL (32.0-36.0) L Red Cell Distribution Width 15.1 % (11.6-14.8) H Platelet Count 468 K/UL (150-450) H Mean Platelet Volume 5.4 FL (6.5-10.1) L Neutrophils (%) (Auto) % (45.0-75.0) Lymphocytes (%) (Auto) % (20.0-45.0) Monocytes (%) (Auto) % (1.0-10.0) Eosinophils (%) (Auto) % (0.0-3.0) Basophils (%) (Auto) % (0.0-2.0) Differential Total Cells Counted 100 Neutrophils % (Manual) 86 % (45-75) H Lymphocytes % (Manual) 11 % (20-45) L Monocytes % (Manual) 3 % (1-10) Eosinophils % (Manual) 0 % (0-3) Basophils % (Manual) 0 % (0-2) Band Neutrophils 0 % (0-8) Platelet Estimate Increased H Platelet Morphology Normal Anisocytosis 1+ Sodium Level 135 MMOL/L (136-145) L Potassium Level 3.3 MMOL/L (3.5-5.1) L Chloride Level 98 MMOL/L (98-107) Carbon Dioxide Level 27 MMOL/L (21-32) Anion Gap 10 mmol/L (5-15) Blood Urea Nitrogen 7 mg/dL (7-18) Creatinine 0.6 MG/DL (0.55-1.30) Estimat Glomerular Filtration Rate > 60 mL/min (>60) Glucose Level 134 MG/DL (74-106) H Calcium Level 10.6 MG/DL (8.5-10.1) H Amylase Level 441 U/L (25-115) H Lipase > 2000 U/L (73-393) H Prothrombin Time 13.0 SEC (9.30-11.50) H Prothromb Time International Ratio 1.2 (0.9-1.1) H Activated Partial Thromboplast Time 29 SEC (23-33) Objective HEAD AND NECK: Showed no JVD. LUNGS: Clear. CARDIOVASCULAR: Shows regular S1 and S2 with no gallop or murmur. ABDOMEN: Soft. EXTREMITIES: No pitting edema. Jimmy Moreno MD Jan 27, 2020 14:48
--- NOTE | 2020-01-27 15:48 | NUR ---
CASE MANAGEMENT:REVIEW SI;ACUTE PANCREATITIS. LUNG MASS. METASTATIC DISEASE. 96.3 86 19 158/92 92% 2L NC WBC 12.2 H/H 10.8/34.1 NA 135 K+ 3.3 BG 134 CA 10.6 AMYLASE 441 LIPASE >2000 IS;DILAUDID IV Q3 ZOSYN IV Q8 HYDRALAZINE PO Q8 IVF D5W @ 100 ML/HR NORVASC PO QD PROTONIX PO QD LOPRESSOR PO Q12 SOMA PO Q8 MED SURG STATUS DCP;FROM HOME
--- NOTE | 2020-01-27 16:00 | NUR ---
NURSE NOTES: Received patient in bed. Awake, A/O x2. On 2 L via NC. IV in the Left forearm, IVF infusing as ordered. Bed low and locked, side rails up x2.
--- NOTE | 2020-01-27 16:05 | NUR ---
NURSE HAND-OFF: Important Events on Shift: Patient had liver biopsy and CT abdomen pelvis done. Per Dr. Serrano patient able to continue eliquis after 24 hours. VS q15min for 1 hour, q30min for 1 hour, and q1hr for 2 hours Patient Status: stable Diet: NPO (may resume regular diet) Pending Orders: CBC, amylase, CMP, lipase Pending Results/Labs: Pending MD notification: Latest Vital Signs: Temperature 97.3 , Pulse 90 , B/P 143 /94 , Respiratory Rate 21 , O2 SAT 93 , Nasal Cannula, O2 Flow Rate 2.0 . Vital Sign Comment: Latest Guido Fall Score: 45 Fall Risk: High Risk Safety Measures: Call light Within Reach, Bed Alarm Zone 1, Side Rails Side Rails x2, Bed position Low and Locked. Fall Precautions: Patient Fall Education Report given to SHAN Noriega .
--- NOTE | 2020-01-27 16:45 | NUR ---
NURSE NOTES: Dr. Butt contacted for diet orders. Orders obtained and carried out.
--- NOTE | 2020-01-27 17:29 | Diagnostic Imaging Report ---
Clinical Indication: Abdominal pain, abnormal previous noncontrast CT scan Technique: Patient ingested oral IV administration nonionic contrast. Venous phase spiral acquisition obtained through the abdomen and pelvis. Multiplanar reconstructions were generated. Total dose length product 513 mGycm. CTDIvol(s) 8, 62, 4, 4, 9 mGy. Dose reduction achieved using automated exposure control Comparison: Noncontrast study 01/22/2020 Findings: There is very unusual collection of very dense material deep within the right breast. This is incompletely included and the relationship to other chest structures is uncertain. This measures 11.3 cm transverse by 3.7 cm in depth; craniocaudad extent is uncertain. This is not evident previously. There is also more generalized edema of the right breast, not evident previously.. More cephalad, there is an intermediate density collection of material superficial to the right flank and abdominal wall musculature. There is considerable atelectasis and possibly consolidation at the right lung base and a small right pleural effusion. Lobulated right infrahilar mass is again demonstrated, appearing somewhat ill-defined. Atelectasis has increased since the previous study. The heart is enlarged. Again demonstrated are multiple low-attenuation masses within the liver, better demonstrated than on the previous noncontrast study, similar in extent. The gallbladder is distended, unremarkable. No biliary ductal dilatation. The pancreas, spleen, right adrenal are unremarkable. There is a 14 mm left adrenal nodule, also evident previously and demonstrating negative Hounsfield unit attenuation on that study consistent with a benign adenoma. The right kidney demonstrates a small upper pole cyst. And a posterior indeterminate attenuation lesion which does not appear to enhance compared to prior study and probably represents a proteinaceous cyst. The bladder is distended. The uterus demonstrates multiple masses consistent with old fibroids. There is a hiatal hernia again demonstrated. No small bowel distention or small bowel wall thickening. There are what appear to be areas of circumferential wall thickening of the colon, focally within the ascending and descending colon, but this is probably artifact related to mural adherent stool. There is colonic diverticulosis. No definite small bowel distention or small bowel wall thickening. No free or loculated intraperitoneal gas or fluid. There is some infiltration of the peripancreatic fat and some indistinctness of the margins of the pancreatic head and body. This is a new finding since the previous exam. Multiple osseous osteolytic lesions are demonstrated, including within L5 and L1, also previously demonstrated Impression: Very unusual finding of dense material at the posterior right pelvis, incompletely included, not evident on prior exam of 01/22/2020. It is possible that this represents very intense contrast enhancement due to inflammation particularly in view of the surrounding inflammatory change. Could also represent extravasated oral or intravenous contrast, reason for which is uncertain based on the available findings. Not likely to represent calcification given absence of similar finding on the previous study. Consider chest CT for better characterization Indistinctness of the margins the pancreatic head and body and infiltration of the peripancreatic fat, suspect early pancreatitis changes Right basilar consolidation, mass, and pleural fluid, also previously reported Cardiomegaly Multiple low-attenuation liver masses, most likely metastatic deposits, also previously reported Multiple osseous lesions, also previously reported, likely metastatic deposits Stable 14 mm left adrenal nodule, presumably a benign adenoma Right renal cysts Old uterine fibroids Moderate size hiatal hernia Apparent circumferential wall thickening of the colon, probably artifact related to mural adherent stool Findings discussed by phone with Dr. Lopez at the time of interpretation The CT scanner at [facility] is accredited by the [employer] and the scans are performed using protocols designed to limit radiation exposure to as low as reasonably achievable to attain images of sufficient resolution adequate for diagnostic evaluation.
--- NOTE | 2020-01-27 18:05 | Diagnostic Imaging Report ---
Indication: Multiple liver lesions demonstrated on prior CT scan Technique: Prior imaging studies reviewed. Informed consent obtained prior to commencement of the procedure. Procedural timeout performed. Sterile prepping and draping. Local anesthesia functional lidocaine. Under real-time ultrasound guidance, a 17-gauge guide needle was directed to the periphery of a dominant lesion centrally within the right hepatic lobe. Total of 3 18-gauge core specimens and obtained using coaxially inserted 18-gauge automated biopsy gun. Specimens were placed in formalin, submitted to pathology. The patient tolerated the procedure well, without immediate complication. Comparison: Reference made to CT scan dated 01/22/2020 Findings: As above Impression: Targeted ultrasound-guided biopsy of right lobe liver lesion, as described. Final pathology pending
--- NOTE | 2020-01-27 18:54 | NUR ---
NURSE HAND-OFF: Important Events on Shift:[CT A/P, US guided liver bx] Patient Status: [FULL CODE] Diet: [Regular MS chopped] Pending Orders: [diet resumed] Pending Results/Labs:[] Pending MD notification:[poor appetite for dinner time] Latest Vital Signs: Temperature 97.2 , Pulse 84 , B/P 151 /95 , Respiratory Rate 22 , O2 SAT 96 , Nasal Cannula, O2 Flow Rate 2.0 . Vital Sign Comment: [] Latest Guido Fall Score: 45 Fall Risk: High Risk Safety Measures: Call light Within Reach, Bed Alarm Zone 1, Side Rails Side Rails x2, Bed position Low and Locked. Fall Precautions: Patient Fall Education Report given to [Ira TORREZ].
--- NOTE | 2020-01-27 19:30 | NUR ---
NURSE NOTES: Patient asleep in, no signs of pain, on O2 @ 2LPM via nasal cannula. With IV access on the left forearm connected to IVF as ordered. Call light in reach. Bed in lowest, lock engaged and alarm on. Will continue to monitor.
[2020-01-27] MEDS: Miralax 17gm pkt ORAL SCH (21:22)
[2020-01-28] VITALS (7 sets, daily range): BP systolic 140–157; BP diastolic 73–88
[2020-01-28] MEDS: D5 1/2NS w/KCl 20mEq 1,000 ML IV SCH ×3 (02:48→20:55)
[2020-01-28] MEDS: HYDROmorphone 1mg/ml Carpuject IVP PRN ×5 (02:48→21:08)
--- NOTE | 2020-01-28 02:52 | NUR ---
Important Events on Shift: Pain management Patient Status: fatigue, weak Diet: Regular Mechanical soft chopped Pending Orders: Resume Eliquis 24 hours after biopsy (s/p biopsy 01/26) Pending Results/Labs: CBC,CMP,Amylase, Lipase Pending MD notification:[] Latest Vital Signs: Temperature 98.1 , Pulse 86 , B/P 143 /88 , Respiratory Rate 18 , O2 SAT 96 , Nasal Cannula, O2 Flow Rate 2.0 . Vital Sign Comment: [] Latest Guido Fall Score: 45 Fall Risk: High Risk Safety Measures: Call light Within Reach, Bed Alarm Zone 1, Side Rails Side Rails x2, Bed position Low and Locked. Fall Precautions: Patient Fall Education Report given to SHAN Huynh.
--- NOTE | 2020-01-28 03:00 | NUR ---
NURSE NOTES: Patient in bed resting at this time. Able to make needs known. On nasal cannula 2L with no signs of distress or SOB. LFA IV intact running IVF as ordered. Call light in reach. Bed locked and in lowest position. Bed alarm on. Will continue to monitor.
[2020-01-28] MEDS: Piperacillin/Tazobactam 3.375 GM in NS 110 ML IVPB SCH ×3 (05:28→22:40)
[2020-01-28 06:19] LABS: HEMOGLOBIN 9.5 G/DL (12.0-16.0); MEAN CORPUSCULAR VOLUME 93 FL (80-99); PLATELET COUNT 361 K/UL (150-450); RED BLOOD COUNT 3.23 M/UL (4.20-5.40); RED CELL DISTRIBUTION WIDTH 16.1 % (11.6-14.8); WHITE BLOOD COUNT 12.9 K/UL (4.8-10.8)
[2020-01-28 06:28] LABS: ALANINE AMINOTRANSFERASE 18 U/L (12-78); ALBUMIN 3.4 G/DL (3.4-5.0); ALBUMIN/GLOBULIN RATIO 0.8 (1.0-2.7); ALKALINE PHOSPHATASE 72 U/L (46-116); ANION GAP 9 mmol/L (5-15); ASPARTATE AMINO TRANSFERASE 80 U/L (15-37); BILIRUBIN,TOTAL 0.2 MG/DL (0.2-1.0); BLOOD UREA NITROGEN 7 mg/dL (7-18); CALCIUM 10.7 MG/DL (8.5-10.1); CARBON DIOXIDE 25 MMOL/L (21-32); CHLORIDE 100 MMOL/L (98-107); CREATININE 0.5 MG/DL (0.55-1.30); POTASSIUM 3.3 MMOL/L (3.5-5.1); SODIUM 134 MMOL/L (136-145)
[2020-01-28 06:32] LABS: AMYLASE 685 U/L (25-115)
[2020-01-28] MEDS: HydrALAZINE 50mg tab ORAL SCH ×3 (06:34→22:39)
--- NOTE | 2020-01-28 07:46 | NUR ---
NURSE NOTES: Received report from SHAN Roth. Patient observed to be asleep with HOB elevated. Currently on 2L/min via NC. No s/sx of SOB/Distress, no signs of any discomfort. Patient IV site located on LFA gauge 22 currently running D5 I/2 NS w/ 20 mEq KCL at 100ml/hr. IV site inplace and intact, asymptomatic. Bed placed on lowest and locked position, call light placed within reach and will continue to monitor.
--- NOTE | 2020-01-28 07:47 | NUR ---
HAND-OFF: Important Events on Shift: Critical Value Amylase 685 Patient Status: fatigue, weak Diet: Regular Mechanical soft chopped Pending Orders: Resume Eliquis 24 hours after biopsy (s/p biopsy 01/26) Pending Results/Labs: Pending MD notification: Awaiting call back from Dr. Lopez Latest Vital Signs: Temperature 98.1 , Pulse 86 , B/P 143 /88 , Respiratory Rate 18 , O2 SAT 96 , Nasal Cannula, O2 Flow Rate 2.0 . Vital Sign Comment: Latest Guido Fall Score: 45 Fall Risk: High Risk Safety Measures: Call light Within Reach, Bed Alarm Zone 1, Side Rails Side Rails x2, Bed position Low and Locked. Fall Precautions: Patient Fall Education Report given to SHAN Francis.
[2020-01-28] MEDS: Bisacodyl EC 5mg tab ORAL SCH (08:14)
[2020-01-28] MEDS: DULoxetine 30mg cap ORAL SCH (08:14)
[2020-01-28] MEDS: Metoprolol Tartrate 50mg tab ORAL SCH ×2 (08:14→20:55)
[2020-01-28] MEDS: Docusate 100mg cap ORAL SCH ×2 (08:14→18:00)
--- NOTE | 2020-01-28 08:30 | Progress Note ---
DATE: 01/28/2020 SUBJECTIVE: This is a 64-year-old female patient with pancreatitis. She continues to have some mood lability, confusion, some disorganized thought process. She has got a lot of mood lability, agitation, irritability, decline in cognition below her baseline she is continued to be followed by Psychiatry. MENTAL STATUS EXAMINATION: This is a 64-year-old female. Appearance is disheveled. Attitude, irritable and agitated. Affect is labile. Intellect poor. Mood, depressed and anxious. Motor activity, psychomotor agitation. Attention span is poor. Orientation x2. Speech is low volume, slurred. Thought process, disorganized and illogical. Insight and judgment is poor. DIAGNOSIS: Major depressive disorder, mild, recurrent with psychotic features, rule out dementia with psychosis. PLAN: Continue treatment with medications to stabilize mood. Twenty minutes of reality-based supportive psychotherapy provided. Chart reviewed. Discussed with staff. Seen and assessed at bedside. . Margo Perez M.D. DR: ALLISON JOB#: [id number] CC:
[2020-01-28] MEDS: Lidocaine 1% Plain 30 ml INJ SCH (08:45)
--- NOTE | 2020-01-28 09:40 | NUR ---
NURSE NOTES: Notified Dr. Lopez of critical lab amylase 685. Per MD will follow up.
--- NOTE | 2020-01-28 09:54 | Cardiac Electrophysiology PN ---
Assessment/Plan Assessment/Plan 1. Accelerated hypertension. On amlodipine 5 mg daily, metoprolol 50 mg bid, hydralazine 25 mg every 8 hours and p.r.n. clonidine 2. Lung masses. This is likely metastasis. CT of the chest done 3. Liver mass. S/P Liver Biopsy 01/27/20 4. On Eliquis for DVT. Held for chest CT 5. History of cervical stenosis and pain. PELON RN Subjective Subjective Comfortable in NAD. No CP.S/P CT guided Liver biopsy and CT chest and abdomen yesterday Objective Last 24 Hour Vital Signs Date Time Temp Pulse Resp B/P (MAP) Pulse Ox O2 Delivery O2 Flow Rate FiO2 01/28/20 09:00 98.1 77 19 140/77 (98) 92 01/28/20 09:00 Nasal Cannula 2.0 01/28/20 08:14 77 140/77 01/28/20 08:14 77 140/77 01/28/20 08:00 98.1 77 19 140/77 (98) 92 01/28/20 07:38 97 Nasal Cannula 2.0 28 01/28/20 06:34 146/79 01/28/20 04:00 97.8 90 19 146/79 (101) 96 01/28/20 00:00 98.1 86 18 143/88 (106) 96 01/27/20 21:21 144/71 01/27/20 21:21 95 144/71 01/27/20 20:10 Nasal Cannula 2.0 01/27/20 20:00 97.9 95 16 144/71 (95) 96 01/27/20 18:21 97.2 84 22 151/95 (113) 96 01/27/20 16:30 97.0 82 20 137/88 (104) 93 01/27/20 16:00 97.3 90 21 143/94 (110) 93 01/27/20 15:03 158/92 01/27/20 14:30 96.3 79 18 147/87 (107) 95 01/27/20 14:09 97.8 77 19 142/83 (102) 92 01/27/20 13:40 84 19 2.0 01/27/20 12:00 97.3 86 19 140/84 (102) 95 Intake and Output 01/27/20 01/28/20 19:00 07:00 Intake Total 640 ml 950.0 ml Output Total 500 ml Balance 640 ml 450.0 ml Intake Oral 240 ml 240 ml IV Total 400 ml 710.0 ml Output Urine Total 500 ml # Voids 3 1 Laboratory Tests Test 01/27/20 10:37 01/28/20 05:40 Prothrombin Time 13.0 SEC (9.30-11.50) H Prothromb Time International Ratio 1.2 (0.9-1.1) H Activated Partial Thromboplast Time 29 SEC (23-33) White Blood Count 12.9 K/UL (4.8-10.8) H Red Blood Count 3.23 M/UL (4.20-5.40) L Hemoglobin 9.5 G/DL (12.0-16.0) L Hematocrit 30.0 % (37.0-47.0) L Mean Corpuscular Volume 93 FL (80-99) Mean Corpuscular Hemoglobin 29.4 PG (27.0-31.0) Mean Corpuscular Hemoglobin Concent 31.8 G/DL (32.0-36.0) L Red Cell Distribution Width 16.1 % (11.6-14.8) H Platelet Count 361 K/UL (150-450) Mean Platelet Volume 5.3 FL (6.5-10.1) L Neutrophils (%) (Auto) % (45.0-75.0) Lymphocytes (%) (Auto) % (20.0-45.0) Monocytes (%) (Auto) % (1.0-10.0) Eosinophils (%) (Auto) % (0.0-3.0) Basophils (%) (Auto) % (0.0-2.0) Sodium Level 134 MMOL/L (136-145) L Potassium Level 3.3 MMOL/L (3.5-5.1) L Chloride Level 100 MMOL/L (98-107) Carbon Dioxide Level 25 MMOL/L (21-32) Anion Gap 9 mmol/L (5-15) Blood Urea Nitrogen 7 mg/dL (7-18) Creatinine 0.5 MG/DL (0.55-1.30) L Estimat Glomerular Filtration Rate > 60 mL/min (>60) Glucose Level 133 MG/DL (74-106) H Calcium Level 10.7 MG/DL (8.5-10.1) H Total Bilirubin 0.2 MG/DL (0.2-1.0) Aspartate Amino Transf (AST/SGOT) 80 U/L (15-37) H Alanine Aminotransferase (ALT/SGPT) 18 U/L (12-78) Alkaline Phosphatase 72 U/L (46-116) Total Protein 7.6 G/DL (6.4-8.2) Albumin 3.4 G/DL (3.4-5.0) Globulin 4.2 g/dL Albumin/Globulin Ratio 0.8 (1.0-2.7) L Amylase Level 685 U/L (25-115) *H Lipase > 2000 U/L (73-393) H Objective HEAD AND NECK: Showed no JVD. LUNGS: Clear. CARDIOVASCULAR: Shows regular S1 and S2 with no gallop or murmur. ABDOMEN: Soft. EXTREMITIES: No pitting edema. Jimmy Moreno MD Jan 28, 2020 09:54
--- NOTE | 2020-01-28 09:56 | Hematology/Onc Progress Note ---
Assessment/Plan Assessment/Plan ASSESSMENT AND PLAN: 1. Lung masses. Metastatic. --> CT with biopsy is pending. --> Imaging CT Abd abd and Pelvis is pending at this time --> tumor markers ordered. 2. Hypertension. --> on BP meds and cards on case 3. History of cervical stenosis and pain. The time of the note does not reflect the time the patient was seen Subjective ROS Limited/Unobtainable: Yes Allergies: Coded Allergies: IBUPROFEN (Verified Allergy, Mild, 10/05/09) CORTICOSTEROIDS (GLUCOCORTICOIDS) (Unverified Allergy, Unknown, 01/22/20) Subjective 01/27: spoke to patient's mother regArding plan of care Objective Objective Current Medications Medications (Trade) Dose Ordered Sig/Kina Route PRN Reason Start Time Stop Time Status Last Admin Dose Admin Acetaminophen (Tylenol) 650 mg Q6H PRN ORAL Pain Scale (3-5) 01/22/20 17:45 02/21/20 17:44 01/23/20 20:43 Amlodipine Besylate (Norvasc) 5 mg DAILY ORAL 01/23/20 09:00 02/22/20 08:59 01/28/20 08:14 Barium Sulfate (Readi-Cat 2) 450 ml NOW PRN ORAL Radiology Procedure 01/27/20 09:00 01/29/20 08:51 Bisacodyl (Dulcolax) 10 mg DAILY ORAL 01/23/20 09:00 04/22/20 08:59 01/28/20 08:14 Carisoprodol (Soma) 350 mg Q8HR ORAL 01/22/20 18:30 02/21/20 18:29 01/28/20 06:34 Dextrose/ Electrolytes 1,000 ml @ 100 mls/hr Q10H IV 01/23/20 09:30 02/22/20 09:29 01/28/20 02:48 Docusate Sodium (Colace) 100 mg TWICE A DAY ORAL 01/22/20 18:00 02/21/20 17:59 01/28/20 08:14 Duloxetine HCl (Cymbalta) 90 mg DAILY ORAL 01/26/20 09:00 04/22/20 08:59 01/28/20 08:14 Famotidine (Pepcid) 20 mg TWICE A DAY ORAL 01/22/20 18:35 04/21/20 18:34 01/28/20 08:14 Hydralazine HCl (Apresoline) 50 mg Q8HR ORAL 01/23/20 14:00 04/21/20 21:59 01/28/20 06:34 Hydromorphone HCl (Dilaudid) 1 mg Q3H PRN IVP Severe Pain (Pain Scale 7-10) 01/27/20 08:16 02/03/20 08:15 01/28/20 08:15 Iohexol (OMNIPAQUE-300 100ml) 100 ml NOW PRN INJ Radiology Procedure 01/27/20 09:00 01/29/20 08:51 Lidocaine (Lidoderm 5% PATCH) 1 patch DAILY TDERMAL 01/23/20 09:00 04/22/20 08:59 01/28/20 08:15 Lidocaine HCl (Xylocaine 1% 30ml) 30 ml ONCE INJ 01/27/20 08:45 01/28/20 18:00 Magnesium Hydroxide (Mom) 30 ml DAILYPRN PRN ORAL Constipation 01/22/20 17:45 02/21/20 17:44 Metoclopramide HCl (Reglan) 10 mg Q6H PRN IVP Nausea & Vomiting 01/24/20 10:00 02/23/20 09:59 01/24/20 16:40 Metoprolol Tartrate (Lopressor) 50 mg EVERY 12 HOURS ORAL 01/22/20 21:00 04/21/20 20:59 01/28/20 08:14 Naloxone HCl (Narcan) 0.2 mg Q2M PRN IVP respritory depression 01/24/20 15:30 04/23/20 15:29 Ondansetron HCl (Zofran) 4 mg Q4H PRN IVP Nausea & Vomiting 01/23/20 15:15 02/22/20 15:14 01/26/20 10:59 Pantoprazole (Protonix) 40 mg DAILY ORAL 01/23/20 09:00 02/22/20 08:59 01/28/20 08:14 Piperacillin Sod/ Tazobactam Sod 3.375 gm/Sodium Chloride 110 ml @ 27.5 mls/hr EVERY 8 HOURS IVPB 01/23/20 14:00 01/28/20 23:59 01/28/20 05:28 Polyethylene Glycol (Miralax) 17 gm BEDTIME ORAL 01/23/20 21:00 02/22/20 20:59 01/27/20 21:22 Zolpidem Tartrate (Ambien) 5 mg HSPRN PRN ORAL Insomnia 01/23/20 00:30 01/30/20 00:29 01/23/20 20:41 Last 24 Hour Vital Signs Date Time Temp Pulse Resp B/P (MAP) Pulse Ox O2 Delivery O2 Flow Rate FiO2 01/28/20 09:00 98.1 77 19 140/77 (98) 92 01/28/20 09:00 Nasal Cannula 2.0 01/28/20 08:14 77 140/77 01/28/20 08:14 77 140/77 01/28/20 08:00 98.1 77 19 140/77 (98) 92 01/28/20 07:38 97 Nasal Cannula 2.0 28 01/28/20 06:34 146/79 01/28/20 04:00 97.8 90 19 146/79 (101) 96 01/28/20 00:00 98.1 86 18 143/88 (106) 96 01/27/20 21:21 144/71 01/27/20 21:21 95 144/71 01/27/20 20:10 Nasal Cannula 2.0 01/27/20 20:00 97.9 95 16 144/71 (95) 96 01/27/20 18:21 97.2 84 22 151/95 (113) 96 01/27/20 16:30 97.0 82 20 137/88 (104) 93 01/27/20 16:00 97.3 90 21 143/94 (110) 93 01/27/20 15:03 158/92 01/27/20 14:30 96.3 79 18 147/87 (107) 95 01/27/20 14:09 97.8 77 19 142/83 (102) 92 01/27/20 13:40 84 19 2.0 01/27/20 12:00 97.3 86 19 140/84 (102) 95 01/27/20 09:00 Nasal Cannula 2.0 01/27/20 08:51 82 144/90 01/27/20 08:51 82 144/90 01/27/20 08:00 96.8 82 17 144/90 (108) 95 01/27/20 05:08 159/93 01/27/20 04:00 97.1 71 21 151/97 (115) 94 01/27/20 00:00 98.0 78 19 138/84 (102) 95 01/26/20 21:00 Nasal Cannula 2.0 01/26/20 20:58 163/97 01/26/20 20:47 87 148/102 01/26/20 20:00 98.2 97 19 148/102 (117) 94 01/26/20 16:00 96.6 93 18 155/91 (112) 96 01/26/20 13:23 158/96 01/26/20 12:00 96.7 83 18 158/96 (116) 97 Intake and Output 01/27/20 01/28/20 19:00 07:00 Intake Total 640 ml 950.0 ml Output Total 500 ml Balance 640 ml 450.0 ml Intake Oral 240 ml 240 ml IV Total 400 ml 710.0 ml Output Urine Total 500 ml # Voids 3 1 Labs Test 01/26/20 05:25 01/27/20 05:36 01/27/20 10:37 01/28/20 05:40 White Blood Count 13.0 K/UL (4.8-10.8) 12.2 K/UL (4.8-10.8) 12.9 K/UL (4.8-10.8) Red Blood Count 3.60 M/UL (4.20-5.40) 3.72 M/UL (4.20-5.40) 3.23 M/UL (4.20-5.40) Hemoglobin 10.5 G/DL (12.0-16.0) 10.8 G/DL (12.0-16.0) 9.5 G/DL (12.0-16.0) Hematocrit 32.6 % (37.0-47.0) 34.1 % (37.0-47.0) 30.0 % (37.0-47.0) Mean Corpuscular Volume 91 FL (80-99) 92 FL (80-99) 93 FL (80-99) Mean Corpuscular Hemoglobin 29.1 PG (27.0-31.0) 29.0 PG (27.0-31.0) 29.4 PG (27.0-31.0) Mean Corpuscular Hemoglobin Concent 32.1 G/DL (32.0-36.0) 31.6 G/DL (32.0-36.0) 31.8 G/DL (32.0-36.0) Red Cell Distribution Width 15.1 % (11.6-14.8) 15.1 % (11.6-14.8) 16.1 % (11.6-14.8) Platelet Count 439 K/UL (150-450) 468 K/UL (150-450) 361 K/UL (150-450) Mean Platelet Volume 5.6 FL (6.5-10.1) 5.4 FL (6.5-10.1) 5.3 FL (6.5-10.1) Neutrophils (%) (Auto) 82.6 % (45.0-75.0) % (45.0-75.0) % (45.0-75.0) Lymphocytes (%) (Auto) 10.3 % (20.0-45.0) % (20.0-45.0) % (20.0-45.0) Monocytes (%) (Auto) 5.9 % (1.0-10.0) % (1.0-10.0) % (1.0-10.0) Eosinophils (%) (Auto) 0.1 % (0.0-3.0) % (0.0-3.0) % (0.0-3.0) Basophils (%) (Auto) 1.1 % (0.0-2.0) % (0.0-2.0) % (0.0-2.0) Sodium Level 134 MMOL/L (136-145) 135 MMOL/L (136-145) 134 MMOL/L (136-145) Potassium Level 3.2 MMOL/L (3.5-5.1) 3.3 MMOL/L (3.5-5.1) 3.3 MMOL/L (3.5-5.1) Chloride Level 99 MMOL/L (98-107) 98 MMOL/L (98-107) 100 MMOL/L (98-107) Carbon Dioxide Level 23 MMOL/L (21-32) 27 MMOL/L (21-32) 25 MMOL/L (21-32) Anion Gap 13 mmol/L (5-15) 10 mmol/L (5-15) 9 mmol/L (5-15) Blood Urea Nitrogen 8 mg/dL (7-18) 7 mg/dL (7-18) 7 mg/dL (7-18) Creatinine 0.6 MG/DL (0.55-1.30) 0.6 MG/DL (0.55-1.30) 0.5 MG/DL (0.55-1.30) Estimat Glomerular Filtration Rate > 60 mL/min (>60) > 60 mL/min (>60) > 60 mL/min (>60) Glucose Level 122 MG/DL (74-106) 134 MG/DL (74-106) 133 MG/DL (74-106) Calcium Level 10.9 MG/DL (8.5-10.1) 10.6 MG/DL (8.5-10.1) 10.7 MG/DL (8.5-10.1) Total Bilirubin 0.3 MG/DL (0.2-1.0) 0.2 MG/DL (0.2-1.0) Aspartate Amino Transf (AST/SGOT) 87 U/L (15-37) 80 U/L (15-37) Alanine Aminotransferase (ALT/SGPT) 17 U/L (12-78) 18 U/L (12-78) Alkaline Phosphatase 77 U/L (46-116) 72 U/L (46-116) Total Protein 8.6 G/DL (6.4-8.2) 7.6 G/DL (6.4-8.2) Albumin 3.9 G/DL (3.4-5.0) 3.4 G/DL (3.4-5.0) Globulin 4.7 g/dL 4.2 g/dL Albumin/Globulin Ratio 0.8 (1.0-2.7) 0.8 (1.0-2.7) Amylase Level 264 U/L (25-115) 441 U/L (25-115) 685 U/L (25-115) Lipase > 2000 U/L (73-393) > 2000 U/L (73-393) > 2000 U/L (73-393) Differential Total Cells Counted 100 Neutrophils % (Manual) 86 % (45-75) Lymphocytes % (Manual) 11 % (20-45) Monocytes % (Manual) 3 % (1-10) Eosinophils % (Manual) 0 % (0-3) Basophils % (Manual) 0 % (0-2) Band Neutrophils 0 % (0-8) Platelet Estimate Increased Platelet Morphology Normal Anisocytosis 1+ Prothrombin Time 13.0 SEC (9.30-11.50) Prothromb Time International Ratio 1.2 (0.9-1.1) Activated Partial Thromboplast Time 29 SEC (23-33) Height (Feet): 5 Height (Inches): 5.00 Weight (Pounds): 134 Objective PHYSICAL EXAMINATION: Reviewed HEAD AND NECK: Showed no JVD. LUNGS: Clear. CARDIOVASCULAR: Shows regular S1 and S2 with no gallop or murmur. ABDOMEN: Soft. EXTREMITIES: No pitting edema. Sabrina Corey NP Jan 28, 2020 09:56
--- NOTE | 2020-01-28 11:48 | Infectious Diseases Prog Note ---
Assessment/Plan Assessment/Plan A; 1. Pancreatitis. 2. Lung mass with liver metastasis. 3. COPD. 4. Hypertension. 5. Hypercalcemia PLAN: 1. Continue Zosyn X 1 day 2. We will follow up liver biopsy report Subjective ROS Limited/Unobtainable: Yes Constitutional: Denies: fever Allergies: Coded Allergies: IBUPROFEN (Verified Allergy, Mild, 10/05/09) CORTICOSTEROIDS (GLUCOCORTICOIDS) (Unverified Allergy, Unknown, 01/22/20) Objective Last 24 Hour Vital Signs Date Time Temp Pulse Resp B/P (MAP) Pulse Ox O2 Delivery O2 Flow Rate FiO2 01/28/20 09:00 98.1 77 19 140/77 (98) 92 01/28/20 09:00 Nasal Cannula 2.0 01/28/20 08:14 77 140/77 01/28/20 08:14 77 140/77 01/28/20 08:00 98.1 77 19 140/77 (98) 92 01/28/20 07:38 97 Nasal Cannula 2.0 28 01/28/20 06:34 146/79 01/28/20 04:00 97.8 90 19 146/79 (101) 96 01/28/20 00:00 98.1 86 18 143/88 (106) 96 01/27/20 21:21 144/71 01/27/20 21:21 95 144/71 01/27/20 20:10 Nasal Cannula 2.0 01/27/20 20:00 97.9 95 16 144/71 (95) 96 01/27/20 18:21 97.2 84 22 151/95 (113) 96 01/27/20 16:30 97.0 82 20 137/88 (104) 93 01/27/20 16:00 97.3 90 21 143/94 (110) 93 01/27/20 15:03 158/92 01/27/20 14:30 96.3 79 18 147/87 (107) 95 01/27/20 14:09 97.8 77 19 142/83 (102) 92 01/27/20 13:40 84 19 2.0 01/27/20 12:00 97.3 86 19 140/84 (102) 95 Height (Feet): 5 Height (Inches): 5.00 Weight (Pounds): 134 General Appearance: no acute distress HEENT: mucous membranes moist Respiratory/Chest: lungs clear Cardiovascular: normal rate Abdomen: soft, non tender Extremities: other - hands edema Skin: no ulcers Neurologic/Psychiatric: other - sleeping Laboratory Tests Test 01/28/20 05:40 White Blood Count 12.9 K/UL (4.8-10.8) H Red Blood Count 3.23 M/UL (4.20-5.40) L Hemoglobin 9.5 G/DL (12.0-16.0) L Hematocrit 30.0 % (37.0-47.0) L Mean Corpuscular Volume 93 FL (80-99) Mean Corpuscular Hemoglobin 29.4 PG (27.0-31.0) Mean Corpuscular Hemoglobin Concent 31.8 G/DL (32.0-36.0) L Red Cell Distribution Width 16.1 % (11.6-14.8) H Platelet Count 361 K/UL (150-450) Mean Platelet Volume 5.3 FL (6.5-10.1) L Neutrophils (%) (Auto) % (45.0-75.0) Lymphocytes (%) (Auto) % (20.0-45.0) Monocytes (%) (Auto) % (1.0-10.0) Eosinophils (%) (Auto) % (0.0-3.0) Basophils (%) (Auto) % (0.0-2.0) Sodium Level 134 MMOL/L (136-145) L Potassium Level 3.3 MMOL/L (3.5-5.1) L Chloride Level 100 MMOL/L (98-107) Carbon Dioxide Level 25 MMOL/L (21-32) Anion Gap 9 mmol/L (5-15) Blood Urea Nitrogen 7 mg/dL (7-18) Creatinine 0.5 MG/DL (0.55-1.30) L Estimat Glomerular Filtration Rate > 60 mL/min (>60) Glucose Level 133 MG/DL (74-106) H Calcium Level 10.7 MG/DL (8.5-10.1) H Total Bilirubin 0.2 MG/DL (0.2-1.0) Aspartate Amino Transf (AST/SGOT) 80 U/L (15-37) H Alanine Aminotransferase (ALT/SGPT) 18 U/L (12-78) Alkaline Phosphatase 72 U/L (46-116) Total Protein 7.6 G/DL (6.4-8.2) Albumin 3.4 G/DL (3.4-5.0) Globulin 4.2 g/dL Albumin/Globulin Ratio 0.8 (1.0-2.7) L Amylase Level 685 U/L (25-115) *H Lipase > 2000 U/L (73-393) H Current Medications Medications (Trade) Dose Ordered Sig/Kina Route PRN Reason Start Time Stop Time Status Last Admin Dose Admin Acetaminophen (Tylenol) 650 mg Q6H PRN ORAL Pain Scale (3-5) 01/22/20 17:45 02/21/20 17:44 01/23/20 20:43 Amlodipine Besylate (Norvasc) 5 mg DAILY ORAL 01/23/20 09:00 02/22/20 08:59 01/28/20 08:14 Barium Sulfate (Readi-Cat 2) 450 ml NOW PRN ORAL Radiology Procedure 01/27/20 09:00 01/29/20 08:51 Bisacodyl (Dulcolax) 10 mg DAILY ORAL 01/23/20 09:00 04/22/20 08:59 01/28/20 08:14 Carisoprodol (Soma) 350 mg Q8HR ORAL 01/22/20 18:30 02/21/20 18:29 01/28/20 06:34 Dextrose/ Electrolytes 1,000 ml @ 100 mls/hr Q10H IV 01/23/20 09:30 02/22/20 09:29 01/28/20 09:30 Docusate Sodium (Colace) 100 mg TWICE A DAY ORAL 01/22/20 18:00 02/21/20 17:59 01/28/20 08:14 Duloxetine HCl (Cymbalta) 90 mg DAILY ORAL 01/26/20 09:00 04/22/20 08:59 01/28/20 08:14 Famotidine (Pepcid) 20 mg TWICE A DAY ORAL 01/22/20 18:35 04/21/20 18:34 01/28/20 08:14 Hydralazine HCl (Apresoline) 50 mg Q8HR ORAL 01/23/20 14:00 04/21/20 21:59 01/28/20 06:34 Hydromorphone HCl (Dilaudid) 1 mg Q3H PRN IVP Severe Pain (Pain Scale 7-10) 01/27/20 08:16 02/03/20 08:15 01/28/20 08:15 Iohexol (OMNIPAQUE-300 100ml) 100 ml NOW PRN INJ Radiology Procedure 01/27/20 09:00 01/29/20 08:51 Lidocaine (Lidoderm 5% PATCH) 1 patch DAILY TDERMAL 01/23/20 09:00 04/22/20 08:59 01/28/20 08:15 Lidocaine HCl (Xylocaine 1% 30ml) 30 ml ONCE INJ 01/27/20 08:45 01/28/20 18:00 Magnesium Hydroxide (Mom) 30 ml DAILYPRN PRN ORAL Constipation 01/22/20 17:45 02/21/20 17:44 Metoclopramide HCl (Reglan) 10 mg Q6H PRN IVP Nausea & Vomiting 01/24/20 10:00 02/23/20 09:59 01/24/20 16:40 Metoprolol Tartrate (Lopressor) 50 mg EVERY 12 HOURS ORAL 01/22/20 21:00 04/21/20 20:59 01/28/20 08:14 Naloxone HCl (Narcan) 0.2 mg Q2M PRN IVP respritory depression 01/24/20 15:30 04/23/20 15:29 Ondansetron HCl (Zofran) 4 mg Q4H PRN IVP Nausea & Vomiting 01/23/20 15:15 02/22/20 15:14 01/26/20 10:59 Pantoprazole (Protonix) 40 mg DAILY ORAL 01/23/20 09:00 02/22/20 08:59 01/28/20 08:14 Piperacillin Sod/ Tazobactam Sod 3.375 gm/Sodium Chloride 110 ml @ 27.5 mls/hr EVERY 8 HOURS IVPB 01/23/20 14:00 01/28/20 23:59 01/28/20 05:28 Polyethylene Glycol (Miralax) 17 gm BEDTIME ORAL 01/23/20 21:00 02/22/20 20:59 01/27/20 21:22 Zolpidem Tartrate (Ambien) 5 mg HSPRN PRN ORAL Insomnia 01/23/20 00:30 01/30/20 00:29 01/23/20 20:41 Chip Patel MD Jan 28, 2020 11:48
--- NOTE | 2020-01-28 12:31 | NUR ---
NURSE NOTES: Liver biopsy done yesterday 01/27/2020. Notified mini Goyal order to resume Eliquis 5mg BID. Order noted and carried out.
--- NOTE | 2020-01-28 13:32 | General Progress Note ---
Assessment/Plan Problem List: (1) Acute pancreatitis ICD Codes: K85.90 - Acute pancreatitis without necrosis or infection, unspecified SNOMED: 395682037 (2) Lung mass ICD Codes: R91.8 - Other nonspecific abnormal finding of lung field SNOMED: 918746773 (3) Right flank pain ICD Codes: R10.9 - Unspecified abdominal pain SNOMED: 613024284 (4) Rheumatoid arthritis ICD Codes: M06.9 - Rheumatoid arthritis, unspecified SNOMED: [id number] Status: unchanged Assessment/Plan: o2nc pain control advance diet ivf cbc bmp am Subjective Constitutional: Reports: weakness Allergies: Coded Allergies: IBUPROFEN (Verified Allergy, Mild, 10/05/09) CORTICOSTEROIDS (GLUCOCORTICOIDS) (Unverified Allergy, Unknown, 01/22/20) All Systems: reviewed and negative except above Subjective o2nc sleepy calm Objective Last 24 Hour Vital Signs Date Time Temp Pulse Resp B/P (MAP) Pulse Ox O2 Delivery O2 Flow Rate FiO2 01/28/20 12:00 98.6 79 19 157/86 (109) 95 01/28/20 09:00 98.1 77 19 140/77 (98) 92 01/28/20 09:00 Nasal Cannula 2.0 01/28/20 08:14 77 140/77 01/28/20 08:14 77 140/77 01/28/20 08:00 98.1 77 19 140/77 (98) 92 01/28/20 07:38 97 Nasal Cannula 2.0 28 01/28/20 06:34 146/79 01/28/20 04:00 97.8 90 19 146/79 (101) 96 01/28/20 00:00 98.1 86 18 143/88 (106) 96 01/27/20 21:21 144/71 01/27/20 21:21 95 144/71 01/27/20 20:10 Nasal Cannula 2.0 01/27/20 20:00 97.9 95 16 144/71 (95) 96 01/27/20 18:21 97.2 84 22 151/95 (113) 96 01/27/20 16:30 97.0 82 20 137/88 (104) 93 01/27/20 16:00 97.3 90 21 143/94 (110) 93 01/27/20 15:03 158/92 01/27/20 14:30 96.3 79 18 147/87 (107) 95 01/27/20 14:09 97.8 77 19 142/83 (102) 92 01/27/20 13:40 84 19 2.0 Intake and Output 01/27/20 01/28/20 19:00 07:00 Intake Total 640 ml 950.0 ml Output Total 500 ml Balance 640 ml 450.0 ml Intake Oral 240 ml 240 ml IV Total 400 ml 710.0 ml Output Urine Total 500 ml # Voids 3 1 Laboratory Tests 01/28/20 05:40: White Blood Count 12.9H, Red Blood Count 3.23L, Hemoglobin 9.5L, Hematocrit 30.0L, Mean Corpuscular Volume 93, Mean Corpuscular Hemoglobin 29.4, Mean Corpuscular Hemoglobin Concent 31.8L, Red Cell Distribution Width 16.1H, Platelet Count 361, Mean Platelet Volume 5.3L, Neutrophils (%) (Auto) , Lymphocytes (%) (Auto) , Monocytes (%) (Auto) , Eosinophils (%) (Auto) , Basophils (%) (Auto) , Sodium Level 134L, Potassium Level 3.3L, Chloride Level 100, Carbon Dioxide Level 25, Anion Gap 9, Blood Urea Nitrogen 7, Creatinine 0.5L, Estimat Glomerular Filtration Rate > 60, Glucose Level 133H, Calcium Level 10.7H, Total Bilirubin 0.2, Aspartate Amino Transf (AST/SGOT) 80H, Alanine Aminotransferase (ALT/SGPT) 18, Alkaline Phosphatase 72, Total Protein 7.6, Albumin 3.4, Globulin 4.2, Albumin/Globulin Ratio 0.8L, Amylase Level 685*H , Lipase > 2000H Height (Feet): 5 Height (Inches): 5.00 Weight (Pounds): 134 General Appearance: lethargic EENT: normal ENT inspection Neck: normal alignment Cardiovascular: normal peripheral pulses, normal rate, regular rhythm Respiratory/Chest: chest wall non-tender, lungs clear, normal breath sounds Abdomen: normal bowel sounds, non tender, soft Extremities: normal inspection Edema: no edema noted Arm (L), no edema noted Arm (R), no edema noted Leg (L), no edema noted Leg (R), no edema noted Pedal (L), no edema noted Pedal (R), no edema noted Generalized Neurologic: motor weakness Skin: normal pigmentation, warm/dry Nikko Butt DO Jan 28, 2020 13:32
--- NOTE | 2020-01-28 13:44 | General Progress Note ---
Assessment/Plan Assessment/Plan: (1) Abdominal Pain (2) Pancreatitis (3) Metastatic cancer/ Lung Mass (4) Lumbar DDD/ Spondylosis Patient to be continued on Dilaudid. D/w Dr. Cannon and he concurred. Subjective Date patient seen: Jan 28, 2020 Time patient seen: 01:00 - pm Allergies: Coded Allergies: IBUPROFEN (Verified Allergy, Mild, 10/05/09) CORTICOSTEROIDS (GLUCOCORTICOIDS) (Unverified Allergy, Unknown, 01/22/20) Subjective Constitutional: Reports: weakness HEENT: Reports: no symptoms Cardiovascular: Reports: no symptoms Respiratory: Reports: no symptoms Gastrointestinal/Abdominal: Reports: abdominal pain Genitourinary: Reports: no symptoms Neurologic/Psychiatric: Reports: no symptoms Endocrine: Reports: no symptoms Hematologic/Lymphatic: Reports: no symptoms Subjective Patient pain has been tolerated on the Dilaudid. Was advised to continue therapy. she has no new complaints at this time. Objective Last 24 Hour Vital Signs Date Time Temp Pulse Resp B/P (MAP) Pulse Ox O2 Delivery O2 Flow Rate FiO2 01/28/20 12:00 98.6 79 19 157/86 (109) 95 01/28/20 09:00 98.1 77 19 140/77 (98) 92 01/28/20 09:00 Nasal Cannula 2.0 01/28/20 08:14 77 140/77 01/28/20 08:14 77 140/77 01/28/20 08:00 98.1 77 19 140/77 (98) 92 01/28/20 07:38 97 Nasal Cannula 2.0 28 01/28/20 06:34 146/79 01/28/20 04:00 97.8 90 19 146/79 (101) 96 01/28/20 00:00 98.1 86 18 143/88 (106) 96 01/27/20 21:21 144/71 01/27/20 21:21 95 144/71 01/27/20 20:10 Nasal Cannula 2.0 01/27/20 20:00 97.9 95 16 144/71 (95) 96 01/27/20 18:21 97.2 84 22 151/95 (113) 96 01/27/20 16:30 97.0 82 20 137/88 (104) 93 01/27/20 16:00 97.3 90 21 143/94 (110) 93 01/27/20 15:03 158/92 01/27/20 14:30 96.3 79 18 147/87 (107) 95 01/27/20 14:09 97.8 77 19 142/83 (102) 92 Intake and Output 01/27/20 01/28/20 19:00 07:00 Intake Total 640 ml 950.0 ml Output Total 500 ml Balance 640 ml 450.0 ml Intake Oral 240 ml 240 ml IV Total 400 ml 710.0 ml Output Urine Total 500 ml # Voids 3 1 Laboratory Tests 01/28/20 05:40: White Blood Count 12.9H, Red Blood Count 3.23L, Hemoglobin 9.5L, Hematocrit 30.0L, Mean Corpuscular Volume 93, Mean Corpuscular Hemoglobin 29.4, Mean Corpuscular Hemoglobin Concent 31.8L, Red Cell Distribution Width 16.1H, Platelet Count 361, Mean Platelet Volume 5.3L, Neutrophils (%) (Auto) , Lymphocytes (%) (Auto) , Monocytes (%) (Auto) , Eosinophils (%) (Auto) , Basophils (%) (Auto) , Sodium Level 134L, Potassium Level 3.3L, Chloride Level 100, Carbon Dioxide Level 25, Anion Gap 9, Blood Urea Nitrogen 7, Creatinine 0.5L, Estimat Glomerular Filtration Rate > 60, Glucose Level 133H, Calcium Level 10.7H, Total Bilirubin 0.2, Aspartate Amino Transf (AST/SGOT) 80H, Alanine Aminotransferase (ALT/SGPT) 18, Alkaline Phosphatase 72, Total Protein 7.6, Albumin 3.4, Globulin 4.2, Albumin/Globulin Ratio 0.8L, Amylase Level 685*H , Lipase > 2000H Height (Feet): 5 Height (Inches): 5.00 Weight (Pounds): 134 Objective General Appearance: no apparent distress, alert EENT: PERRL/EOMI, normal ENT inspection Neck: non-tender, normal alignment Cardiovascular: normal rate, regular rhythm Respiratory/Chest: decreased breath sounds Abdomen: tender Extremities: non-tender Edema: moderate edema Neurologic: alert, oriented x 3 Skin: warm/dry David Boyd Jan 28, 2020 13:44
[2020-01-28] MEDS ORDERED: Naloxone 0.4mg/ml Inj IVP PRN (13:47)
--- NOTE | 2020-01-28 13:50 | General Progress Note ---
Assessment/Plan Problem List: (1) Metastatic disease ICD Codes: C79.9 - Secondary malignant neoplasm of unspecified site SNOMED: 002263782 (2) Right flank pain ICD Codes: R10.9 - Unspecified abdominal pain SNOMED: 833252760 (3) Lung mass ICD Codes: R91.8 - Other nonspecific abnormal finding of lung field SNOMED: 576016909 (4) Acute pancreatitis ICD Codes: K85.90 - Acute pancreatitis without necrosis or infection, unspecified SNOMED: 086316287 (5) Rheumatoid arthritis ICD Codes: M06.9 - Rheumatoid arthritis, unspecified SNOMED: 79562521 (6) Diverticulosis ICD Codes: K57.90 - Diverticulosis of intestine, part unspecified, without perforation or abscess without bleeding SNOMED: 429994498 Assessment/Plan: IVF repeat labs bowel regimen CT reviewed not a good candidate for TPN given metastatic cancer add creon zofran will fu Subjective ROS Limited/Unobtainable: Yes Allergies: Coded Allergies: IBUPROFEN (Verified Allergy, Mild, 10/05/09) CORTICOSTEROIDS (GLUCOCORTICOIDS) (Unverified Allergy, Unknown, 01/22/20) Subjective c/o abd pain + Flatus no bm Objective Last 24 Hour Vital Signs Date Time Temp Pulse Resp B/P (MAP) Pulse Ox O2 Delivery O2 Flow Rate FiO2 01/28/20 12:00 98.6 79 19 157/86 (109) 95 01/28/20 09:00 98.1 77 19 140/77 (98) 92 01/28/20 09:00 Nasal Cannula 2.0 01/28/20 08:14 77 140/77 01/28/20 08:14 77 140/77 01/28/20 08:00 98.1 77 19 140/77 (98) 92 01/28/20 07:38 97 Nasal Cannula 2.0 28 01/28/20 06:34 146/79 01/28/20 04:00 97.8 90 19 146/79 (101) 96 01/28/20 00:00 98.1 86 18 143/88 (106) 96 01/27/20 21:21 144/71 01/27/20 21:21 95 144/71 01/27/20 20:10 Nasal Cannula 2.0 01/27/20 20:00 97.9 95 16 144/71 (95) 96 01/27/20 18:21 97.2 84 22 151/95 (113) 96 01/27/20 16:30 97.0 82 20 137/88 (104) 93 01/27/20 16:00 97.3 90 21 143/94 (110) 93 01/27/20 15:03 158/92 01/27/20 14:30 96.3 79 18 147/87 (107) 95 01/27/20 14:09 97.8 77 19 142/83 (102) 92 Intake and Output 01/27/20 01/28/20 19:00 07:00 Intake Total 640 ml 950.0 ml Output Total 500 ml Balance 640 ml 450.0 ml Intake Oral 240 ml 240 ml IV Total 400 ml 710.0 ml Output Urine Total 500 ml # Voids 3 1 Laboratory Tests 01/28/20 05:40: White Blood Count 12.9H, Red Blood Count 3.23L, Hemoglobin 9.5L, Hematocrit 30.0L, Mean Corpuscular Volume 93, Mean Corpuscular Hemoglobin 29.4, Mean Corpuscular Hemoglobin Concent 31.8L, Red Cell Distribution Width 16.1H, Platelet Count 361, Mean Platelet Volume 5.3L, Neutrophils (%) (Auto) , Lymphocytes (%) (Auto) , Monocytes (%) (Auto) , Eosinophils (%) (Auto) , Basophils (%) (Auto) , Sodium Level 134L, Potassium Level 3.3L, Chloride Level 100, Carbon Dioxide Level 25, Anion Gap 9, Blood Urea Nitrogen 7, Creatinine 0.5L, Estimat Glomerular Filtration Rate > 60, Glucose Level 133H, Calcium Level 10.7H, Total Bilirubin 0.2, Aspartate Amino Transf (AST/SGOT) 80H, Alanine Aminotransferase (ALT/SGPT) 18, Alkaline Phosphatase 72, Total Protein 7.6, Albumin 3.4, Globulin 4.2, Albumin/Globulin Ratio 0.8L, Amylase Level 685*H , Lipase > 2000H Height (Feet): 5 Height (Inches): 5.00 Weight (Pounds): 134 General Appearance: lethargic EENT: normal ENT inspection Neck: supple Cardiovascular: normal rate Respiratory/Chest: decreased breath sounds Abdomen: hypoactive bowel sounds, tender Extremities: non-tender Irving Lopez MD Jan 28, 2020 13:50
--- NOTE | 2020-01-28 15:27 | NUR ---
CHARGE NURSE NOTE: Spoke with pt's brother Thom Marquez. He is in the process of doing POA. Pt agreed to share information with him. Pt's brother wants to talk to and . Both drs notified,brother's phone number given to the doctors.
--- NOTE | 2020-01-28 15:57 | NUR ---
DISCHARGE PLANNING: NOTE DC ORDER NOTED REFERRAL SENT TO [facility] T: [phone]/F; [phone]
--- NOTE | 2020-01-28 17:38 | Pulmonology Progress Note ---
Subjective ROS Limited/Unobtainable: Yes Interval Events: None new Constitutional: Denies: fever HEENT: Repors: no symptoms Respiratory: Reports: dry cough Cardiovascular: Reports: no symptoms Gastrointestinal/Abdominal: Denies: nausea, vomiting, diarrhea Genitourinary: Reports: no symptoms Musculoskeletal: Reports: pain - abdominal Allergies: Coded Allergies: IBUPROFEN (Verified Allergy, Mild, 10/05/09) CORTICOSTEROIDS (GLUCOCORTICOIDS) (Unverified Allergy, Unknown, 01/22/20) All Systems: reviewed and negative except above Objective Last 24 Hour Vital Signs Date Time Temp Pulse Resp B/P (MAP) Pulse Ox O2 Delivery O2 Flow Rate FiO2 01/28/20 16:00 98.8 89 19 144/73 (96) 93 01/28/20 14:11 140/76 01/28/20 12:00 98.6 79 19 157/86 (109) 95 01/28/20 09:00 98.1 77 19 140/77 (98) 92 01/28/20 09:00 Nasal Cannula 2.0 01/28/20 08:14 77 140/77 01/28/20 08:14 77 140/77 01/28/20 08:00 98.1 77 19 140/77 (98) 92 01/28/20 07:38 97 Nasal Cannula 2.0 28 01/28/20 06:34 146/79 01/28/20 04:00 97.8 90 19 146/79 (101) 96 01/28/20 00:00 98.1 86 18 143/88 (106) 96 01/27/20 21:21 144/71 01/27/20 21:21 95 144/71 01/27/20 20:10 Nasal Cannula 2.0 01/27/20 20:00 97.9 95 16 144/71 (95) 96 01/27/20 18:21 97.2 84 22 151/95 (113) 96 Intake and Output 01/27/20 01/28/20 19:00 07:00 Intake Total 640 ml 950.0 ml Output Total 500 ml Balance 640 ml 450.0 ml Intake Oral 240 ml 240 ml IV Total 400 ml 710.0 ml Output Urine Total 500 ml # Voids 3 1 General Appearance: no acute distress HEENT: normocephalic Respiratory: chest wall non-tender, decreased breath sounds Cardiovascular: normal rate Abdomen: normal bowel sounds Laboratory Tests 01/28/20 05:40: White Blood Count 12.9H, Red Blood Count 3.23L, Hemoglobin 9.5L, Hematocrit 30.0L, Mean Corpuscular Volume 93, Mean Corpuscular Hemoglobin 29.4, Mean Corpuscular Hemoglobin Concent 31.8L, Red Cell Distribution Width 16.1H, Platelet Count 361, Mean Platelet Volume 5.3L, Neutrophils (%) (Auto) , Lymphocytes (%) (Auto) , Monocytes (%) (Auto) , Eosinophils (%) (Auto) , Basophils (%) (Auto) , Sodium Level 134L, Potassium Level 3.3L, Chloride Level 100, Carbon Dioxide Level 25, Anion Gap 9, Blood Urea Nitrogen 7, Creatinine 0.5L, Estimat Glomerular Filtration Rate > 60, Glucose Level 133H, Calcium Level 10.7H, Total Bilirubin 0.2, Aspartate Amino Transf (AST/SGOT) 80H, Alanine Aminotransferase (ALT/SGPT) 18, Alkaline Phosphatase 72, Total Protein 7.6, Albumin 3.4, Globulin 4.2, Albumin/Globulin Ratio 0.8L, Amylase Level 685*H , Lipase > 2000H Current Medications Medications (Trade) Dose Ordered Sig/Kina Route PRN Reason Start Time Stop Time Status Last Admin Dose Admin Acetaminophen (Tylenol) 650 mg Q6H PRN ORAL Pain Scale (3-5) 01/22/20 17:45 02/21/20 17:44 01/23/20 20:43 Amlodipine Besylate (Norvasc) 5 mg DAILY ORAL 01/23/20 09:00 02/22/20 08:59 01/28/20 08:14 Amylase/Lipase/ Protease (Zenpep) 2 ea THREE TIMES A DAY ORAL 01/28/20 18:00 04/27/20 17:59 Apixaban (Eliquis) 5 mg BID ORAL 01/28/20 18:00 04/27/20 17:59 Barium Sulfate (Readi-Cat 2) 450 ml NOW PRN ORAL Radiology Procedure 01/27/20 09:00 01/29/20 08:51 Bisacodyl (Dulcolax) 10 mg DAILY ORAL 01/23/20 09:00 04/22/20 08:59 01/28/20 08:14 Carisoprodol (Soma) 350 mg Q8HR ORAL 01/22/20 18:30 02/21/20 18:29 01/28/20 14:10 Dextrose/ Electrolytes 1,000 ml @ 100 mls/hr Q10H IV 01/23/20 09:30 02/22/20 09:29 01/28/20 09:30 Docusate Sodium (Colace) 100 mg TWICE A DAY ORAL 01/22/20 18:00 02/21/20 17:59 01/28/20 08:14 Duloxetine HCl (Cymbalta) 90 mg DAILY ORAL 01/26/20 09:00 04/22/20 08:59 01/28/20 08:14 Famotidine (Pepcid) 20 mg TWICE A DAY ORAL 01/22/20 18:35 04/21/20 18:34 01/28/20 08:14 Hydralazine HCl (Apresoline) 50 mg Q8HR ORAL 01/23/20 14:00 04/21/20 21:59 01/28/20 14:11 Hydromorphone HCl (Dilaudid) 1 mg Q3H PRN IVP Severe Pain (Pain Scale 7-10) 01/27/20 08:16 02/03/20 08:15 01/28/20 12:37 Iohexol (OMNIPAQUE-300 100ml) 100 ml NOW PRN INJ Radiology Procedure 01/27/20 09:00 01/29/20 08:51 Lidocaine (Lidoderm 5% PATCH) 1 patch DAILY TDERMAL 01/23/20 09:00 04/22/20 08:59 01/28/20 08:15 Lidocaine HCl (Xylocaine 1% 30ml) 30 ml ONCE INJ 01/27/20 08:45 01/28/20 18:00 Magnesium Hydroxide (Mom) 30 ml DAILYPRN PRN ORAL Constipation 01/22/20 17:45 02/21/20 17:44 Metoclopramide HCl (Reglan) 10 mg Q6H PRN IVP Nausea & Vomiting 01/24/20 10:00 02/23/20 09:59 01/24/20 16:40 Metoprolol Tartrate (Lopressor) 50 mg EVERY 12 HOURS ORAL 01/22/20 21:00 04/21/20 20:59 01/28/20 08:14 Naloxone HCl (Narcan) 0.2 mg Q2M PRN IVP RESPRITORY DEPRESSION 01/28/20 13:47 04/27/20 13:46 Ondansetron HCl (Zofran) 4 mg Q4H PRN IVP Nausea & Vomiting 01/23/20 15:15 02/22/20 15:14 01/26/20 10:59 Pantoprazole (Protonix) 40 mg DAILY ORAL 01/23/20 09:00 02/22/20 08:59 01/28/20 08:14 Piperacillin Sod/ Tazobactam Sod 3.375 gm/Sodium Chloride 110 ml @ 27.5 mls/hr EVERY 8 HOURS IVPB 01/23/20 14:00 01/28/20 23:59 01/28/20 14:10 Polyethylene Glycol (Miralax) 17 gm BEDTIME ORAL 01/23/20 21:00 02/22/20 20:59 01/27/20 21:22 Zolpidem Tartrate (Ambien) 5 mg HSPRN PRN ORAL Insomnia 01/23/20 00:30 01/30/20 00:29 01/23/20 20:41 Assessment/Plan Assessment/Plan IMPRESSION: 1. Large lung mass. 2. COPD. 3. History of spinal stenosis. 4. Multiple metastases DISCUSSION: The patient has a history of lung cancer per GI; however patient declines any knowledge. Discussed with oncology S/p CT guided liver biopsy. I will follow. Saturating well on 2L/min O2 OK to dc and arrange outpt followup Reymundo Vázquez MD Jan 28, 2020 17:38
--- NOTE | 2020-01-28 17:38 | NUR ---
NURSE NOTES: health information managers requested rapid covid test for placement/transfer. Notified Dr. Butt. Awaiting further orders from Dr. Butt regarding rapid covid test.
[2020-01-28] MEDS ORDERED: Pancrelipase Dr Cap ORAL SCH (18:00)
[2020-01-28] MEDS: Eliquis 5mg tablet ORAL SCH (18:04)
--- NOTE | 2020-01-28 19:11 | NUR ---
NURSE HAND-OFF: Important Events on Shift: monitor pain. diarrhea. Patient Status: vs stable but weak Diet: regular Pending Orders: n/a Pending Results/Labs:covid 19, c-diff Pending MD notification:n/a Latest Vital Signs: Temperature 98.8 , Pulse 89 , B/P 144 /73 , Respiratory Rate 19 , O2 SAT 93 , Nasal Cannula, O2 Flow Rate 2.0 . Vital Sign Comment: stable Latest Guido Fall Score: 45 Fall Risk: High Risk Safety Measures: Call light Within Reach, Bed Alarm Zone 1, Side Rails Side Rails x2, Bed position Low and Locked. Fall Precautions: Patient Fall Education Report given to SHAN Cooley.
--- NOTE | 2020-01-28 19:28 | NUR ---
NURSE NOTES: Received report from glenis RN. patient is on bed awake. on NC of 2lpm. no sob. with iv line on the left forearm runing d5 1/2 ns + 20 meq @ 100ml. on purewick. per leeanna" patient is pending for transfer to [facility]; patient had x2 loose stool c diff stool collected and rapid test covid done". bed locked and in lowest position. call light and light button within easy reach. will continue plan of care Addendum: 01/28/20 at 2338 by Tomasa Escalera RN per fredy," the family refused to get d/c to [facility] and prefers to transfer to [facility]. pending transfer
[2020-01-28] MEDS: Miralax 17gm pkt ORAL SCH (20:55)
[2020-01-29] VITALS: BP 144/81
--- NOTE | 2020-01-29 | NUR ---
NURSE NOTES: PATIENT IS ASLEEP.NO SOB. PROVIDED REST AND COMFORT.
[2020-01-29] MEDS: HYDROmorphone 1mg/ml Carpuject IVP PRN ×5 (01:08→22:12)
[2020-01-29 04:00] VITALS: BP 144/84
[2020-01-29] MEDS: HydrALAZINE 50mg tab ORAL SCH ×3 (05:45→21:08)
[2020-01-29] MEDS: D5 1/2NS w/KCl 20mEq 1,000 ML IV SCH ×2 (05:46→15:46)
--- NOTE | 2020-01-29 06:00 | NUR ---
NURSE NOTES: md wynn is aware regarding the negative result for rapid covid 19. charge nurse made aware
[2020-01-29 06:05] LABS: HEMATOCRIT 30.9 % (37.0-47.0); HEMOGLOBIN 9.8 G/DL (12.0-16.0); LYMPHOCYTES % (AUTO) 10.2 % (20.0-45.0); MEAN CORPUSCULAR VOLUME 90 FL (80-99); MONOCYTES % (AUTO) 5.9 % (1.0-10.0); NEUTROPHILS % (AUTO) 82.9 % (45.0-75.0); PLATELET COUNT 402 K/UL (150-450); RED BLOOD COUNT 3.41 M/UL (4.20-5.40); RED CELL DISTRIBUTION WIDTH 15.4 % (11.6-14.8); WHITE BLOOD COUNT 13.2 K/UL (4.8-10.8)
[2020-01-29 06:34] LABS: ALANINE AMINOTRANSFERASE 17 U/L (12-78); ALBUMIN 3.4 G/DL (3.4-5.0); ALBUMIN/GLOBULIN RATIO 0.8 (1.0-2.7); ALKALINE PHOSPHATASE 67 U/L (46-116); ANION GAP 10 mmol/L (5-15); ASPARTATE AMINO TRANSFERASE 78 U/L (15-37); BILIRUBIN,TOTAL 0.2 MG/DL (0.2-1.0); BLOOD UREA NITROGEN 5 mg/dL (7-18); CALCIUM 10.2 MG/DL (8.5-10.1); CARBON DIOXIDE 27 MMOL/L (21-32); CHLORIDE 99 MMOL/L (98-107); CREATININE 0.5 MG/DL (0.55-1.30); SODIUM 136 MMOL/L (136-145)
--- NOTE | 2020-01-29 06:35 | Hematology/Onc Progress Note ---
Assessment/Plan Assessment/Plan #. Stage IV -- Lung masses, Metastatic. --> Targeted ultrasound-guided biopsy of right lobe liver lesion, as described. Final pathology pending --> dw path, report is pending --> CT does show Multiple low-attenuation liver masses, most likely metastatic deposits, also previously reported Multiple osseous lesions, also previously reported, likely metastatic deposits --> tumor markers ordered --> given current bedbound status, will eval if qualifies for treatment, at this time wants to transfer to [facility] --> have discussed with patient and with family #. Anemia rule out gi bleed --> anemia panel has been ordered --> ferritin in prior was low --> per gi recs #. Hypertension. --> on BP meds and cards on case #. History of cervical stenosis and pain. The time of the note does not reflect the time the patient was seen Subjective Constitutional: Denies: no symptoms, chills, fever, malaise, weakness, other HEENT: Denies: no symptoms, eye pain, blurred vision, tearing, double vision, ear pain, ear discharge, nose pain, nose congestion, throat pain, throat swelling, mouth pain, mouth swelling, other Cardiovascular: Denies: no symptoms, chest pain, edema, irregular heart rate, lightheadedness, palpitations, syncope, other Respiratory: Denies: no symptoms, cough, shortness of breath, SOB with excertion, SOB at rest, sputum, wheezing, other Gastrointestinal/Abdominal: Denies: no symptoms, abdomen distended, abdominal pain, black stools, tarry stools, blood in stool, constipated, diarrhea, difficulty swallowing, nausea, poor appetite, poor fluid intake, rectal bleeding , vomiting, other Genitourinary: Denies: no symptoms, burning, discharge, frequency, flank pain, hematuria, incontinence, pain, urgency, other Neurologic/Psychiatric: Denies: no symptoms, anxiety, depressed, emotional problems, headache, numbness, paresthesia, pre-existing deficit, seizure, tingling, tremors, weakness, other Endocrine: Denies: no symptoms, excessive sweating, flushing, intolerance to cold, intolerance to heat, increased hunger, increased thirst, increased urine, unexplained weight gain, unexplained weight loss, other Allergies: Coded Allergies: IBUPROFEN (Verified Allergy, Mild, 10/05/09) CORTICOSTEROIDS (GLUCOCORTICOIDS) (Unverified Allergy, Unknown, 01/22/20) Subjective 01/27 spoke to patient's mother regArding plan of care 01/28 very confused int he am, due to sedatives, pending transfer to [facility] Objective Objective Current Medications Medications (Trade) Dose Ordered Sig/Kina Route PRN Reason Start Time Stop Time Status Last Admin Dose Admin Acetaminophen (Tylenol) 650 mg Q6H PRN ORAL Pain Scale (3-5) 01/22/20 17:45 02/21/20 17:44 01/23/20 20:43 Amlodipine Besylate (Norvasc) 5 mg DAILY ORAL 01/23/20 09:00 02/22/20 08:59 01/28/20 08:14 Amylase/Lipase/ Protease (Zenpep) 2 ea THREE TIMES A DAY ORAL 01/28/20 18:00 04/27/20 17:59 01/28/20 18:04 Apixaban (Eliquis) 5 mg BID ORAL 01/28/20 18:00 04/27/20 17:59 01/28/20 18:04 Barium Sulfate (Readi-Cat 2) 450 ml NOW PRN ORAL Radiology Procedure 01/27/20 09:00 01/29/20 08:51 Bisacodyl (Dulcolax) 10 mg DAILY ORAL 01/23/20 09:00 04/22/20 08:59 01/28/20 08:14 Carisoprodol (Soma) 350 mg Q8HR ORAL 01/22/20 18:30 02/21/20 18:29 01/29/20 05:46 Dextrose/ Electrolytes 1,000 ml @ 100 mls/hr Q10H IV 01/23/20 09:30 02/22/20 09:29 01/29/20 05:46 Docusate Sodium (Colace) 100 mg TWICE A DAY ORAL 01/22/20 18:00 02/21/20 17:59 01/28/20 08:14 Duloxetine HCl (Cymbalta) 90 mg DAILY ORAL 01/26/20 09:00 04/22/20 08:59 01/28/20 08:14 Famotidine (Pepcid) 20 mg TWICE A DAY ORAL 01/22/20 18:35 04/21/20 18:34 01/28/20 18:04 Hydralazine HCl (Apresoline) 50 mg Q8HR ORAL 01/23/20 14:00 04/21/20 21:59 01/29/20 05:45 Hydromorphone HCl (Dilaudid) 1 mg Q3H PRN IVP Severe Pain (Pain Scale 7-10) 01/27/20 08:16 02/03/20 08:15 01/29/20 04:44 Iohexol (OMNIPAQUE-300 100ml) 100 ml NOW PRN INJ Radiology Procedure 01/27/20 09:00 01/29/20 08:51 Lidocaine (Lidoderm 5% PATCH) 1 patch DAILY TDERMAL 01/23/20 09:00 04/22/20 08:59 01/28/20 08:15 Magnesium Hydroxide (Mom) 30 ml DAILYPRN PRN ORAL Constipation 01/22/20 17:45 02/21/20 17:44 Metoclopramide HCl (Reglan) 10 mg Q6H PRN IVP Nausea & Vomiting 01/24/20 10:00 02/23/20 09:59 01/24/20 16:40 Metoprolol Tartrate (Lopressor) 50 mg EVERY 12 HOURS ORAL 01/22/20 21:00 04/21/20 20:59 01/28/20 20:55 Naloxone HCl (Narcan) 0.2 mg Q2M PRN IVP RESPRITORY DEPRESSION 01/28/20 13:47 04/27/20 13:46 Ondansetron HCl (Zofran) 4 mg Q4H PRN IVP Nausea & Vomiting 01/23/20 15:15 02/22/20 15:14 01/26/20 10:59 Pantoprazole (Protonix) 40 mg DAILY ORAL 01/23/20 09:00 02/22/20 08:59 01/28/20 08:14 Polyethylene Glycol (Miralax) 17 gm BEDTIME ORAL 01/23/20 21:00 02/22/20 20:59 01/27/20 21:22 Zolpidem Tartrate (Ambien) 5 mg HSPRN PRN ORAL Insomnia 01/23/20 00:30 01/30/20 00:29 01/23/20 20:41 Last 24 Hour Vital Signs Date Time Temp Pulse Resp B/P (MAP) Pulse Ox O2 Delivery O2 Flow Rate FiO2 01/29/20 06:16 98.2 01/29/20 05:45 154/84 01/29/20 05:14 98.2 01/29/20 04:00 98.2 75 20 144/84 (104) 93 01/29/20 00:00 96.3 83 20 144/81 (102) 93 01/28/20 22:39 147/76 01/28/20 21:00 Nasal Cannula 2.0 01/28/20 20:55 79 143/72 01/28/20 20:03 95 Nasal Cannula 2.0 28 01/28/20 20:00 97.9 79 20 143/73 (96) 94 01/28/20 17:41 Nasal Cannula 2.0 01/28/20 16:00 98.8 89 19 144/73 (96) 93 01/28/20 14:11 140/76 01/28/20 12:00 98.6 79 19 157/86 (109) 95 01/28/20 09:00 98.1 77 19 140/77 (98) 92 01/28/20 09:00 Nasal Cannula 2.0 01/28/20 08:14 77 140/77 01/28/20 08:14 77 140/77 01/28/20 08:00 98.1 77 19 140/77 (98) 92 01/28/20 07:38 97 Nasal Cannula 2.0 28 01/28/20 06:34 146/79 01/28/20 04:00 97.8 90 19 146/79 (101) 96 01/28/20 00:00 98.1 86 18 143/88 (106) 96 01/27/20 21:21 144/71 01/27/20 21:21 95 144/71 01/27/20 20:10 Nasal Cannula 2.0 01/27/20 20:00 97.9 95 16 144/71 (95) 96 01/27/20 18:21 97.2 84 22 151/95 (113) 96 01/27/20 16:30 97.0 82 20 137/88 (104) 93 01/27/20 16:00 97.3 90 21 143/94 (110) 93 01/27/20 15:03 158/92 01/27/20 14:30 96.3 79 18 147/87 (107) 95 01/27/20 14:09 97.8 77 19 142/83 (102) 92 01/27/20 13:40 84 19 2.0 01/27/20 12:00 97.3 86 19 140/84 (102) 95 01/27/20 09:00 Nasal Cannula 2.0 01/27/20 08:51 82 144/90 01/27/20 08:51 82 144/90 01/27/20 08:00 96.8 82 17 144/90 (108) 95 Intake and Output 01/28/20 01/29/20 19:00 07:00 Intake Total 1415.0 ml 900 ml Output Total 950 ml Balance 1415.0 ml -50 ml Intake Oral 100 ml IV Total 965.0 ml 800 ml Other 450 ml Output Urine Total 950 ml # Bowel Movements 1 Labs Test 01/27/20 05:36 01/27/20 10:37 01/28/20 05:40 01/29/20 04:50 White Blood Count 12.2 K/UL (4.8-10.8) 12.9 K/UL (4.8-10.8) 13.2 K/UL (4.8-10.8) Red Blood Count 3.72 M/UL (4.20-5.40) 3.23 M/UL (4.20-5.40) 3.41 M/UL (4.20-5.40) Hemoglobin 10.8 G/DL (12.0-16.0) 9.5 G/DL (12.0-16.0) 9.8 G/DL (12.0-16.0) Hematocrit 34.1 % (37.0-47.0) 30.0 % (37.0-47.0) 30.9 % (37.0-47.0) Mean Corpuscular Volume 92 FL (80-99) 93 FL (80-99) 90 FL (80-99) Mean Corpuscular Hemoglobin 29.0 PG (27.0-31.0) 29.4 PG (27.0-31.0) 28.8 PG (27.0-31.0) Mean Corpuscular Hemoglobin Concent 31.6 G/DL (32.0-36.0) 31.8 G/DL (32.0-36.0) 31.8 G/DL (32.0-36.0) Red Cell Distribution Width 15.1 % (11.6-14.8) 16.1 % (11.6-14.8) 15.4 % (11.6-14.8) Platelet Count 468 K/UL (150-450) 361 K/UL (150-450) 402 K/UL (150-450) Mean Platelet Volume 5.4 FL (6.5-10.1) 5.3 FL (6.5-10.1) 5.2 FL (6.5-10.1) Neutrophils (%) (Auto) % (45.0-75.0) % (45.0-75.0) 82.9 % (45.0-75.0) Lymphocytes (%) (Auto) % (20.0-45.0) % (20.0-45.0) 10.2 % (20.0-45.0) Monocytes (%) (Auto) % (1.0-10.0) % (1.0-10.0) 5.9 % (1.0-10.0) Eosinophils (%) (Auto) % (0.0-3.0) % (0.0-3.0) 0.0 % (0.0-3.0) Basophils (%) (Auto) % (0.0-2.0) % (0.0-2.0) 1.0 % (0.0-2.0) Differential Total Cells Counted 100 Neutrophils % (Manual) 86 % (45-75) Lymphocytes % (Manual) 11 % (20-45) Monocytes % (Manual) 3 % (1-10) Eosinophils % (Manual) 0 % (0-3) Basophils % (Manual) 0 % (0-2) Band Neutrophils 0 % (0-8) Platelet Estimate Increased Platelet Morphology Normal Anisocytosis 1+ Sodium Level 135 MMOL/L (136-145) 134 MMOL/L (136-145) Potassium Level 3.3 MMOL/L (3.5-5.1) 3.3 MMOL/L (3.5-5.1) Chloride Level 98 MMOL/L (98-107) 100 MMOL/L (98-107) Carbon Dioxide Level 27 MMOL/L (21-32) 25 MMOL/L (21-32) Anion Gap 10 mmol/L (5-15) 9 mmol/L (5-15) Blood Urea Nitrogen 7 mg/dL (7-18) 7 mg/dL (7-18) Creatinine 0.6 MG/DL (0.55-1.30) 0.5 MG/DL (0.55-1.30) Estimat Glomerular Filtration Rate > 60 mL/min (>60) > 60 mL/min (>60) Glucose Level 134 MG/DL (74-106) 133 MG/DL (74-106) Calcium Level 10.6 MG/DL (8.5-10.1) 10.7 MG/DL (8.5-10.1) Amylase Level 441 U/L (25-115) 685 U/L (25-115) Lipase > 2000 U/L (73-393) > 2000 U/L (73-393) Prothrombin Time 13.0 SEC (9.30-11.50) Prothromb Time International Ratio 1.2 (0.9-1.1) Activated Partial Thromboplast Time 29 SEC (23-33) Total Bilirubin 0.2 MG/DL (0.2-1.0) Aspartate Amino Transf (AST/SGOT) 80 U/L (15-37) Alanine Aminotransferase (ALT/SGPT) 18 U/L (12-78) Alkaline Phosphatase 72 U/L (46-116) Total Protein 7.6 G/DL (6.4-8.2) Albumin 3.4 G/DL (3.4-5.0) Globulin 4.2 g/dL Albumin/Globulin Ratio 0.8 (1.0-2.7) Micro Microbiology Date/Time Source Procedure Growth Status 01/28/20 18:30 Nasopharynx SARS-CoV-2 RdRp Gene Assay - Final Complete 01/28/20 18:52 Stool Clostridium difficile Toxin Assay - Final Complete Height (Feet): 5 Height (Inches): 5.00 Weight (Pounds): 134 General Appearance: alert Neck: normal alignment Cardiovascular: regular rhythm Respiratory/Chest: normal breath sounds Abdomen: soft Extremities: non-tender Jim Cobb MD Jan 29, 2020 06:35
--- NOTE | 2020-01-29 06:37 | NUR ---
NURSE HAND-OFF: Important Events on Shift:PAIN MNGT Patient Status:STABLE Diet:REGULAR DIET MECH SOFT CHOPPED Pending Orders: Pending Results/Labs:PENDING Pending MD notification: Latest Vital Signs: Temperature 98.2 , Pulse 75 , B/P 154 /84 , Respiratory Rate 20 , O2 SAT 93 , Nasal Cannula, O2 Flow Rate 2.0 . Vital Sign Comment: Latest Guido Fall Score: 45 Fall Risk: High Risk Safety Measures: Call light Within Reach, Bed Alarm Zone 1, Side Rails Side Rails x2, Bed position Low and Locked. Fall Precautions: Patient Fall Education Addendum: 01/29/20 at 0717 by Tomasa Escalera RN HAND-OFF: Report given to fredy TORREZ, AND SHAN LANGFORD.
[2020-01-29 06:39] LABS: AMYLASE 350 U/L (25-115)
--- NOTE | 2020-01-29 06:56 | General Progress Note ---
Assessment/Plan Problem List: (1) Metastatic disease ICD Codes: C79.9 - Secondary malignant neoplasm of unspecified site SNOMED: 500998473 (2) Right flank pain ICD Codes: R10.9 - Unspecified abdominal pain SNOMED: 756592538 (3) Lung mass ICD Codes: R91.8 - Other nonspecific abnormal finding of lung field SNOMED: 904893170 (4) Acute pancreatitis ICD Codes: K85.90 - Acute pancreatitis without necrosis or infection, unspecified SNOMED: 043182652 (5) Rheumatoid arthritis ICD Codes: M06.9 - Rheumatoid arthritis, unspecified SNOMED: 47749899 (6) Diverticulosis ICD Codes: K57.90 - Diverticulosis of intestine, part unspecified, without perforation or abscess without bleeding SNOMED: 856522717 Assessment/Plan: IVF repeat labs bowel regimen CT reviewed not a good candidate for TPN given metastatic cancer increase creon to 9 tabs per day zofran will fu Subjective ROS Limited/Unobtainable: Yes Allergies: Coded Allergies: IBUPROFEN (Verified Allergy, Mild, 10/05/09) CORTICOSTEROIDS (GLUCOCORTICOIDS) (Unverified Allergy, Unknown, 01/22/20) Subjective c/o abd pain + Flatus no bm Objective Last 24 Hour Vital Signs Date Time Temp Pulse Resp B/P (MAP) Pulse Ox O2 Delivery O2 Flow Rate FiO2 01/29/20 06:16 98.2 01/29/20 05:45 154/84 01/29/20 05:14 98.2 01/29/20 04:00 98.2 75 20 144/84 (104) 93 01/29/20 00:00 96.3 83 20 144/81 (102) 93 01/28/20 22:39 147/76 01/28/20 21:00 Nasal Cannula 2.0 01/28/20 20:55 79 143/72 01/28/20 20:03 95 Nasal Cannula 2.0 28 01/28/20 20:00 97.9 79 20 143/73 (96) 94 01/28/20 17:41 Nasal Cannula 2.0 01/28/20 16:00 98.8 89 19 144/73 (96) 93 01/28/20 14:11 140/76 01/28/20 12:00 98.6 79 19 157/86 (109) 95 01/28/20 09:00 98.1 77 19 140/77 (98) 92 01/28/20 09:00 Nasal Cannula 2.0 01/28/20 08:14 77 140/77 01/28/20 08:14 77 140/77 01/28/20 08:00 98.1 77 19 140/77 (98) 92 01/28/20 07:38 97 Nasal Cannula 2.0 28 Intake and Output 01/28/20 01/29/20 19:00 07:00 Intake Total 1415.0 ml 900 ml Output Total 950 ml Balance 1415.0 ml -50 ml Intake Oral 100 ml IV Total 965.0 ml 800 ml Other 450 ml Output Urine Total 950 ml # Bowel Movements 1 Laboratory Tests 01/29/20 04:50: White Blood Count 13.2H, Red Blood Count 3.41L, Hemoglobin 9.8L, Hematocrit 30.9L, Mean Corpuscular Volume 90, Mean Corpuscular Hemoglobin 28.8, Mean Corpuscular Hemoglobin Concent 31.8L, Red Cell Distribution Width 15.4H, Platelet Count 402, Mean Platelet Volume 5.2L, Neutrophils (%) (Auto) 82.9H, Lymphocytes (%) (Auto) 10.2L, Monocytes (%) (Auto) 5.9, Eosinophils (%) (Auto) 0.0, Basophils (%) (Auto) 1.0, Sodium Level 136, Potassium Level 3.0L, Chloride Level 99, Carbon Dioxide Level 27, Anion Gap 10, Blood Urea Nitrogen 5L, Creatinine 0.5L, Estimat Glomerular Filtration Rate > 60, Glucose Level 143H, Calcium Level 10.2H, Iron Level [Pending], Unsaturated Iron Binding [Pending], Ferritin [Pending], Total Bilirubin 0.2, Aspartate Amino Transf (AST/SGOT) 78H, Alanine Aminotransferase (ALT/SGPT) 17, Alkaline Phosphatase 67, Total Protein 7.5, Albumin 3.4, Globulin 4.1, Albumin/Globulin Ratio 0.8L, Amylase Level 350H , Lipase > 2000H Height (Feet): 5 Height (Inches): 5.00 Weight (Pounds): 134 General Appearance: alert EENT: normal ENT inspection Neck: supple Cardiovascular: normal rate Respiratory/Chest: decreased breath sounds Abdomen: hypoactive bowel sounds, tender Extremities: non-tender Vosoghi,Irving MD Jan 29, 2020 06:56
[2020-01-29 07:09] LABS: FERRITIN 29 NG/ML (8-388)
[2020-01-29 07:21] LABS: % IRON SATURATION 11 % (15-50); IRON 32 ug/dL (50-175); TOTAL IRON BINDING CAPACITY 287 ug/dL (250-450)
--- NOTE | 2020-01-29 07:25 | NUR ---
NURSE NOTES: Report received from HSAN Cooley. Patient seen dozing off but arousable to name. Alert, awake, and oriented x1. Currently on 2L via NC. No s/sx of SOB/Distress, no signs of any pain or discomfort at the moment. IV site located on left fore arm gauge 22 running D51/2 NS + KCL 20mEq at 100ml/hr. Inplace, intact, and asymptomatic. No signs of any swelling, warmth or discoloration at site. Patient's bed placed on lowest position and locked, call light placed within reach and will continue to monitor.
[2020-01-29 08:00] VITALS: BP 151/84
--- NOTE | 2020-01-29 08:17 | NUR ---
NURSE NOTES: sony charge nurse received a call from . is covering today. Charge nurse notified the patient had low blood pressure and received ns bolus 250ml from Dr. Moreno. Dr. Ochoa is aware. Addendum: 01/29/20 at 1239 by VENANCIO BENJAMIN RN wrong patient information
--- NOTE | 2020-01-29 08:20 | Cardiac Electrophysiology PN ---
Assessment/Plan Assessment/Plan 1. Accelerated hypertension. On amlodipine 5 mg daily, metoprolol 50 mg bid, hydralazine 25 mg every 8 hours and p.r.n. clonidine 2. Lung masses. This is likely metastasis. CT of the chest done 3. Liver mass. S/P Liver Biopsy 01/27/20 Lung masses, Metastatic. Report is pending --> CT does show Multiple low-attenuation liver masses, most likely metastatic deposits, also previously reported Multiple osseous lesions, also previously reported, likely metastatic deposits --> tumor markers ordered --> given current bedbound status, will eval if qualifies for treatment, at this time wants to transfer to [facility] per Dr. Kaufman Transfer to [facility] vs [facility] placement pending 4. On Eliquis for DVT. Held for chest CT 5. History of cervical stenosis and pain. PELON RN and charge nurse Subjective Subjective Comfortable in NAD. S/P CT guided Liver biopsy and CT chest and abdomen . Transfer to [facility] vs [facility] placement pending RN and charge nurse at bedside Objective Last 24 Hour Vital Signs Date Time Temp Pulse Resp B/P (MAP) Pulse Ox O2 Delivery O2 Flow Rate FiO2 01/29/20 08:10 96 Nasal Cannula 2.0 28 01/29/20 06:16 98.2 01/29/20 05:45 154/84 01/29/20 05:14 98.2 01/29/20 04:00 98.2 75 20 144/84 (104) 93 01/29/20 00:00 96.3 83 20 144/81 (102) 93 01/28/20 22:39 147/76 01/28/20 21:00 Nasal Cannula 2.0 01/28/20 20:55 79 143/72 01/28/20 20:03 95 Nasal Cannula 2.0 28 01/28/20 20:00 97.9 79 20 143/73 (96) 94 01/28/20 17:41 Nasal Cannula 2.0 01/28/20 16:00 98.8 89 19 144/73 (96) 93 01/28/20 14:11 140/76 01/28/20 12:00 98.6 79 19 157/86 (109) 95 01/28/20 09:00 98.1 77 19 140/77 (98) 92 01/28/20 09:00 Nasal Cannula 2.0 Intake and Output 8/13/20 8/14/20 19:00 07:00 Intake Total 1415.0 ml 900 ml Output Total 950 ml Balance 1415.0 ml -50 ml Intake Oral 100 ml IV Total 965.0 ml 800 ml Other 450 ml Output Urine Total 950 ml # Bowel Movements 1 Laboratory Tests Test 01/29/20 04:50 White Blood Count 13.2 K/UL (4.8-10.8) H Red Blood Count 3.41 M/UL (4.20-5.40) L Hemoglobin 9.8 G/DL (12.0-16.0) L Hematocrit 30.9 % (37.0-47.0) L Mean Corpuscular Volume 90 FL (80-99) Mean Corpuscular Hemoglobin 28.8 PG (27.0-31.0) Mean Corpuscular Hemoglobin Concent 31.8 G/DL (32.0-36.0) L Red Cell Distribution Width 15.4 % (11.6-14.8) H Platelet Count 402 K/UL (150-450) Mean Platelet Volume 5.2 FL (6.5-10.1) L Neutrophils (%) (Auto) 82.9 % (45.0-75.0) H Lymphocytes (%) (Auto) 10.2 % (20.0-45.0) L Monocytes (%) (Auto) 5.9 % (1.0-10.0) Eosinophils (%) (Auto) 0.0 % (0.0-3.0) Basophils (%) (Auto) 1.0 % (0.0-2.0) Sodium Level 136 MMOL/L (136-145) Potassium Level 3.0 MMOL/L (3.5-5.1) L Chloride Level 99 MMOL/L (98-107) Carbon Dioxide Level 27 MMOL/L (21-32) Anion Gap 10 mmol/L (5-15) Blood Urea Nitrogen 5 mg/dL (7-18) L Creatinine 0.5 MG/DL (0.55-1.30) L Estimat Glomerular Filtration Rate > 60 mL/min (>60) Glucose Level 143 MG/DL (74-106) H Calcium Level 10.2 MG/DL (8.5-10.1) H Iron Level 32 ug/dL (50-175) L Total Iron Binding Capacity 287 ug/dL (250-450) Percent Iron Saturation 11 % (15-50) L Unsaturated Iron Binding 255 ug/dL (112-346) Ferritin 29 NG/ML (8-388) Total Bilirubin 0.2 MG/DL (0.2-1.0) Aspartate Amino Transf (AST/SGOT) 78 U/L (15-37) H Alanine Aminotransferase (ALT/SGPT) 17 U/L (12-78) Alkaline Phosphatase 67 U/L (46-116) Total Protein 7.5 G/DL (6.4-8.2) Albumin 3.4 G/DL (3.4-5.0) Globulin 4.1 g/dL Albumin/Globulin Ratio 0.8 (1.0-2.7) L Amylase Level 350 U/L (25-115) H Lipase > 2000 U/L (73-393) H Microbiology Date/Time Source Procedure Growth Status 01/28/20 18:30 Nasopharynx SARS-CoV-2 RdRp Gene Assay - Final Complete 01/28/20 18:52 Stool Clostridium difficile Toxin Assay - Final Complete Objective HEAD AND NECK: Showed no JVD. LUNGS: Clear. CARDIOVASCULAR: Shows regular S1 and S2 with no gallop or murmur. ABDOMEN: Soft. EXTREMITIES: No pitting edema. Jimmy Moreno MD Jan 29, 2020 08:20
[2020-01-29] MEDS: DULoxetine 30mg cap ORAL SCH (08:45)
[2020-01-29] MEDS: Pancrelipase Dr Cap ORAL SCH ×3 (08:45→17:18)
[2020-01-29] MEDS: Metoprolol Tartrate 50mg tab ORAL SCH ×2 (08:46→20:37)
[2020-01-29] MEDS: Eliquis 5mg tablet ORAL SCH ×2 (08:48→17:18)
[2020-01-29] MEDS: Docusate 100mg cap ORAL SCH ×2 (08:53→18:00)
[2020-01-29] MEDS: Bisacodyl EC 5mg tab ORAL SCH (08:54)
--- NOTE | 2020-01-29 09:53 | General Progress Note ---
Assessment/Plan Problem List: (1) Acute pancreatitis ICD Codes: K85.90 - Acute pancreatitis without necrosis or infection, unspecified SNOMED: 351222695 (2) Lung mass ICD Codes: R91.8 - Other nonspecific abnormal finding of lung field SNOMED: 113210146 (3) Right flank pain ICD Codes: R10.9 - Unspecified abdominal pain SNOMED: 935481177 (4) Rheumatoid arthritis ICD Codes: M06.9 - Rheumatoid arthritis, unspecified SNOMED: 79375717 Status: stable, progressing Assessment/Plan: o2nc pain control advance diet ivf cbc bmp am dc if clear Subjective Constitutional: Reports: weakness Allergies: Coded Allergies: IBUPROFEN (Verified Allergy, Mild, 10/05/09) CORTICOSTEROIDS (GLUCOCORTICOIDS) (Unverified Allergy, Unknown, 01/22/20) All Systems: reviewed and negative except above Subjective o2nc sleepy calm Objective Last 24 Hour Vital Signs Date Time Temp Pulse Resp B/P (MAP) Pulse Ox O2 Delivery O2 Flow Rate FiO2 01/29/20 08:46 77 151/84 01/29/20 08:46 77 151/84 01/29/20 08:10 96 Nasal Cannula 2.0 28 01/29/20 08:00 98.3 77 18 151/84 (106) 93 01/29/20 06:16 98.2 01/29/20 05:45 154/84 01/29/20 05:14 98.2 01/29/20 04:00 98.2 75 20 144/84 (104) 93 01/29/20 00:00 96.3 83 20 144/81 (102) 93 01/28/20 22:39 147/76 01/28/20 21:00 Nasal Cannula 2.0 01/28/20 20:55 79 143/72 01/28/20 20:03 95 Nasal Cannula 2.0 28 01/28/20 20:00 97.9 79 20 143/73 (96) 94 01/28/20 17:41 Nasal Cannula 2.0 01/28/20 16:00 98.8 89 19 144/73 (96) 93 01/28/20 14:11 140/76 01/28/20 12:00 98.6 79 19 157/86 (109) 95 Intake and Output 01/28/20 01/29/20 19:00 07:00 Intake Total 1415.0 ml 900 ml Output Total 950 ml Balance 1415.0 ml -50 ml Intake Oral 100 ml IV Total 965.0 ml 800 ml Other 450 ml Output Urine Total 950 ml # Bowel Movements 1 Laboratory Tests 01/29/20 04:50: White Blood Count 13.2H, Red Blood Count 3.41L, Hemoglobin 9.8L, Hematocrit 30.9L, Mean Corpuscular Volume 90, Mean Corpuscular Hemoglobin 28.8, Mean Corpuscular Hemoglobin Concent 31.8L, Red Cell Distribution Width 15.4H, Platelet Count 402, Mean Platelet Volume 5.2L, Neutrophils (%) (Auto) 82.9H, Lymphocytes (%) (Auto) 10.2L, Monocytes (%) (Auto) 5.9, Eosinophils (%) (Auto) 0.0, Basophils (%) (Auto) 1.0, Sodium Level 136, Potassium Level 3.0L, Chloride Level 99, Carbon Dioxide Level 27, Anion Gap 10, Blood Urea Nitrogen 5L, Creatinine 0.5L, Estimat Glomerular Filtration Rate > 60, Glucose Level 143H, Calcium Level 10.2H, Iron Level 32L, Total Iron Binding Capacity 287, Percent Iron Saturation 11L, Unsaturated Iron Binding 255, Ferritin 29, Total Bilirubin 0.2, Aspartate Amino Transf (AST/SGOT) 78H, Alanine Aminotransferase (ALT/SGPT) 17, Alkaline Phosphatase 67, Total Protein 7.5, Albumin 3.4, Globulin 4.1, Albumin/Globulin Ratio 0.8L, Amylase Level 350H, Lipase > 2000H Height (Feet): 5 Height (Inches): 5.00 Weight (Pounds): 134 General Appearance: lethargic EENT: normal ENT inspection Neck: normal alignment Cardiovascular: normal peripheral pulses, normal rate, regular rhythm Respiratory/Chest: chest wall non-tender, lungs clear, normal breath sounds Abdomen: normal bowel sounds, non tender, soft Extremities: normal inspection Edema: no edema noted Arm (L), no edema noted Arm (R), no edema noted Leg (L), no edema noted Leg (R), no edema noted Pedal (L), no edema noted Pedal (R), no edema noted Generalized Neurologic: motor weakness Skin: normal pigmentation, warm/dry Nikko Butt DO Jan 29, 2020 09:53
--- NOTE | 2020-01-29 10:15 | Progress Note ---
DATE: 01/29/2020 SUBJECTIVE: This is a 64-year-old female patient with pancreatitis. This patient also has right flank pain secondary to the fever, lung mass, rheumatoid arthritis, diverticulosis. The above medical problems are causing her to have some mood lability and agitation, irritability. MENTAL STATUS EXAMINATION: This is a 64-year-old female. Appearance is disheveled. Attitude, irritable and agitated. Affect, guarded and restricted. Intellect poor. Mood, depressed and anxious. Motor activity, psychomotor agitation. Attention span is poor. Orientation x2. Speech is low volume, slurred. Thought process, disorganized and illogical. Insight and judgment is poor. DIAGNOSIS: Major depressive disorder, mild, recurrent, without psychotic features. PLAN: Treat this patient with medication regimen of Cymbalta a dose of 90 mg daily and then also on an Ativan 1 mg every 6 hours p.r.n. anxiety and agitation. Twenty minutes of cognitive behavioral therapy to help her identify automatic negative thoughts and help her convert negative thoughts to more positive thoughts to reduce depression, anxiety, and mood lability and she will continue to be followed throughout hospital course. . Twenty minutes of cognitive behavior therapy provided. Chart reviewed. Discussed with staff. Seen and assessed at bedside. Margo Perez M.D. DR: ALICE JOB#: [id number] CC:
--- NOTE | 2020-01-29 10:24 | Pulmonology Progress Note ---
Subjective ROS Limited/Unobtainable: Yes Interval Events: None new Constitutional: Denies: fever HEENT: Repors: no symptoms Respiratory: Reports: dry cough Cardiovascular: Reports: no symptoms Gastrointestinal/Abdominal: Denies: nausea, vomiting, diarrhea Genitourinary: Reports: no symptoms Musculoskeletal: Reports: pain - abdominal Allergies: Coded Allergies: IBUPROFEN (Verified Allergy, Mild, 10/05/09) CORTICOSTEROIDS (GLUCOCORTICOIDS) (Unverified Allergy, Unknown, 01/22/20) All Systems: reviewed and negative except above Objective Last 24 Hour Vital Signs Date Time Temp Pulse Resp B/P (MAP) Pulse Ox O2 Delivery O2 Flow Rate FiO2 01/29/20 09:00 Nasal Cannula 2.0 01/29/20 08:46 77 151/84 01/29/20 08:46 77 151/84 01/29/20 08:10 96 Nasal Cannula 2.0 28 01/29/20 08:00 98.3 77 18 151/84 (106) 93 01/29/20 06:16 98.2 01/29/20 05:45 154/84 01/29/20 05:14 98.2 01/29/20 04:00 98.2 75 20 144/84 (104) 93 01/29/20 00:00 96.3 83 20 144/81 (102) 93 01/28/20 22:39 147/76 01/28/20 21:00 Nasal Cannula 2.0 01/28/20 20:55 79 143/72 01/28/20 20:03 95 Nasal Cannula 2.0 28 01/28/20 20:00 97.9 79 20 143/73 (96) 94 01/28/20 17:41 Nasal Cannula 2.0 01/28/20 16:00 98.8 89 19 144/73 (96) 93 01/28/20 14:11 140/76 01/28/20 12:00 98.6 79 19 157/86 (109) 95 Intake and Output 01/28/20 01/29/20 19:00 07:00 Intake Total 1415.0 ml 900 ml Output Total 950 ml Balance 1415.0 ml -50 ml Intake Oral 100 ml IV Total 965.0 ml 800 ml Other 450 ml Output Urine Total 950 ml # Bowel Movements 1 General Appearance: no acute distress HEENT: normocephalic Respiratory: chest wall non-tender, decreased breath sounds Cardiovascular: normal rate Abdomen: normal bowel sounds Microbiology Date/Time Source Procedure Growth Status 01/28/20 18:30 Nasopharynx SARS-CoV-2 RdRp Gene Assay - Final Complete 01/28/20 18:52 Stool Clostridium difficile Toxin Assay - Final Complete Laboratory Tests 01/29/20 04:50: White Blood Count 13.2H, Red Blood Count 3.41L, Hemoglobin 9.8L, Hematocrit 30.9L, Mean Corpuscular Volume 90, Mean Corpuscular Hemoglobin 28.8, Mean Corpuscular Hemoglobin Concent 31.8L, Red Cell Distribution Width 15.4H, Platelet Count 402, Mean Platelet Volume 5.2L, Neutrophils (%) (Auto) 82.9H, Lymphocytes (%) (Auto) 10.2L, Monocytes (%) (Auto) 5.9, Eosinophils (%) (Auto) 0.0, Basophils (%) (Auto) 1.0, Sodium Level 136, Potassium Level 3.0L, Chloride Level 99, Carbon Dioxide Level 27, Anion Gap 10, Blood Urea Nitrogen 5L, Creatinine 0.5L, Estimat Glomerular Filtration Rate > 60, Glucose Level 143H, Calcium Level 10.2H, Iron Level 32L, Total Iron Binding Capacity 287, Percent Iron Saturation 11L, Unsaturated Iron Binding 255, Ferritin 29, Total Bilirubin 0.2, Aspartate Amino Transf (AST/SGOT) 78H, Alanine Aminotransferase (ALT/SGPT) 17, Alkaline Phosphatase 67, Total Protein 7.5, Albumin 3.4, Globulin 4.1, Albumin/Globulin Ratio 0.8L, Amylase Level 350H, Lipase > 2000H, Carcinoembryonic Antigen [Pending], CA 19-9 Antigen [Pending] Current Medications Medications (Trade) Dose Ordered Sig/Kina Route PRN Reason Start Time Stop Time Status Last Admin Dose Admin Acetaminophen (Tylenol) 650 mg Q6H PRN ORAL Pain Scale (3-5) 01/22/20 17:45 02/21/20 17:44 01/23/20 20:43 Amlodipine Besylate (Norvasc) 5 mg DAILY ORAL 01/23/20 09:00 02/22/20 08:59 01/29/20 08:46 Amylase/Lipase/ Protease (Zenpep) 3 ea THREE TIMES A DAY ORAL 01/29/20 09:00 11/12/20 08:59 01/29/20 08:45 Apixaban (Eliquis) 5 mg BID ORAL 01/28/20 18:00 04/27/20 17:59 01/29/20 08:48 Bisacodyl (Dulcolax) 10 mg DAILY ORAL 01/23/20 09:00 04/22/20 08:59 01/28/20 08:14 Carisoprodol (Soma) 350 mg Q8HR ORAL 01/22/20 18:30 02/21/20 18:29 01/29/20 05:46 Dextrose/ Electrolytes 1,000 ml @ 100 mls/hr Q10H IV 01/23/20 09:30 02/22/20 09:29 01/29/20 05:46 Docusate Sodium (Colace) 100 mg TWICE A DAY ORAL 01/22/20 18:00 02/21/20 17:59 01/28/20 08:14 Duloxetine HCl (Cymbalta) 90 mg DAILY ORAL 01/26/20 09:00 04/22/20 08:59 01/29/20 08:45 Hydralazine HCl (Apresoline) 50 mg Q8HR ORAL 01/23/20 14:00 04/21/20 21:59 01/29/20 05:45 Hydromorphone HCl (Dilaudid) 1 mg Q3H PRN IVP Severe Pain (Pain Scale 7-10) 01/27/20 08:16 02/03/20 08:15 01/29/20 04:44 Lidocaine (Lidoderm 5% PATCH) 1 patch DAILY TDERMAL 01/23/20 09:00 04/22/20 08:59 01/29/20 08:47 Lorazepam (Ativan) 1 mg Q6H PRN ORAL For Anxiety 01/29/20 08:30 02/05/20 08:29 Magnesium Hydroxide (Mom) 30 ml DAILYPRN PRN ORAL Constipation 01/22/20 17:45 02/21/20 17:44 Metoclopramide HCl (Reglan) 10 mg Q6H PRN IVP Nausea & Vomiting 01/24/20 10:00 02/23/20 09:59 01/24/20 16:40 Metoprolol Tartrate (Lopressor) 50 mg EVERY 12 HOURS ORAL 01/22/20 21:00 04/21/20 20:59 01/29/20 08:46 Naloxone HCl (Narcan) 0.2 mg Q2M PRN IVP RESPRITORY DEPRESSION 01/28/20 13:47 04/27/20 13:46 Ondansetron HCl (Zofran) 4 mg Q4H PRN IVP Nausea & Vomiting 01/23/20 15:15 02/22/20 15:14 01/26/20 10:59 Pantoprazole (Protonix) 40 mg DAILY ORAL 01/23/20 09:00 02/22/20 08:59 01/29/20 08:46 Polyethylene Glycol (Miralax) 17 gm BEDTIME ORAL 01/23/20 21:00 02/22/20 20:59 01/27/20 21:22 Zolpidem Tartrate (Ambien) 5 mg HSPRN PRN ORAL Insomnia 01/23/20 00:30 01/30/20 00:29 01/23/20 20:41 Assessment/Plan Assessment/Plan IMPRESSION: 1. Large lung mass. 2. COPD. 3. History of spinal stenosis. 4. Multiple metastases DISCUSSION: The patient has a history of lung cancer per GI; however patient declines any knowledge. Discussed with oncology S/p CT guided liver biopsy. I will follow. Saturating well on 2L/min O2 OK to dc and arrange outpt followup Reymundo Vázquez MD Jan 29, 2020 10:24
--- NOTE | 2020-01-29 10:39 | Infectious Diseases Prog Note ---
Assessment/Plan Assessment/Plan antibiotics : zosyn A 1. Pancreatitis. 2. Lung mass with liver metastasis. 3. COPD. 4. Hypertension P 1. continue zosyn 4 more days 2. will follow up cultures 3. liver biospy planned Subjective ROS Limited/Unobtainable: Yes Allergies: Coded Allergies: IBUPROFEN (Verified Allergy, Mild, 10/05/09) CORTICOSTEROIDS (GLUCOCORTICOIDS) (Unverified Allergy, Unknown, 01/22/20) Objective Last 24 Hour Vital Signs Date Time Temp Pulse Resp B/P (MAP) Pulse Ox O2 Delivery O2 Flow Rate FiO2 01/29/20 09:00 Nasal Cannula 2.0 01/29/20 08:46 77 151/84 01/29/20 08:46 77 151/84 01/29/20 08:10 96 Nasal Cannula 2.0 28 01/29/20 08:00 98.3 77 18 151/84 (106) 93 01/29/20 06:16 98.2 01/29/20 05:45 154/84 01/29/20 05:14 98.2 01/29/20 04:00 98.2 75 20 144/84 (104) 93 01/29/20 00:00 96.3 83 20 144/81 (102) 93 01/28/20 22:39 147/76 01/28/20 21:00 Nasal Cannula 2.0 01/28/20 20:55 79 143/72 01/28/20 20:03 95 Nasal Cannula 2.0 28 01/28/20 20:00 97.9 79 20 143/73 (96) 94 01/28/20 17:41 Nasal Cannula 2.0 01/28/20 16:00 98.8 89 19 144/73 (96) 93 01/28/20 14:11 140/76 01/28/20 12:00 98.6 79 19 157/86 (109) 95 Height (Feet): 5 Height (Inches): 5.00 Weight (Pounds): 134 Respiratory/Chest: lungs clear Cardiovascular: normal rate, regular rhythm, no gallop/murmur Abdomen: soft, non tender Extremities: no edema Microbiology Date/Time Source Procedure Growth Status 01/28/20 18:30 Nasopharynx SARS-CoV-2 RdRp Gene Assay - Final Complete 01/28/20 18:52 Stool Clostridium difficile Toxin Assay - Final Complete Laboratory Tests Test 01/29/20 04:50 White Blood Count 13.2 K/UL (4.8-10.8) H Red Blood Count 3.41 M/UL (4.20-5.40) L Hemoglobin 9.8 G/DL (12.0-16.0) L Hematocrit 30.9 % (37.0-47.0) L Mean Corpuscular Volume 90 FL (80-99) Mean Corpuscular Hemoglobin 28.8 PG (27.0-31.0) Mean Corpuscular Hemoglobin Concent 31.8 G/DL (32.0-36.0) L Red Cell Distribution Width 15.4 % (11.6-14.8) H Platelet Count 402 K/UL (150-450) Mean Platelet Volume 5.2 FL (6.5-10.1) L Neutrophils (%) (Auto) 82.9 % (45.0-75.0) H Lymphocytes (%) (Auto) 10.2 % (20.0-45.0) L Monocytes (%) (Auto) 5.9 % (1.0-10.0) Eosinophils (%) (Auto) 0.0 % (0.0-3.0) Basophils (%) (Auto) 1.0 % (0.0-2.0) Sodium Level 136 MMOL/L (136-145) Potassium Level 3.0 MMOL/L (3.5-5.1) L Chloride Level 99 MMOL/L (98-107) Carbon Dioxide Level 27 MMOL/L (21-32) Anion Gap 10 mmol/L (5-15) Blood Urea Nitrogen 5 mg/dL (7-18) L Creatinine 0.5 MG/DL (0.55-1.30) L Estimat Glomerular Filtration Rate > 60 mL/min (>60) Glucose Level 143 MG/DL (74-106) H Calcium Level 10.2 MG/DL (8.5-10.1) H Iron Level 32 ug/dL (50-175) L Total Iron Binding Capacity 287 ug/dL (250-450) Percent Iron Saturation 11 % (15-50) L Unsaturated Iron Binding 255 ug/dL (112-346) Ferritin 29 NG/ML (8-388) Total Bilirubin 0.2 MG/DL (0.2-1.0) Aspartate Amino Transf (AST/SGOT) 78 U/L (15-37) H Alanine Aminotransferase (ALT/SGPT) 17 U/L (12-78) Alkaline Phosphatase 67 U/L (46-116) Total Protein 7.5 G/DL (6.4-8.2) Albumin 3.4 G/DL (3.4-5.0) Globulin 4.1 g/dL Albumin/Globulin Ratio 0.8 (1.0-2.7) L Amylase Level 350 U/L (25-115) H Lipase > 2000 U/L (73-393) H Carcinoembryonic Antigen Pending CA 19-9 Antigen Pending Current Medications Medications (Trade) Dose Ordered Sig/Kina Route PRN Reason Start Time Stop Time Status Last Admin Dose Admin Acetaminophen (Tylenol) 650 mg Q6H PRN ORAL Pain Scale (3-5) 01/22/20 17:45 02/21/20 17:44 01/23/20 20:43 Amlodipine Besylate (Norvasc) 5 mg DAILY ORAL 01/23/20 09:00 02/22/20 08:59 01/29/20 08:46 Amylase/Lipase/ Protease (Zenpep) 3 ea THREE TIMES A DAY ORAL 01/29/20 09:00 04/28/20 08:59 01/29/20 08:45 Apixaban (Eliquis) 5 mg BID ORAL 01/28/20 18:00 04/27/20 17:59 01/29/20 08:48 Bisacodyl (Dulcolax) 10 mg DAILY ORAL 01/23/20 09:00 04/22/20 08:59 01/28/20 08:14 Carisoprodol (Soma) 350 mg Q8HR ORAL 01/22/20 18:30 02/21/20 18:29 01/29/20 05:46 Dextrose/ Electrolytes 1,000 ml @ 100 mls/hr Q10H IV 01/23/20 09:30 02/22/20 09:29 01/29/20 05:46 Docusate Sodium (Colace) 100 mg TWICE A DAY ORAL 01/22/20 18:00 02/21/20 17:59 01/28/20 08:14 Duloxetine HCl (Cymbalta) 90 mg DAILY ORAL 01/26/20 09:00 04/22/20 08:59 01/29/20 08:45 Hydralazine HCl (Apresoline) 50 mg Q8HR ORAL 01/23/20 14:00 04/21/20 21:59 01/29/20 05:45 Hydromorphone HCl (Dilaudid) 1 mg Q3H PRN IVP Severe Pain (Pain Scale 7-10) 01/27/20 08:16 02/03/20 08:15 01/29/20 04:44 Lidocaine (Lidoderm 5% PATCH) 1 patch DAILY TDERMAL 01/23/20 09:00 04/22/20 08:59 01/29/20 08:47 Lorazepam (Ativan) 1 mg Q6H PRN ORAL For Anxiety 01/29/20 08:30 02/05/20 08:29 Magnesium Hydroxide (Mom) 30 ml DAILYPRN PRN ORAL Constipation 01/22/20 17:45 02/21/20 17:44 Metoclopramide HCl (Reglan) 10 mg Q6H PRN IVP Nausea & Vomiting 01/24/20 10:00 02/23/20 09:59 01/24/20 16:40 Metoprolol Tartrate (Lopressor) 50 mg EVERY 12 HOURS ORAL 01/22/20 21:00 04/21/20 20:59 01/29/20 08:46 Naloxone HCl (Narcan) 0.2 mg Q2M PRN IVP RESPRITORY DEPRESSION 01/28/20 13:47 04/27/20 13:46 Ondansetron HCl (Zofran) 4 mg Q4H PRN IVP Nausea & Vomiting 01/23/20 15:15 02/22/20 15:14 01/26/20 10:59 Pantoprazole (Protonix) 40 mg DAILY ORAL 01/23/20 09:00 02/22/20 08:59 01/29/20 08:46 Polyethylene Glycol (Miralax) 17 gm BEDTIME ORAL 01/23/20 21:00 02/22/20 20:59 01/27/20 21:22 Zolpidem Tartrate (Ambien) 5 mg HSPRN PRN ORAL Insomnia 01/23/20 00:30 01/30/20 00:29 01/23/20 20:41 Jose Juan Estrada MD Jan 29, 2020 10:39
[2020-01-29 12:00] VITALS: BP 153/84
[2020-01-29] MEDS: Piperacillin/Tazobactam 3.375 GM in NS 110 ML IVPB SCH ×2 (12:01→22:11)
--- NOTE | 2020-01-29 12:37 | NUR ---
RD ASSESSMENT & RECOMMENDATIONS SEE CARE ACTIVITY FOR COMPLETE ASSESSMENT DAILY ESTIMATED NEEDS: Needs based on cancer, pancreatitis 58kg 25-30 kcals/kg 7849-2510 total kcals 1-2 g protein/kg 58-118 g total protein 25-30 mL/kg 8991-9669 total fluid mLs NUTRITION DIAGNOSIS: Altered nutrition related lab values r/t pancreatitis as evidenced by elev amylase (350) and elev Lipase (>2000). CURRENT DIET: regular ms chopped PO DIET RECOMMENDATIONS: Low Fat diet + Ensure Clear TID w/ meals ADDITIONAL RECOMMENDATIONS: 1) Maintain calibrated bed scale weights 2) Add snacks w/ current poor po 3) Lytes daily, maintain D5 (K low, 3.0) 4) Ensure Clear TID w/ meals (240 kcal, 8g pro each) 5) TPN if appropriate to meet est needs
--- NOTE | 2020-01-29 14:20 | NUR ---
[facility] OF ESTATE NOTES SPOKE WITH PT'S BROTHER ANDERSON QUIROGA, EXPLAINED TO HIM PT WILL BE TRANFERRED TO A LOWER LEVEL OF CARE PENDING PATHOLOGY REPORT FURTHER EXPLAINED THE BEST TREATMENT WILL BE CHOSEN ONCE THE PATHOLOGY REPORT IS RESULTED. PROVIDED AL WITH DR. THOMAS OFFICE NUMBER TO FOLLOW UP WITH AN APPOINTMENT AFTER PATHOLOGY RESULTS ARE AVAILABLE.INFORMED AL THAT I WILL FOLLOW UP WITH PATHOLOGY REPORT AND CALL AN MAKE AN FOLLOW UP APPOINTMENT WITH DR. THOMAS.AL AGREED TO TRANSFER @ THIS TIME. MADE AWARE.
[2020-01-29] MEDS ORDERED: Lomotil 2.5mg tab ORAL PRN (14:30)
--- NOTE | 2020-01-29 14:31 | NUR ---
NURSE NOTES: patient has had diarrhea x3 since yesterday. C-diff was negative. notified Dr. Lopez and received order of Lomotil 2.5mg po prn q6hrs for diarrhea. order noted and carried out.
--- NOTE | 2020-01-29 14:33 | NUR ---
DISCHARGE DISPOSITION: PLEASE READ PATIENT TO BE DISCHARGED TO [facility] [address] T: [phone]>> CALL FOR REPORT [facility] ETA 1630 FAMILY HAS ALREADY BEEN CONTACTED. SEE PREVIOUS CM NOTE NURSING MADE AWARE Addendum: 01/29/20 at 1658 by SUKH HYLTON RN RN SPOKE WITH PATIENT, PATIENT IN AGREEMENT WITH PLACEMENT AT THIS TIME. Addendum: 01/29/20 at 1718 by SUKH HYLTON RN RN SPOKE WITH OSMAN FROM [facility]. PT [facility] TO ROOM [address] [facility] Addendum: 01/29/20 at 1727 by MIKE PEDRAZA CM DISCHARGE DISPOSITION: PLEASE READ PATIENT TO BE DISCHARGED TO [facility] [address] [facility] ROOM [address].B T: [phone] NURSE TO NURSE REPORT [facility] TRANSPORTATION SET FOR 6:20PM
[2020-01-29 16:00] VITALS: BP 152/89
--- NOTE | 2020-01-29 18:27 | NUR ---
NURSE NOTES: Gave report to SHAN Mcmahon Settlement Processor at [facility].
--- NOTE | 2020-01-29 18:29 | NUR ---
NURSE NOTES: Received call from Elissa Chemical Process Engineer and was notified of moving forward to discharging patient and okay not to notify family member upon discharge. Also, informed that case management is responsible for discharge plan. Per case management will discharge patient to [facility] and to give report.
[2020-01-29] MEDS ORDERED: MIRALAX17 G2 ORAL (18:49)
[2020-01-29] MEDS ORDERED: ZENPEP DR 5,001 EAC1 PO (18:50)
--- NOTE | 2020-01-29 19:22 | NUR ---
NURSE HAND-OFF: Important Events on Shift:discharge to [facility]. Patient Status: stable Diet: regular Pending Orders: n/a Pending Results/Labs:n/a Pending MD notification:n/a Latest Vital Signs: Temperature 97.6 , Pulse 82 , B/P 152 /89 , Respiratory Rate 18 , O2 SAT 93 , Nasal Cannula, O2 Flow Rate 2.0 . Vital Sign Comment: stable Latest Guido Fall Score: 45 Fall Risk: High Risk Safety Measures: Call light Within Reach, Bed Alarm Zone 1, Side Rails Side Rails x2, Bed position Low and Locked. Fall Precautions: Patient Fall Education Report given to SHAN Burks.
--- NOTE | 2020-01-29 19:30 | NUR ---
NURSE NOTES: Report received from Maxine TORREZ. Patient is awake and alert x 2. Patient is noted to be on 2 liters of oxygen via nasal canula. Patient denies chest pain and shortness of breath at this time. Patient does not appear to be in respiratory distress at this time. Patient is noted to have left forearm 22 nadine IV access with fluids running per MD orders. Endorsed to Vitaliy TORREZ that patient is to be discharged to [facility] at approximately 2000 tonight. Endorsed to Vitaliy TORREZ that Maxine TORREZ called to facility and gave report to Lisandro. Discharged packet completed and passed along to Vitaliy OTRREZ. Patient has no complaints at this time. Bed is locked, alarmed, in lowest position. Call light in reach. Will continue to follow plan of care.
[2020-01-29 20:00] VITALS: BP 155/95
[2020-01-29] MEDS: Miralax 17gm pkt ORAL SCH (20:37)
--- NOTE | 2020-01-29 20:47 | NUR ---
NURSE NOTES: [facility] here for discharge. Report given to [facility] workers. Vitaliy TORREZ attempted to call next of kin Lucila Chávez. No answer, Vitaliy TORREZ left voicemail with call back number. Charge Nurse Jamal aware. Patient's blood pressure is currently too high for [facility] to transfer patient. [facility] will wait as blood pressure medication was recently administered to patient.
[2020-01-29] MEDS: LORazepam 1mg tab ORAL PRN (21:08)
--- NOTE | 2020-01-29 21:26 | NUR ---
NURSE NOTES: [facility] is unable to transfer patient at this time due to blood pressure being too high. Vitaliy TORREZ administered all ordered blood pressure medications, pain medication within MD orders. Administered Ativan due patient being anxious about discharge. Patient placed on stand by. Will continue to monitor patient and call [facility] when blood pressure comes down to acceptable limits. Will continue to follow plan of care in the mean time.
--- NOTE | 2020-01-29 22:05 | NUR ---
NURSE NOTES: Received phone call from patient's mother Mrs. Marquez. Mrs. Marquez expressed strong disagreement with discharge plan, and stated that she would like patient transferred to [facility]. Mrs. Marquez informed Vitaliy TORREZ that the patient's family has not agreed to her being discharged to [facility]. Mrs. Marquez spoke with Vitaliy TORREZ and charge nurse Jamal at length. Both Vitaliy TORRZE and Jamal RN assured her that we will continue to follow plan of care for the patient. Vitaliy TORREZ informed Doctor Kauffman, whom is covering for primary doctor. Doctor Kauffman informed Vitaliy TORREZ to cancel discharge and continue to follow plan of care.
[2020-01-30] VITALS (7 sets, daily range): BP systolic 122–163; BP diastolic 70–102
[2020-01-30] MEDS: D5 1/2NS w/KCl 20mEq 1,000 ML IV SCH ×3 (01:13→21:21)
[2020-01-30] MEDS: HydrALAZINE 50mg tab ORAL SCH ×3 (05:58→21:16)
[2020-01-30] MEDS: Piperacillin/Tazobactam 3.375 GM in NS 110 ML IVPB SCH ×3 (05:58→21:21)
--- NOTE | 2020-01-30 07:25 | NUR ---
NURSE NOTES: received patientin bed, asleep, no sign of distress,O2 AT 2lpm via NC.on going IVF and ATB on going, repositioned patient for comfort and good circulation. Bed is locked, alarmed, in lowest position. Call light in reach. Will continue to follow plan of care. sandra thakkar
--- NOTE | 2020-01-30 07:42 | NUR ---
NURSE HAND-OFF: Important Events on Shift:Patient was to be discharged. Discharged canceled per Daly. Patient does not agree with discharge plan. Continue pain management. Patient Status: Alert and oriented x 2, confused at times, in chronic pain. Diet: Regular Pending Orders: none Pending Results/Labs:none Pending MD notification: none - Daly aware of patient situation. Latest Vital Signs: Temperature 96.3 , Pulse 77 , B/P 150 /70 , Respiratory Rate 20 , O2 SAT 94 , Nasal Cannula, O2 Flow Rate 2.0 . Vital Sign Comment: within normal limits. Latest Guido Fall Score: 45 Fall Risk: High Risk Safety Measures: Call light Within Reach, Bed Alarm Zone 1, Side Rails Side Rails x2, Bed position Low and Locked. Fall Precautions: Patient Fall Education Report given to Bree TORREZ.
[2020-01-30 07:59] LABS: BASOPHILS % (AUTO) 0.7 % (0.0-2.0); EOSINOPHILS % (AUTO) 0.1 % (0.0-3.0); HEMATOCRIT 32.2 % (37.0-47.0); HEMOGLOBIN 10.1 G/DL (12.0-16.0); LYMPHOCYTES % (AUTO) 9.9 % (20.0-45.0); MEAN CORPUSCULAR VOLUME 92 FL (80-99); MONOCYTES % (AUTO) 5.5 % (1.0-10.0); NEUTROPHILS % (AUTO) 83.8 % (45.0-75.0); PLATELET COUNT 399 K/UL (150-450); RED BLOOD COUNT 3.51 M/UL (4.20-5.40); RED CELL DISTRIBUTION WIDTH 15.4 % (11.6-14.8); WHITE BLOOD COUNT 13.3 K/UL (4.8-10.8)
--- NOTE | 2020-01-30 08:23 | Hematology/Onc Progress Note ---
Assessment/Plan Assessment/Plan #. Stage IV -- Lung masses, Metastatic. Origin is likely lung. --> Targeted ultrasound-guided biopsy of right lobe liver lesion, as described. Final pathology pending --> dw path, report is pending --> CT does show Multiple low-attenuation liver masses, most likely metastatic deposits, also previously reported Multiple osseous lesions, also previously reported, likely metastatic deposits --> tumor markers ordered --> given current bedbound status, will eval if qualifies for treatment, at this time wants to transfer to [facility] --> have discussed with patient and with family #. Anemia rule out gi bleed --> anemia panel has been ordered->reviewed --> ferritin in prior was low --> iron has been ordered --> per gi recs #. Hypertension. --> on BP meds and cards on case #. History of cervical stenosis and pain. #. Dvt ppx apixaban The time of the note does not reflect the time the patient was seen Subjective Constitutional: Denies: no symptoms, chills, fever, malaise, weakness, other HEENT: Denies: no symptoms, eye pain, blurred vision, tearing, double vision, ear pain, ear discharge, nose pain, nose congestion, throat pain, throat swelling, mouth pain, mouth swelling, other Cardiovascular: Denies: no symptoms, chest pain, edema, irregular heart rate, lightheadedness, palpitations, syncope, other Respiratory: Denies: no symptoms, cough, shortness of breath, SOB with excertion, SOB at rest, sputum, wheezing, other Gastrointestinal/Abdominal: Denies: no symptoms, abdomen distended, abdominal pain, black stools, tarry stools, blood in stool, constipated, diarrhea, difficulty swallowing, nausea, poor appetite, poor fluid intake, rectal bleeding , vomiting, other Genitourinary: Denies: no symptoms, burning, discharge, frequency, flank pain, hematuria, incontinence, pain, urgency, other Neurologic/Psychiatric: Denies: no symptoms, anxiety, depressed, emotional problems, headache, numbness, paresthesia, pre-existing deficit, seizure, tingling, tremors, weakness, other Endocrine: Denies: no symptoms, excessive sweating, flushing, intolerance to cold, intolerance to heat, increased hunger, increased thirst, increased urine, unexplained weight gain, unexplained weight loss, other Allergies: Coded Allergies: IBUPROFEN (Verified Allergy, Mild, 10/05/09) CORTICOSTEROIDS (GLUCOCORTICOIDS) (Unverified Allergy, Unknown, 01/22/20) Subjective 01/27 spoke to patient's mother regArding plan of care 01/28 very confused int he am, due to sedatives, pending transfer to [facility] 01/29 patient and family agitated re discharge plan, have dw rn and full charge bookkeeper, transf cancelled for now Objective Objective Current Medications Medications (Trade) Dose Ordered Sig/Kina Route PRN Reason Start Time Stop Time Status Last Admin Dose Admin Acetaminophen (Tylenol) 650 mg Q6H PRN ORAL Pain Scale (3-5) 01/22/20 17:45 02/21/20 17:44 01/23/20 20:43 Amlodipine Besylate (Norvasc) 5 mg DAILY ORAL 01/23/20 09:00 02/22/20 08:59 01/29/20 08:46 Amylase/Lipase/ Protease (Zenpep) 3 ea THREE TIMES A DAY ORAL 01/29/20 09:00 04/28/20 08:59 01/29/20 17:18 Apixaban (Eliquis) 5 mg BID ORAL 01/28/20 18:00 04/27/20 17:59 01/29/20 17:18 Bisacodyl (Dulcolax) 10 mg DAILY ORAL 01/23/20 09:00 04/22/20 08:59 01/28/20 08:14 Carisoprodol (Soma) 350 mg Q8HR ORAL 01/22/20 18:30 02/21/20 18:29 01/30/20 05:58 Dextrose/ Electrolytes 1,000 ml @ 100 mls/hr Q10H IV 01/23/20 09:30 02/22/20 09:29 01/30/20 01:13 Diphenoxylate HCl/ Atropine (Lomotil) 2.5 mg Q6H PRN ORAL Diarrhea 01/29/20 14:30 02/28/20 14:29 01/29/20 15:18 Docusate Sodium (Colace) 100 mg TWICE A DAY ORAL 01/22/20 18:00 02/21/20 17:59 01/28/20 08:14 Duloxetine HCl (Cymbalta) 90 mg DAILY ORAL 01/26/20 09:00 04/22/20 08:59 01/29/20 08:45 Hydralazine HCl (Apresoline) 50 mg Q8HR ORAL 01/23/20 14:00 04/21/20 21:59 01/30/20 05:58 Hydromorphone HCl (Dilaudid) 1 mg Q3H PRN IVP Severe Pain (Pain Scale 7-10) 01/27/20 08:16 02/03/20 08:15 01/29/20 22:12 Lidocaine (Lidoderm 5% PATCH) 1 patch DAILY TDERMAL 01/23/20 09:00 04/22/20 08:59 01/29/20 08:47 Lorazepam (Ativan) 1 mg Q6H PRN ORAL For Anxiety 01/29/20 08:30 02/05/20 08:29 01/29/20 21:08 Magnesium Hydroxide (Mom) 30 ml DAILYPRN PRN ORAL Constipation 01/22/20 17:45 02/21/20 17:44 Metoclopramide HCl (Reglan) 10 mg Q6H PRN IVP Nausea & Vomiting 01/24/20 10:00 02/23/20 09:59 01/24/20 16:40 Metoprolol Tartrate (Lopressor) 50 mg EVERY 12 HOURS ORAL 01/22/20 21:00 04/21/20 20:59 01/29/20 20:37 Naloxone HCl (Narcan) 0.2 mg Q2M PRN IVP RESPRITORY DEPRESSION 01/28/20 13:47 04/27/20 13:46 Ondansetron HCl (Zofran) 4 mg Q4H PRN IVP Nausea & Vomiting 01/23/20 15:15 02/22/20 15:14 01/26/20 10:59 Pantoprazole (Protonix) 40 mg DAILY ORAL 01/23/20 09:00 02/22/20 08:59 01/29/20 08:46 Piperacillin Sod/ Tazobactam Sod 3.375 gm/Sodium Chloride 110 ml @ 27.5 mls/hr EVERY 8 HOURS IVPB 01/29/20 12:00 02/03/20 11:59 01/30/20 05:58 Polyethylene Glycol (Miralax) 17 gm BEDTIME ORAL 8/8/20 21:00 02/22/20 20:59 01/27/20 21:22 Last 24 Hour Vital Signs Date Time Temp Pulse Resp B/P (MAP) Pulse Ox O2 Delivery O2 Flow Rate FiO2 01/30/20 05:58 150/70 01/30/20 04:00 96.3 77 20 150/70 (96) 94 01/30/20 00:00 96.2 74 20 122/86 (98) 95 01/29/20 21:08 172/95 01/29/20 21:00 Nasal Cannula 2.0 01/29/20 20:37 80 155/95 01/29/20 20:00 96.6 80 22 155/95 (115) 95 01/29/20 19:12 96 Nasal Cannula 2.0 28 01/29/20 16:00 97.6 82 18 152/89 (110) 93 01/29/20 13:40 154/92 01/29/20 12:00 97.6 79 18 153/84 (107) 93 01/29/20 09:00 Nasal Cannula 2.0 01/29/20 08:46 77 151/84 01/29/20 08:46 77 151/84 01/29/20 08:10 96 Nasal Cannula 2.0 28 01/29/20 08:00 98.3 77 18 151/84 (106) 93 01/29/20 06:16 98.2 01/29/20 05:45 154/84 01/29/20 05:14 98.2 01/29/20 04:00 98.2 75 20 144/84 (104) 93 01/29/20 00:00 96.3 83 20 144/81 (102) 93 01/28/20 22:39 147/76 01/28/20 21:00 Nasal Cannula 2.0 01/28/20 20:55 79 143/72 01/28/20 20:03 95 Nasal Cannula 2.0 28 01/28/20 20:00 97.9 79 20 143/73 (96) 94 01/28/20 17:41 Nasal Cannula 2.0 01/28/20 16:00 98.8 89 19 144/73 (96) 93 01/28/20 14:11 140/76 01/28/20 12:00 98.6 79 19 157/86 (109) 95 01/28/20 09:00 98.1 77 19 140/77 (98) 92 01/28/20 09:00 Nasal Cannula 2.0 Intake and Output 01/29/20 01/30/20 19:00 07:00 Intake Total 1610.0 ml 1450.0 ml Output Total 400 ml Balance 1610.0 ml 1050.0 ml Intake Oral 240 ml IV Total 1310.0 ml 1210.0 ml Other 300 ml Output Urine Total 400 ml # Voids 1 # Bowel Movements 1 Labs Test 01/27/20 10:37 01/28/20 05:40 01/29/20 04:50 01/30/20 06:39 Prothrombin Time 13.0 SEC (9.30-11.50) Prothromb Time International Ratio 1.2 (0.9-1.1) Activated Partial Thromboplast Time 29 SEC (23-33) White Blood Count 12.9 K/UL (4.8-10.8) 13.2 K/UL (4.8-10.8) 13.3 K/UL (4.8-10.8) Red Blood Count 3.23 M/UL (4.20-5.40) 3.41 M/UL (4.20-5.40) 3.51 M/UL (4.20-5.40) Hemoglobin 9.5 G/DL (12.0-16.0) 9.8 G/DL (12.0-16.0) 10.1 G/DL (12.0-16.0) Hematocrit 30.0 % (37.0-47.0) 30.9 % (37.0-47.0) 32.2 % (37.0-47.0) Mean Corpuscular Volume 93 FL (80-99) 90 FL (80-99) 92 FL (80-99) Mean Corpuscular Hemoglobin 29.4 PG (27.0-31.0) 28.8 PG (27.0-31.0) 28.7 PG (27.0-31.0) Mean Corpuscular Hemoglobin Concent 31.8 G/DL (32.0-36.0) 31.8 G/DL (32.0-36.0) 31.3 G/DL (32.0-36.0) Red Cell Distribution Width 16.1 % (11.6-14.8) 15.4 % (11.6-14.8) 15.4 % (11.6-14.8) Platelet Count 361 K/UL (150-450) 402 K/UL (150-450) 399 K/UL (150-450) Mean Platelet Volume 5.3 FL (6.5-10.1) 5.2 FL (6.5-10.1) 5.2 FL (6.5-10.1) Neutrophils (%) (Auto) % (45.0-75.0) 82.9 % (45.0-75.0) 83.8 % (45.0-75.0) Lymphocytes (%) (Auto) % (20.0-45.0) 10.2 % (20.0-45.0) 9.9 % (20.0-45.0) Monocytes (%) (Auto) % (1.0-10.0) 5.9 % (1.0-10.0) 5.5 % (1.0-10.0) Eosinophils (%) (Auto) % (0.0-3.0) 0.0 % (0.0-3.0) 0.1 % (0.0-3.0) Basophils (%) (Auto) % (0.0-2.0) 1.0 % (0.0-2.0) 0.7 % (0.0-2.0) Sodium Level 134 MMOL/L (136-145) 136 MMOL/L (136-145) Potassium Level 3.3 MMOL/L (3.5-5.1) 3.0 MMOL/L (3.5-5.1) Chloride Level 100 MMOL/L (98-107) 99 MMOL/L (98-107) Carbon Dioxide Level 25 MMOL/L (21-32) 27 MMOL/L (21-32) Anion Gap 9 mmol/L (5-15) 10 mmol/L (5-15) Blood Urea Nitrogen 7 mg/dL (7-18) 5 mg/dL (7-18) Creatinine 0.5 MG/DL (0.55-1.30) 0.5 MG/DL (0.55-1.30) Estimat Glomerular Filtration Rate > 60 mL/min (>60) > 60 mL/min (>60) Glucose Level 133 MG/DL (74-106) 143 MG/DL (74-106) Calcium Level 10.7 MG/DL (8.5-10.1) 10.2 MG/DL (8.5-10.1) Total Bilirubin 0.2 MG/DL (0.2-1.0) 0.2 MG/DL (0.2-1.0) Aspartate Amino Transf (AST/SGOT) 80 U/L (15-37) 78 U/L (15-37) Alanine Aminotransferase (ALT/SGPT) 18 U/L (12-78) 17 U/L (12-78) Alkaline Phosphatase 72 U/L (46-116) 67 U/L (46-116) Total Protein 7.6 G/DL (6.4-8.2) 7.5 G/DL (6.4-8.2) Albumin 3.4 G/DL (3.4-5.0) 3.4 G/DL (3.4-5.0) Globulin 4.2 g/dL 4.1 g/dL Albumin/Globulin Ratio 0.8 (1.0-2.7) 0.8 (1.0-2.7) Amylase Level 685 U/L (25-115) 350 U/L (25-115) Lipase > 2000 U/L (73-393) > 2000 U/L (73-393) Iron Level 32 ug/dL (50-175) Total Iron Binding Capacity 287 ug/dL (250-450) Percent Iron Saturation 11 % (15-50) Unsaturated Iron Binding 255 ug/dL (112-346) Ferritin 29 NG/ML (8-388) Carcinoembryonic Antigen 9.2 ng/mL (0.0-4.7) Height (Feet): 5 Height (Inches): 5.00 Weight (Pounds): 134 Jim Cobb MD Jan 30, 2020 08:23
[2020-01-30] MEDS: DULoxetine 30mg cap ORAL SCH (08:42)
[2020-01-30] MEDS: Eliquis 5mg tablet ORAL SCH ×2 (08:42→17:02)
[2020-01-30] MEDS: Pancrelipase Dr Cap ORAL SCH ×3 (08:42→17:02)
[2020-01-30] MEDS: Metoprolol Tartrate 50mg tab ORAL SCH ×2 (08:43→21:16)
[2020-01-30] MEDS: HYDROmorphone 1mg/ml Carpuject IVP PRN ×3 (08:48→16:58)
[2020-01-30] MEDS: Bisacodyl EC 5mg tab ORAL SCH (08:48)
[2020-01-30] MEDS: Docusate 100mg cap ORAL SCH ×2 (08:48→17:03)
[2020-01-30 09:17] LABS: ALANINE AMINOTRANSFERASE 17 U/L (12-78); ALBUMIN 3.5 G/DL (3.4-5.0); ALBUMIN/GLOBULIN RATIO 0.8 (1.0-2.7); ALKALINE PHOSPHATASE 69 U/L (46-116); AMYLASE 343 U/L (25-115); ANION GAP 11 mmol/L (5-15); ASPARTATE AMINO TRANSFERASE 82 U/L (15-37); BILIRUBIN,TOTAL 0.2 MG/DL (0.2-1.0); BLOOD UREA NITROGEN 6 mg/dL (7-18); CALCIUM 10.7 MG/DL (8.5-10.1); CARBON DIOXIDE 27 MMOL/L (21-32); CHLORIDE 98 MMOL/L (98-107); CREATININE 0.5 MG/DL (0.55-1.30); SODIUM 135 MMOL/L (136-145)
--- NOTE | 2020-01-30 11:15 | Infectious Diseases Prog Note ---
Assessment/Plan Assessment/Plan antibiotics : zosyn A 1. Pancreatitis. 2. Lung mass with liver metastasis. 3. COPD. 4. Hypertension P 1. continue zosyn 2 more days 2. will follow up cultures 3. liver biospy planned Subjective Constitutional: Denies: fever, chills Respiratory: Denies: shortness of breath, dry cough Gastrointestinal/Abdominal: Denies: nausea, vomiting, diarrhea Musculoskeletal: Reports: pain Allergies: Coded Allergies: IBUPROFEN (Verified Allergy, Mild, 10/05/09) CORTICOSTEROIDS (GLUCOCORTICOIDS) (Unverified Allergy, Unknown, 01/22/20) Objective Last 24 Hour Vital Signs Date Time Temp Pulse Resp B/P (MAP) Pulse Ox O2 Delivery O2 Flow Rate FiO2 01/30/20 08:50 Nasal Cannula 2.0 01/30/20 08:43 90 159/102 01/30/20 08:43 90 159/102 01/30/20 08:05 97.2 90 20 159/102 (121) 94 01/30/20 05:58 150/70 01/30/20 04:00 96.3 77 20 150/70 (96) 94 01/30/20 00:00 96.2 74 20 122/86 (98) 95 01/29/20 21:08 172/95 01/29/20 21:00 Nasal Cannula 2.0 01/29/20 20:37 80 155/95 01/29/20 20:00 96.6 80 22 155/95 (115) 95 01/29/20 19:12 96 Nasal Cannula 2.0 28 01/29/20 16:00 97.6 82 18 152/89 (110) 93 01/29/20 13:40 154/92 01/29/20 12:00 97.6 79 18 153/84 (107) 93 Height (Feet): 5 Height (Inches): 5.00 Weight (Pounds): 134 Respiratory/Chest: lungs clear Cardiovascular: normal rate, regular rhythm, no gallop/murmur Abdomen: soft, non tender Extremities: no edema Microbiology Date/Time Source Procedure Growth Status 01/28/20 18:30 Nasopharynx SARS-CoV-2 RdRp Gene Assay - Final Complete 01/28/20 18:52 Stool Clostridium difficile Toxin Assay - Final Complete Laboratory Tests Test 01/30/20 06:39 White Blood Count 13.3 K/UL (4.8-10.8) H Red Blood Count 3.51 M/UL (4.20-5.40) L Hemoglobin 10.1 G/DL (12.0-16.0) L Hematocrit 32.2 % (37.0-47.0) L Mean Corpuscular Volume 92 FL (80-99) Mean Corpuscular Hemoglobin 28.7 PG (27.0-31.0) Mean Corpuscular Hemoglobin Concent 31.3 G/DL (32.0-36.0) L Red Cell Distribution Width 15.4 % (11.6-14.8) H Platelet Count 399 K/UL (150-450) Mean Platelet Volume 5.2 FL (6.5-10.1) L Neutrophils (%) (Auto) 83.8 % (45.0-75.0) H Lymphocytes (%) (Auto) 9.9 % (20.0-45.0) L Monocytes (%) (Auto) 5.5 % (1.0-10.0) Eosinophils (%) (Auto) 0.1 % (0.0-3.0) Basophils (%) (Auto) 0.7 % (0.0-2.0) Sodium Level 135 MMOL/L (136-145) L Potassium Level 4.0 MMOL/L (3.5-5.1) Chloride Level 98 MMOL/L (98-107) Carbon Dioxide Level 27 MMOL/L (21-32) Anion Gap 11 mmol/L (5-15) Blood Urea Nitrogen 6 mg/dL (7-18) L Creatinine 0.5 MG/DL (0.55-1.30) L Estimat Glomerular Filtration Rate > 60 mL/min (>60) Glucose Level 141 MG/DL (74-106) H Calcium Level 10.7 MG/DL (8.5-10.1) H Total Bilirubin 0.2 MG/DL (0.2-1.0) Aspartate Amino Transf (AST/SGOT) 82 U/L (15-37) H Alanine Aminotransferase (ALT/SGPT) 17 U/L (12-78) Alkaline Phosphatase 69 U/L (46-116) Total Protein 7.7 G/DL (6.4-8.2) Albumin 3.5 G/DL (3.4-5.0) Globulin 4.2 g/dL Albumin/Globulin Ratio 0.8 (1.0-2.7) L Amylase Level 343 U/L (25-115) H Lipase > 2000 U/L (73-393) H Current Medications Medications (Trade) Dose Ordered Sig/Kina Route PRN Reason Start Time Stop Time Status Last Admin Dose Admin Acetaminophen (Tylenol) 650 mg Q6H PRN ORAL Pain Scale (3-5) 01/22/20 17:45 02/21/20 17:44 01/23/20 20:43 Amlodipine Besylate (Norvasc) 5 mg DAILY ORAL 01/23/20 09:00 02/22/20 08:59 01/30/20 08:43 Amylase/Lipase/ Protease (Zenpep) 3 ea THREE TIMES A DAY ORAL 01/29/20 09:00 04/28/20 08:59 01/30/20 08:42 Apixaban (Eliquis) 5 mg BID ORAL 01/28/20 18:00 04/27/20 17:59 01/30/20 08:42 Bisacodyl (Dulcolax) 10 mg DAILY ORAL 01/23/20 09:00 04/22/20 08:59 01/30/20 08:48 Carisoprodol (Soma) 350 mg Q8HR ORAL 01/22/20 18:30 02/21/20 18:29 01/30/20 05:58 Dextrose/ Electrolytes 1,000 ml @ 100 mls/hr Q10H IV 01/23/20 09:30 02/22/20 09:29 01/30/20 01:13 Diphenoxylate HCl/ Atropine (Lomotil) 2.5 mg Q6H PRN ORAL Diarrhea 01/29/20 14:30 02/28/20 14:29 01/29/20 15:18 Docusate Sodium (Colace) 100 mg TWICE A DAY ORAL 01/22/20 18:00 02/21/20 17:59 01/30/20 08:48 Duloxetine HCl (Cymbalta) 90 mg DAILY ORAL 01/26/20 09:00 04/22/20 08:59 01/30/20 08:42 Hydralazine HCl (Apresoline) 50 mg Q8HR ORAL 01/23/20 14:00 04/21/20 21:59 01/30/20 05:58 Hydromorphone HCl (Dilaudid) 1 mg Q3H PRN IVP Severe Pain (Pain Scale 7-10) 01/27/20 08:16 02/03/20 08:15 01/30/20 08:48 Lidocaine (Lidoderm 5% PATCH) 1 patch DAILY TDERMAL 01/23/20 09:00 04/22/20 08:59 01/30/20 08:43 Lorazepam (Ativan) 1 mg Q6H PRN ORAL For Anxiety 01/29/20 08:30 02/05/20 08:29 01/29/20 21:08 Magnesium Hydroxide (Mom) 30 ml DAILYPRN PRN ORAL Constipation 01/22/20 17:45 02/21/20 17:44 Metoclopramide HCl (Reglan) 10 mg Q6H PRN IVP Nausea & Vomiting 01/24/20 10:00 02/23/20 09:59 01/24/20 16:40 Metoprolol Tartrate (Lopressor) 50 mg EVERY 12 HOURS ORAL 01/22/20 21:00 04/21/20 20:59 01/30/20 08:43 Naloxone HCl (Narcan) 0.2 mg Q2M PRN IVP RESPRITORY DEPRESSION 01/28/20 13:47 04/27/20 13:46 Ondansetron HCl (Zofran) 4 mg Q4H PRN IVP Nausea & Vomiting 01/23/20 15:15 02/22/20 15:14 01/26/20 10:59 Pantoprazole (Protonix) 40 mg DAILY ORAL 01/23/20 09:00 02/22/20 08:59 01/30/20 08:42 Piperacillin Sod/ Tazobactam Sod 3.375 gm/Sodium Chloride 110 ml @ 27.5 mls/hr EVERY 8 HOURS IVPB 01/29/20 12:00 02/03/20 11:59 01/30/20 05:58 Polyethylene Glycol (Miralax) 17 gm BEDTIME ORAL 01/23/20 21:00 02/22/20 20:59 01/27/20 21:22 Jose Juan Estrada MD Jan 30, 2020 11:15
--- NOTE | 2020-01-30 12:54 | Pulmonology Progress Note ---
Subjective ROS Limited/Unobtainable: No Interval Events: None new Constitutional: Denies: fever, chills HEENT: Repors: no symptoms Respiratory: Reports: dry cough Cardiovascular: Reports: no symptoms Gastrointestinal/Abdominal: Denies: nausea, vomiting, diarrhea Genitourinary: Reports: no symptoms Musculoskeletal: Reports: pain Allergies: Coded Allergies: IBUPROFEN (Verified Allergy, Mild, 10/05/09) CORTICOSTEROIDS (GLUCOCORTICOIDS) (Unverified Allergy, Unknown, 01/22/20) All Systems: reviewed and negative except above Objective Last 24 Hour Vital Signs Date Time Temp Pulse Resp B/P (MAP) Pulse Ox O2 Delivery O2 Flow Rate FiO2 01/30/20 11:29 97.7 80 18 163/98 (119) 93 01/30/20 08:50 Nasal Cannula 2.0 01/30/20 08:43 90 159/102 01/30/20 08:43 90 159/102 01/30/20 08:05 97.2 90 20 159/102 (121) 94 01/30/20 05:58 150/70 01/30/20 04:00 96.3 77 20 150/70 (96) 94 01/30/20 00:00 96.2 74 20 122/86 (98) 95 01/29/20 21:08 172/95 01/29/20 21:00 Nasal Cannula 2.0 01/29/20 20:37 80 155/95 01/29/20 20:00 96.6 80 22 155/95 (115) 95 01/29/20 19:12 96 Nasal Cannula 2.0 28 01/29/20 16:00 97.6 82 18 152/89 (110) 93 01/29/20 13:40 154/92 Intake and Output 01/29/20 01/30/20 19:00 07:00 Intake Total 1610.0 ml 1577.5 ml Output Total 400 ml Balance 1610.0 ml 1177.5 ml Intake Oral 240 ml IV Total 1310.0 ml 1337.5 ml Other 300 ml Output Urine Total 400 ml # Voids 1 # Bowel Movements 1 General Appearance: no acute distress HEENT: normocephalic Respiratory: chest wall non-tender, decreased breath sounds Cardiovascular: normal rate Abdomen: normal bowel sounds Microbiology Date/Time Source Procedure Growth Status 01/28/20 18:30 Nasopharynx SARS-CoV-2 RdRp Gene Assay - Final Complete 01/28/20 18:52 Stool Clostridium difficile Toxin Assay - Final Complete Laboratory Tests 01/30/20 06:39: White Blood Count 13.3H, Red Blood Count 3.51L, Hemoglobin 10.1L, Hematocrit 32.2L, Mean Corpuscular Volume 92, Mean Corpuscular Hemoglobin 28.7, Mean Corpuscular Hemoglobin Concent 31.3L, Red Cell Distribution Width 15.4H, Platelet Count 399, Mean Platelet Volume 5.2L, Neutrophils (%) (Auto) 83.8H, Lymphocytes (%) (Auto) 9.9L, Monocytes (%) (Auto) 5.5, Eosinophils (%) (Auto) 0.1, Basophils (%) (Auto) 0.7, Sodium Level 135L, Potassium Level 4.0, Chloride Level 98, Carbon Dioxide Level 27, Anion Gap 11, Blood Urea Nitrogen 6L, Creatinine 0.5L, Estimat Glomerular Filtration Rate > 60, Glucose Level 141H, Calcium Level 10.7H, Total Bilirubin 0.2, Aspartate Amino Transf (AST/SGOT) 82H , Alanine Aminotransferase (ALT/SGPT) 17, Alkaline Phosphatase 69, Total Protein 7.7, Albumin 3.5, Globulin 4.2, Albumin/Globulin Ratio 0.8L, Amylase Level 343H, Lipase > 2000H Current Medications Medications (Trade) Dose Ordered Sig/Kina Route PRN Reason Start Time Stop Time Status Last Admin Dose Admin Acetaminophen (Tylenol) 650 mg Q6H PRN ORAL Pain Scale (3-5) 01/22/20 17:45 02/21/20 17:44 01/23/20 20:43 Amlodipine Besylate (Norvasc) 5 mg DAILY ORAL 01/23/20 09:00 02/22/20 08:59 01/30/20 08:43 Amylase/Lipase/ Protease (Zenpep) 3 ea THREE TIMES A DAY ORAL 01/29/20 09:00 04/28/20 08:59 01/30/20 08:42 Apixaban (Eliquis) 5 mg BID ORAL 01/28/20 18:00 04/27/20 17:59 01/30/20 08:42 Bisacodyl (Dulcolax) 10 mg DAILY ORAL 01/23/20 09:00 04/22/20 08:59 01/30/20 08:48 Carisoprodol (Soma) 350 mg Q8HR ORAL 01/22/20 18:30 02/21/20 18:29 01/30/20 05:58 Dextrose/ Electrolytes 1,000 ml @ 100 mls/hr Q10H IV 01/23/20 09:30 02/22/20 09:29 01/30/20 11:51 Diphenoxylate HCl/ Atropine (Lomotil) 2.5 mg Q6H PRN ORAL Diarrhea 01/29/20 14:30 02/28/20 14:29 01/29/20 15:18 Docusate Sodium (Colace) 100 mg TWICE A DAY ORAL 01/22/20 18:00 02/21/20 17:59 01/30/20 08:48 Duloxetine HCl (Cymbalta) 90 mg DAILY ORAL 01/26/20 09:00 04/22/20 08:59 01/30/20 08:42 Hydralazine HCl (Apresoline) 50 mg Q8HR ORAL 01/23/20 14:00 04/21/20 21:59 01/30/20 05:58 Hydromorphone HCl (Dilaudid) 1 mg Q3H PRN IVP Severe Pain (Pain Scale 7-10) 01/27/20 08:16 02/03/20 08:15 01/30/20 11:51 Lidocaine (Lidoderm 5% PATCH) 1 patch DAILY TDERMAL 01/23/20 09:00 04/22/20 08:59 01/30/20 08:43 Lorazepam (Ativan) 1 mg Q6H PRN ORAL For Anxiety 01/29/20 08:30 02/05/20 08:29 01/29/20 21:08 Magnesium Hydroxide (Mom) 30 ml DAILYPRN PRN ORAL Constipation 01/22/20 17:45 02/21/20 17:44 Metoclopramide HCl (Reglan) 10 mg Q6H PRN IVP Nausea & Vomiting 01/24/20 10:00 02/23/20 09:59 01/24/20 16:40 Metoprolol Tartrate (Lopressor) 50 mg EVERY 12 HOURS ORAL 01/22/20 21:00 04/21/20 20:59 01/30/20 08:43 Naloxone HCl (Narcan) 0.2 mg Q2M PRN IVP RESPRITORY DEPRESSION 01/28/20 13:47 04/27/20 13:46 Ondansetron HCl (Zofran) 4 mg Q4H PRN IVP Nausea & Vomiting 01/23/20 15:15 02/22/20 15:14 01/26/20 10:59 Pantoprazole (Protonix) 40 mg DAILY ORAL 01/23/20 09:00 02/22/20 08:59 01/30/20 08:42 Piperacillin Sod/ Tazobactam Sod 3.375 gm/Sodium Chloride 110 ml @ 27.5 mls/hr EVERY 8 HOURS IVPB 01/29/20 12:00 02/03/20 11:59 01/30/20 05:58 Polyethylene Glycol (Miralax) 17 gm BEDTIME ORAL 01/23/20 21:00 02/22/20 20:59 01/27/20 21:22 Assessment/Plan Assessment/Plan Pulmonary Progress Note Subjective ROS Limited/Unobtainable: Yes Interval Events: None new Constitutional: Denies: fever HEENT: Repors: no symptoms Respiratory: Reports: dry cough Cardiovascular: Reports: no symptoms Gastrointestinal/Abdominal: Denies: nausea, vomiting, diarrhea Genitourinary: Reports: no symptoms Musculoskeletal: Reports: pain - abdominal Allergies: Coded Allergies: IBUPROFEN (Verified Allergy, Mild, 10/05/09) CORTICOSTEROIDS (GLUCOCORTICOIDS) (Unverified Allergy, Unknown, 01/22/20) All Systems: reviewed and negative except above Objective Vital Signs Noted General Appearance: no acute distress HEENT: normocephalic Respiratory: chest wall non-tender, decreased breath sounds Cardiovascular: normal rate Abdomen: normal bowel sounds Microbiology Date/Time Source Procedure Growth Status 01/28/20 18:30 Nasopharynx SARS-CoV-2 RdRp Gene Assay - Final Complete 01/28/20 18:52 Stool Clostridium difficile Toxin Assay - Final Complete Laboratory Tests Noted Assessment/Plan IMPRESSION: 1. Large lung mass. 2. COPD. 3. History of spinal stenosis. 4. Multiple metastases noted DISCUSSION: ID following S/p CT guided liver biopsy. Saturating well on 2L/min O2 Viktor Graff MD Jan 30, 2020 12:54
--- NOTE | 2020-01-30 14:51 | NUR ---
HIV COUNSELOR NOTE ORDER FOR TRANSFER TO [facility] NOTED. CALL MADE TO [facility] @ [phone]. S/W ELIAS WHO INFORMED THIS CM THAT THEY ARE NOT ACCEPTING LATERAL TRANSFERS AT THIS TIME. ALSO STATED THAT PATIENT ALSO DENIED INITIAL DC DISPOSITION WAS FOR SNF. THEY ARE ALSO UNABLE TO ACCEPT TRANSFERS PER FAMILY OR PATIENT REQUEST. DR MAKI INFORMED.
--- NOTE | 2020-01-30 16:48 | Cardiac Electrophysiology PN ---
Assessment/Plan Assessment/Plan 1. Accelerated hypertension. On amlodipine 5 mg daily, metoprolol 50 mg bid, hydralazine 25 mg every 8 hours and p.r.n. clonidine 2. Lung masses. This is likely metastasis. CT of the chest done 3. Liver mass. S/P Liver Biopsy 01/27/20. Most likely metastatic deposits, also previously reported Multiple osseous lesions, --> given current bedbound status, will eval if qualifies for treatment, at this time wants to transfer to [facility] Transfer to [facility] pending 4. On Eliquis for DVT. Held for chest CT 5. History of cervical stenosis and pain. DW RN and charge nurse Subjective Subjective Comfortable in NAD. S/P CT guided Liver biopsy . Transfer to [facility] pending. Family refused SNIF Objective Last 24 Hour Vital Signs Date Time Temp Pulse Resp B/P (MAP) Pulse Ox O2 Delivery O2 Flow Rate FiO2 01/30/20 16:00 98.8 80 18 133/76 (95) 94 01/30/20 13:08 163/98 01/30/20 12:10 74 18 148/89 (108) 93 01/30/20 11:29 97.7 80 18 163/98 (119) 93 01/30/20 08:50 Nasal Cannula 2.0 01/30/20 08:43 90 159/102 01/30/20 08:43 90 159/102 01/30/20 08:05 97.2 90 20 159/102 (121) 94 01/30/20 05:58 150/70 01/30/20 04:00 96.3 77 20 150/70 (96) 94 01/30/20 00:00 96.2 74 20 122/86 (98) 95 01/29/20 21:08 172/95 01/29/20 21:00 Nasal Cannula 2.0 01/29/20 20:37 80 155/95 01/29/20 20:00 96.6 80 22 155/95 (115) 95 01/29/20 19:12 96 Nasal Cannula 2.0 28 Intake and Output 01/29/20 01/30/20 19:00 07:00 Intake Total 1610.0 ml 1577.5 ml Output Total 400 ml Balance 1610.0 ml 1177.5 ml Intake Oral 240 ml IV Total 1310.0 ml 1337.5 ml Other 300 ml Output Urine Total 400 ml # Voids 1 # Bowel Movements 1 Laboratory Tests Test 01/30/20 06:39 White Blood Count 13.3 K/UL (4.8-10.8) H Red Blood Count 3.51 M/UL (4.20-5.40) L Hemoglobin 10.1 G/DL (12.0-16.0) L Hematocrit 32.2 % (37.0-47.0) L Mean Corpuscular Volume 92 FL (80-99) Mean Corpuscular Hemoglobin 28.7 PG (27.0-31.0) Mean Corpuscular Hemoglobin Concent 31.3 G/DL (32.0-36.0) L Red Cell Distribution Width 15.4 % (11.6-14.8) H Platelet Count 399 K/UL (150-450) Mean Platelet Volume 5.2 FL (6.5-10.1) L Neutrophils (%) (Auto) 83.8 % (45.0-75.0) H Lymphocytes (%) (Auto) 9.9 % (20.0-45.0) L Monocytes (%) (Auto) 5.5 % (1.0-10.0) Eosinophils (%) (Auto) 0.1 % (0.0-3.0) Basophils (%) (Auto) 0.7 % (0.0-2.0) Sodium Level 135 MMOL/L (136-145) L Potassium Level 4.0 MMOL/L (3.5-5.1) Chloride Level 98 MMOL/L (98-107) Carbon Dioxide Level 27 MMOL/L (21-32) Anion Gap 11 mmol/L (5-15) Blood Urea Nitrogen 6 mg/dL (7-18) L Creatinine 0.5 MG/DL (0.55-1.30) L Estimat Glomerular Filtration Rate > 60 mL/min (>60) Glucose Level 141 MG/DL (74-106) H Calcium Level 10.7 MG/DL (8.5-10.1) H Total Bilirubin 0.2 MG/DL (0.2-1.0) Aspartate Amino Transf (AST/SGOT) 82 U/L (15-37) H Alanine Aminotransferase (ALT/SGPT) 17 U/L (12-78) Alkaline Phosphatase 69 U/L (46-116) Total Protein 7.7 G/DL (6.4-8.2) Albumin 3.5 G/DL (3.4-5.0) Globulin 4.2 g/dL Albumin/Globulin Ratio 0.8 (1.0-2.7) L Amylase Level 343 U/L (25-115) H Lipase > 2000 U/L (73-393) H Microbiology Date/Time Source Procedure Growth Status 01/28/20 18:30 Nasopharynx SARS-CoV-2 RdRp Gene Assay - Final Complete 01/28/20 18:52 Stool Clostridium difficile Toxin Assay - Final Complete Objective HEAD AND NECK: Showed no JVD. LUNGS: Clear. CARDIOVASCULAR: Shows regular S1 and S2 with no gallop or murmur. ABDOMEN: Soft. EXTREMITIES: No pitting edema. Jimmy Moreno MD Jan 30, 2020 16:48
--- NOTE | 2020-01-30 19:35 | NUR ---
HAND-OFF: Report given to Ms Beltre accordingly. sandra thakkar
--- NOTE | 2020-01-30 19:37 | NUR ---
NURSE NOTES: Patient in bed, awake, able to make needs known at this time. On 2L oxygen via nasal cannula. IV intact and running IVF as ordered. Bed is locked, and in lowest position. Bed alarm on. Call light in reach. Will continue to follow plan of care.
--- NOTE | 2020-01-30 20:00 | Progress Note ---
DATE: 01/30/2020 SUBJECTIVE: The patient is a 64-year-old female patient with pancreatitis. She continues to have some confusion, some disorganized thought process, and some decline in cognition below her baseline. She has got overwhelming feelings of helplessness, hopelessness, low energy, poor appetite, and loss of interest in activity. That is why, she does require inpatient treatment at this time. This patient has a medical illness such as fever, right lung pain, rheumatoid arthritis, acute pancreatitis, diverticulosis, metastatic disease, possible lung mass, but this is causing her to have a decline in cognition below her baseline and mood lability. That is why, her attending has requested daily psychiatric consultation. MENTAL STATUS EXAMINATION: A 64-year-old female. Appearance is disheveled. Attitude, irritable and agitated. Affect, guarded and restricted. Intellect poor. Mood, depressed and anxious. Motor activity, psychomotor agitation. Insight and judgment is poor. DIAGNOSIS: Major depressive disorder, mild, recurrent, without psychotic features. PLAN: Cymbalta 90 mg a day and Ativan one every 6 hours p.r.n. anxiety or agitation. Twenty minutes of cognitive behavioral therapy provided to help her identify automatic negative thoughts and help her convert negative thoughts to more positive thoughts to reduce depression, anxiety, and mood lability. Chart was reviewed. Discussed with staff. Seen and assessed in her room. Margo Perez M.D. DR: ALICE JOB#: [id number] CC:
[2020-01-30] MEDS: Miralax 17gm pkt ORAL SCH (21:00)
--- NOTE | 2020-01-30 22:15 | General Progress Note ---
Assessment/Plan Problem List: (1) Fever ICD Codes: R50.9 - Fever, unspecified SNOMED: 241808983 (2) Lung mass ICD Codes: R91.8 - Other nonspecific abnormal finding of lung field SNOMED: 405713891 (3) Right flank pain ICD Codes: R10.9 - Unspecified abdominal pain SNOMED: 605408945 (4) Rheumatoid arthritis ICD Codes: M06.9 - Rheumatoid arthritis, unspecified SNOMED: 73897273 (5) Diverticulosis ICD Codes: K57.90 - Diverticulosis of intestine, part unspecified, without perforation or abscess without bleeding SNOMED: 708248605 (6) Acute pancreatitis ICD Codes: K85.90 - Acute pancreatitis without necrosis or infection, unspecified SNOMED: 754355558 (7) Metastatic disease ICD Codes: C79.9 - Secondary malignant neoplasm of unspecified site SNOMED: 370295873 Status: stable, progressing Assessment/Plan: wrote transfer to [facility] per dpoa request however [facility] refused the transfer diverticulosis pancreatitis ra afebrile reviewed chart and labs Subjective ROS Limited/Unobtainable: Yes Allergies: Coded Allergies: IBUPROFEN (Verified Allergy, Mild, 10/05/09) CORTICOSTEROIDS (GLUCOCORTICOIDS) (Unverified Allergy, Unknown, 01/22/20) Objective Last 24 Hour Vital Signs Date Time Temp Pulse Resp B/P (MAP) Pulse Ox O2 Delivery O2 Flow Rate FiO2 01/30/20 21:16 137/70 01/30/20 21:16 86 137/70 01/30/20 20:00 97.3 86 19 137/70 (92) 94 01/30/20 16:00 98.8 80 18 133/76 (95) 94 01/30/20 13:08 163/98 01/30/20 12:10 74 18 148/89 (108) 93 01/30/20 11:29 97.7 80 18 163/98 (119) 93 01/30/20 08:50 Nasal Cannula 2.0 01/30/20 08:43 90 159/102 01/30/20 08:43 90 159/102 01/30/20 08:05 97.2 90 20 159/102 (121) 94 01/30/20 05:58 150/70 01/30/20 04:00 96.3 77 20 150/70 (96) 94 01/30/20 00:00 96.2 74 20 122/86 (98) 95 Intake and Output 01/29/20 01/30/20 19:00 07:00 Intake Total 1610.0 ml 1577.5 ml Output Total 400 ml Balance 1610.0 ml 1177.5 ml Intake Oral 240 ml IV Total 1310.0 ml 1337.5 ml Other 300 ml Output Urine Total 400 ml # Voids 1 # Bowel Movements 1 Laboratory Tests 01/30/20 06:39: White Blood Count 13.3H, Red Blood Count 3.51L, Hemoglobin 10.1L, Hematocrit 32.2L, Mean Corpuscular Volume 92, Mean Corpuscular Hemoglobin 28.7, Mean Corpuscular Hemoglobin Concent 31.3L, Red Cell Distribution Width 15.4H, Platelet Count 399, Mean Platelet Volume 5.2L, Neutrophils (%) (Auto) 83.8H, Lymphocytes (%) (Auto) 9.9L, Monocytes (%) (Auto) 5.5, Eosinophils (%) (Auto) 0.1, Basophils (%) (Auto) 0.7, Sodium Level 135L, Potassium Level 4.0, Chloride Level 98, Carbon Dioxide Level 27, Anion Gap 11, Blood Urea Nitrogen 6L, Creatinine 0.5L, Estimat Glomerular Filtration Rate > 60, Glucose Level 141H, Calcium Level 10.7H, Total Bilirubin 0.2, Aspartate Amino Transf (AST/SGOT) 82H , Alanine Aminotransferase (ALT/SGPT) 17, Alkaline Phosphatase 69, Total Protein 7.7, Albumin 3.5, Globulin 4.2, Albumin/Globulin Ratio 0.8L, Amylase Level 343H, Lipase > 2000H Height (Feet): 5 Height (Inches): 5.00 Weight (Pounds): 134 Leatha Kauffman MD Jan 30, 2020 22:15
--- NOTE | 2020-01-30 22:27 | General Progress Note ---
Assessment/Plan Status: stable, progressing Assessment/Plan: Assessment/Plan Problem List: (1) Metastatic disease ICD Codes: C79.9 - Secondary malignant neoplasm of unspecified site SNOMED: 603415942 (2) Right flank pain ICD Codes: R10.9 - Unspecified abdominal pain SNOMED: 569246272 (3) Lung mass ICD Codes: R91.8 - Other nonspecific abnormal finding of lung field SNOMED: 666793665 (4) Acute pancreatitis ICD Codes: K85.90 - Acute pancreatitis without necrosis or infection, unspecified SNOMED: 769197873 (5) Rheumatoid arthritis ICD Codes: M06.9 - Rheumatoid arthritis, unspecified SNOMED: 92252893 (6) Diverticulosis ICD Codes: K57.90 - Diverticulosis of intestine, part unspecified, without perforation or abscess without bleeding SNOMED: 699813180 Assessment/Plan: IVF repeat labs bowel regimen CT reviewed not a good candidate for TPN given metastatic cancer creon at 9 tabs per day zofran will fu Subjective Allergies: Coded Allergies: IBUPROFEN (Verified Allergy, Mild, 10/05/09) CORTICOSTEROIDS (GLUCOCORTICOIDS) (Unverified Allergy, Unknown, 01/22/20) Subjective above noted resting comfortably minimally interactive Objective Last 24 Hour Vital Signs Date Time Temp Pulse Resp B/P (MAP) Pulse Ox O2 Delivery O2 Flow Rate FiO2 01/30/20 21:16 137/70 01/30/20 21:16 86 137/70 01/30/20 21:00 Nasal Cannula 2.0 01/30/20 20:00 97.3 86 19 137/70 (92) 94 01/30/20 16:00 98.8 80 18 133/76 (95) 94 01/30/20 13:08 163/98 01/30/20 12:10 74 18 148/89 (108) 93 01/30/20 11:29 97.7 80 18 163/98 (119) 93 01/30/20 08:50 Nasal Cannula 2.0 01/30/20 08:43 90 159/102 01/30/20 08:43 90 159/102 01/30/20 08:05 97.2 90 20 159/102 (121) 94 01/30/20 05:58 150/70 01/30/20 04:00 96.3 77 20 150/70 (96) 94 01/30/20 00:00 96.2 74 20 122/86 (98) 95 Intake and Output 01/29/20 01/30/20 19:00 07:00 Intake Total 1610.0 ml 1577.5 ml Output Total 400 ml Balance 1610.0 ml 1177.5 ml Intake Oral 240 ml IV Total 1310.0 ml 1337.5 ml Other 300 ml Output Urine Total 400 ml # Voids 1 # Bowel Movements 1 Laboratory Tests 01/30/20 06:39: White Blood Count 13.3H, Red Blood Count 3.51L, Hemoglobin 10.1L, Hematocrit 32.2L, Mean Corpuscular Volume 92, Mean Corpuscular Hemoglobin 28.7, Mean Corpuscular Hemoglobin Concent 31.3L, Red Cell Distribution Width 15.4H, Platelet Count 399, Mean Platelet Volume 5.2L, Neutrophils (%) (Auto) 83.8H, Lymphocytes (%) (Auto) 9.9L, Monocytes (%) (Auto) 5.5, Eosinophils (%) (Auto) 0.1, Basophils (%) (Auto) 0.7, Sodium Level 135L, Potassium Level 4.0, Chloride Level 98, Carbon Dioxide Level 27, Anion Gap 11, Blood Urea Nitrogen 6L, Creatinine 0.5L, Estimat Glomerular Filtration Rate > 60, Glucose Level 141H, Calcium Level 10.7H, Total Bilirubin 0.2, Aspartate Amino Transf (AST/SGOT) 82H , Alanine Aminotransferase (ALT/SGPT) 17, Alkaline Phosphatase 69, Total Protein 7.7, Albumin 3.5, Globulin 4.2, Albumin/Globulin Ratio 0.8L, Amylase Level 343H, Lipase > 2000H Height (Feet): 5 Height (Inches): 5.00 Weight (Pounds): 134 Objective Elderly AA woman NCAT supple CTA RR abd soft ND NT no edema Vane Mackay MD Jan 30, 2020 22:27
[2020-01-31] VITALS: BP_SYST 158; BP_SYST 163; BP_DIAS 96
[2020-01-31 04:00] VITALS: BP 159/94
[2020-01-31] MEDS: HydrALAZINE 50mg tab ORAL SCH ×3 (07:13→21:42)
[2020-01-31] MEDS: Piperacillin/Tazobactam 3.375 GM in NS 110 ML IVPB SCH ×3 (07:13→21:41)
[2020-01-31] MEDS: D5 1/2NS w/KCl 20mEq 1,000 ML IV SCH ×2 (07:30→15:27)
--- NOTE | 2020-01-31 07:38 | Hematology/Onc Progress Note ---
Assessment/Plan Assessment/Plan #. Stage IV -- multiple lung masses, Metastatic. Origin is likely lung. --> Targeted ultrasound-guided biopsy of right lobe liver lesion, as described. Final pathology pending --> dw path, report is pending --> CT does show Multiple low-attenuation liver masses, most likely metastatic deposits, also previously reported Multiple osseous lesions, also previously reported, likely metastatic deposits --> tumor markers ordered --> given current bedbound status, will eval if qualifies for treatment, at this time wants to transfer to [facility] --> have discussed with patient and with family #. Anemia rule out gi bleed --> anemia panel has been ordered->reviewed --> ferritin in prior was low --> iron has been ordered --> per gi recs #. Hypertension. --> on BP meds and cards on case #. History of cervical stenosis and pain. #. Dvt ppx apixaban The time of the note does not reflect the time the patient was seen Subjective Constitutional: Denies: no symptoms, chills, fever, malaise, weakness, other HEENT: Denies: no symptoms, eye pain, blurred vision, tearing, double vision, ear pain, ear discharge, nose pain, nose congestion, throat pain, throat swelling, mouth pain, mouth swelling, other Respiratory: Denies: no symptoms, cough, shortness of breath, SOB with excertion, SOB at rest, sputum, wheezing, other Gastrointestinal/Abdominal: Denies: no symptoms, abdomen distended, abdominal pain, black stools, tarry stools, blood in stool, constipated, diarrhea, difficulty swallowing, nausea, poor appetite, poor fluid intake, rectal bleeding , vomiting, other Genitourinary: Denies: no symptoms, burning, discharge, frequency, flank pain, hematuria, incontinence, pain, urgency, other Neurologic/Psychiatric: Denies: no symptoms, anxiety, depressed, emotional problems, headache, numbness, paresthesia, pre-existing deficit, seizure, tingling, tremors, weakness, other Endocrine: Denies: no symptoms, excessive sweating, flushing, intolerance to cold, intolerance to heat, increased hunger, increased thirst, increased urine, unexplained weight gain, unexplained weight loss, other Hematologic/Lymphatic: Denies: no symptoms, anemia, easy bleeding, easy bruising, adenopathy, other Allergies: Coded Allergies: IBUPROFEN (Verified Allergy, Mild, 10/05/09) CORTICOSTEROIDS (GLUCOCORTICOIDS) (Unverified Allergy, Unknown, 01/22/20) Subjective 01/27 spoke to patient's mother regArding plan of care 01/28 very confused int he am, due to sedatives, pending transfer to [facility] 01/29 patient and family agitated re discharge plan, have dw rn and smelter charger, transf cancelled for now 01/30 is on creon, zofran as well as 2lnc, no bleeding, meds noted Objective Objective Current Medications Medications (Trade) Dose Ordered Sig/Kina Route PRN Reason Start Time Stop Time Status Last Admin Dose Admin Acetaminophen (Tylenol) 650 mg Q6H PRN ORAL Pain Scale (3-5) 01/22/20 17:45 02/21/20 17:44 01/23/20 20:43 Amlodipine Besylate (Norvasc) 5 mg DAILY ORAL 01/23/20 09:00 02/22/20 08:59 01/30/20 08:43 Amylase/Lipase/ Protease (Zenpep) 3 ea THREE TIMES A DAY ORAL 01/29/20 09:00 04/28/20 08:59 01/30/20 17:02 Apixaban (Eliquis) 5 mg BID ORAL 01/28/20 18:00 04/27/20 17:59 01/30/20 17:02 Bisacodyl (Dulcolax) 10 mg DAILY ORAL 01/23/20 09:00 04/22/20 08:59 01/30/20 08:48 Carisoprodol (Soma) 350 mg Q8HR ORAL 01/22/20 18:30 02/21/20 18:29 01/30/20 21:17 Dextrose/ Electrolytes 1,000 ml @ 100 mls/hr Q10H IV 01/23/20 09:30 02/22/20 09:29 01/30/20 21:21 Diphenoxylate HCl/ Atropine (Lomotil) 2.5 mg Q6H PRN ORAL Diarrhea 01/29/20 14:30 02/28/20 14:29 01/29/20 15:18 Docusate Sodium (Colace) 100 mg TWICE A DAY ORAL 01/22/20 18:00 02/21/20 17:59 01/30/20 17:03 Duloxetine HCl (Cymbalta) 90 mg DAILY ORAL 01/26/20 09:00 04/22/20 08:59 01/30/20 08:42 Hydralazine HCl (Apresoline) 50 mg Q8HR ORAL 01/23/20 14:00 04/21/20 21:59 01/30/20 21:16 Hydromorphone HCl (Dilaudid) 1 mg Q3H PRN IVP Severe Pain (Pain Scale 7-10) 01/27/20 08:16 02/03/20 08:15 01/30/20 16:58 Lidocaine (Lidoderm 5% PATCH) 1 patch DAILY TDERMAL 01/23/20 09:00 04/22/20 08:59 01/30/20 08:43 Lorazepam (Ativan) 1 mg Q6H PRN ORAL For Anxiety 01/29/20 08:30 02/05/20 08:29 01/29/20 21:08 Magnesium Hydroxide (Mom) 30 ml DAILYPRN PRN ORAL Constipation 01/22/20 17:45 02/21/20 17:44 Metoclopramide HCl (Reglan) 10 mg Q6H PRN IVP Nausea & Vomiting 01/24/20 10:00 02/23/20 09:59 01/24/20 16:40 Metoprolol Tartrate (Lopressor) 50 mg EVERY 12 HOURS ORAL 01/22/20 21:00 04/21/20 20:59 01/30/20 21:16 Naloxone HCl (Narcan) 0.2 mg Q2M PRN IVP RESPRITORY DEPRESSION 01/28/20 13:47 04/27/20 13:46 Ondansetron HCl (Zofran) 4 mg Q4H PRN IVP Nausea & Vomiting 01/23/20 15:15 02/22/20 15:14 01/26/20 10:59 Pantoprazole (Protonix) 40 mg DAILY ORAL 01/23/20 09:00 02/22/20 08:59 01/30/20 08:42 Piperacillin Sod/ Tazobactam Sod 3.375 gm/Sodium Chloride 110 ml @ 27.5 mls/hr EVERY 8 HOURS IVPB 01/29/20 12:00 02/03/20 11:59 8/16/20 07:13 Polyethylene Glycol (Miralax) 17 gm BEDTIME ORAL 01/23/20 21:00 02/22/20 20:59 01/27/20 21:22 Last 24 Hour Vital Signs Date Time Temp Pulse Resp B/P (MAP) Pulse Ox O2 Delivery O2 Flow Rate FiO2 01/31/20 07:13 159/94 01/31/20 04:00 98.1 87 19 159/94 (115) 92 01/31/20 00:00 97.9 78 20 158/96 (116) 91 01/30/20 21:16 137/70 01/30/20 21:16 86 137/70 01/30/20 21:00 Nasal Cannula 2.0 01/30/20 20:00 98.2 88 20 153/84 (107) 94 01/30/20 16:00 98.8 80 18 133/76 (95) 94 01/30/20 13:08 163/98 01/30/20 12:10 74 18 148/89 (108) 93 01/30/20 11:29 97.7 80 18 163/98 (119) 93 01/30/20 08:50 Nasal Cannula 2.0 01/30/20 08:43 90 159/102 01/30/20 08:43 90 159/102 01/30/20 08:05 97.2 90 20 159/102 (121) 94 01/30/20 05:58 150/70 01/30/20 04:00 96.3 77 20 150/70 (96) 94 01/30/20 00:00 96.2 74 20 122/86 (98) 95 01/29/20 21:08 172/95 01/29/20 21:00 Nasal Cannula 2.0 01/29/20 20:37 80 155/95 01/29/20 20:00 96.6 80 22 155/95 (115) 95 01/29/20 19:12 96 Nasal Cannula 2.0 28 01/29/20 16:00 97.6 82 18 152/89 (110) 93 01/29/20 13:40 154/92 01/29/20 12:00 97.6 79 18 153/84 (107) 93 01/29/20 09:00 Nasal Cannula 2.0 01/29/20 08:46 77 151/84 01/29/20 08:46 77 151/84 01/29/20 08:10 96 Nasal Cannula 2.0 28 01/29/20 08:00 98.3 77 18 151/84 (106) 93 Intake and Output 01/30/20 01/31/20 19:00 07:00 Intake Total 1265.0 ml Output Total 600 ml 1300 ml Balance 665.0 ml -1300 ml Intake Oral 200 ml IV Total 1065.0 ml Output Urine Total 600 ml 1300 ml # Bowel Movements 1 1 Labs Test 01/29/20 04:50 01/30/20 06:39 White Blood Count 13.2 K/UL (4.8-10.8) 13.3 K/UL (4.8-10.8) Red Blood Count 3.41 M/UL (4.20-5.40) 3.51 M/UL (4.20-5.40) Hemoglobin 9.8 G/DL (12.0-16.0) 10.1 G/DL (12.0-16.0) Hematocrit 30.9 % (37.0-47.0) 32.2 % (37.0-47.0) Mean Corpuscular Volume 90 FL (80-99) 92 FL (80-99) Mean Corpuscular Hemoglobin 28.8 PG (27.0-31.0) 28.7 PG (27.0-31.0) Mean Corpuscular Hemoglobin Concent 31.8 G/DL (32.0-36.0) 31.3 G/DL (32.0-36.0) Red Cell Distribution Width 15.4 % (11.6-14.8) 15.4 % (11.6-14.8) Platelet Count 402 K/UL (150-450) 399 K/UL (150-450) Mean Platelet Volume 5.2 FL (6.5-10.1) 5.2 FL (6.5-10.1) Neutrophils (%) (Auto) 82.9 % (45.0-75.0) 83.8 % (45.0-75.0) Lymphocytes (%) (Auto) 10.2 % (20.0-45.0) 9.9 % (20.0-45.0) Monocytes (%) (Auto) 5.9 % (1.0-10.0) 5.5 % (1.0-10.0) Eosinophils (%) (Auto) 0.0 % (0.0-3.0) 0.1 % (0.0-3.0) Basophils (%) (Auto) 1.0 % (0.0-2.0) 0.7 % (0.0-2.0) Sodium Level 136 MMOL/L (136-145) 135 MMOL/L (136-145) Potassium Level 3.0 MMOL/L (3.5-5.1) 4.0 MMOL/L (3.5-5.1) Chloride Level 99 MMOL/L (98-107) 98 MMOL/L (98-107) Carbon Dioxide Level 27 MMOL/L (21-32) 27 MMOL/L (21-32) Anion Gap 10 mmol/L (5-15) 11 mmol/L (5-15) Blood Urea Nitrogen 5 mg/dL (7-18) 6 mg/dL (7-18) Creatinine 0.5 MG/DL (0.55-1.30) 0.5 MG/DL (0.55-1.30) Estimat Glomerular Filtration Rate > 60 mL/min (>60) > 60 mL/min (>60) Glucose Level 143 MG/DL (74-106) 141 MG/DL (74-106) Calcium Level 10.2 MG/DL (8.5-10.1) 10.7 MG/DL (8.5-10.1) Iron Level 32 ug/dL (50-175) Total Iron Binding Capacity 287 ug/dL (250-450) Percent Iron Saturation 11 % (15-50) Unsaturated Iron Binding 255 ug/dL (112-346) Ferritin 29 NG/ML (8-388) Total Bilirubin 0.2 MG/DL (0.2-1.0) 0.2 MG/DL (0.2-1.0) Aspartate Amino Transf (AST/SGOT) 78 U/L (15-37) 82 U/L (15-37) Alanine Aminotransferase (ALT/SGPT) 17 U/L (12-78) 17 U/L (12-78) Alkaline Phosphatase 67 U/L (46-116) 69 U/L (46-116) Total Protein 7.5 G/DL (6.4-8.2) 7.7 G/DL (6.4-8.2) Albumin 3.4 G/DL (3.4-5.0) 3.5 G/DL (3.4-5.0) Globulin 4.1 g/dL 4.2 g/dL Albumin/Globulin Ratio 0.8 (1.0-2.7) 0.8 (1.0-2.7) Amylase Level 350 U/L (25-115) 343 U/L (25-115) Lipase > 2000 U/L (73-393) > 2000 U/L (73-393) Carcinoembryonic Antigen 9.2 ng/mL (0.0-4.7) Height (Feet): 5 Height (Inches): 5.00 Weight (Pounds): 134 Jim Cobb MD Jan 31, 2020 07:38
--- NOTE | 2020-01-31 07:40 | NUR ---
HAND-OFF: Report given to SHAN Simms.
[2020-01-31 08:00] VITALS: BP 176/98
--- NOTE | 2020-01-31 08:00 | NUR ---
NURSE NOTES: Patient in bed, asleep, no sign of distress noted. On 2L oxygen via nasal cannula, no respiratory distress noted. IV access on right forearm, no sign of infiltration noted. Patient receives IVF as ordered. Bed is locked, and in lowest position, call light within easy reach, on bed alarm on, siderails up x2. Will continue to monitor patient and follow up with the plan of care.
--- NOTE | 2020-01-31 08:30 | Progress Note ---
DATE: 01/31/2020 SUBJECTIVE: This is a 64-year-old female patient, came into the hospital because she has lung mass, right flank pain, rheumatoid arthritis, acute pancreatitis, diverticulosis, possible metastatic disease and fever, but because of these problems this patient has decline in cognition below her baseline and she has some mood lability. That is why, her attending has requested daily psychiatric consultation. MENTAL STATUS EXAMINATION: This is a 64-year-old female. Appearance is disheveled. Attitude, irritable and agitated. Affect, guarded and restricted. Intellect poor. Mood, depressed and anxious. Motor activity, psychomotor agitation. Attention span is poor. Orientation x2. Speech is low volume, slurred. Thought process, disorganized and illogical. Insight and judgment is poor. DIAGNOSIS: Major depressive disorder, mild, recurrent with psychotic features. PLAN: Treat this patient with medication regimen consisting of Ativan 1 every 6 hours p.r.n. anxiety and agitation, Cymbalta 90 mg a day. Twenty minutes of cognitive behavioral therapy provided to help her identify automatic negative thoughts and help her convert negative thoughts to more positive thoughts to reduce depression, anxiety, and mood lability. Chart was reviewed. Discussed with staff. Seen and assessed at bedside. Margo Perez M.D. DR: ALICE JOB#: [id number] CC:
[2020-01-31] MEDS: Docusate 100mg cap ORAL SCH ×2 (08:32→17:03)
[2020-01-31] MEDS: Metoprolol Tartrate 50mg tab ORAL SCH ×2 (08:32→20:34)
[2020-01-31] MEDS: DULoxetine 30mg cap ORAL SCH (08:33)
[2020-01-31] MEDS: Eliquis 5mg tablet ORAL SCH ×2 (08:33→17:03)
[2020-01-31] MEDS: Pancrelipase Dr Cap ORAL SCH ×3 (08:33→17:03)
[2020-01-31] MEDS: Bisacodyl EC 5mg tab ORAL SCH (08:34)
[2020-01-31] MEDS: HYDROmorphone 1mg/ml Carpuject IVP PRN ×3 (08:52→20:38)
--- NOTE | 2020-01-31 11:30 | NUR ---
PT Note PT Note Attempted to see patient for treatment but patient was not available; was busy with family member.
[2020-01-31 12:00] VITALS: BP 146/89
--- NOTE | 2020-01-31 13:00 | NUR ---
NURSE NOTES: patient presented high BP 176/98, resolved with BP meds. dr Moreno made aware.
--- NOTE | 2020-01-31 13:31 | Pulmonology Progress Note ---
Subjective ROS Limited/Unobtainable: Yes Interval Events: None new Constitutional: Denies: fever, chills HEENT: Repors: no symptoms Respiratory: Reports: dry cough Cardiovascular: Reports: no symptoms Gastrointestinal/Abdominal: Denies: nausea, vomiting, diarrhea Genitourinary: Reports: no symptoms Musculoskeletal: Reports: pain Allergies: Coded Allergies: IBUPROFEN (Verified Allergy, Mild, 10/05/09) CORTICOSTEROIDS (GLUCOCORTICOIDS) (Unverified Allergy, Unknown, 01/22/20) All Systems: reviewed and negative except above Objective Last 24 Hour Vital Signs Date Time Temp Pulse Resp B/P (MAP) Pulse Ox O2 Delivery O2 Flow Rate FiO2 01/31/20 13:17 146/89 01/31/20 12:00 98.6 89 18 146/89 (108) 95 01/31/20 09:22 97.8 01/31/20 09:00 Nasal Cannula 2.0 01/31/20 08:33 83 176/98 01/31/20 08:32 83 176/98 01/31/20 08:00 97.8 83 18 176/98 (124) 95 01/31/20 07:13 159/94 01/31/20 04:00 98.1 87 19 159/94 (115) 92 01/31/20 00:00 97.9 78 20 158/96 (116) 91 01/30/20 21:16 137/70 01/30/20 21:16 86 137/70 01/30/20 21:00 Nasal Cannula 2.0 01/30/20 20:00 98.2 88 20 153/84 (107) 94 01/30/20 16:00 98.8 80 18 133/76 (95) 94 Intake and Output 01/30/20 01/31/20 19:00 07:00 Intake Total 1265.0 ml Output Total 600 ml 1300 ml Balance 665.0 ml -1300 ml Intake Oral 200 ml IV Total 1065.0 ml Output Urine Total 600 ml 1300 ml # Bowel Movements 1 2 General Appearance: no acute distress HEENT: normocephalic Respiratory: chest wall non-tender, decreased breath sounds Cardiovascular: normal rate Abdomen: normal bowel sounds Microbiology Date/Time Source Procedure Growth Status 01/28/20 18:30 Nasopharynx SARS-CoV-2 RdRp Gene Assay - Final Complete 01/28/20 18:52 Stool Clostridium difficile Toxin Assay - Final Complete Current Medications Medications (Trade) Dose Ordered Sig/Kina Route PRN Reason Start Time Stop Time Status Last Admin Dose Admin Acetaminophen (Tylenol) 650 mg Q6H PRN ORAL Pain Scale (3-5) 01/22/20 17:45 02/21/20 17:44 01/23/20 20:43 Amlodipine Besylate (Norvasc) 5 mg DAILY ORAL 01/23/20 09:00 02/22/20 08:59 01/31/20 08:33 Amylase/Lipase/ Protease (Zenpep) 3 ea THREE TIMES A DAY ORAL 01/29/20 09:00 04/28/20 08:59 01/31/20 13:17 Apixaban (Eliquis) 5 mg BID ORAL 01/28/20 18:00 04/27/20 17:59 01/31/20 08:33 Bisacodyl (Dulcolax) 10 mg DAILY ORAL 01/23/20 09:00 04/22/20 08:59 01/31/20 08:34 Carisoprodol (Soma) 350 mg Q8HR ORAL 01/22/20 18:30 02/21/20 18:29 01/30/20 21:17 Dextrose/ Electrolytes 1,000 ml @ 100 mls/hr Q10H IV 01/23/20 09:30 02/22/20 09:29 01/30/20 21:21 Diphenoxylate HCl/ Atropine (Lomotil) 2.5 mg Q6H PRN ORAL Diarrhea 01/29/20 14:30 02/28/20 14:29 01/29/20 15:18 Docusate Sodium (Colace) 100 mg TWICE A DAY ORAL 01/22/20 18:00 02/21/20 17:59 01/31/20 08:32 Duloxetine HCl (Cymbalta) 90 mg DAILY ORAL 01/26/20 09:00 04/22/20 08:59 01/31/20 08:33 Hydralazine HCl (Apresoline) 50 mg Q8HR ORAL 01/23/20 14:00 04/21/20 21:59 01/31/20 13:17 Hydromorphone HCl (Dilaudid) 1 mg Q3H PRN IVP Severe Pain (Pain Scale 7-10) 01/27/20 08:16 02/03/20 08:15 01/31/20 08:52 Lidocaine (Lidoderm 5% PATCH) 1 patch DAILY TDERMAL 01/23/20 09:00 04/22/20 08:59 01/31/20 08:35 Lorazepam (Ativan) 1 mg Q6H PRN ORAL For Anxiety 01/29/20 08:30 02/05/20 08:29 01/29/20 21:08 Magnesium Hydroxide (Mom) 30 ml DAILYPRN PRN ORAL Constipation 01/22/20 17:45 02/21/20 17:44 Metoclopramide HCl (Reglan) 10 mg Q6H PRN IVP Nausea & Vomiting 01/24/20 10:00 02/23/20 09:59 01/24/20 16:40 Metoprolol Tartrate (Lopressor) 50 mg EVERY 12 HOURS ORAL 01/22/20 21:00 04/21/20 20:59 01/31/20 08:32 Naloxone HCl (Narcan) 0.2 mg Q2M PRN IVP RESPRITORY DEPRESSION 01/28/20 13:47 04/27/20 13:46 Ondansetron HCl (Zofran) 4 mg Q4H PRN IVP Nausea & Vomiting 01/23/20 15:15 02/22/20 15:14 01/26/20 10:59 Pantoprazole (Protonix) 40 mg DAILY ORAL 01/23/20 09:00 02/22/20 08:59 01/31/20 08:33 Piperacillin Sod/ Tazobactam Sod 3.375 gm/Sodium Chloride 110 ml @ 27.5 mls/hr EVERY 8 HOURS IVPB 01/29/20 12:00 02/03/20 11:59 01/31/20 13:18 Polyethylene Glycol (Miralax) 17 gm BEDTIME ORAL 01/23/20 21:00 02/22/20 20:59 01/27/20 21:22 Assessment/Plan Assessment/Plan Pulmonary Progress Note Subjective ROS Limited/Unobtainable: Yes Interval Events: None new Constitutional: Denies: fever HEENT: Repors: no symptoms Respiratory: Reports: dry cough Cardiovascular: Reports: no symptoms Gastrointestinal/Abdominal: Denies: nausea, vomiting, diarrhea Genitourinary: Reports: no symptoms Musculoskeletal: Reports: pain - abdominal Allergies: Coded Allergies: IBUPROFEN (Verified Allergy, Mild, 10/05/09) CORTICOSTEROIDS (GLUCOCORTICOIDS) (Unverified Allergy, Unknown, 01/22/20) All Systems: reviewed and negative except above Objective Vital Signs Noted General Appearance: no acute distress HEENT: normocephalic Respiratory: chest wall non-tender, decreased breath sounds Cardiovascular: normal rate Abdomen: normal bowel sounds Microbiology Date/Time Source Procedure Growth Status 01/28/20 18:30 Nasopharynx SARS-CoV-2 RdRp Gene Assay - Final Complete 01/28/20 18:52 Stool Clostridium difficile Toxin Assay - Final Complete Laboratory Tests Noted Assessment/Plan IMPRESSION: 1. Large lung mass. 2. COPD. 3. History of spinal stenosis. 4. Multiple metastases noted DISCUSSION: ID following S/p CT guided liver biopsy. Saturating well on 2L/min O2 Viktor Graff MD Jan 31, 2020 13:31
--- NOTE | 2020-01-31 14:09 | Cardiac Electrophysiology PN ---
Assessment/Plan Assessment/Plan 1. Accelerated hypertension. On amlodipine 5 mg daily, metoprolol 50 mg bid, Hydralazine 25 mg tid and p.r.n. clonidine 2. Lung masses. This is likely metastasis. CT of the chest done 3. Liver mass. S/P Liver Biopsy 01/27/20. Most likely metastatic deposits, also previously reported Multiple osseous lesions, [facility] refused transfer 4. DVT. On Eliquis 5 bid 5. History of cervical stenosis and pain. PELON RN Subjective Subjective Comfortable in NAD. S/P CT guided Liver biopsy . [facility] denied lateral transfer. Family refused SNIF. DC home pending Objective Last 24 Hour Vital Signs Date Time Temp Pulse Resp B/P (MAP) Pulse Ox O2 Delivery O2 Flow Rate FiO2 01/31/20 13:17 146/89 01/31/20 12:00 98.6 89 18 146/89 (108) 95 01/31/20 09:22 97.8 01/31/20 09:00 Nasal Cannula 2.0 01/31/20 08:33 83 176/98 01/31/20 08:32 83 176/98 01/31/20 08:00 97.8 83 18 176/98 (124) 95 01/31/20 07:13 159/94 01/31/20 04:00 98.1 87 19 159/94 (115) 92 01/31/20 00:00 97.9 78 20 158/96 (116) 91 01/30/20 21:16 137/70 01/30/20 21:16 86 137/70 01/30/20 21:00 Nasal Cannula 2.0 01/30/20 20:00 98.2 88 20 153/84 (107) 94 01/30/20 16:00 98.8 80 18 133/76 (95) 94 Intake and Output 01/30/20 01/31/20 19:00 07:00 Intake Total 1265.0 ml Output Total 600 ml 1300 ml Balance 665.0 ml -1300 ml Intake Oral 200 ml IV Total 1065.0 ml Output Urine Total 600 ml 1300 ml # Bowel Movements 1 2 Microbiology Date/Time Source Procedure Growth Status 01/28/20 18:30 Nasopharynx SARS-CoV-2 RdRp Gene Assay - Final Complete 01/28/20 18:52 Stool Clostridium difficile Toxin Assay - Final Complete Objective HEAD AND NECK: Showed no JVD. LUNGS: Clear. CARDIOVASCULAR: Shows regular S1 and S2 with no gallop or murmur. ABDOMEN: Soft. EXTREMITIES: No pitting edema. Jimmy Moreno MD Jan 31, 2020 14:09
--- NOTE | 2020-01-31 14:57 | General Progress Note ---
Assessment/Plan Status: stable, progressing Assessment/Plan: Assessment/Plan Problem List: (1) Metastatic disease ICD Codes: C79.9 - Secondary malignant neoplasm of unspecified site SNOMED: 201943829 (2) Right flank pain ICD Codes: R10.9 - Unspecified abdominal pain SNOMED: 180981569 (3) Lung mass ICD Codes: R91.8 - Other nonspecific abnormal finding of lung field SNOMED: 136790705 (4) Acute pancreatitis ICD Codes: K85.90 - Acute pancreatitis without necrosis or infection, unspecified SNOMED: 218994553 (5) Rheumatoid arthritis ICD Codes: M06.9 - Rheumatoid arthritis, unspecified SNOMED: 19219256 (6) Diverticulosis ICD Codes: K57.90 - Diverticulosis of intestine, part unspecified, without perforation or abscess without bleeding SNOMED: 727678269 Assessment/Plan: IVF repeat labs bowel regimen CT reviewed not a good candidate for TPN given metastatic cancer creon at 9 tabs per day zofran f/u liver biopsy results poor prognosis Subjective Allergies: Coded Allergies: IBUPROFEN (Verified Allergy, Mild, 10/05/09) CORTICOSTEROIDS (GLUCOCORTICOIDS) (Unverified Allergy, Unknown, 01/22/20) Subjective above noted weak resting comfortably minimally interactive Objective Last 24 Hour Vital Signs Date Time Temp Pulse Resp B/P (MAP) Pulse Ox O2 Delivery O2 Flow Rate FiO2 01/31/20 14:05 98.6 01/31/20 13:17 146/89 01/31/20 12:00 98.6 89 18 146/89 (108) 95 01/31/20 09:22 97.8 01/31/20 09:00 Nasal Cannula 2.0 01/31/20 08:33 83 176/98 01/31/20 08:32 83 176/98 01/31/20 08:00 97.8 83 18 176/98 (124) 95 01/31/20 07:13 159/94 01/31/20 04:00 98.1 87 19 159/94 (115) 92 01/31/20 00:00 97.9 78 20 158/96 (116) 91 01/30/20 21:16 137/70 01/30/20 21:16 86 137/70 01/30/20 21:00 Nasal Cannula 2.0 01/30/20 20:00 98.2 88 20 153/84 (107) 94 01/30/20 16:00 98.8 80 18 133/76 (95) 94 Intake and Output 01/30/20 01/31/20 19:00 07:00 Intake Total 1265.0 ml Output Total 600 ml 1300 ml Balance 665.0 ml -1300 ml Intake Oral 200 ml IV Total 1065.0 ml Output Urine Total 600 ml 1300 ml # Bowel Movements 1 2 Height (Feet): 5 Height (Inches): 5.00 Weight (Pounds): 134 Objective Elderly AA woman NCAT supple CTA RR abd soft ND NT no edema Vane Mackay MD Jan 31, 2020 14:57
--- NOTE | 2020-01-31 15:31 | Infectious Diseases Prog Note ---
Assessment/Plan Assessment/Plan A; 1. Pancreatitis. 2. Lung mass with liver metastasis. 3. COPD. 4. Hypertension. 5. Hypercalcemia PLAN: 1. Continue Zosyn X 1 day 2. We will follow up liver biopsy report Subjective ROS Limited/Unobtainable: Yes Constitutional: Denies: fever Allergies: Coded Allergies: IBUPROFEN (Verified Allergy, Mild, 10/05/09) CORTICOSTEROIDS (GLUCOCORTICOIDS) (Unverified Allergy, Unknown, 01/22/20) Objective Last 24 Hour Vital Signs Date Time Temp Pulse Resp B/P (MAP) Pulse Ox O2 Delivery O2 Flow Rate FiO2 01/31/20 14:05 98.6 01/31/20 13:17 146/89 01/31/20 12:00 98.6 89 18 146/89 (108) 95 01/31/20 09:22 97.8 01/31/20 09:00 Nasal Cannula 2.0 01/31/20 08:33 83 176/98 01/31/20 08:32 83 176/98 01/31/20 08:00 97.8 83 18 176/98 (124) 95 01/31/20 07:13 159/94 01/31/20 04:00 98.1 87 19 159/94 (115) 92 01/31/20 00:00 97.9 78 20 158/96 (116) 91 01/30/20 21:16 137/70 01/30/20 21:16 86 137/70 01/30/20 21:00 Nasal Cannula 2.0 01/30/20 20:00 98.2 88 20 153/84 (107) 94 01/30/20 16:00 98.8 80 18 133/76 (95) 94 Height (Feet): 5 Height (Inches): 5.00 Weight (Pounds): 134 General Appearance: no acute distress HEENT: mucous membranes moist Respiratory/Chest: lungs clear, other - oxygen by nasal cannula Cardiovascular: normal rate Abdomen: soft, non tender Extremities: no edema Neurologic/Psychiatric: other - sleeping Microbiology Date/Time Source Procedure Growth Status 01/28/20 18:30 Nasopharynx SARS-CoV-2 RdRp Gene Assay - Final Complete 01/28/20 18:52 Stool Clostridium difficile Toxin Assay - Final Complete Current Medications Medications (Trade) Dose Ordered Sig/Kina Route PRN Reason Start Time Stop Time Status Last Admin Dose Admin Acetaminophen (Tylenol) 650 mg Q6H PRN ORAL Pain Scale (3-5) 01/22/20 17:45 02/21/20 17:44 01/23/20 20:43 Amlodipine Besylate (Norvasc) 5 mg DAILY ORAL 01/23/20 09:00 02/22/20 08:59 01/31/20 08:33 Amylase/Lipase/ Protease (Zenpep) 3 ea THREE TIMES A DAY ORAL 01/29/20 09:00 04/28/20 08:59 01/31/20 13:17 Apixaban (Eliquis) 5 mg BID ORAL 01/28/20 18:00 04/27/20 17:59 01/31/20 08:33 Bisacodyl (Dulcolax) 10 mg DAILY ORAL 01/23/20 09:00 04/22/20 08:59 01/31/20 08:34 Carisoprodol (Soma) 350 mg Q8HR ORAL 01/22/20 18:30 02/21/20 18:29 01/31/20 13:35 Dextrose/ Electrolytes 1,000 ml @ 100 mls/hr Q10H IV 01/23/20 09:30 02/22/20 09:29 01/30/20 21:21 Diphenoxylate HCl/ Atropine (Lomotil) 2.5 mg Q6H PRN ORAL Diarrhea 01/29/20 14:30 02/28/20 14:29 01/29/20 15:18 Docusate Sodium (Colace) 100 mg TWICE A DAY ORAL 01/22/20 18:00 02/21/20 17:59 01/31/20 08:32 Duloxetine HCl (Cymbalta) 90 mg DAILY ORAL 01/26/20 09:00 04/22/20 08:59 01/31/20 08:33 Hydralazine HCl (Apresoline) 50 mg Q8HR ORAL 01/23/20 14:00 04/21/20 21:59 01/31/20 13:17 Hydromorphone HCl (Dilaudid) 1 mg Q3H PRN IVP Severe Pain (Pain Scale 7-10) 01/27/20 08:16 02/03/20 08:15 01/31/20 08:52 Lidocaine (Lidoderm 5% PATCH) 1 patch DAILY TDERMAL 01/23/20 09:00 04/22/20 08:59 01/31/20 08:35 Lorazepam (Ativan) 1 mg Q6H PRN ORAL For Anxiety 01/29/20 08:30 02/05/20 08:29 01/29/20 21:08 Magnesium Hydroxide (Mom) 30 ml DAILYPRN PRN ORAL Constipation 01/22/20 17:45 02/21/20 17:44 Metoclopramide HCl (Reglan) 10 mg Q6H PRN IVP Nausea & Vomiting 01/24/20 10:00 02/23/20 09:59 01/24/20 16:40 Metoprolol Tartrate (Lopressor) 50 mg EVERY 12 HOURS ORAL 01/22/20 21:00 04/21/20 20:59 01/31/20 08:32 Naloxone HCl (Narcan) 0.2 mg Q2M PRN IVP RESPRITORY DEPRESSION 01/28/20 13:47 04/27/20 13:46 Ondansetron HCl (Zofran) 4 mg Q4H PRN IVP Nausea & Vomiting 01/23/20 15:15 02/22/20 15:14 01/26/20 10:59 Pantoprazole (Protonix) 40 mg DAILY ORAL 01/23/20 09:00 02/22/20 08:59 01/31/20 08:33 Piperacillin Sod/ Tazobactam Sod 3.375 gm/Sodium Chloride 110 ml @ 27.5 mls/hr EVERY 8 HOURS IVPB 01/29/20 12:00 02/03/20 11:59 01/31/20 13:18 Polyethylene Glycol (Miralax) 17 gm BEDTIME ORAL 01/23/20 21:00 02/22/20 20:59 01/27/20 21:22 Chip Patel MD Jan 31, 2020 15:31
[2020-01-31 16:00] VITALS: BP 135/84
--- NOTE | 2020-01-31 19:30 | NUR ---
NURSE NOTES: received report from sandra goins. patient is on bed, awake and verbally responsive. ON CANNULA at 2 lpm. no sob. on purewick. with iv line on the right upper arm. per briseida" denies transfer to [facility]". reiterated to call and ask for assistance. no complaints of pain at the moment. call light and light button within easy reach. bed locked and in lowest position. will continue plan of care.
--- NOTE | 2020-01-31 19:30 | NUR ---
NURSE HAND-OFF: NURSE HAND-OFF: Important Events on Shift:[high BP 176/98, resolved with BP meds. dr Moreno made aware] Patient Status: [stable] Diet: [regular mech soft chopped] Pending Orders: [n/a] Pending Results/Labs:[] Pending MD notification:[] Latest Vital Signs: Temperature 98.1 , Pulse 90 , B/P 135 /84 , Respiratory Rate 19 , O2 SAT 97 , Nasal Cannula, O2 Flow Rate 2.0 . Vital Sign Comment: [] Latest Guido Fall Score: 45 Fall Risk: High Risk Safety Measures: Call light Within Reach, Bed Alarm Zone 1, Side Rails Side Rails x2, Bed position Low and Locked. Fall Precautions: Patient Fall Education Report given to [SHAN Escalera].
[2020-01-31 20:00] VITALS: BP 156/77
[2020-01-31] MEDS: Miralax 17gm pkt ORAL SCH (20:34)
--- NOTE | 2020-01-31 23:58 | General Progress Note ---
Assessment/Plan Problem List: (1) Fever ICD Codes: R50.9 - Fever, unspecified SNOMED: 213047212 (2) Lung mass ICD Codes: R91.8 - Other nonspecific abnormal finding of lung field SNOMED: 167919141 (3) Right flank pain ICD Codes: R10.9 - Unspecified abdominal pain SNOMED: 346395045 (4) Rheumatoid arthritis ICD Codes: M06.9 - Rheumatoid arthritis, unspecified SNOMED: 19274204 (5) Diverticulosis ICD Codes: K57.90 - Diverticulosis of intestine, part unspecified, without perforation or abscess without bleeding SNOMED: 025441060 (6) Acute pancreatitis ICD Codes: K85.90 - Acute pancreatitis without necrosis or infection, unspecified SNOMED: 135530150 (7) Metastatic disease ICD Codes: C79.9 - Secondary malignant neoplasm of unspecified site SNOMED: 758321744 Status: stable, progressing Assessment/Plan: late entry: diverticulosis pancreatitis check lipase afebrile no sob Subjective ROS Limited/Unobtainable: Yes Allergies: Coded Allergies: IBUPROFEN (Verified Allergy, Mild, 10/05/09) CORTICOSTEROIDS (GLUCOCORTICOIDS) (Unverified Allergy, Unknown, 01/22/20) Objective Last 24 Hour Vital Signs Date Time Temp Pulse Resp B/P (MAP) Pulse Ox O2 Delivery O2 Flow Rate FiO2 01/31/20 22:11 98.2 01/31/20 21:42 142/80 01/31/20 21:08 98.2 01/31/20 21:00 Nasal Cannula 2.0 01/31/20 20:34 94 150/91 01/31/20 20:00 98.2 87 19 156/77 (103) 96 01/31/20 16:00 98.1 90 19 135/84 (101) 97 01/31/20 13:17 146/89 01/31/20 12:00 98.6 89 18 146/89 (108) 95 01/31/20 09:00 Nasal Cannula 2.0 01/31/20 08:33 83 176/98 01/31/20 08:32 83 176/98 01/31/20 08:00 97.8 83 18 176/98 (124) 95 01/31/20 07:13 159/94 01/31/20 04:00 98.1 87 19 159/94 (115) 92 01/31/20 00:00 97.9 78 20 158/96 (116) 91 Intake and Output 01/30/20 01/31/20 19:00 07:00 Intake Total 1265.0 ml Output Total 600 ml 1300 ml Balance 665.0 ml -1300 ml Intake Oral 200 ml IV Total 1065.0 ml Output Urine Total 600 ml 1300 ml # Bowel Movements 1 2 Height (Feet): 5 Height (Inches): 5.00 Weight (Pounds): 134 Leatha Kauffman MD Jan 31, 2020 23:58
[2020-02-01] VITALS: BP 142/70
[2020-02-01] MEDS: HYDROmorphone 1mg/ml Carpuject IVP PRN ×3 (00:19→07:29)
[2020-02-01] MEDS: D5 1/2NS w/KCl 20mEq 1,000 ML IV SCH ×3 (02:38→23:57)
[2020-02-01 04:00] VITALS: BP 140/67
[2020-02-01] MEDS: Piperacillin/Tazobactam 3.375 GM in NS 110 ML IVPB SCH (06:07)
[2020-02-01] MEDS: HydrALAZINE 50mg tab ORAL SCH ×3 (06:07→21:27)
--- NOTE | 2020-02-01 06:40 | NUR ---
NURSE HAND-OFF: Important Events on Shift:PAIN MNGT Patient Status: STABLE Diet:REGULAR DIET Pending Orders: Pending Results/Labs: Pending MD notification: Latest Vital Signs: Temperature 98.1 , Pulse 90 , B/P 162 /92 , Respiratory Rate 19 , O2 SAT 96 , Nasal Cannula, O2 Flow Rate 2.0 . Vital Sign Comment: Latest Guido Fall Score: 45 Fall Risk: High Risk Safety Measures: Call light Within Reach, Bed Alarm Zone 1, Side Rails Side Rails x2, Bed position Low and Locked. Fall Precautions: Patient Fall Education Addendum: 02/01/20 at 0728 by Tomasa Escalera RN HAND-OFF: Report given to briseida murphy rn.
--- NOTE | 2020-02-01 07:18 | Hematology/Onc Progress Note ---
Assessment/Plan Assessment/Plan #. Stage IV -- multiple lung masses, Metastatic. Origin is likely lung. --> Targeted ultrasound-guided biopsy of right lobe liver lesion, as described. Final pathology pending --> dw path, report is pending --> CT does show Multiple low-attenuation liver masses, most likely metastatic deposits, also previously reported Multiple osseous lesions, also previously reported, likely metastatic deposits --> tumor markers ordered --> given current bedbound status, will eval if qualifies for treatment, at this time wants to transfer to [facility] --> have discussed with patient and with family #. Anemia rule out gi bleed --> anemia panel has been ordered->reviewed --> ferritin in prior was low --> iron has been ordered --> per gi recs #. Hypertension. --> on BP meds and cards on case #. History of cervical stenosis and pain. #. Dvt ppx apixaban The time of the note does not reflect the time the patient was seen Subjective Constitutional: Denies: no symptoms, chills, fever, malaise, weakness, other HEENT: Denies: no symptoms, eye pain, blurred vision, tearing, double vision, ear pain, ear discharge, nose pain, nose congestion, throat pain, throat swelling, mouth pain, mouth swelling, other Respiratory: Denies: no symptoms, cough, shortness of breath, SOB with excertion, SOB at rest, sputum, wheezing, other Gastrointestinal/Abdominal: Denies: no symptoms, abdomen distended, abdominal pain, black stools, tarry stools, blood in stool, constipated, diarrhea, difficulty swallowing, nausea, poor appetite, poor fluid intake, rectal bleeding , vomiting, other Genitourinary: Denies: no symptoms, burning, discharge, frequency, flank pain, hematuria, incontinence, pain, urgency, other Neurologic/Psychiatric: Denies: no symptoms, anxiety, depressed, emotional problems, headache, numbness, paresthesia, pre-existing deficit, seizure, tingling, tremors, weakness, other Endocrine: Denies: no symptoms, excessive sweating, flushing, intolerance to cold, intolerance to heat, increased hunger, increased thirst, increased urine, unexplained weight gain, unexplained weight loss, other Hematologic/Lymphatic: Denies: no symptoms, anemia, easy bleeding, easy bruising, adenopathy, other Allergies: Coded Allergies: IBUPROFEN (Verified Allergy, Mild, 10/05/09) CORTICOSTEROIDS (GLUCOCORTICOIDS) (Unverified Allergy, Unknown, 01/22/20) Subjective 01/27 spoke to patient's mother regArding plan of care 01/28 very confused int he am, due to sedatives, pending transfer to [facility] 01/29 patient and family agitated re discharge plan, have dw rn and conveyor line battery charger, transf cancelled for now 01/30 is on creon, zofran as well as 2lnc, no bleeding, meds noted 01/31 labs noted, no bleeding, is still on nc, comfortable, is confused Objective Objective Current Medications Medications (Trade) Dose Ordered Sig/Kina Route PRN Reason Start Time Stop Time Status Last Admin Dose Admin Acetaminophen (Tylenol) 650 mg Q6H PRN ORAL Pain Scale (3-5) 01/22/20 17:45 02/21/20 17:44 01/23/20 20:43 Amlodipine Besylate (Norvasc) 5 mg DAILY ORAL 01/23/20 09:00 02/22/20 08:59 01/31/20 08:33 Amylase/Lipase/ Protease (Zenpep) 3 ea THREE TIMES A DAY ORAL 01/29/20 09:00 04/28/20 08:59 01/31/20 17:03 Apixaban (Eliquis) 5 mg BID ORAL 01/28/20 18:00 04/27/20 17:59 01/31/20 17:03 Bisacodyl (Dulcolax) 10 mg DAILY ORAL 01/23/20 09:00 04/22/20 08:59 01/31/20 08:34 Carisoprodol (Soma) 350 mg Q8HR ORAL 01/22/20 18:30 02/21/20 18:29 02/01/20 06:07 Dextrose/ Electrolytes 1,000 ml @ 100 mls/hr Q10H IV 01/23/20 09:30 02/22/20 09:29 02/01/20 02:38 Diphenoxylate HCl/ Atropine (Lomotil) 2.5 mg Q6H PRN ORAL Diarrhea 01/29/20 14:30 02/28/20 14:29 01/29/20 15:18 Docusate Sodium (Colace) 100 mg TWICE A DAY ORAL 01/22/20 18:00 02/21/20 17:59 01/31/20 17:03 Duloxetine HCl (Cymbalta) 90 mg DAILY ORAL 01/26/20 09:00 04/22/20 08:59 01/31/20 08:33 Hydralazine HCl (Apresoline) 50 mg Q8HR ORAL 01/23/20 14:00 04/21/20 21:59 02/01/20 06:07 Hydromorphone HCl (Dilaudid) 1 mg Q3H PRN IVP Severe Pain (Pain Scale 7-10) 01/27/20 08:16 02/03/20 08:15 02/01/20 04:01 Lidocaine (Lidoderm 5% PATCH) 1 patch DAILY TDERMAL 01/23/20 09:00 04/22/20 08:59 01/31/20 08:35 Lorazepam (Ativan) 1 mg Q6H PRN ORAL For Anxiety 01/29/20 08:30 02/05/20 08:29 01/29/20 21:08 Magnesium Hydroxide (Mom) 30 ml DAILYPRN PRN ORAL Constipation 01/22/20 17:45 02/21/20 17:44 Metoclopramide HCl (Reglan) 10 mg Q6H PRN IVP Nausea & Vomiting 01/24/20 10:00 02/23/20 09:59 01/24/20 16:40 Metoprolol Tartrate (Lopressor) 50 mg EVERY 12 HOURS ORAL 01/22/20 21:00 04/21/20 20:59 01/31/20 20:34 Naloxone HCl (Narcan) 0.2 mg Q2M PRN IVP RESPRITORY DEPRESSION 01/28/20 13:47 04/27/20 13:46 Ondansetron HCl (Zofran) 4 mg Q4H PRN IVP Nausea & Vomiting 01/23/20 15:15 02/22/20 15:14 01/26/20 10:59 Pantoprazole (Protonix) 40 mg DAILY ORAL 01/23/20 09:00 02/22/20 08:59 01/31/20 08:33 Piperacillin Sod/ Tazobactam Sod 3.375 gm/Sodium Chloride 110 ml @ 27.5 mls/hr EVERY 8 HOURS IVPB 01/29/20 12:00 02/03/20 11:59 02/01/20 06:07 Polyethylene Glycol (Miralax) 17 gm BEDTIME ORAL 01/23/20 21:00 02/22/20 20:59 01/27/20 21:22 Last 24 Hour Vital Signs Date Time Temp Pulse Resp B/P (MAP) Pulse Ox O2 Delivery O2 Flow Rate FiO2 02/01/20 06:37 98.1 02/01/20 06:07 162/92 02/01/20 04:31 98.1 02/01/20 04:00 98.2 90 19 140/67 (91) 96 02/01/20 00:00 98.1 89 19 142/70 (94) 97 01/31/20 21:42 142/80 01/31/20 21:00 Nasal Cannula 2.0 01/31/20 20:34 94 150/91 01/31/20 20:00 98.2 87 19 156/77 (103) 96 01/31/20 16:00 98.1 90 19 135/84 (101) 97 01/31/20 13:17 146/89 01/31/20 12:00 98.6 89 18 146/89 (108) 95 01/31/20 09:00 Nasal Cannula 2.0 01/31/20 08:33 83 176/98 01/31/20 08:32 83 176/98 01/31/20 08:00 97.8 83 18 176/98 (124) 95 01/31/20 07:13 159/94 01/31/20 04:00 98.1 87 19 159/94 (115) 92 01/31/20 00:00 97.9 78 20 158/96 (116) 91 01/30/20 21:16 137/70 01/30/20 21:16 86 137/70 01/30/20 21:00 Nasal Cannula 2.0 01/30/20 20:00 98.2 88 20 153/84 (107) 94 01/30/20 16:00 98.8 80 18 133/76 (95) 94 01/30/20 13:08 163/98 01/30/20 12:10 74 18 148/89 (108) 93 01/30/20 11:29 97.7 80 18 163/98 (119) 93 01/30/20 08:50 Nasal Cannula 2.0 01/30/20 08:43 90 159/102 01/30/20 08:43 90 159/102 01/30/20 08:05 97.2 90 20 159/102 (121) 94 Intake and Output 01/31/20 02/01/20 19:00 07:00 Intake Total 1020.0 ml 1310.0 ml Balance 1020.0 ml 1310.0 ml Intake Oral 200 ml IV Total 520.0 ml 1110.0 ml Other 500 ml # Voids 1 # Bowel Movements 1 1 Labs Test 01/30/20 06:39 White Blood Count 13.3 K/UL (4.8-10.8) Red Blood Count 3.51 M/UL (4.20-5.40) Hemoglobin 10.1 G/DL (12.0-16.0) Hematocrit 32.2 % (37.0-47.0) Mean Corpuscular Volume 92 FL (80-99) Mean Corpuscular Hemoglobin 28.7 PG (27.0-31.0) Mean Corpuscular Hemoglobin Concent 31.3 G/DL (32.0-36.0) Red Cell Distribution Width 15.4 % (11.6-14.8) Platelet Count 399 K/UL (150-450) Mean Platelet Volume 5.2 FL (6.5-10.1) Neutrophils (%) (Auto) 83.8 % (45.0-75.0) Lymphocytes (%) (Auto) 9.9 % (20.0-45.0) Monocytes (%) (Auto) 5.5 % (1.0-10.0) Eosinophils (%) (Auto) 0.1 % (0.0-3.0) Basophils (%) (Auto) 0.7 % (0.0-2.0) Sodium Level 135 MMOL/L (136-145) Potassium Level 4.0 MMOL/L (3.5-5.1) Chloride Level 98 MMOL/L (98-107) Carbon Dioxide Level 27 MMOL/L (21-32) Anion Gap 11 mmol/L (5-15) Blood Urea Nitrogen 6 mg/dL (7-18) Creatinine 0.5 MG/DL (0.55-1.30) Estimat Glomerular Filtration Rate > 60 mL/min (>60) Glucose Level 141 MG/DL (74-106) Calcium Level 10.7 MG/DL (8.5-10.1) Total Bilirubin 0.2 MG/DL (0.2-1.0) Aspartate Amino Transf (AST/SGOT) 82 U/L (15-37) Alanine Aminotransferase (ALT/SGPT) 17 U/L (12-78) Alkaline Phosphatase 69 U/L (46-116) Total Protein 7.7 G/DL (6.4-8.2) Albumin 3.5 G/DL (3.4-5.0) Globulin 4.2 g/dL Albumin/Globulin Ratio 0.8 (1.0-2.7) Amylase Level 343 U/L (25-115) Lipase > 2000 U/L (73-393) Height (Feet): 5 Height (Inches): 5.00 Weight (Pounds): 134 Jim Cobb MD Feb 01, 2020 07:18
--- NOTE | 2020-02-01 07:40 | NUR ---
NURSE NOTES: Patient in bed, with complaint of generalized pain 02/24, . On 2L oxygen via nasal cannula, no respiratory distress noted. IV access on right forearm, no sign of infiltration noted. Patient receives IVF as ordered. Bed is locked, and in lowest position, call light within easy reach, on bed alarm on, siderails up x2. Will continue to monitor patient and follow up with the plan of care. Addendum: 02/01/20 at 0742 by DIANE SPENCER RN given pain medication as ordered PRN.
[2020-02-01 08:00] VITALS: BP 156/95
[2020-02-01] MEDS: DULoxetine 30mg cap ORAL SCH (09:22)
[2020-02-01] MEDS: Pancrelipase Dr Cap ORAL SCH ×3 (09:22→18:11)
[2020-02-01] MEDS: Docusate 100mg cap ORAL SCH ×2 (09:22→18:00)
[2020-02-01] MEDS: Metoprolol Tartrate 50mg tab ORAL SCH ×2 (09:23→21:28)
[2020-02-01] MEDS: Eliquis 5mg tablet ORAL SCH ×2 (09:23→18:11)
[2020-02-01] MEDS: Bisacodyl EC 5mg tab ORAL SCH (09:23)
--- NOTE | 2020-02-01 09:50 | General Progress Note ---
Assessment/Plan Assessment/Plan: (1) Abdominal Pain (2) Pancreatitis (3) Metastatic cancer/ Lung Mass (4) Lumbar DDD/ Spondylosis Patient to be discontinued off Dilaudid We will start [place] 10/325mg PO 1 tab Q4H PRN severe pain. D/w Dr. Cannon and he concurred. Subjective Date patient seen: Feb 01, 2020 Time patient seen: 09:00 - am Allergies: Coded Allergies: IBUPROFEN (Verified Allergy, Mild, 10/05/09) CORTICOSTEROIDS (GLUCOCORTICOIDS) (Unverified Allergy, Unknown, 01/22/20) Subjective Constitutional: Reports: weakness HEENT: Reports: no symptoms Cardiovascular: Reports: no symptoms Respiratory: Reports: no symptoms Gastrointestinal/Abdominal: Reports: abdominal pain Genitourinary: Reports: no symptoms Neurologic/Psychiatric: Reports: no symptoms Endocrine: Reports: no symptoms Hematologic/Lymphatic: Reports: no symptoms Subjective Patient is in bed showing no signs of pain or distress. Pain has been stable on the Dilaudid. D/w patient about discontinuing the Dilaudid to transition to oral medication she seems to understand Objective Last 24 Hour Vital Signs Date Time Temp Pulse Resp B/P (MAP) Pulse Ox O2 Delivery O2 Flow Rate FiO2 02/01/20 09:23 95 156/95 02/01/20 09:22 95 156/95 02/01/20 08:00 97.3 95 21 156/95 (115) 94 02/01/20 07:59 97.3 02/01/20 06:37 98.1 02/01/20 06:07 162/92 02/01/20 04:00 98.2 90 19 140/67 (91) 96 02/01/20 00:00 98.1 89 19 142/70 (94) 97 01/31/20 21:42 142/80 01/31/20 21:00 Nasal Cannula 2.0 01/31/20 20:34 94 150/91 01/31/20 20:00 98.2 87 19 156/77 (103) 96 01/31/20 16:00 98.1 90 19 135/84 (101) 97 01/31/20 13:17 146/89 01/31/20 12:00 98.6 89 18 146/89 (108) 95 Intake and Output 01/31/20 02/01/20 19:00 07:00 Intake Total 1020.0 ml 1310.0 ml Balance 1020.0 ml 1310.0 ml Intake Oral 200 ml IV Total 520.0 ml 1110.0 ml Other 500 ml # Voids 1 # Bowel Movements 1 1 Height (Feet): 5 Height (Inches): 5.00 Weight (Pounds): 134 Objective General Appearance: no apparent distress, alert EENT: PERRL/EOMI, normal ENT inspection Neck: non-tender, normal alignment Cardiovascular: normal rate, regular rhythm Respiratory/Chest: decreased breath sounds Abdomen: tender Extremities: non-tender Edema: moderate edema Neurologic: alert, oriented x 3 Skin: warm/dry David Boyd Feb 01, 2020 09:50
--- NOTE | 2020-02-01 10:30 | Progress Note ---
DATE: 02/01/2020 SUBJECTIVE: This is a 64-year-old female patient. She has pancreatitis. She has got abdominal pain but in addition has right flank pain, diverticulosis, rheumatoid arthritis, causing her to have decline in cognition below her baseline, increased depression, anxiety, altered mental status that is why her attending has requested daily psychiatric consultation. MENTAL STATUS EXAMINATION: This is a 64-year-old female. Appearance is disheveled. Attitude, irritable and agitated. Affect, guarded and restricted. Intellect poor. Mood, depressed and anxious. Motor activity, psychomotor agitation. Attention span is poor. Orientation x2. Speech is low volume, slurred. Thought process, disorganized and illogical. Insight and judgment is fair. DIAGNOSIS: Major depressive disorder, mild, recurrent psychotic features. PLAN: Treat her psychotropic medication regimen consisting of Cymbalta 90 mg daily and Ativan 1 every 6 hours p.r.n. anxiety and agitation . Twenty minutes of cognitive behavioral therapy to help her identify automatic negative thoughts and help her convert negative thoughts to more positive thoughts to reduce depression, anxiety, and suicidality. Chart was reviewed and discussed with staff. Seen and assessed at bedside. Margo Perez M.D. DR: José Luis JOB#: [id number] CC:
--- NOTE | 2020-02-01 11:25 | Infectious Diseases Prog Note ---
Assessment/Plan Assessment/Plan antibiotics : zosyn A 1. Pancreatitis. 2. Lung mass with liver metastasis. 3. COPD. 4. Hypertension P 1. d/c zosyn 2. will follow up cultures Subjective Constitutional: Denies: fever, chills Respiratory: Denies: shortness of breath, dry cough Gastrointestinal/Abdominal: Denies: nausea, vomiting, diarrhea Musculoskeletal: Denies: pain Allergies: Coded Allergies: IBUPROFEN (Verified Allergy, Mild, 10/05/09) CORTICOSTEROIDS (GLUCOCORTICOIDS) (Unverified Allergy, Unknown, 01/22/20) Objective Last 24 Hour Vital Signs Date Time Temp Pulse Resp B/P (MAP) Pulse Ox O2 Delivery O2 Flow Rate FiO2 02/01/20 09:23 95 156/95 02/01/20 09:22 95 156/95 02/01/20 09:00 Nasal Cannula 2.0 02/01/20 08:00 97.3 95 21 156/95 (115) 94 02/01/20 07:59 97.3 02/01/20 06:37 98.1 02/01/20 06:07 162/92 02/01/20 04:00 98.2 90 19 140/67 (91) 96 02/01/20 00:00 98.1 89 19 142/70 (94) 97 01/31/20 21:42 142/80 01/31/20 21:00 Nasal Cannula 2.0 01/31/20 20:34 94 150/91 01/31/20 20:00 98.2 87 19 156/77 (103) 96 01/31/20 16:00 98.1 90 19 135/84 (101) 97 01/31/20 13:17 146/89 01/31/20 12:00 98.6 89 18 146/89 (108) 95 Height (Feet): 5 Height (Inches): 5.00 Weight (Pounds): 134 Respiratory/Chest: lungs clear Cardiovascular: normal rate, regular rhythm, no gallop/murmur Abdomen: soft, non tender Extremities: no edema Current Medications Medications (Trade) Dose Ordered Sig/Kina Route PRN Reason Start Time Stop Time Status Last Admin Dose Admin Acetaminophen (Tylenol) 650 mg Q6H PRN ORAL Pain Scale (3-5) 01/22/20 17:45 02/21/20 17:44 01/23/20 20:43 Acetaminophen/ Hydrocodone Bitart ([place] 10/325) 1 tab Q4H PRN ORAL Severe Pain (Pain Scale 7-10) 02/01/20 10:15 02/08/20 10:14 Amlodipine Besylate (Norvasc) 5 mg DAILY ORAL 01/23/20 09:00 02/22/20 08:59 02/01/20 09:22 Amylase/Lipase/ Protease (Zenpep) 3 ea THREE TIMES A DAY ORAL 01/29/20 09:00 04/28/20 08:59 02/01/20 09:22 Apixaban (Eliquis) 5 mg BID ORAL 01/28/20 18:00 04/27/20 17:59 02/01/20 09:23 Bisacodyl (Dulcolax) 10 mg DAILY ORAL 01/23/20 09:00 04/22/20 08:59 02/01/20 09:23 Carisoprodol (Soma) 350 mg Q8HR ORAL 01/22/20 18:30 02/21/20 18:29 02/01/20 06:07 Dextrose/ Electrolytes 1,000 ml @ 100 mls/hr Q10H IV 01/23/20 09:30 02/22/20 09:29 02/01/20 02:38 Diphenoxylate HCl/ Atropine (Lomotil) 2.5 mg Q6H PRN ORAL Diarrhea 01/29/20 14:30 02/28/20 14:29 01/29/20 15:18 Docusate Sodium (Colace) 100 mg TWICE A DAY ORAL 01/22/20 18:00 02/21/20 17:59 02/01/20 09:22 Duloxetine HCl (Cymbalta) 90 mg DAILY ORAL 01/26/20 09:00 04/22/20 08:59 02/01/20 09:22 Hydralazine HCl (Apresoline) 50 mg Q8HR ORAL 01/23/20 14:00 04/21/20 21:59 02/01/20 06:07 Lidocaine (Lidoderm 5% PATCH) 1 patch DAILY TDERMAL 01/23/20 09:00 04/22/20 08:59 02/01/20 09:24 Lorazepam (Ativan) 1 mg Q6H PRN ORAL For Anxiety 01/29/20 08:30 02/05/20 08:29 01/29/20 21:08 Magnesium Hydroxide (Mom) 30 ml DAILYPRN PRN ORAL Constipation 01/22/20 17:45 02/21/20 17:44 Metoclopramide HCl (Reglan) 10 mg Q6H PRN IVP Nausea & Vomiting 01/24/20 10:00 02/23/20 09:59 01/24/20 16:40 Metoprolol Tartrate (Lopressor) 50 mg EVERY 12 HOURS ORAL 01/22/20 21:00 04/21/20 20:59 02/01/20 09:23 Naloxone HCl (Narcan) 0.2 mg Q2M PRN IVP RESPRITORY DEPRESSION 01/28/20 13:47 04/27/20 13:46 Ondansetron HCl (Zofran) 4 mg Q4H PRN IVP Nausea & Vomiting 01/23/20 15:15 02/22/20 15:14 01/26/20 10:59 Pantoprazole (Protonix) 40 mg DAILY ORAL 01/23/20 09:00 02/22/20 08:59 02/01/20 09:23 Piperacillin Sod/ Tazobactam Sod 3.375 gm/Sodium Chloride 110 ml @ 27.5 mls/hr EVERY 8 HOURS IVPB 01/29/20 12:00 02/03/20 11:59 02/01/20 06:07 Polyethylene Glycol (Miralax) 17 gm BEDTIME ORAL 01/23/20 21:00 02/22/20 20:59 01/27/20 21:22 Jose Juan Estrada MD Feb 01, 2020 11:25
--- NOTE | 2020-02-01 11:58 | General Progress Note ---
Assessment/Plan Problem List: (1) Metastatic disease ICD Codes: C79.9 - Secondary malignant neoplasm of unspecified site SNOMED: 199072547 (2) Right flank pain ICD Codes: R10.9 - Unspecified abdominal pain SNOMED: 876623618 (3) Lung mass ICD Codes: R91.8 - Other nonspecific abnormal finding of lung field SNOMED: 428728164 (4) Acute pancreatitis ICD Codes: K85.90 - Acute pancreatitis without necrosis or infection, unspecified SNOMED: 984500325 (5) Rheumatoid arthritis ICD Codes: M06.9 - Rheumatoid arthritis, unspecified SNOMED: 42243759 (6) Diverticulosis ICD Codes: K57.90 - Diverticulosis of intestine, part unspecified, without perforation or abscess without bleeding SNOMED: 722453882 Assessment/Plan: IVF repeat labs bowel regimen CT reviewed not a good candidate for TPN given metastatic cancer creon to 9 tabs per day zofran ? need hospice eval will fu Subjective ROS Limited/Unobtainable: Yes Allergies: Coded Allergies: IBUPROFEN (Verified Allergy, Mild, 10/05/09) CORTICOSTEROIDS (GLUCOCORTICOIDS) (Unverified Allergy, Unknown, 01/22/20) Subjective c/o abd pain + Flatus no bm Objective Last 24 Hour Vital Signs Date Time Temp Pulse Resp B/P (MAP) Pulse Ox O2 Delivery O2 Flow Rate FiO2 02/01/20 09:23 95 156/95 02/01/20 09:22 95 156/95 02/01/20 09:00 Nasal Cannula 2.0 02/01/20 08:00 97.3 95 21 156/95 (115) 94 02/01/20 07:59 97.3 02/01/20 06:37 98.1 02/01/20 06:07 162/92 02/01/20 04:00 98.2 90 19 140/67 (91) 96 02/01/20 00:00 98.1 89 19 142/70 (94) 97 01/31/20 21:42 142/80 01/31/20 21:00 Nasal Cannula 2.0 01/31/20 20:34 94 150/91 01/31/20 20:00 98.2 87 19 156/77 (103) 96 01/31/20 16:00 98.1 90 19 135/84 (101) 97 01/31/20 13:17 146/89 01/31/20 12:00 98.6 89 18 146/89 (108) 95 Intake and Output 01/31/20 02/01/20 19:00 07:00 Intake Total 1020.0 ml 1310.0 ml Balance 1020.0 ml 1310.0 ml Intake Oral 200 ml IV Total 520.0 ml 1110.0 ml Other 500 ml # Voids 1 # Bowel Movements 1 1 Height (Feet): 5 Height (Inches): 5.00 Weight (Pounds): 134 General Appearance: lethargic EENT: normal ENT inspection Neck: supple Cardiovascular: normal rate Respiratory/Chest: decreased breath sounds Abdomen: hypoactive bowel sounds, tender Extremities: non-tender Irving Lopez MD Feb 01, 2020 11:57
[2020-02-01 12:00] VITALS: BP 148/79
--- NOTE | 2020-02-01 15:05 | NUR ---
DISCHARGE PLANNING S/W [facility] [phone]. CONFIRMED THEY ARE ABLE TO ACCOMMODATE PATIENT TO BED 119-B SKILLED
[2020-02-01] MEDS: HYDROcodone/Acetamin 10/325 tab ORAL PRN ×2 (15:07→21:27)
--- NOTE | 2020-02-01 15:10 | NUR ---
P.T Weekly Progress Notes: Pt seen this past week for skilled P.T. however only for limited visits due to poor participation and activity tolerance secondary to pain and drowsiness this last few visits. Pt. continue to report c/o abdominal pain and generalized weakness and fatigue. Pt MAX A X 1 for all bed mobility tasks. Pt able to sit at the EOB with MOD support to maintain upright sitting position. Pt too weak to standing and transfer. Overall poor activity tolerance. Will continue with POC with progression of activities to tolerance.
--- NOTE | 2020-02-01 15:30 | Pulmonology Progress Note ---
Subjective ROS Limited/Unobtainable: Yes Interval Events: None new Constitutional: Denies: fever, chills HEENT: Repors: no symptoms Respiratory: Reports: dry cough Cardiovascular: Reports: no symptoms Gastrointestinal/Abdominal: Denies: nausea, vomiting, diarrhea Genitourinary: Reports: no symptoms Musculoskeletal: Denies: pain Allergies: Coded Allergies: IBUPROFEN (Verified Allergy, Mild, 10/05/09) CORTICOSTEROIDS (GLUCOCORTICOIDS) (Unverified Allergy, Unknown, 01/22/20) All Systems: reviewed and negative except above Objective Last 24 Hour Vital Signs Date Time Temp Pulse Resp B/P (MAP) Pulse Ox O2 Delivery O2 Flow Rate FiO2 02/01/20 15:05 148/79 02/01/20 12:00 98.0 75 18 148/79 (102) 99 02/01/20 09:23 95 156/95 02/01/20 09:22 95 156/95 02/01/20 09:00 Nasal Cannula 2.0 02/01/20 08:00 97.3 95 21 156/95 (115) 94 02/01/20 07:59 97.3 02/01/20 06:37 98.1 02/01/20 06:07 162/92 02/01/20 04:00 98.2 90 19 140/67 (91) 96 02/01/20 00:00 98.1 89 19 142/70 (94) 97 01/31/20 21:42 142/80 01/31/20 21:00 Nasal Cannula 2.0 01/31/20 20:34 94 150/91 01/31/20 20:00 98.2 87 19 156/77 (103) 96 01/31/20 16:00 98.1 90 19 135/84 (101) 97 Intake and Output 01/31/20 02/01/20 19:00 07:00 Intake Total 1020.0 ml 1310.0 ml Balance 1020.0 ml 1310.0 ml Intake Oral 200 ml IV Total 520.0 ml 1110.0 ml Other 500 ml # Voids 1 # Bowel Movements 1 1 General Appearance: no acute distress HEENT: normocephalic Respiratory: chest wall non-tender, decreased breath sounds Cardiovascular: normal rate Abdomen: normal bowel sounds Current Medications Medications (Trade) Dose Ordered Sig/Kina Route PRN Reason Start Time Stop Time Status Last Admin Dose Admin Acetaminophen (Tylenol) 650 mg Q6H PRN ORAL Pain Scale (3-5) 01/22/20 17:45 02/21/20 17:44 01/23/20 20:43 Acetaminophen/ Hydrocodone Bitart ([place] 10/325) 1 tab Q4H PRN ORAL Severe Pain (Pain Scale 7-10) 02/01/20 10:15 02/08/20 10:14 02/01/20 15:07 Amlodipine Besylate (Norvasc) 5 mg DAILY ORAL 01/23/20 09:00 02/22/20 08:59 02/01/20 09:22 Amylase/Lipase/ Protease (Zenpep) 3 ea THREE TIMES A DAY ORAL 01/29/20 09:00 04/28/20 08:59 02/01/20 12:22 Apixaban (Eliquis) 5 mg BID ORAL 01/28/20 18:00 04/27/20 17:59 02/01/20 09:23 Bisacodyl (Dulcolax) 10 mg DAILY ORAL 01/23/20 09:00 04/22/20 08:59 02/01/20 09:23 Carisoprodol (Soma) 350 mg Q8HR ORAL 01/22/20 18:30 02/21/20 18:29 02/01/20 15:06 Dextrose/ Electrolytes 1,000 ml @ 100 mls/hr Q10H IV 01/23/20 09:30 02/22/20 09:29 02/01/20 14:01 Diphenoxylate HCl/ Atropine (Lomotil) 2.5 mg Q6H PRN ORAL Diarrhea 01/29/20 14:30 02/28/20 14:29 01/29/20 15:18 Docusate Sodium (Colace) 100 mg TWICE A DAY ORAL 01/22/20 18:00 02/21/20 17:59 02/01/20 09:22 Duloxetine HCl (Cymbalta) 90 mg DAILY ORAL 01/26/20 09:00 04/22/20 08:59 02/01/20 09:22 Hydralazine HCl (Apresoline) 50 mg Q8HR ORAL 01/23/20 14:00 04/21/20 21:59 02/01/20 15:05 Lidocaine (Lidoderm 5% PATCH) 1 patch DAILY TDERMAL 01/23/20 09:00 04/22/20 08:59 02/01/20 09:24 Lorazepam (Ativan) 1 mg Q6H PRN ORAL For Anxiety 01/29/20 08:30 02/05/20 08:29 01/29/20 21:08 Magnesium Hydroxide (Mom) 30 ml DAILYPRN PRN ORAL Constipation 01/22/20 17:45 02/21/20 17:44 Metoclopramide HCl (Reglan) 10 mg Q6H PRN IVP Nausea & Vomiting 01/24/20 10:00 02/23/20 09:59 01/24/20 16:40 Metoprolol Tartrate (Lopressor) 50 mg EVERY 12 HOURS ORAL 01/22/20 21:00 04/21/20 20:59 02/01/20 09:23 Naloxone HCl (Narcan) 0.2 mg Q2M PRN IVP RESPRITORY DEPRESSION 01/28/20 13:47 04/27/20 13:46 Ondansetron HCl (Zofran) 4 mg Q4H PRN IVP Nausea & Vomiting 01/23/20 15:15 02/22/20 15:14 01/26/20 10:59 Pantoprazole (Protonix) 40 mg DAILY ORAL 01/23/20 09:00 02/22/20 08:59 02/01/20 09:23 Polyethylene Glycol (Miralax) 17 gm BEDTIME ORAL 01/23/20 21:00 02/22/20 20:59 01/27/20 21:22 Assessment/Plan Assessment/Plan IMPRESSION: 1. Large lung mass. 2. COPD. 3. History of spinal stenosis. 4. Multiple metastases DISCUSSION: The patient has a history of lung cancer per GI; however patient declines any knowledge. Discussed with oncology S/p CT guided liver biopsy. I will follow. Saturating well on 2L/min O2 OK to dc and arrange outpt followup Reymundo Vázquez MD Feb 01, 2020 15:30
--- NOTE | 2020-02-01 15:57 | NUR ---
DISCHARGE PLANNING MESSAGE LEFT FOR DR SHANKAR IN RE TO DC ORDER. AWAITING CALL BACK.
--- NOTE | 2020-02-01 15:58 | NUR ---
CASE MANAGEMENT:REVIEW SI;PANCREATITIS. LUNG MASS W/LIVER METS. COPD,. 98.0 95 21 156/95 94% 2L NC IS;NORCO PO Q4 PRN ZENPEP PO TID HYDRALAZINE PO Q8 IVF D5W @ 100 ML/HR NORVASC PO WD PROTONIX PO QD LOPRESSOR PO Q12 SOMA PO Q8 MED SURG STATUS DCP;SNF PLACEMENT
[2020-02-01 16:02] VITALS: BP 127/75
--- NOTE | 2020-02-01 16:09 | Cardiac Electrophysiology PN ---
Assessment/Plan Assessment/Plan 1. Accelerated hypertension. On amlodipine 5 mg daily, metoprolol 50 mg bid, Hydralazine 25 mg tid and p.r.n. clonidine 2. Lung masses. This is likely metastasis. 3. Liver mass. S/P Liver Biopsy 01/27/20. Most likely metastatic deposits, also previously reported Multiple osseous lesions, 4. DVT. On Eliquis 5 bid 5. History of cervical stenosis and pain. PELON RN Subjective Subjective Comfortable in NAD. S/P CT guided Liver biopsy. [facility] denied lateral transfer. Family refused SNIF. DC home with HH pending Objective Last 24 Hour Vital Signs Date Time Temp Pulse Resp B/P (MAP) Pulse Ox O2 Delivery O2 Flow Rate FiO2 02/01/20 16:02 98.6 90 20 127/75 (92) 97 02/01/20 15:05 148/79 02/01/20 12:00 98.0 75 18 148/79 (102) 99 02/01/20 09:23 95 156/95 02/01/20 09:22 95 156/95 02/01/20 09:00 Nasal Cannula 2.0 02/01/20 08:00 97.3 95 21 156/95 (115) 94 02/01/20 07:59 97.3 02/01/20 06:37 98.1 02/01/20 06:07 162/92 02/01/20 04:00 98.2 90 19 140/67 (91) 96 02/01/20 00:00 98.1 89 19 142/70 (94) 97 01/31/20 21:42 142/80 01/31/20 21:00 Nasal Cannula 2.0 01/31/20 20:34 94 150/91 01/31/20 20:00 98.2 87 19 156/77 (103) 96 Intake and Output 01/31/20 02/01/20 19:00 07:00 Intake Total 1020.0 ml 1310.0 ml Balance 1020.0 ml 1310.0 ml Intake Oral 200 ml IV Total 520.0 ml 1110.0 ml Other 500 ml # Voids 1 # Bowel Movements 1 1 Objective HEAD AND NECK: Showed no JVD. LUNGS: Clear. CARDIOVASCULAR: Shows regular S1 and S2 with no gallop or murmur. ABDOMEN: Soft. EXTREMITIES: No pitting edema. Jimmy Moreno MD Feb 01, 2020 16:09
--- NOTE | 2020-02-01 16:44 | NUR ---
WALLPAPER CONSULTANT NOTE S/W PATIENTS MOTHER MRS. QUIROGA AT BEDSIDE AND INFORMED OF DISCHARGE WITH PLAN TO TRANSFER TO [facility]. INFORMED OF AMBULANCE TRANSPORTATION SCHEDULED FOR 1729. VERBALIZED HER CONCERNS FOR PATIENT, HOWEVER DID NOT DISAGREE WITH DISCHARGE OR TRANSFER.
--- NOTE | 2020-02-01 18:39 | NUR ---
NURSE NOTES: patient had BM soft large amount, soiled Lidoderm patch. Informed pharmacy, got order and applied replacement. Patient's mother at bedside, nurse informed her she's preparing patient for discharge to [facility]. Patient's mother refused the transfer. This RN asked where she'd like patient to go, she responded: "home". KENZIE Ritchie present, helping nurse to clean patient, witnessed the conversation. Notified RODRIGUEZ Dobbs, nurse roustabout supervisor Moni. Message dr Cobb regarding the refusal.
--- NOTE | 2020-02-01 19:17 | NUR ---
NURSE HAND-OFF: Important Events on Shift:[patient's mother challenge the discharge, discharge ordering physician dr. Cobb notified.] Patient Status: [stable] Diet: [Reg mech soft chopped] Pending Orders: [AML: CBC, CMP,lipase,amylase] Pending Results/Labs:[] Pending MD notification:[] Latest Vital Signs: Temperature 98.6 , Pulse 90 , B/P 127 /75 , Respiratory Rate 20 , O2 SAT 97 , Nasal Cannula, O2 Flow Rate 2.0 . Vital Sign Comment: [] Latest Guido Fall Score: 45 Fall Risk: High Risk Safety Measures: Call light Within Reach, Bed Alarm Zone 1, Side Rails Side Rails x2, Bed position Low and Locked. Fall Precautions: yellow gown, yellow socks, sign at door, bed alarm Patient Fall Education Report given to [SHAN Torrez].
--- NOTE | 2020-02-01 19:40 | NUR ---
NURSE NOTES: Received report from Rere TORREZ, The patient is alert and oriented x4 with mother at bed side.She is Room air with Resp even and unlabored. She is bedbound and has a R. hand 22g IV line that is patent and asymptomatic running D5 1/2 NS with 20 KCL @ 100 ml/hr well tolerated. Bed in low and lock position, siderails x2, call light within easy reach and will followup with for pain management.
[2020-02-01 20:00] VITALS: BP 125/76
[2020-02-01] MEDS: Miralax 17gm pkt ORAL SCH (21:00)
--- NOTE | 2020-02-01 21:00 | NUR ---
NURSE NOTES:Patients brother Thom Marquez called,spoke at great length,verbalized being upset at the way that security had spoken with him earlier.and now requuesting that patient be transfered to [facility],for cancer treatment, aware that [facility] is not accepting, requests that the doctors on the case call him and update him re status and biopsy reports.Will pass this on to am shift.
[2020-02-01] MEDS: LORazepam 1mg tab ORAL PRN (21:48)
--- NOTE | 2020-02-01 22:18 | General Progress Note ---
Assessment/Plan Problem List: (1) Fever ICD Codes: R50.9 - Fever, unspecified SNOMED: 347363358 (2) Lung mass ICD Codes: R91.8 - Other nonspecific abnormal finding of lung field SNOMED: 400449879 (3) Right flank pain ICD Codes: R10.9 - Unspecified abdominal pain SNOMED: 559925321 (4) Rheumatoid arthritis ICD Codes: M06.9 - Rheumatoid arthritis, unspecified SNOMED: 83287586 (5) Diverticulosis ICD Codes: K57.90 - Diverticulosis of intestine, part unspecified, without perforation or abscess without bleeding SNOMED: 339352076 (6) Acute pancreatitis ICD Codes: K85.90 - Acute pancreatitis without necrosis or infection, unspecified SNOMED: 586605550 (7) Metastatic disease ICD Codes: C79.9 - Secondary malignant neoplasm of unspecified site SNOMED: 738117215 Status: progressing Assessment/Plan: pancreatitis is improving diverticulosis afebrile check lipase no acute events Subjective ROS Limited/Unobtainable: Yes Allergies: Coded Allergies: IBUPROFEN (Verified Allergy, Mild, 10/05/09) CORTICOSTEROIDS (GLUCOCORTICOIDS) (Unverified Allergy, Unknown, 01/22/20) Objective Last 24 Hour Vital Signs Date Time Temp Pulse Resp B/P (MAP) Pulse Ox O2 Delivery O2 Flow Rate FiO2 02/01/20 21:28 87 125/76 02/01/20 21:27 125/76 02/01/20 20:00 97.7 87 22 125/76 (92) 97 02/01/20 19:50 97 Nasal Cannula 2.0 28 02/01/20 16:02 98.6 90 20 127/75 (92) 97 02/01/20 15:36 98.6 02/01/20 15:36 98.6 02/01/20 15:05 148/79 02/01/20 12:00 98.0 75 18 148/79 (102) 99 02/01/20 09:23 95 156/95 02/01/20 09:22 95 156/95 02/01/20 09:00 Nasal Cannula 2.0 02/01/20 08:00 97.3 95 21 156/95 (115) 94 02/01/20 07:59 97.3 02/01/20 06:07 162/92 02/01/20 04:00 98.2 90 19 140/67 (91) 96 02/01/20 00:00 98.1 89 19 142/70 (94) 97 Intake and Output 01/31/20 02/01/20 19:00 07:00 Intake Total 1020.0 ml 1310.0 ml Balance 1020.0 ml 1310.0 ml Intake Oral 200 ml IV Total 520.0 ml 1110.0 ml Other 500 ml # Voids 1 # Bowel Movements 1 1 Height (Feet): 5 Height (Inches): 5.00 Weight (Pounds): 134 Leatha Kauffman MD Feb 01, 2020 22:18
[2020-02-02] VITALS: BP 118/75
--- NOTE | 2020-02-02 01:00 | NUR ---
NURSE NOTES: Received a call from the Patient brother, He wants the Patient physicians precisely Dr. Ayala to call him.He also requested that the patient be transfer to the [facility].
[2020-02-02] MEDS: HYDROcodone/Acetamin 10/325 tab ORAL PRN ×2 (02:05→09:41)
[2020-02-02 04:00] VITALS: BP 165/81
--- NOTE | 2020-02-02 04:00 | NUR ---
NURSE NOTES: The patient was able to sleep all night long but was help with turning and re-position. She was able to have a large Bowel movement last night that was soft . She complained of pain pain and was given Orrum 5/325 PRN twice and it was well tolerated. The patient also received Ativan due to agitations and anxiousness about what is going on in her life. Will continue to monitor as indicated.
[2020-02-02] MEDS: HydrALAZINE 50mg tab ORAL SCH ×2 (06:19→13:01)
--- NOTE | 2020-02-02 06:51 | Hematology/Onc Progress Note ---
Assessment/Plan Assessment/Plan #. 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 Origin is likely lung. --> Targeted ultrasound-guided biopsy of right lobe liver lesion, as described. Final pathology shows adenoca --> dw path, report is pending --> CT does show Multiple low-attenuation liver masses, most likely metastatic deposits, also previously reported Multiple osseous lesions, also previously reported, likely metastatic deposits --> tumor markers reviewed, ca 19.9 78, cea 8 --> given current bedbound status, will eval if qualifies for treatment, at [facility] --> have discussed with patient and with family #. Anemia rule out gi bleed --> anemia panel has been ordered->reviewed --> ferritin in prior was low --> iron has been ordered --> per gi recs --> hgb 10.1 #. Hypertension. --> on BP meds and cards on case #. History of cervical stenosis and pain. #. Dvt ppx apixaban The time of the note does not reflect the time the patient was seen Subjective HEENT: Denies: no symptoms, eye pain, blurred vision, tearing, double vision, ear pain, ear discharge, nose pain, nose congestion, throat pain, throat swelling, mouth pain, mouth swelling, other Cardiovascular: Denies: no symptoms, chest pain, edema, irregular heart rate, lightheadedness, palpitations, syncope, other Gastrointestinal/Abdominal: Denies: no symptoms, abdomen distended, abdominal pain, black stools, tarry stools, blood in stool, constipated, diarrhea, difficulty swallowing, nausea, poor appetite, poor fluid intake, rectal bleeding , vomiting, other Genitourinary: Denies: no symptoms, burning, discharge, frequency, flank pain, hematuria, incontinence, pain, urgency, other Neurologic/Psychiatric: Denies: no symptoms, anxiety, depressed, emotional problems, headache, numbness, paresthesia, pre-existing deficit, seizure, tingling, tremors, weakness, other Endocrine: Denies: no symptoms, excessive sweating, flushing, intolerance to cold, intolerance to heat, increased hunger, increased thirst, increased urine, unexplained weight gain, unexplained weight loss, other Hematologic/Lymphatic: Denies: no symptoms, anemia, easy bleeding, easy bruising, adenopathy, other Allergies: Coded Allergies: IBUPROFEN (Verified Allergy, Mild, 10/05/09) CORTICOSTEROIDS (GLUCOCORTICOIDS) (Unverified Allergy, Unknown, 01/22/20) Subjective 01/27 spoke to patient's mother regArding plan of care 01/28 very confused int he am, due to sedatives, [facility] 01/29 patient and family agitated re discharge plan, have dw rn and charge auditor, transf cancelled for now 01/30 is on creon, zofran as well as 2lnc, no bleeding, meds noted 01/31 labs noted, no bleeding, is still on nc, comfortable, is confused 02/01 family refusing hh, hgb 10.1, no hemolysis, not a chemo candidate Objective Objective Current Medications Medications (Trade) Dose Ordered Sig/Kina Route PRN Reason Start Time Stop Time Status Last Admin Dose Admin Acetaminophen (Tylenol) 650 mg Q6H PRN ORAL Pain Scale (3-5) 01/22/20 17:45 02/21/20 17:44 01/23/20 20:43 Acetaminophen/ Hydrocodone Bitart ([place] 10/325) 1 tab Q4H PRN ORAL Severe Pain (Pain Scale 7-10) 02/01/20 10:15 02/08/20 10:14 02/02/20 02:05 Amlodipine Besylate (Norvasc) 5 mg DAILY ORAL 01/23/20 09:00 02/22/20 08:59 02/01/20 09:22 Amylase/Lipase/ Protease (Zenpep) 3 ea THREE TIMES A DAY ORAL 01/29/20 09:00 04/28/20 08:59 02/01/20 18:11 Apixaban (Eliquis) 5 mg BID ORAL 01/28/20 18:00 04/27/20 17:59 02/01/20 18:11 Bisacodyl (Dulcolax) 10 mg DAILY ORAL 01/23/20 09:00 04/22/20 08:59 02/01/20 09:23 Carisoprodol (Soma) 350 mg Q8HR ORAL 01/22/20 18:30 02/21/20 18:29 02/02/20 06:22 Dextrose/ Electrolytes 1,000 ml @ 100 mls/hr Q10H IV 01/23/20 09:30 02/22/20 09:29 02/01/20 23:57 Diphenoxylate HCl/ Atropine (Lomotil) 2.5 mg Q6H PRN ORAL Diarrhea 01/29/20 14:30 02/28/20 14:29 01/29/20 15:18 Docusate Sodium (Colace) 100 mg TWICE A DAY ORAL 01/22/20 18:00 02/21/20 17:59 02/01/20 09:22 Duloxetine HCl (Cymbalta) 90 mg DAILY ORAL 01/26/20 09:00 04/22/20 08:59 02/01/20 09:22 Hydralazine HCl (Apresoline) 50 mg Q8HR ORAL 01/23/20 14:00 04/21/20 21:59 02/02/20 06:19 Lidocaine (Lidoderm 5% PATCH) 1 patch DAILY TDERMAL 01/23/20 09:00 04/22/20 08:59 02/01/20 09:24 Lorazepam (Ativan) 1 mg Q6H PRN ORAL For Anxiety 01/29/20 08:30 02/05/20 08:29 02/01/20 21:48 Magnesium Hydroxide (Mom) 30 ml DAILYPRN PRN ORAL Constipation 01/22/20 17:45 02/21/20 17:44 Metoclopramide HCl (Reglan) 10 mg Q6H PRN IVP Nausea & Vomiting 01/24/20 10:00 02/23/20 09:59 01/24/20 16:40 Metoprolol Tartrate (Lopressor) 50 mg EVERY 12 HOURS ORAL 01/22/20 21:00 04/21/20 20:59 02/01/20 21:28 Naloxone HCl (Narcan) 0.2 mg Q2M PRN IVP RESPRITORY DEPRESSION 01/28/20 13:47 04/27/20 13:46 Ondansetron HCl (Zofran) 4 mg Q4H PRN IVP Nausea & Vomiting 01/23/20 15:15 02/22/20 15:14 01/26/20 10:59 Pantoprazole (Protonix) 40 mg DAILY ORAL 01/23/20 09:00 02/22/20 08:59 02/01/20 09:23 Polyethylene Glycol (Miralax) 17 gm BEDTIME ORAL 01/23/20 21:00 02/22/20 20:59 01/27/20 21:22 Last 24 Hour Vital Signs Date Time Temp Pulse Resp B/P (MAP) Pulse Ox O2 Delivery O2 Flow Rate FiO2 02/02/20 06:19 165/81 02/02/20 04:00 97.7 79 22 165/81 (109) 95 02/02/20 00:00 98.6 82 22 118/75 (89) 97 02/01/20 21:28 87 125/76 02/01/20 21:27 125/76 02/01/20 21:00 Nasal Cannula 2.0 02/01/20 20:00 97.7 87 22 125/76 (92) 97 02/01/20 19:50 97 Nasal Cannula 2.0 28 02/01/20 16:02 98.6 90 20 127/75 (92) 97 02/01/20 15:36 98.6 02/01/20 15:36 98.6 02/01/20 15:05 148/79 02/01/20 12:00 98.0 75 18 148/79 (102) 99 02/01/20 09:23 95 156/95 02/01/20 09:22 95 156/95 02/01/20 09:00 Nasal Cannula 2.0 02/01/20 08:00 97.3 95 21 156/95 (115) 94 02/01/20 07:59 97.3 02/01/20 06:07 162/92 02/01/20 04:00 98.2 90 19 140/67 (91) 96 02/01/20 00:00 98.1 89 19 142/70 (94) 97 01/31/20 21:42 142/80 01/31/20 21:00 Nasal Cannula 2.0 01/31/20 20:34 94 150/91 01/31/20 20:00 98.2 87 19 156/77 (103) 96 01/31/20 16:00 98.1 90 19 135/84 (101) 97 01/31/20 13:17 146/89 01/31/20 12:00 98.6 89 18 146/89 (108) 95 01/31/20 09:00 Nasal Cannula 2.0 01/31/20 08:33 83 176/98 01/31/20 08:32 83 176/98 01/31/20 08:00 97.8 83 18 176/98 (124) 95 01/31/20 07:13 159/94 Intake and Output 02/01/20 02/02/20 19:00 07:00 Intake Total 1280 ml 1360 ml Output Total 900 ml Balance 1280 ml 460 ml Intake Oral 480 ml IV Total 800 ml 1000 ml Other 360 ml Output Urine Total 900 ml # Voids 1 # Bowel Movements 1 1 Height (Feet): 5 Height (Inches): 5.00 Weight (Pounds): 134 Objective GEN: nad HEAD AND NECK: Showed no JVD. LUNGS: Clear. CARDIOVASCULAR: Shows regular S1 and S2 with no gallop or murmur. ABDOMEN: Soft. EXTREMITIES: No pitting edema. Jim Cobb MD Feb 02, 2020 06:51
--- NOTE | 2020-02-02 07:16 | NUR ---
HAND-OFF: Report given to Jose TORREZ.
--- NOTE | 2020-02-02 07:43 | NUR ---
NURSE NOTES: Received report from SHAN Young, Patient is seen in bed AAOx4, on NC 2L/M. IV site patent and intact running D5 1/2 NS with 20 KCL @ 100 ml/hr well tolerated. RN aware of discharge planning and will coordinate with case management regarding the patient's Mom's request. Breathing is unlabored and even. Not in any acute distress noted at this time Bed is locked and placed in lowest position with bed alarm on. Call light within reach. Will continue to monitor.
[2020-02-02 08:00] VITALS: BP 157/90
[2020-02-02] MEDS: DULoxetine 30mg cap ORAL SCH (08:20)
[2020-02-02] MEDS: Bisacodyl EC 5mg tab ORAL SCH (08:20)
[2020-02-02] MEDS: Pancrelipase Dr Cap ORAL SCH ×2 (08:20→13:01)
[2020-02-02] MEDS: Metoprolol Tartrate 50mg tab ORAL SCH (08:21)
[2020-02-02] MEDS: Eliquis 5mg tablet ORAL SCH (08:21)
[2020-02-02] MEDS: Docusate 100mg cap ORAL SCH (08:21)
--- NOTE | 2020-02-02 08:29 | General Progress Note ---
Assessment/Plan Assessment/Plan: (1) Abdominal Pain (2) Pancreatitis (3) Metastatic cancer/ Lung Mass (4) Lumbar DDD/ Spondylosis Patient to be continued on [place] D/w Dr. Cannon and he concurred. Subjective Date patient seen: Feb 02, 2020 Time patient seen: 07:30 - am Allergies: Coded Allergies: IBUPROFEN (Verified Allergy, Mild, 10/05/09) CORTICOSTEROIDS (GLUCOCORTICOIDS) (Unverified Allergy, Unknown, 01/22/20) Subjective Constitutional: Reports: weakness HEENT: Reports: no symptoms Cardiovascular: Reports: no symptoms Respiratory: Reports: no symptoms Gastrointestinal/Abdominal: Reports: abdominal pain Genitourinary: Reports: no symptoms Neurologic/Psychiatric: Reports: no symptoms Endocrine: Reports: no symptoms Hematologic/Lymphatic: Reports: no symptoms Subjective Patient reports that the pain has been tolerated on the [place]. She has no new complaints at this time. Objective Last 24 Hour Vital Signs Date Time Temp Pulse Resp B/P (MAP) Pulse Ox O2 Delivery O2 Flow Rate FiO2 02/02/20 08:00 97.8 90 20 157/90 (112) 95 02/02/20 06:19 165/81 02/02/20 04:00 97.7 79 22 165/81 (109) 95 02/02/20 00:00 98.6 82 22 118/75 (89) 97 02/01/20 21:28 87 125/76 02/01/20 21:27 125/76 02/01/20 21:00 Nasal Cannula 2.0 02/01/20 20:00 97.7 87 22 125/76 (92) 97 02/01/20 19:50 97 Nasal Cannula 2.0 28 02/01/20 16:02 98.6 90 20 127/75 (92) 97 02/01/20 15:36 98.6 02/01/20 15:36 98.6 02/01/20 15:05 148/79 02/01/20 12:00 98.0 75 18 148/79 (102) 99 02/01/20 09:23 95 156/95 02/01/20 09:22 95 156/95 02/01/20 09:00 Nasal Cannula 2.0 Intake and Output 02/01/20 02/02/20 19:00 07:00 Intake Total 1280 ml 1560 ml Output Total 900 ml Balance 1280 ml 660 ml Intake Oral 480 ml IV Total 800 ml 1200 ml Other 360 ml Output Urine Total 900 ml # Voids 1 # Bowel Movements 1 1 Height (Feet): 5 Height (Inches): 5.00 Weight (Pounds): 134 Objective General Appearance: no apparent distress, alert EENT: PERRL/EOMI, normal ENT inspection Neck: non-tender, normal alignment Cardiovascular: normal rate, regular rhythm Respiratory/Chest: decreased breath sounds Abdomen: tender Extremities: non-tender Edema: moderate edema Neurologic: alert, oriented x 3 Skin: warm/dry David Boyd Feb 02, 2020 08:29
[2020-02-02 09:10] LABS: BASOPHILS % (AUTO) 0.3 % (0.0-2.0); EOSINOPHILS % (AUTO) 0.2 % (0.0-3.0); HEMATOCRIT 30.5 % (37.0-47.0); HEMOGLOBIN 9.8 G/DL (12.0-16.0); LYMPHOCYTES % (AUTO) 8.5 % (20.0-45.0); MEAN CORPUSCULAR VOLUME 92 FL (80-99); MONOCYTES % (AUTO) 6.5 % (1.0-10.0); NEUTROPHILS % (AUTO) 84.5 % (45.0-75.0); PLATELET COUNT 371 K/UL (150-450); RED BLOOD COUNT 3.33 M/UL (4.20-5.40); RED CELL DISTRIBUTION WIDTH 15.8 % (11.6-14.8)
[2020-02-02 09:31] LABS: ALANINE AMINOTRANSFERASE 14 U/L (12-78); ALBUMIN 2.9 G/DL (3.4-5.0); ALBUMIN/GLOBULIN RATIO 0.7 (1.0-2.7); ALKALINE PHOSPHATASE 66 U/L (46-116); AMYLASE 246 U/L (25-115); ANION GAP 6 mmol/L (5-15); ASPARTATE AMINO TRANSFERASE 81 U/L (15-37); BILIRUBIN,TOTAL 0.2 MG/DL (0.2-1.0); BLOOD UREA NITROGEN 4 mg/dL (7-18); CALCIUM 9.8 MG/DL (8.5-10.1); CARBON DIOXIDE 32 MMOL/L (21-32); CHLORIDE 98 MMOL/L (98-107); CREATININE 0.5 MG/DL (0.55-1.30); POTASSIUM 4.5 MMOL/L (3.5-5.1); SODIUM 136 MMOL/L (136-145)
--- NOTE | 2020-02-02 09:35 | General Progress Note ---
Assessment/Plan Problem List: (1) Metastatic disease ICD Codes: C79.9 - Secondary malignant neoplasm of unspecified site SNOMED: 972092654 (2) Right flank pain ICD Codes: R10.9 - Unspecified abdominal pain SNOMED: 992089061 (3) Lung mass ICD Codes: R91.8 - Other nonspecific abnormal finding of lung field SNOMED: 389149432 (4) Acute pancreatitis ICD Codes: K85.90 - Acute pancreatitis without necrosis or infection, unspecified SNOMED: 628649090 (5) Rheumatoid arthritis ICD Codes: M06.9 - Rheumatoid arthritis, unspecified SNOMED: 96563946 (6) Diverticulosis ICD Codes: K57.90 - Diverticulosis of intestine, part unspecified, without perforation or abscess without bleeding SNOMED: 086572623 Assessment/Plan: IVF repeat labs bowel regimen CT reviewed not a good candidate for TPN given metastatic cancer creon to 9 tabs per day zofran ? need hospice eval will fu Subjective Allergies: Coded Allergies: IBUPROFEN (Verified Allergy, Mild, 10/05/09) CORTICOSTEROIDS (GLUCOCORTICOIDS) (Unverified Allergy, Unknown, 01/22/20) Subjective c/o abd pain + Flatus no bm Objective Last 24 Hour Vital Signs Date Time Temp Pulse Resp B/P (MAP) Pulse Ox O2 Delivery O2 Flow Rate FiO2 02/02/20 08:21 90 157/90 02/02/20 08:21 90 157/90 02/02/20 08:00 97.8 90 20 157/90 (112) 95 02/02/20 06:19 165/81 02/02/20 04:00 97.7 79 22 165/81 (109) 95 02/02/20 00:00 98.6 82 22 118/75 (89) 97 02/01/20 21:28 87 125/76 02/01/20 21:27 125/76 02/01/20 21:00 Nasal Cannula 2.0 02/01/20 20:00 97.7 87 22 125/76 (92) 97 02/01/20 19:50 97 Nasal Cannula 2.0 28 02/01/20 16:02 98.6 90 20 127/75 (92) 97 02/01/20 15:36 98.6 02/01/20 15:36 98.6 02/01/20 15:05 148/79 02/01/20 12:00 98.0 75 18 148/79 (102) 99 Intake and Output 02/01/20 02/02/20 19:00 07:00 Intake Total 1280 ml 1560 ml Output Total 900 ml Balance 1280 ml 660 ml Intake Oral 480 ml IV Total 800 ml 1200 ml Other 360 ml Output Urine Total 900 ml # Voids 1 # Bowel Movements 1 1 Laboratory Tests 02/02/20 08:10: White Blood Count 12.0H, Red Blood Count 3.33L, Hemoglobin 9.8L, Hematocrit 30.5L, Mean Corpuscular Volume 92, Mean Corpuscular Hemoglobin 29.4, Mean Corpuscular Hemoglobin Concent 32.0, Red Cell Distribution Width 15.8H, Platelet Count 371, Mean Platelet Volume 5.2L, Neutrophils (%) (Auto) 84.5H, Lymphocytes (%) (Auto) 8.5L, Monocytes (%) (Auto) 6.5, Eosinophils (%) (Auto) 0.2, Basophils (%) (Auto) 0.3, Sodium Level 136, Potassium Level 4.5, Chloride Level 98, Carbon Dioxide Level 32, Anion Gap 6, Blood Urea Nitrogen 4L, Creatinine 0.5L, Estimat Glomerular Filtration Rate > 60, Glucose Level 285H, Calcium Level 9.8, Total Bilirubin 0.2, Aspartate Amino Transf (AST/SGOT) 81H, Alanine Aminotransferase (ALT/SGPT) 14, Alkaline Phosphatase 66, Total Protein 6.8, Albumin 2.9L, Globulin 3.9, Albumin/Globulin Ratio 0.7L, Amylase Level 246H , Lipase > 2000H Height (Feet): 5 Height (Inches): 5.00 Weight (Pounds): 134 General Appearance: no apparent distress EENT: normal ENT inspection Neck: supple Cardiovascular: normal rate Respiratory/Chest: decreased breath sounds Abdomen: normal bowel sounds, non tender, soft Extremities: non-tender Irving Lopez MD Feb 02, 2020 09:35
[2020-02-02] MEDS: D5 1/2NS w/KCl 20mEq 1,000 ML IV SCH (09:41)
--- NOTE | 2020-02-02 10:10 | Pulmonology Progress Note ---
Subjective ROS Limited/Unobtainable: Yes Interval Events: None new Constitutional: Denies: fever, chills HEENT: Repors: no symptoms Respiratory: Reports: dry cough Cardiovascular: Reports: no symptoms Gastrointestinal/Abdominal: Denies: nausea, vomiting, diarrhea Genitourinary: Reports: no symptoms Musculoskeletal: Denies: pain Allergies: Coded Allergies: IBUPROFEN (Verified Allergy, Mild, 10/05/09) CORTICOSTEROIDS (GLUCOCORTICOIDS) (Unverified Allergy, Unknown, 01/22/20) All Systems: reviewed and negative except above Objective Last 24 Hour Vital Signs Date Time Temp Pulse Resp B/P (MAP) Pulse Ox O2 Delivery O2 Flow Rate FiO2 02/02/20 09:00 Nasal Cannula 2.0 02/02/20 08:21 90 157/90 02/02/20 08:21 90 157/90 02/02/20 08:00 97.8 90 20 157/90 (112) 95 02/02/20 06:19 165/81 02/02/20 04:00 97.7 79 22 165/81 (109) 95 02/02/20 00:00 98.6 82 22 118/75 (89) 97 02/01/20 21:28 87 125/76 02/01/20 21:27 125/76 02/01/20 21:00 Nasal Cannula 2.0 02/01/20 20:00 97.7 87 22 125/76 (92) 97 02/01/20 19:50 97 Nasal Cannula 2.0 28 02/01/20 16:02 98.6 90 20 127/75 (92) 97 02/01/20 15:36 98.6 02/01/20 15:36 98.6 02/01/20 15:05 148/79 02/01/20 12:00 98.0 75 18 148/79 (102) 99 Intake and Output 02/01/20 02/02/20 19:00 07:00 Intake Total 1280 ml 1560 ml Output Total 900 ml Balance 1280 ml 660 ml Intake Oral 480 ml IV Total 800 ml 1200 ml Other 360 ml Output Urine Total 900 ml # Voids 1 # Bowel Movements 1 1 General Appearance: no acute distress HEENT: normocephalic Respiratory: chest wall non-tender, decreased breath sounds Cardiovascular: normal rate Abdomen: normal bowel sounds Laboratory Tests 02/02/20 08:10: White Blood Count 12.0H, Red Blood Count 3.33L, Hemoglobin 9.8L, Hematocrit 30.5L, Mean Corpuscular Volume 92, Mean Corpuscular Hemoglobin 29.4, Mean Corpuscular Hemoglobin Concent 32.0, Red Cell Distribution Width 15.8H, Platelet Count 371, Mean Platelet Volume 5.2L, Neutrophils (%) (Auto) 84.5H, Lymphocytes (%) (Auto) 8.5L, Monocytes (%) (Auto) 6.5, Eosinophils (%) (Auto) 0.2, Basophils (%) (Auto) 0.3, Sodium Level 136, Potassium Level 4.5, Chloride Level 98, Carbon Dioxide Level 32, Anion Gap 6, Blood Urea Nitrogen 4L, Creatinine 0.5L, Estimat Glomerular Filtration Rate > 60, Glucose Level 285H, Calcium Level 9.8, Total Bilirubin 0.2, Aspartate Amino Transf (AST/SGOT) 81H, Alanine Aminotransferase (ALT/SGPT) 14, Alkaline Phosphatase 66, Total Protein 6.8, Albumin 2.9L, Globulin 3.9, Albumin/Globulin Ratio 0.7L, Amylase Level 246H , Lipase > 2000H Current Medications Medications (Trade) Dose Ordered Sig/Kina Route PRN Reason Start Time Stop Time Status Last Admin Dose Admin Acetaminophen (Tylenol) 650 mg Q6H PRN ORAL Pain Scale (3-5) 01/22/20 17:45 02/21/20 17:44 01/23/20 20:43 Acetaminophen/ Hydrocodone Bitart ([place] 10/325) 1 tab Q4H PRN ORAL Severe Pain (Pain Scale 7-10) 02/01/20 10:15 02/08/20 10:14 02/02/20 09:41 Amlodipine Besylate (Norvasc) 5 mg DAILY ORAL 01/23/20 09:00 02/22/20 08:59 02/02/20 08:21 Amylase/Lipase/ Protease (Zenpep) 3 ea THREE TIMES A DAY ORAL 01/29/20 09:00 04/28/20 08:59 02/02/20 08:20 Apixaban (Eliquis) 5 mg BID ORAL 01/28/20 18:00 04/27/20 17:59 02/02/20 08:21 Bisacodyl (Dulcolax) 10 mg DAILY ORAL 01/23/20 09:00 04/22/20 08:59 02/02/20 08:20 Carisoprodol (Soma) 350 mg Q8HR ORAL 01/22/20 18:30 02/21/20 18:29 02/02/20 06:22 Dextrose/ Electrolytes 1,000 ml @ 100 mls/hr Q10H IV 01/23/20 09:30 02/22/20 09:29 02/02/20 09:41 Diphenoxylate HCl/ Atropine (Lomotil) 2.5 mg Q6H PRN ORAL Diarrhea 01/29/20 14:30 02/28/20 14:29 01/29/20 15:18 Docusate Sodium (Colace) 100 mg TWICE A DAY ORAL 01/22/20 18:00 02/21/20 17:59 02/02/20 08:21 Duloxetine HCl (Cymbalta) 90 mg DAILY ORAL 01/26/20 09:00 04/22/20 08:59 02/02/20 08:20 Hydralazine HCl (Apresoline) 50 mg Q8HR ORAL 01/23/20 14:00 04/21/20 21:59 02/02/20 06:19 Lidocaine (Lidoderm 5% PATCH) 1 patch DAILY TDERMAL 01/23/20 09:00 04/22/20 08:59 02/02/20 08:21 Lorazepam (Ativan) 1 mg Q6H PRN ORAL For Anxiety 01/29/20 08:30 02/05/20 08:29 02/01/20 21:48 Magnesium Hydroxide (Mom) 30 ml DAILYPRN PRN ORAL Constipation 01/22/20 17:45 02/21/20 17:44 Metoclopramide HCl (Reglan) 10 mg Q6H PRN IVP Nausea & Vomiting 01/24/20 10:00 02/23/20 09:59 01/24/20 16:40 Metoprolol Tartrate (Lopressor) 50 mg EVERY 12 HOURS ORAL 01/22/20 21:00 04/21/20 20:59 02/02/20 08:21 Naloxone HCl (Narcan) 0.2 mg Q2M PRN IVP RESPRITORY DEPRESSION 01/28/20 13:47 04/27/20 13:46 Ondansetron HCl (Zofran) 4 mg Q4H PRN IVP Nausea & Vomiting 01/23/20 15:15 02/22/20 15:14 01/26/20 10:59 Pantoprazole (Protonix) 40 mg DAILY ORAL 01/23/20 09:00 02/22/20 08:59 02/02/20 08:20 Polyethylene Glycol (Miralax) 17 gm BEDTIME ORAL 01/23/20 21:00 02/22/20 20:59 01/27/20 21:22 Assessment/Plan Assessment/Plan IMPRESSION: 1. Large lung mass. 2. COPD. 3. History of spinal stenosis. 4. Multiple metastases DISCUSSION: The patient has a history of lung cancer per GI; however patient declines any knowledge. Discussed with oncology S/p CT guided liver biopsy. I will follow. Saturating well on 2L/min O2 OK to dc and arrange outpt followup Reymundo Vázquez MD Feb 02, 2020 10:10
--- NOTE | 2020-02-02 11:05 | Infectious Diseases Prog Note ---
Assessment/Plan Assessment/Plan antibiotics : none A 1. Pancreatitis. 2. Lung mass with liver metastasis. 3. COPD. 4. Hypertension P 1. observe off antibiotics 2. will follow up cultures Subjective ROS Limited/Unobtainable: Yes Allergies: Coded Allergies: IBUPROFEN (Verified Allergy, Mild, 10/05/09) CORTICOSTEROIDS (GLUCOCORTICOIDS) (Unverified Allergy, Unknown, 01/22/20) Objective Last 24 Hour Vital Signs Date Time Temp Pulse Resp B/P (MAP) Pulse Ox O2 Delivery O2 Flow Rate FiO2 02/02/20 09:00 Nasal Cannula 2.0 02/02/20 08:21 90 157/90 02/02/20 08:21 90 157/90 02/02/20 08:00 97.8 90 20 157/90 (112) 95 02/02/20 06:19 165/81 02/02/20 04:00 97.7 79 22 165/81 (109) 95 02/02/20 00:00 98.6 82 22 118/75 (89) 97 02/01/20 21:28 87 125/76 02/01/20 21:27 125/76 02/01/20 21:00 Nasal Cannula 2.0 02/01/20 20:00 97.7 87 22 125/76 (92) 97 02/01/20 19:50 97 Nasal Cannula 2.0 28 02/01/20 16:02 98.6 90 20 127/75 (92) 97 02/01/20 15:36 98.6 02/01/20 15:36 98.6 02/01/20 15:05 148/79 02/01/20 12:00 98.0 75 18 148/79 (102) 99 Height (Feet): 5 Height (Inches): 5.00 Weight (Pounds): 134 Respiratory/Chest: lungs clear Cardiovascular: normal rate, regular rhythm, no gallop/murmur Abdomen: soft, non tender Extremities: no edema Laboratory Tests Test 02/02/20 08:10 White Blood Count 12.0 K/UL (4.8-10.8) H Red Blood Count 3.33 M/UL (4.20-5.40) L Hemoglobin 9.8 G/DL (12.0-16.0) L Hematocrit 30.5 % (37.0-47.0) L Mean Corpuscular Volume 92 FL (80-99) Mean Corpuscular Hemoglobin 29.4 PG (27.0-31.0) Mean Corpuscular Hemoglobin Concent 32.0 G/DL (32.0-36.0) Red Cell Distribution Width 15.8 % (11.6-14.8) H Platelet Count 371 K/UL (150-450) Mean Platelet Volume 5.2 FL (6.5-10.1) L Neutrophils (%) (Auto) 84.5 % (45.0-75.0) H Lymphocytes (%) (Auto) 8.5 % (20.0-45.0) L Monocytes (%) (Auto) 6.5 % (1.0-10.0) Eosinophils (%) (Auto) 0.2 % (0.0-3.0) Basophils (%) (Auto) 0.3 % (0.0-2.0) Sodium Level 136 MMOL/L (136-145) Potassium Level 4.5 MMOL/L (3.5-5.1) Chloride Level 98 MMOL/L (98-107) Carbon Dioxide Level 32 MMOL/L (21-32) Anion Gap 6 mmol/L (5-15) Blood Urea Nitrogen 4 mg/dL (7-18) L Creatinine 0.5 MG/DL (0.55-1.30) L Estimat Glomerular Filtration Rate > 60 mL/min (>60) Glucose Level 285 MG/DL (74-106) H Calcium Level 9.8 MG/DL (8.5-10.1) Total Bilirubin 0.2 MG/DL (0.2-1.0) Aspartate Amino Transf (AST/SGOT) 81 U/L (15-37) H Alanine Aminotransferase (ALT/SGPT) 14 U/L (12-78) Alkaline Phosphatase 66 U/L (46-116) Total Protein 6.8 G/DL (6.4-8.2) Albumin 2.9 G/DL (3.4-5.0) L Globulin 3.9 g/dL Albumin/Globulin Ratio 0.7 (1.0-2.7) L Amylase Level 246 U/L (25-115) H Lipase > 2000 U/L (73-393) H Current Medications Medications (Trade) Dose Ordered Sig/Kina Route PRN Reason Start Time Stop Time Status Last Admin Dose Admin Acetaminophen (Tylenol) 650 mg Q6H PRN ORAL Pain Scale (3-5) 01/22/20 17:45 02/21/20 17:44 01/23/20 20:43 Acetaminophen/ Hydrocodone Bitart ([place] 10/325) 1 tab Q4H PRN ORAL Severe Pain (Pain Scale 7-10) 02/01/20 10:15 02/08/20 10:14 02/02/20 09:41 Amlodipine Besylate (Norvasc) 5 mg DAILY ORAL 01/23/20 09:00 02/22/20 08:59 02/02/20 08:21 Amylase/Lipase/ Protease (Zenpep) 3 ea THREE TIMES A DAY ORAL 01/29/20 09:00 04/28/20 08:59 02/02/20 08:20 Apixaban (Eliquis) 5 mg BID ORAL 01/28/20 18:00 04/27/20 17:59 02/02/20 08:21 Bisacodyl (Dulcolax) 10 mg DAILY ORAL 01/23/20 09:00 04/22/20 08:59 02/02/20 08:20 Carisoprodol (Soma) 350 mg Q8HR ORAL 01/22/20 18:30 02/21/20 18:29 02/02/20 06:22 Dextrose/ Electrolytes 1,000 ml @ 100 mls/hr Q10H IV 01/23/20 09:30 02/22/20 09:29 02/02/20 09:41 Diphenoxylate HCl/ Atropine (Lomotil) 2.5 mg Q6H PRN ORAL Diarrhea 01/29/20 14:30 02/28/20 14:29 01/29/20 15:18 Docusate Sodium (Colace) 100 mg TWICE A DAY ORAL 01/22/20 18:00 02/21/20 17:59 02/02/20 08:21 Duloxetine HCl (Cymbalta) 90 mg DAILY ORAL 01/26/20 09:00 04/22/20 08:59 02/02/20 08:20 Hydralazine HCl (Apresoline) 50 mg Q8HR ORAL 01/23/20 14:00 04/21/20 21:59 02/02/20 06:19 Lidocaine (Lidoderm 5% PATCH) 1 patch DAILY TDERMAL 01/23/20 09:00 04/22/20 08:59 02/02/20 08:21 Lorazepam (Ativan) 1 mg Q6H PRN ORAL For Anxiety 01/29/20 08:30 02/05/20 08:29 02/01/20 21:48 Magnesium Hydroxide (Mom) 30 ml DAILYPRN PRN ORAL Constipation 01/22/20 17:45 02/21/20 17:44 Metoclopramide HCl (Reglan) 10 mg Q6H PRN IVP Nausea & Vomiting 01/24/20 10:00 02/23/20 09:59 01/24/20 16:40 Metoprolol Tartrate (Lopressor) 50 mg EVERY 12 HOURS ORAL 01/22/20 21:00 04/21/20 20:59 02/02/20 08:21 Naloxone HCl (Narcan) 0.2 mg Q2M PRN IVP RESPRITORY DEPRESSION 01/28/20 13:47 04/27/20 13:46 Ondansetron HCl (Zofran) 4 mg Q4H PRN IVP Nausea & Vomiting 01/23/20 15:15 02/22/20 15:14 01/26/20 10:59 Pantoprazole (Protonix) 40 mg DAILY ORAL 01/23/20 09:00 02/22/20 08:59 02/02/20 08:20 Polyethylene Glycol (Miralax) 17 gm BEDTIME ORAL 01/23/20 21:00 02/22/20 20:59 01/27/20 21:22 Jose Juan Estrada MD Feb 02, 2020 11:04
--- NOTE | 2020-02-02 11:45 | Progress Note ---
DATE: 02/02/2020 SUBJECTIVE: This is a 64-year-old female patient with pancreatitis. She has got altered mental status, confusion, decline in cognition below baseline and mood lability that is why her attending has requested daily psychiatric consultation at this time. She has got feelings of helplessness, hopelessness, low energy, poor appetite, loss of interest in activity. She has got rheumatoid arthritis, acute pancreatitis, diverticulosis, fever, lung mass that is why her attending has requested daily psychiatric consultation. DIAGNOSIS: Major depressive disorder, mild, recurrent with psychotic features, rule out dementia with psychosis. PLAN: Treat her with Ativan 1 mg every 6 hours p.r.n. anxiety and agitation and also Cymbalta 90 mg daily. Twenty minutes of cognitive behavioral therapy to help her identify automatic negative thoughts and help her convert negative thoughts to more positive thoughts to reduce depression, anxiety, and mood lability. Chart was reviewed and discussed with staff. Seen and assessed at bedside. Margo Perez M.D. DR: José Luis JOB#: [id number] CC:
[2020-02-02 12:00] VITALS: BP 152/70
--- NOTE | 2020-02-02 12:25 | NUR ---
CASE MANAGEMENT: DCP UPON DISCHARGE PATIENT WILL TRANSFER TO: [facility] ROOM [address] T: [phone]>> CALL FOR REPORT PATIENT AND FAMILY IN AGREEMENT WITH PATIENT TRANSFERRING TO THIS FACILITY TRANSPORTATION VIA [facility] [phone] 15:00 COAL SAMPLER TIME
[2020-02-02 13:01] VITALS: BP 152/70
--- NOTE | 2020-02-02 14:10 | General Progress Note ---
Assessment/Plan Problem List: (1) Fever ICD Codes: R50.9 - Fever, unspecified SNOMED: 197574536 (2) Lung mass ICD Codes: R91.8 - Other nonspecific abnormal finding of lung field SNOMED: 326211828 (3) Right flank pain ICD Codes: R10.9 - Unspecified abdominal pain SNOMED: 114543455 (4) Rheumatoid arthritis ICD Codes: M06.9 - Rheumatoid arthritis, unspecified SNOMED: 29464704 (5) Diverticulosis ICD Codes: K57.90 - Diverticulosis of intestine, part unspecified, without perforation or abscess without bleeding SNOMED: 321544341 (6) Acute pancreatitis ICD Codes: K85.90 - Acute pancreatitis without necrosis or infection, unspecified SNOMED: 619448785 (7) Metastatic disease ICD Codes: C79.9 - Secondary malignant neoplasm of unspecified site SNOMED: 160767461 Assessment/Plan: pancreatitis is improving diverticulosis abdominal pain is improving afebrile no acute events Subjective ROS Limited/Unobtainable: Yes Allergies: Coded Allergies: IBUPROFEN (Verified Allergy, Mild, 10/05/09) CORTICOSTEROIDS (GLUCOCORTICOIDS) (Unverified Allergy, Unknown, 01/22/20) Objective Last 24 Hour Vital Signs Date Time Temp Pulse Resp B/P (MAP) Pulse Ox O2 Delivery O2 Flow Rate FiO2 02/02/20 13:01 152/70 02/02/20 12:00 97.8 71 19 152/70 (97) 95 02/02/20 09:00 Nasal Cannula 2.0 02/02/20 08:21 90 157/90 02/02/20 08:21 90 157/90 02/02/20 08:00 97.8 90 20 157/90 (112) 95 02/02/20 06:19 165/81 02/02/20 04:00 97.7 79 22 165/81 (109) 95 02/02/20 00:00 98.6 82 22 118/75 (89) 97 02/01/20 21:28 87 125/76 02/01/20 21:27 125/76 02/01/20 21:00 Nasal Cannula 2.0 02/01/20 20:00 97.7 87 22 125/76 (92) 97 02/01/20 19:50 97 Nasal Cannula 2.0 28 02/01/20 16:02 98.6 90 20 127/75 (92) 97 02/01/20 15:36 98.6 02/01/20 15:36 98.6 02/01/20 15:05 148/79 Intake and Output 02/01/20 02/02/20 19:00 07:00 Intake Total 1280 ml 1560 ml Output Total 900 ml Balance 1280 ml 660 ml Intake Oral 480 ml IV Total 800 ml 1200 ml Other 360 ml Output Urine Total 900 ml # Voids 1 # Bowel Movements 1 1 Laboratory Tests 02/02/20 08:10: White Blood Count 12.0H, Red Blood Count 3.33L, Hemoglobin 9.8L, Hematocrit 30.5L, Mean Corpuscular Volume 92, Mean Corpuscular Hemoglobin 29.4, Mean Corpuscular Hemoglobin Concent 32.0, Red Cell Distribution Width 15.8H, Platelet Count 371, Mean Platelet Volume 5.2L, Neutrophils (%) (Auto) 84.5H, Lymphocytes (%) (Auto) 8.5L, Monocytes (%) (Auto) 6.5, Eosinophils (%) (Auto) 0.2, Basophils (%) (Auto) 0.3, Sodium Level 136, Potassium Level 4.5, Chloride Level 98, Carbon Dioxide Level 32, Anion Gap 6, Blood Urea Nitrogen 4L, Creatinine 0.5L, Estimat Glomerular Filtration Rate > 60, Glucose Level 285H, Calcium Level 9.8, Total Bilirubin 0.2, Aspartate Amino Transf (AST/SGOT) 81H, Alanine Aminotransferase (ALT/SGPT) 14, Alkaline Phosphatase 66, Total Protein 6.8, Albumin 2.9L, Globulin 3.9, Albumin/Globulin Ratio 0.7L, Amylase Level 246H , Lipase > 2000H Height (Feet): 5 Height (Inches): 5.00 Weight (Pounds): 134 Leatha Kauffman MD Feb 02, 2020 14:10
--- NOTE | 2020-02-02 16:30 | NUR ---
NURSE NOTES: RN gave report to supervisor pipe joints Lisandro at [facility]. Patient is AAOx3, on NC 2L/M, RN made Lisandro aware that patient is discharged in stable condition. Patient was picked up by ambulance personnel with belongings checked and accounted for and signed by patient. IV site removed. Patient does not complain of any pain upon discharge.
--- NOTE | 2020-02-02 17:00 | NUR ---
NURSE NOTES: Upon discharge the patients Mom stopped and was refusing for the daughter to be transported to the SNF. Per Case Management Tereorrmarcelle, RN was told to tell ambulance personnel to continue to the transportation since the patient is coherent. RN was told by case management to tell the Mom that even though she has the power of deputy attorney general, it doesnt give her the right to make decision if the patient is still alert and oriented. The Mom verbalized "I dont care, i have the paper works here that shows i can make decision for her, i dont want her going to that facility". I informed the Mom that the patient agreed to going to the SNF, but mother continuously says "shes not able to make decision shes in pain" The mother delayed transportation and was holding on to the rney and not letting the ambulance personnel transport patient to SNF. After Case management went down and talked to patient and Mother the patient was able to be transported and left the facility
--- NOTE | 2020-02-04 12:09 | Discharge Summary ---
Discharge Summary Discharge Summary _ DATE OF ADMISSION: 01/22/2020 DATE OF DISCHARGE: 02/02/2020 DISCHARGED BY: Dr. Butt REASON FOR ADMISSION: 64 years old female with past medical history of COPD, hypertension, spinal stenosis, presented with right-sided abdominal pain. Patient reported having right-sided abdominal pain and flank pain for the past few days. Pain described as aching , 8-10 on a scale 1-10 associated with mild nausea , but no vomiting. Patient reported dysuria She denied fevers. Upon evaluation vital signs were stable Laboratory work-up revealed no leukocytosis, noted anemia with hemoglobin 10.7, hematocrit 33.3, platelet count 441. Stable electrolytes and renal parameters. Glucose 127. AST 98, ALT 15. Lipase 1427. Urinalysis revealed no evidence of urinary tract infection. Rapid COVID-19 in emergency department was negative. CT scan of the abdomen and pelvis revealed large lobulated mass at the right lung base abutting the right heart margin. Multiply low-density masses in the liver, likely metastatic. Also lucent lesions in the lumbar spine, likely metastatic. Small stable low-density left adrenal nodule unchanged since 2018 likely cortical adenoma. Diverticulosis. In emergency department patient was medicated for pain, received IV hydration and admitted for further management. CONSULTANTS: stacker driver Dr. Slaughter pulmonary Dr. Vázquez ID specialist Dr. Estrada GI specialist Dr. Lopez psychiatrist Dr. Perez pain specialist Dr. Cannon dye and chemical coordinator/oncologist Dr. Cobb [facility] COURSE: Patient provided with IV hydration and was kept n.p.o. Pain management was addressed as per pain specialist recommendation. Stool for C. difficile was negative. GI specialist recommended liver biopsy. Ultra sound guided liver biopsy was positive for metastatic adenocarcinoma. Antiemetic provided as needed Patient started on Creon. LFT trended, remained elevated along with lipase and amylase. Cancer tumor markers revealed CA-19-9 - 78, CEA - 9.2. Per oncologist, patient had metastatic adenocarcinoma with origin likely in lung. ID specialist recommended to keep patient off antibiotic and monitor clinically. Patient had mild leukocytosis most likely due to metastatic disease, No evidence of infection. Patient demonstrated accelerated hypertension . Antihypertensive regimen was optimized as per stacker driver and consisted of calcium channel gerardo, beta-gerardo and hydralazine. Clonidine was on board as needed for blood pressure spikes. Supplemental oxygen was on board as needed to keep pulse oximetry above 92%. Pulmonary toilet provided as needed. Pulse oximetry remained stable on 2 L of oxygen via nasal cannula. Patient with a history of DVT. Eliquis continued. Psychiatrist followed. Psychiatric medication regimen optimized. Patient was on Cymbalta and anxiolytic provided as needed. Cognitive behavioral therapy provided. Plan was initially to transfer patient to [facility] for further management. [facility] declined lateral transfer. Overall prognosis remained poor. Consultants recommended to consider hospice evaluation. Patient subsequently was discharged to longterm facility. FINAL DIAGNOSES: Acute pancreatitis Stage IV metastatic adenocarcinoma origin Metastatic disease/metastatic adenocarcinoma Large lung mass with liver metastasis COPD Accelerated hypertension DVT History of cervical stenosis Major depressive disorder, mild, recurrent with psychotic features DISCHARGE MEDICATIONS: See Medication Reconciliation list. DISCHARGE INSTRUCTIONS: Patient was discharged to the longterm facility. Follow up with medical doctor at the facility. 64 years old female I have been assigned to dictate discharge summary for this account. I was not involved in the patient's management. Vicenta Brown NP Feb 04, 2020 12:09
== END 2020-02-02 16:59 | DRG 435 ==
LOC: EDBD 09:31 → EMR 09:50 → EDBEDREQ 11:03 → 4E 12:39
PROC: 0FB13ZX Excision of Right Lobe Liver, Percutaneous Approach, Diagnostic (ICD-10-PCS; principal; 2020-01-27)
DX: C78.7 Secondary malignant neoplasm of liver and intrahepatic bile duct (principal); K85.90 Acute pancreatitis without necrosis or infection, unspecified; C79.51 Secondary malignant neoplasm of bone; F33.0 Major depressive disorder, recurrent, mild; Z85.118 Personal history of other malignant neoplasm of bronchus and lung; J44.9 Chronic obstructive pulmonary disease, unspecified; M06.9 Rheumatoid arthritis, unspecified; Z88.6 Allergy status to analgesic agent; Z88.8 Allergy status to other drugs, medicaments and biological substances; I10 Essential (primary) hypertension; F17.200 Nicotine dependence, unspecified, uncomplicated; E83.52 Hypercalcemia; Z79.01 Long term (current) use of anticoagulants; K57.90 Diverticulosis of intestine, part unspecified, without perforation or abscess without bleeding; M47.896 Other spondylosis, lumbar region; M51.36 Other intervertebral disc degeneration, lumbar region; M48.02 Spinal stenosis, cervical region
CPT/HCPCS: 36415; 74176; 74177; 76942; 80048; 80053; 80061; 81003; 82150; 82378; 82728; 83540; 83550; 83690; 85007; 85025; 85610; 85730; 87324; 96361; 96374; 96376; 97803; 99285; J2405; J2765; J8499; U0002